=== PATIENT | female | born 1940 | race Caucasian/White ===

== ENCOUNTER 2022-04-18 17:58 | Observation (INO) | payer MEDICARE, OTHER ==
[2022-04-18] MEDS ORDERED: ONDANSETRON 4 MG/2 ML VIAL IVP STA (18:29)
[2022-04-18] MEDS ORDERED: SODIUM CHLORIDE 0.9% 1,000 ML IV STA (18:29)
--- NOTE | 2022-04-18 18:33 | ED ---
General Adult HPI - General Chief complaint: Abdominal Pain Stated complaint: altered Time Seen by Provider: 04/18/22 18:00 Source: patient, EMS Mode of arrival: EMS Limitations: altered mental status - History of Present Illness Initial comments: Dictation was produced using [employer] dictation software. please excuse any grammatical, word or spelling errors. Chief Complaint: 82-year-old female brought in by EMS for abdominal pain and episode of unresponsiveness. History of Present Illness: 82-year-old female brought in from home by EMS. Patient is 82-year-old female that lives with an 85-year-old female. Patient states she's been nauseated having some abdominal cramping. Patient denies any abdominal pain now. She has had some nausea but no vomiting. She feels like her symptoms be better if she did vomit. Denies any fever or constitutional symptoms. No sore throat or runny nose. This morning she appeared to be fine. Son at the bedside reports that patient sounded well on the phone. According to EMS patient took some of her roommates medications. There was no witnessed tonic-clonic activity. The patient had some sort of postictal state. The ROS documented in this emergency department record has been reviewed and confirmed by me. Those systems with pertinent positive or negative responses have been documented in the HPI. All other systems are other negative and/or noncontributory. PHYSICAL EXAM: General Impression: Alert and oriented x3, not in acute distress HEENT: Normocephalic atraumatic, extra-ocular movements intact, pupils equal and reactive to light bilaterally, mucous membranes moist. Cardiovascular: Heart regular rate and rhythm Chest: Able to complete full sentences, no retractions, no tachypnea Abdomen: abdomen soft, non-tender, non-distended, no organomegaly Musculoskeletal: Pulses present and equal in all extremities, no peripheral edema Motor: no focal deficits noted Neurological: CN II-XII grossly intact, no focal motor or sensory deficits noted Skin: Intact with no visualized rashes Psych: Normal affect and mood ED course: 82 y Old female presents emergency department for nausea, episode of unresponsiveness. Signs upon arrival are within acceptable limits. EKG shows a regular rhythm is regular visit. The eyes concerning for ectopic atrial bradycardia. Labs were evaluation obtained. CBC and coag panel unremarkable. Metabolic panel shows mild acidosis. His labs within acceptable limits. 4 panel viral PCR is negative. Pending urine study. Computed tomography scan of the brain shows no acute processes. Patient monitored in the emergency department for approximately 2 hours and 40 minutes. Reevaluated patient at 8:40 PM found to be in stable medical condition. Given patient's age and history of present illness concerned that patient syncopized or have an episode of seizure. She has not had any complications on emergency room. I do believe patient would benefit from observation admission for cardiac monitoring. Patient be admitted to [facility]. EKG interpretation: Ventricular rate 53, NC interval 169, cruciate 9, QTc 435. No NC prolongation, no QTC prolongation, no ST or T-wave changes noted. \ Overall, this EKG is unremarkable - Related Data Home Medications Medication Instructions Recorded Confirmed No Known Home Medications 04/18/22 04/18/22 Allergies Allergy/AdvReac Type Severity Reaction Status Date / Time No Known Allergies Allergy Verified 04/18/22 19:52 Review of Systems ROS Statement: Those systems with pertinent positive or pertinent negative responses have been documented in the HPI. ROS Other: All systems not noted in ROS Statement are negative. Past Medical History Additional Past Medical History / Comment(s): Arthritis Past Surgical History: Breast Surgery Additional Past Surgical History / Comment(s): Mastectomy with node removal. Smoking Status: Current every day smoker Past Alcohol Use History: None Reported Past Drug Use History: None Reported General Exam Limitations: altered mental status Course Vital Signs 04/18/22 04/18/22 18:02 18:42 Temperature 98.0 F Pulse Rate 56 L 56 L Respiratory 20 20 Rate Blood Pressure 128/74 128/74 O2 Sat by Pulse 95 100 Oximetry Medical Decision Making - Lab Data Result diagrams: 04/18/22 18:39 04/18/22 18:39 Lab Results 04/18/22 04/18/22 04/18/22 Range/Units 18:39 18:39 18:39 WBC 8.7 (3.8-10.6) k/uL RBC 3.41 L (3.80-5.40) m/uL Hgb 10.2 L (11.4-16.0) gm/dL Hct 32.3 L (34.0-46.0) % MCV 94.7 (80.0-100.0) fL MCH 30.1 (25.0-35.0) pg MCHC 31.8 (31.0-37.0) g/dL RDW 14.7 (11.5-15.5) % Plt Count 316 (150-450) k/uL MPV 7.5 Neutrophils % 79 % Lymphocytes % 15 % Monocytes % 4 % Eosinophils % 1 % Basophils % 0 % Neutrophils # 6.9 (1.3-7.7) k/uL Lymphocytes # 1.3 (1.0-4.8) k/uL Monocytes # 0.3 (0-1.0) k/uL Eosinophils # 0.1 (0-0.7) k/uL Basophils # 0.0 (0-0.2) k/uL Hypochromasia Slight PT 10.6 (9.0-12.0) sec INR 1.0 (<1.2) APTT 20.1 L (22.0-30.0) sec Sodium 133 L (137-145) mmol/L Potassium 3.9 (3.5-5.1) mmol/L Chloride 102 (98-107) mmol/L Carbon Dioxide 18 L (22-30) mmol/L Anion Gap 13 mmol/L BUN 15 (7-17) mg/dL Creatinine 0.71 (0.52-1.04) mg/dL Est GFR (CKD-EPI)AfAm >90 (>60 ml/min/1.73 sqM) Est GFR (CKD-EPI)NonAf 81 (>60 ml/min/1.73 sqM) Glucose 132 H (74-99) mg/dL Plasma Lactic Acid Jeffy (0.7-2.0) mmol/L Calcium 9.1 (8.4-10.2) mg/dL Magnesium 1.8 (1.6-2.3) mg/dL Total Bilirubin 0.4 (0.2-1.3) mg/dL AST 24 (14-36) U/L ALT 11 (4-34) U/L Alkaline Phosphatase 85 (38-126) U/L Total Protein 6.7 (6.3-8.2) g/dL Albumin 4.2 (3.5-5.0) g/dL Lipase 30 (23-300) U/L Influenza Type A (PCR) (Not Detectd) Influenza Type B (PCR) (Not Detectd) RSV (PCR) (Not Detectd) SARS-CoV-2 (PCR) (Not Detectd) 04/18/22 04/18/22 Range/Units 18:39 18:48 WBC (3.8-10.6) k/uL RBC (3.80-5.40) m/uL Hgb (11.4-16.0) gm/dL Hct (34.0-46.0) % MCV (80.0-100.0) fL MCH (25.0-35.0) pg MCHC (31.0-37.0) g/dL RDW (11.5-15.5) % Plt Count (150-450) k/uL MPV Neutrophils % % Lymphocytes % % Monocytes % % Eosinophils % % Basophils % % Neutrophils # (1.3-7.7) k/uL Lymphocytes # (1.0-4.8) k/uL Monocytes # (0-1.0) k/uL Eosinophils # (0-0.7) k/uL Basophils # (0-0.2) k/uL Hypochromasia PT (9.0-12.0) sec INR (<1.2) APTT (22.0-30.0) sec Sodium (137-145) mmol/L Potassium (3.5-5.1) mmol/L Chloride (98-107) mmol/L Carbon Dioxide (22-30) mmol/L Anion Gap mmol/L BUN (7-17) mg/dL Creatinine (0.52-1.04) mg/dL Est GFR (CKD-EPI)AfAm (>60 ml/min/1.73 sqM) Est GFR (CKD-EPI)NonAf (>60 ml/min/1.73 sqM) Glucose (74-99) mg/dL Plasma Lactic Acid Jeffy 1.4 (0.7-2.0) mmol/L Calcium (8.4-10.2) mg/dL Magnesium (1.6-2.3) mg/dL Total Bilirubin (0.2-1.3) mg/dL AST (14-36) U/L ALT (4-34) U/L Alkaline Phosphatase (38-126) U/L Total Protein (6.3-8.2) g/dL Albumin (3.5-5.0) g/dL Lipase (23-300) U/L Influenza Type A (PCR) Not Detected (Not Detectd) Influenza Type B (PCR) Not Detected (Not Detectd) RSV (PCR) Not Detected (Not Detectd) SARS-CoV-2 (PCR) Not Detected (Not Detectd) Disposition Clinical Impression: Syncope Disposition: ADMITTED IP TO THIS HOSP Condition: Fair Referrals: None,Stated [Primary Care Provider] - 1-2 days Decision Time: 20:39
[2022-04-18 18:57] LABS: Basophils % (A) 0 %; Eosinophils # (A) 0.1 k/uL (0-0.7); Eosinophils % (A) 1 %; HCT 32.3 % (34.0-46.0); HGB 10.2 gm/dL (11.4-16.0); Hypochromasia Slight; Lymphocytes # (A) 1.3 k/uL (1.0-4.8); Lymphocytes % (A) 15 %; MCH 30.1 pg (25.0-35.0); MCHC 31.8 g/dL (31.0-37.0); MCV 94.7 fL (80.0-100.0); Mean Platelet Volume 7.5; Monocytes # (A) 0.3 k/uL (0-1.0); Monocytes % (A) 4 %; Neutrophils # (A) 6.9 k/uL (1.3-7.7); Neutrophils % (A) 79 %; Platelet Count 316 k/uL (150-450); RBC 3.41 m/uL (3.80-5.40); RDW 14.7 % (11.5-15.5); WBC 8.7 k/uL (3.8-10.6)
[2022-04-18 18:59] LABS: ALT 11 U/L (4-34); AST 24 U/L (14-36); African American GFR (CKD) >90 (>60 ml/min/1.73 sqM); Albumin 4.2 g/dL (3.5-5.0); Alkaline Phosphatase 85 U/L (38-126); Anion Gap 13 mmol/L; Blood Urea Nitrogen 15 mg/dL (7-17); Calcium 9.1 mg/dL (8.4-10.2); Carbon Dioxide 18 mmol/L (22-30); Chloride 102 mmol/L (98-107); Glucose 132 mg/dL (74-99); Lipase 30 U/L (23-300); Magnesium 1.8 mg/dL (1.6-2.3); Non-African American GFR(CKD) 81 (>60 ml/min/1.73 sqM); Potassium 3.9 mmol/L (3.5-5.1); Sodium 133 mmol/L (137-145); Total Bilirubin 0.4 mg/dL (0.2-1.3); Total Protein 6.7 g/dL (6.3-8.2)
[2022-04-18 19:14] LABS: Prothrombin Time 10.6 sec (9.0-12.0)
[2022-04-18 19:17] LABS: Partial Thromboplastin Time 20.1 sec (22.0-30.0)
--- NOTE | 2022-04-18 19:38 | CT ---
EXAMINATION TYPE: CT brain wo con CT DLP: 1086.4 mGycm, Automated exposure control for dose reduction was used. DATE OF EXAM: 04/18/2022 7:17 PM COMPARISON: None. CLINICAL INDICATION:Female, 82 years old with history of episode of unresponsiveness, ams TECHNIQUE: Brain: Axial CT images of the brain were obtained with coronal and sagittal reformats created and rev iewed. Contrast used: None. Oral contrast used: None. FINDINGS: Brain: Extra-axial spaces: No abnormal extra-axial fluid collections. Ventricular system: Within normal limits Cerebral parenchyma: Hypodense remote lacunar injury in left basal ganglia. No acute intraparenchymal hemorrhage or mass effect. The leo-white junction is well differentiated. Scattered hypoattenuatin g areas are seen within the white matter. Cerebellum: Unremarkable. Mass effect: No evidence of midline shift. Intracranial vasculature: Atherosclerotic calcifications of the intracranial vessels. Soft tissues: Normal. Calvarium/osseous structures: No depressed skull fracture. Paranasal sinuses and mastoid air cells: Mild scattered paranasal sinus disease. Visualized orbits: Bilateral aphakia IMPRESSION: 1. no acute intracranial process. 2. 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
[2022-04-18] MEDS ORDERED: NALOXONE 0.4 MG/ML 1 ML VIAL IV PRN (20:37)
[2022-04-18] MEDS: SODIUM CHLORIDE 0.9% 1,000 ML IV SCH (21:02)
[2022-04-18 21:21] LABS: Appearance,Urine Cloudy (Clear); Bacteria,Urine Moderate /hpf; Bilirubin,Urine Negative (Negative); Blood,Urine Small (Negative); Color,Urine Yellow; Glucose,Urine (UA) Negative (Negative); Hyaline Casts,Urine 7 /lpf (0-2); Ketones,Urine Negative (Negative); Leukocyte Esterase,Urine Large (Negative); Mucus,Urine Occasional /hpf; Nitrite,Urine Positive (Negative); PH, Urine 5.5 (5.0-8.0); Protein,Urine 1+ (Negative); RBC,Urine 5 /hpf (0-5); Specific Gravity,Urine 1.016 (1.001-1.035); Urobilinogen,Urine <2.0 mg/dL (<2.0); WBC,Urine 83 /hpf (0-5)
[2022-04-19] MEDS ORDERED: ACETAMINOPHEN TAB 500 MG TAB PO PRN (02:19)
[2022-04-19] MEDS ORDERED: ONDANSETRON 4 MG/2 ML VIAL IVP PRN (02:24)
--- NOTE | 2022-04-19 02:24 | P.HPIM ---
History of Present Illness H&P Date: 04/18/22 Chief Complaint: AMS 82 year old female with no significant past medical history patient reports history of arthritis and takes tylenol for that. she lives with an 85 year old roommate. today EMS was notified as the patient was found noding off in a recliner and difficult to arouse, there was a suspicion that she might have taken accidentally some of her roommates Gabapentine. during my interview I did find one crushed capsule under the patient in her hospital bed, which turned out to be Gabapentine . no reports of falls or any seizure like activity . patient does not recall any symptoms prior or after the arrival of EMS. no report of chest pain or trouble breathing, or vomiting. patient admits to decrease PO intake and feeling nauseous , she deneis any urinary or bowel habit changes. denies any fever or chills. she does report suprapubic abd pain , denies any GI bleeding workup in the ED , showed acute anemia 10.2 down from her baseline of `[address] brain no acute pathology Review of Systems Pertinent positives as noted in HPI. All other systems were reviewed and are negative Past Medical History Additional Past Medical History / Comment(s): Arthritis Past Surgical History: Breast Surgery Additional Past Surgical History / Comment(s): Mastectomy with node removal. Smoking Status: Current every day smoker Past Alcohol Use History: None Reported Past Drug Use History: None Reported - Past Family History family Additional Family Medical History / Comment(s): no CAD or cancer Medications and Allergies Home Medications Medication Instructions Recorded Confirmed Type No Known Home Medications 04/18/22 04/18/22 History Allergies Allergy/AdvReac Type Severity Reaction Status Date / Time No Known Allergies Allergy Verified 04/18/22 19:52 Physical Exam Vitals: Vital Signs Temp Pulse Resp BP Pulse Ox 04/18/22 18:42 56 L 20 128/74 100 04/18/22 18:02 98.0 F 56 L 20 128/74 95 Intake and Output 04/18/22 04/18/22 04/18/22 06:59 14:59 22:59 Other: Weight 65.771 kg Constitutional: No acute distress, conversant, pleasant Eyes: Anicteric sclerae, moist conjunctiva, Pupils equal round reactive to light ENMT: NC/AT Oropharynx clear, no erythema, or exudates Neck: Supple, no masses, or JVD No carotid bruits No thyromegaly Lungs: Clear to auscultation Clear to percussion Normal respiratory effort, no accessory muscle use Cardiovascular: Heart regular in rate and rhythm, No murmurs, gallops, or rubs No peripheral edema Abdominal: Soft some discomfort to deep palpation of the suprapubic region , no guarding, rebound or rigidity Abdomen moving with respiration Normoactive bowel sounds No hepatomegaly, No splenomegaly No palpable mass No abdominal wall hernia noted Skin: Normal temperature, tone, texture, turgor No induration No subcutaneous nodules No rash, lesions No ulcers Extremities: No digital cyanosis No clubbing Pedal pulses intact and symmetrical Radial pulses intact and symmetrical No calf tenderness Psychiatric: Alert and oriented to person, place and time Appropriate affect fair judgement Neuro Muscles Strength 4/5 in all 4 extremities Sensation to light touch grossly present throughout Cranial nerves II-XII grossly intact No focal sensory deficits Lymphatics: no palpable cervical or supraclavicular , or inguinal lymph nodes Results CBC & Chem 7: 04/18/22 18:39 04/18/22 18:39 Labs: Abnormal Lab Results - Last 24 Hours (Table) 04/18/22 04/18/22 04/18/22 Range/Units 18:39 18:39 18:39 RBC 3.41 L (3.80-5.40) m/uL Hgb 10.2 L (11.4-16.0) gm/dL Hct 32.3 L (34.0-46.0) % APTT 20.1 L (22.0-30.0) sec Sodium 133 L (137-145) mmol/L Carbon Dioxide 18 L (22-30) mmol/L Glucose 132 H (74-99) mg/dL Assessment and Plan Assessment: acute metabolic encephalopathy , resolved UTI acute anemia , no reported GI bleeding plan follow up cultures rocephine 1 gm daily IVF hydration with normal saline Tylenol for pain or fever zofran for nausea vomiting security monitor monitor vital signs CT brain no acute pathology check occult blood test in stool PPI DVT PPX heparin sc tid full code
[2022-04-19] MEDS: PANTOPRAZOLE 40 MG TABLET PO SCH (10:23)
[2022-04-19] MEDS: HEPARIN SODIUM,PORCINE/PF 5,000 UNIT/0.5 ML SYRINGE SQ SCH ×2 (10:23→18:24)
--- NOTE | 2022-04-19 10:59 | P.CRDCN ---
History of Present Illness History of present illness: HISTORY OF PRESENTING ILLNESS This is a pleasant 82-year-old female past medical history significant for GERD, osteoarthritis, lower GI bleed, chronic tobacco use currently smokes less 1PPD. She does not follow with a restoration ecologist. We have been asked to see in consultation for syncope. Patient presents emergency department after a syncopal episode. She states that yesterday she was mowing the lawn, had symptoms of dizziness and lightheadedness. She states that she sat on her porch steps and states that she does not remember what happened. She does recall her roommate h elping her walk into the house, she states she does not remember what happened after this either. This episode was unwitnessed. She denies any chest pain or shortness of breath. Does endorse palpitations. She denies any abdominal pain, nausea, vomiting, diaphoresis. She denies taking any medication prior to this. She states she takes PRN Trion at home but did not take it that morning. She denies any history of CAD, NH, Stroke, Diabetes, hypertension, high cholesterol. She states she has been told about Atrial fibrillation before 5 years ago at [facility], however, no records of patient being here. In there ER there was concern for patient taking her roommates medications, possibly gabapentin however patient denies. She states she smokes <1PPD. Denies alcohol or illicit drug use. DIAGNOSTICS * EKG reveals sinus bradycardia, heart rate 53 * Telemetry tracings indicate sinus mechanism with heart rates in the 5570s * Brain CT reported no acute intracranial process, hypodense from the lacunar injury in the left basal ganglia. No hemorrhage or mass effect. Nonspecific white matter changes likely secondary to chronic microangiopathy * Laboratory reviewed, hemoglobin 10.2, sodium 133, potassium 3.9, BUN 15, serum creatinine 0.7, magnesium 1.8, liver enzymes within normal limits, UA positive for UTI, influenza negative, RSV negative, COVID-19 19 negative * Current home medications: Patient states she takes Trion PRN for pain REVIEW OF SYSTEMS At the time of my exam: CONSTITUTIONAL: Denies fever or chills. +possible syncope CARDIOVASCULAR: Denies chest pain, shortness of breath, orthopnea, PND or palpitations. RESPIRATORY: Denies cough. GASTROINTESTINAL: Denies abdominal pain, diarrhea, constipation, nausea or vomiting. MUSCULOSKELETAL: Denies myalgias. NEUROLOGIC: Denies numbness, tingling, headacbe or weakness. ENDOCRINE: Denies fatigue, weight change, polydipsia or polyurina. GENITOURINARY: Denies burning, hematuria or urgency with micturation. HEMATOLOGIC: Denies history of anemia or bleeding. PHYSICAL EXAMINATION Blood pressure 104/65, heart 68, afebrile, saturation 92% on room air CONSTITUTIONAL: No apparent distress. HEENT: Head is normocephalic. Pupils are equal, round. Sclerae anicteric. Mucous membranes of the mouth are moist. No JVD. No carotid bruit. CHEST EXAMINATION: Lungs are clear to auscultation. No chest wall tenderness is noted on palpation or with deep breathing. HEART EXAMINATION: Regular rate and rhythm. S1, S2 heard. No murmurs, gallops or rub. ABDOMEN: Soft, nontender. Positive bowel sounds. EXTREMITIES: 2+ peripheral pulses, no lower extremity edema and no calf tenderness. NEUROLOGIC EXAMINATION: Patient is awake, alert and oriented x3. ASSESSMENT Possible syncopal episode, unwitnessed rule out cardiac cause Sinus bradycardia Question of patient taking roommates gabapentin, patient denies Remote lacunar injury within the left basal ganglia reported on CT brain Chronic nicotine dependence History of osteoarthritis History of lower GI bleed GERD PLAN Obtain 2D echocardiogram and doppler study to assess cardiac structure and function Monitor on Telemetry Check TSH Further recommendation based on clinical course Nurse practitioner note has been reviewed by physician. Signing provider agrees with the documented findings, assessment, and plan of care. Past Medical History Additional Past Medical History / Comment(s): Arthritis Past Surgical History: Breast Surgery Additional Past Surgical History / Comment(s): Mastectomy with node removal. Smoking Status: Current every day smoker Past Alcohol Use History: None Reported Past Drug Use History: None Reported - Past Family History family Additional Family Medical History / Comment(s): no CAD or cancer Mother Family Medical History: Osteoarthritis (OA) Additional Family Medical History / Comment(s): Rheumatic fever Father Family Medical History: No Reported History Medications and Allergies Home Medications Medication Instructions Recorded Confirmed Type No Known Home Medications 04/18/22 04/18/22 History Allergies Allergy/AdvReac Type Severity Reaction Status Date / Time No Known Allergies Allergy Verified 04/18/22 19:52 Physical Exam Vitals: Vital Signs Temp Pulse Resp BP Pulse Ox 04/19/22 06:55 64 14 101/55 94 L 04/19/22 05:15 68 14 97 04/19/22 01:04 62 12 119/96 95 04/18/22 23:04 61 14 119/96 98 04/18/22 22:00 72 16 134/68 98 04/18/22 21:00 98 F 86 16 134/68 98 04/18/22 20:48 64 20 138/74 99 04/18/22 18:42 56 L 20 128/74 100 04/18/22 18:02 98.0 F 56 L 20 128/74 95 Intake and Output 04/18/22 04/19/22 04/19/22 22:59 06:59 14:59 Other: Weight 65.771 kg Results 04/18/22 18:39 04/18/22 18:39 Cardiac Enzymes 04/18/22 Range/Units 18:39 AST 24 (14-36) U/L Coagulation 04/18/22 Range/Units 18:39 PT 10.6 (9.0-12.0) sec APTT 20.1 L (22.0-30.0) sec CBC 04/18/22 Range/Units 18:39 WBC 8.7 (3.8-10.6) k/uL RBC 3.41 L (3.80-5.40) m/uL Hgb 10.2 L (11.4-16.0) gm/dL Hct 32.3 L (34.0-46.0) % Plt Count 316 (150-450) k/uL Comprehensive Metabolic Panel 04/18/22 Range/Units 18:39 Sodium 133 L (137-145) mmol/L Potassium 3.9 (3.5-5.1) mmol/L Chloride 102 (98-107) mmol/L Carbon Dioxide 18 L (22-30) mmol/L BUN 15 (7-17) mg/dL Creatinine 0.71 (0.52-1.04) mg/dL Glucose 132 H (74-99) mg/dL Calcium 9.1 (8.4-10.2) mg/dL AST 24 (14-36) U/L ALT 11 (4-34) U/L Alkaline Phosphatase 85 (38-126) U/L Total Protein 6.7 (6.3-8.2) g/dL Albumin 4.2 (3.5-5.0) g/dL Current Medications Generic Name Dose Route Start Last Admin Trade Name Jose PRN Reason Stop Dose Admin Acetaminophen 1,000 mg 04/19/22 02:19 Acetaminophen Tab 500 Mg Tab PO Q6HR PRN Fever and/ or Pain Heparin Sodium (Porcine) 5,000 unit 04/19/22 08:00 Heparin Sodium,Porcine/Pf 5,000 Unit/0.5 Ml Syringe SQ Q8HR BRIA Sodium Chloride 1,000 mls @ 75 mls/hr 04/18/22 20:45 04/18/22 21:02 Saline 0.9% IV 20 mls/hr .[id number] BRIA Administration Ceftriaxone Sodium 1 gm/ 50 mls @ 100 mls/hr 04/19/22 02:12 04/19/22 05:12 Sodium Chloride IVPB 100 mls/hr Q24H BRIA Administration Protocol Naloxone HCl 0.2 mg 04/18/22 20:37 Naloxone 0.4 Mg/Ml 1 Ml Vial IV Q2M PRN Opioid Reversal Ondansetron HCl 4 mg 04/19/22 02:24 Ondansetron 4 Mg/2 Ml Vial IVP Q6HR PRN Nausea And Vomiting Pantoprazole Sodium 40 mg 04/19/22 07:30 Pantoprazole 40 Mg Tablet PO [id number] BRIA Intake and Output 04/18/22 04/19/22 04/19/22 22:59 06:59 14:59 Other: Weight 65.771 kg 04/18/22 18:39 04/18/22 18:39
--- NOTE | 2022-04-19 11:14 | CA ---
Transthoracic Echo Report Name: Minda Caraballo Age: 82 Gender: F : 1940 Exam Date: 04/19/2022 09:41 Exam Location: [place] [facility] Ht (in): 66 Wt (lb): 145 Ordering Physician: Rhonda Fofana Attending/Referring Phys: Hospital Receptionist Jazmin Ball RDCS Procedure CPT: Indications: rule out cardiac cause of syncope Cardiac Hx: Technical Quality: Fair Contrast 1: Total Dose (mL): Contrast 2: Total Dose (mL): MEASUREMENTS (Male / Female) Normal Values 2D ECHO LV Diastolic Diameter PLAX 3.8 cm 4.2 - 5.9 / 3.9 - 5.3 cm LV Systolic Diameter PLAX 2.9 cm IVS Diastolic Thickness 1.0 cm 0.6 - 1.0 / 0.6 - 0.9 cm LVPW Diastolic Thickness 1.0 cm 0.6 - 1.0 / 0.6 - 0.9 cm LV Relative Wall Thickness 0.5 RV Internal Dim ED PLAX 3.6 cm LA Systolic Diameter LX 3.1 cm 3.0 - 4.0 / 2.7 - 3.8 cm M-MODE Aortic Root Diameter MM 2.9 cm MV E Point Septal Separation 0.3 cm AV Cusp Separation MM 2.0 cm DOPPLER AV Peak Velocity 112.2 cm/s AV Peak Gradient 5.0 mmHg AI Peak Velocity 217.8 cm/s AI Peak Gradient 19.0 mmHg AI Pressure Half Time 542.0 ms MV Area PHT 3.5 cm??? Mitral E Point Velocity 78.8 cm/s Mitral A Point Velocity 97.1 cm/s Mitral E to A Ratio 0.8 MV Deceleration Time 214.2 ms MV E' Velocity 6.2 cm/s Mitral E to MV E' Ratio 12.8 TR Peak Velocity 269.9 cm/s TR Peak Gradient 29.1 mmHg Right Ventricular Systolic Press 32.5 mmHg FINDINGS Left Ventricle Left ventricular ejection fraction is estimated at 60-65 %. Left ventricular cavity size normal. Left ventricular wall thickness normal. Right Ventricle Mild right ventricular dilatation. Mild pulmonary hypertension. Right Atrium Normal right atrial size. Left Atrium Normal left atrial size. No evidence for an atrial septal defect. Mitral Valve Structurally normal mitral valve. No mitral stenosis, regurgitation or prolapse. Aortic Valve Trileaflet aortic valve. Focal thickening of the aortic valve cusps. Mild aortic regurgitation. Tricuspid Valve Mild tricuspid regurgitation. Pulmonic Valve Trace pulmonic regurgitation. Pericardium Normal pericardium. Aorta Normal size aortic root and proximal ascending aorta. CONCLUSIONS Normal LV systolic function Mild aortic regurgitation Previewed by: Dr. Rashaad Hernandez MD (Electronically Signed) Final Date: 19 April 2022 11:13
[2022-04-19] MEDS ORDERED: MORPHINE SULFATE 2 MG/ML SYRINGE IVP PRN (13:15)
[2022-04-19] MEDS: traMADol 50 MG TAB PO PRN (15:51)
[2022-04-19] MEDS ORDERED: RX INFO: IV CONTRAST WAS GIVEN 1 EACH MISC MISCELLANE PRN (16:10)
--- NOTE | 2022-04-19 16:51 | P.PN ---
Subjective Patient seen and examined at bedside. Patient was concerned about some chest pain that radiated to the back today. Troponin ordered cardiology following d- dimer ordered and was positive CT chest and ultrasound of lower extremities will be ordered Objective - Vital Signs Vital signs: Vital Signs Temp 98.1 F 04/19/22 14:42 Pulse 57 L 04/19/22 14:42 Resp 18 04/19/22 14:42 BP 103/61 04/19/22 14:42 Pulse Ox 99 04/19/22 14:42 FiO2 Intake & Output 04/18/22 04/19/22 04/19/22 18:59 06:59 18:59 Intake Total 100 Balance 100 Weight 65.771 kg 65.771 kg Intake: Oral 100 Other: Voiding Method Toilet # Voids 1 - Exam General: [non toxic], [no distress], [appears at stated age] Derm: [warm], [dry] Head: [atraumatic], [normocephalic], [symmetric] Eyes: [EOMI], [no lid lag], [anicteric sclera] Mouth: [no lip lesion], [mucus membranes moist] Cardiovascular: [S1S2 reg], [no murmur], [positive posterior tibial pulse bilateral], Lungs: [CTA bilateral], [no rhonchi, no rales] , [no accessory muscle use] Abdominal: [soft], [ nontender to palpation], [no guarding], [no appreciable organomegaly] Ext: [no gross muscle atrophy], [no edema], [no contractures] Neuro: [ CN II-XI grossly intact], [no focal neuro deficits] Psych: [Alert], [oriented], [appropriate affect] - Labs CBC & Chem 7: 04/18/22 18:39 04/18/22 18:39 Labs: Abnormal Lab Results - Last 24 Hours (Table) 04/18/22 04/18/22 04/18/22 Range/Units 18:39 18:39 18:39 RBC 3.41 L (3.80-5.40) m/uL Hgb 10.2 L (11.4-16.0) gm/dL Hct 32.3 L (34.0-46.0) % APTT 20.1 L (22.0-30.0) sec D-Dimer (<0.60) mg/L FEU Sodium 133 L (137-145) mmol/L Carbon Dioxide 18 L (22-30) mmol/L Glucose 132 H (74-99) mg/dL Urine Appearance (Clear) Urine Protein (Negative) Urine Blood (Negative) Urine Nitrite (Negative) Ur Leukocyte Esterase (Negative) Urine WBC (0-5) /hpf Urine WBC Clumps (None) /hpf Urine Bacteria (None) /hpf Hyaline Casts (0-2) /lpf Urine Mucus (None) /hpf 04/18/22 04/19/22 Range/Units 20:48 14:59 RBC (3.80-5.40) m/uL Hgb (11.4-16.0) gm/dL Hct (34.0-46.0) % APTT (22.0-30.0) sec D-Dimer 3.55 H (<0.60) mg/L FEU Sodium (137-145) mmol/L Carbon Dioxide (22-30) mmol/L Glucose (74-99) mg/dL Urine Appearance Cloudy H (Clear) Urine Protein 1+ H (Negative) Urine Blood Small H (Negative) Urine Nitrite Positive H (Negative) Ur Leukocyte Esterase Large H (Negative) Urine WBC 83 H (0-5) /hpf Urine WBC Clumps Few H (None) /hpf Urine Bacteria Moderate H (None) /hpf Hyaline Casts 7 H (0-2) /lpf Urine Mucus Occasional H (None) /hpf Microbiology - Last 24 Hours (Table) 04/18/22 20:48 Urine Culture - Preliminary Urine,Catheterized Assessment and Plan Plan: Chest pain with positive d-dimer Stat CT of the chest and lower extremity Dopplers ordered Morphine when necessary pain Oxygen as required ASA and statin initiated check echo check lipid acute metabolic encephalopathy , resolved likely due to UTI Continue IV antibiotics await urine culture acute anemia , no reported GI bleeding Trend CBC check iron studies DVT PPX heparin sc tid full code Disposition home with home care Dissipated discharge within 1-2 days
[2022-04-19] MEDS: ASPIRIN 81 MG PO SCH (18:23)
[2022-04-19] MEDS: ATORVASTATIN 40 MG TAB PO SCH (18:23)
[2022-04-19] MEDS: SODIUM CHLORIDE 0.9% 1,000 ML IV SCH (18:24)
--- NOTE | 2022-04-19 18:32 | CT ---
EXAMINATION TYPE: CT angio chest CT DLP: 229.5 mGycm, Automated exposure control for dose reduction was used. DATE OF EXAM: 04/19/2022 5:48 PM COMPARISON: None CLINICAL INDICATION:Female, 82 years old with history of elevated D-dimer TECHNIQUE/CONTRAST: CTA scan of the thorax is performed with IV Contrast, patient injected with 100cc mL of Isovue 370, p ulmonary embolism protocol. MIP images are created and reviewed. FINDINGS: Pulmonary Artery: There is no evidence for a filling defect within the pulmonary vasculature to sugge st acute pulmonary embolism. The pulmonary artery is of normal size. No reflux of contrast into the IVC. Lungs/Pleura: No evidence of focal consolidation, pleural effusion or pneumothorax. No concerning pul monary nodule. Moderate centrilobular emphysematous changes. Bibasilar subsegmental atelectasis. Righ t lower lobe and lateral left upper lobe honeycombing. Multifocal subpleural reticular opacities. Airway: Large airways are patent. Bibasilar bronchiectasis. Heart: Mildly prominent size. Trace pericardial fluid. Coronary arterial calcifications. Vasculature: No evidence of aortic aneurysm. Mediastinum: No gross evidence of adenopathy. Musculoskeletal: No acute osseous abnormalities. Moderate degenerative disc disease. Soft Tissues: No axillary adenopathy. Bilateral breast prosthesis. Lower neck: No significant findings. Upper Abdomen: Likely 5.5 cm left renal cyst. Metallic clip at the GE junction. Postcholecystectomy c hanges. IMPRESSION: 1. No evidence of pulmonary embolism. 2. Moderate centrilobular emphysematous changes with regions of honeycombing as described above consi stent with interstitial lung disease.
--- NOTE | 2022-04-19 18:33 | US ---
EXAMINATION TYPE: US venous doppler duplex LE DATE OF EXAM: 04/19/2022 4:15 PM COMPARISON: NONE CLINICAL HISTORY: elevated D-dimer. Elevated d-dimer. Not hx of DVT, not on blood thinners SIDE PERFORMED: Bilateral TECHNIQUE: The lower extremity deep venous system is examined utilizing real time linear array sonog dina with graded compression, doppler sonography and color-flow sonography. VESSELS IMAGED: Common Femoral Vein Deep Femoral Vein Greater Saphenous Vein * Femoral Vein Popliteal Vein Small Saphenous Vein * Proximal Calf Veins (* superficial vessels) Grayscale, color doppler, spectral doppler imaging performed of the deep veins of the lower extremiti es. There is normal flow, compressibility, vascular waveforms. Right Leg: Negative for DVT Left Leg: Negative for DVT IMPRESSION: No evidence for deep venous thrombosis of the bilateral lower extremities.
[2022-04-20] MEDS: traMADol 50 MG TAB PO PRN (00:12)
[2022-04-20] MEDS: HEPARIN SODIUM,PORCINE/PF 5,000 UNIT/0.5 ML SYRINGE SQ SCH ×2 (00:12→09:15)
[2022-04-20 01:43] LABS: % Iron Saturation 11.56 (12.00-45.00); Chol/HDL Ratio 3.14 Ratio; Iron 34 ug/dL (50-170); LDL Cholesterol,Calculated 86.1 mg/dL (0.0-131.0); Total Iron Binding Capacity 294 ug/dL (228-460); VLDL Calculation 18.06 mg/dL (5.00-40.00)
[2022-04-20] MEDS: SODIUM CHLORIDE 0.9% 1,000 ML IV SCH (02:48)
[2022-04-20] MEDS ORDERED: FERROUS SULFATE 325 MG TAB PO SCH (09:15)
[2022-04-20] MEDS: ASPIRIN 81 MG PO SCH (09:15)
[2022-04-20] MEDS ORDERED: CHOLECALCIFEROL 25 MCG (1000 IU) TABLET PO SCH (09:15)
[2022-04-20] MEDS: PANTOPRAZOLE 40 MG TABLET PO SCH (09:15)
[2022-04-20] MEDS: ATORVASTATIN 40 MG TAB PO SCH (09:15)
[2022-04-20 09:20] VITALS: BP 92/51; PULSE 57; RESP 16; TEMP 98.2
--- NOTE | 2022-04-20 09:42 | P.PN ---
Subjective This is a pleasant 82-year-old female past medical history significant for GERD, osteoarthritis, lower GI bleed, chronic tobacco use currently smokes less 1PPD. She does not follow with a litigation attorney. We have been asked to see in consultation for syncope. Patient presents emergency department after a syncopal episode. She states that yesterday she was mowing the lawn, had symptoms of dizziness and lightheadedness. She states that she sat on her porch steps and states that she does not remember what happened. She does recall her roommate h elping her walk into the house, she states she does not remember what happened after this either. This episode was unwitnessed. She denies any chest pain or shortness of breath. Does endorse palpitations. She denies any abdominal pain, nausea, vomiting, diaphoresis. She denies taking any medication prior to this. She states she takes PRN [place] at home but did not take it that morning. She denies any history of CAD, PR, Stroke, Diabetes, hypertension, high cholesterol. She states she has been told about Atrial fibrillation before 5 years ago at [facility], however, no records of patient being here. In there ER there was concern for patient taking her roommates medications, possibly gabapentin however patient denies.She states she smokes <1PPD. Denies alcohol or illicit drug use. DIAGNOSTICS * EKG reveals sinus bradycardia, heart rate 53 * Brain CT reported no acute intracranial process, hypodense from the lacunar injury in the left basal ganglia. No hemorrhage or mass effect. Nonspecific white matter changes likely secondary to chronic microangiopathy 04/20 Patient seen and examined at bedside, distress. She denies any chest pain, shortness of breath, lightheadedness, dizziness. Telemetry reviewed. Patient maintained sinus mechanism with heart rates 5560s. D-dimer was elevated yesterday patient underwent CTA which revealed no evidence of pulmonary embolism, interstitial lung disease reported. Venous Dopplers were negative for DVT bilaterally. Echocardiogram revealed EF of 6065 percent, no significant wall abnormalities, mild aortic regurgitation. TSH was within normal limits PHYSICAL EXAMINATION Blood pressure 92/51, heart rate 57, afebrile, saturations 96% on room air CONSTITUTIONAL: No apparent distress. HEENT: Neck supple No JVD. CHEST EXAMINATION: Lungs are clear to auscultation. No chest wall tenderness is noted on palpation or with deep breathing. HEART EXAMINATION: Regular rate and rhythm. S1, S2 heard. No murmurs, gallops or rub. ABDOMEN: Soft, nontender. Positive bowel sounds. EXTREMITIES: 2+ peripheral pulses, no lower extremity edema and no calf tenderness. NEUROLOGIC EXAMINATION: Patient is awake, alert and oriented x3. 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 Recommend follow up with Dr. Hernandez outpatient and outpatient stress test will be considered. Nurse practitioner note has been reviewed by physician. Signing provider agrees with the documented findings, assessment, and plan of care. Objective - Vital Signs Vital signs: Vital Signs Temp 98.2 F 04/20/22 07:00 Pulse 57 L 04/20/22 07:00 Resp 16 04/20/22 07:00 BP 92/51 04/20/22 07:00 Pulse Ox 96 04/20/22 07:00 FiO2 Intake & Output 04/19/22 04/20/22 04/20/22 18:59 06:59 18:59 Intake Total 100 Balance 100 Weight 65.771 kg Intake: Oral 100 Other: Voiding Method Toilet Toilet # Voids 1 1 # Bowel Movements 0 - Labs CBC & Chem 7: 04/18/22 18:39 04/18/22 18:39 Labs: Abnormal Lab Results - Last 24 Hours (Table) 04/19/22 04/19/22 Range/Units 14:59 17:15 D-Dimer 3.55 H (<0.60) mg/L FEU Iron 34 L (50-170) ug/dL % Saturation 11.56 L (12.00-45.00) Vitamin D 25-Hydroxy 20.3 L (30.0-100.0) ng/mL
--- NOTE | 2022-04-20 09:43 | P.DS ---
Providers Date of admission: 04/18/22 20:37 Attending physician: Sully Guajardo MD Consults: 04/18/22 20:37 Consult Physician Routine Consulting Provider: Robel Crooks Consult Reason/Comments: syncope Do you want consulting provider notified?: Yes Primary care physician: Stated None Assessment: Admission diagnosis: 1. Syncope 2. delirium Discharge diagnoses: 1. Delirium resolved 2. Acute UTI improved 3. Iron deficiency anemia treated 4. Vitamin D deficiency treated 5. GERD 6. Syncope resolved Hospital course: 82 year old female with no significant past medical history patient reports history of arthritis and takes tylenol for that. she lives with an 85 year old roommate. today EMS was notified as the patient was found nodding off in a recliner and difficult to arouse, there was a suspicion that she might have taken accidentally some of her roommates Gabapentin. During initial interview one crushed capsule under the patient in her hospital bed, which turned out to be Gabapentin No reports of falls or any seizure like activity . patient does not recall any symptoms prior or after the arrival of EMS. No report of chest pain or trouble breathing, or vomiting. Patiented admits to decrease PO intake and feeling nauseous, she denied any urinary or bowel habit changes. Denied any fever or chills. She did report suprapubic abd pain , denies any GI bleeding workup in the ED , showed acute anemia 10.2 down from her baseline of `[address] brain revealed a remote lacunar injury within the left basal ganglia which was old. Patient was initiated on aspirin and statin. Patient did not have any focal neurological deficits. Clinical course: Syncope likely related to patient taking gabapentin from her roommate Chest pain with positive d-dimer CTA of the chest was negative for PE and bilateral lower extremity ultrasounds were negative for DVT ASA and statin initiated Echocardiogram revealed an ejection fraction of 60-65% Cardiology did follow the patient during hospital stay and will follow-up with her in 2 weeks as an outpatient acute metabolic encephalopathy , resolved likely due to UTI IV changed to oral cipro x 7 days Iron deficiency anemia, no reported GI bleeding Oral iron therapy prescribed Vitamin D deficiency Vitamin D replacement prescribed GERD Continue PPI Disposition: Home with home care Acitivity: as tolerated Diet: Cardiac Condtion Fair Patient Condition at Discharge: Fair Plan - Discharge Summary Discharge Rx Participant: Yes New Discharge Prescriptions: New Aspirin 81 mg PO DAILY #30 tab Atorvastatin [Lipitor] 40 mg PO DAILY #30 tab Ciprofloxacin HCl [Cipro] 500 mg PO BID #14 tab Ferrous Sulfate [Iron (65 MG Elemental)] 325 mg PO BID-W/MEALS #60 tab Cholecalciferol [Vitamin D3 (25 Mcg = 1000 Iu)] 50 mcg PO DAILY #30 tab Pantoprazole [Protonix] 40 mg PO AC-BRKFST #30 tab Discharge Medication List Aspirin 81 mg PO DAILY #30 tab 04/20/22 [Rx] Atorvastatin [Lipitor] 40 mg PO DAILY #30 tab 04/20/22 [Rx] Cholecalciferol [Vitamin D3 (25 Mcg = 1000 Iu)] 50 mcg PO DAILY #30 tab 04/20/22 [Rx] Ciprofloxacin HCl [Cipro] 500 mg PO BID #14 tab 04/20/22 [Rx] Ferrous Sulfate [Iron (65 MG Elemental)] 325 mg PO BID-W/MEALS #60 tab 04/20/22 [Rx] Pantoprazole [Protonix] 40 mg PO AC-BRKFST #30 tab 04/20/22 [Rx] Follow up Appointment(s)/Referral(s): None,Stated [Primary Care Provider] - 1-2 days Rashaad Hernandez MD [STAFF PHYSICIAN] - 2 Weeks Patient Instructions/Handouts: Urinary Tract Infection in Women (DC), Iron Deficiency Anemia (GEN), GERD (Gastroesophageal Reflux Disease) (GEN), Acute Delirium (GEN), Vitamin D Deficiency (GEN) Activity/Diet/Wound Care/Special Instructions: Please follow up with cardiology in the office in 2 weeks. Discharge Disposition: HOME WITH HOME HEALTH SERVICES
[2022-04-20 10:54] LABS: Basophils # (A) 0.04 X 10*3/uL (0.00-0.10); Basophils % (A) 0.6 %; Eosinophils # (A) 0.23 X 10*3/uL (0.04-0.35); Eosinophils % (A) 3.5 %; HGB 8.2 g/dL (12.0-15.0); Immature Grans, Automated 0.3 %; Lymphocytes % (A) 31.8 %; MCH 29.7 pg (27.0-32.0); MCHC 31.5 g/dL (32.0-37.0); MCV 94.2 fL (80.0-97.0); Mean Platelet Volume 9.9 fL (9.5-12.2); Monocytes # (A) 0.46 X 10*3/uL (0.20-1.00); NRBC Per 100 WBC 0 /100 WBCS (0.0-0.0); Neutrophils # (A) 3.75 X 10*3/uL (1.80-7.70); Neutrophils % (A) 56.8 %; Platelet Count 271 X 10*3/uL (140-440); RBC 2.76 X 10*6/uL (4.10-5.20); RDW 14.8 % (11.5-14.5)
[2022-04-20 11:12] LABS: ALT 9 U/L (8-44); AST 12 U/L (13-35); African American GFR (CKD) 80.1 (60.0-200.0); Albumin 3.3 g/dL (3.8-4.9); Albumin/Globulin Ratio 1.65 (1.60-3.17); Alkaline Phosphatase 67 U/L (41-126); Blood Urea Nitrogen 16.4 mg/dL (9.0-27.0); Calcium 8.5 mg/dL (8.7-10.3); Carbon Dioxide 22.9 mmol/L (20.0-27.5); Chloride 107 mmol/L (96-109); Glucose 99 mg/dL (70-110); Magnesium 1.9 mg/dL (1.5-2.4); Non-African American GFR(CKD) 69.1 (60.0-200.0); Potassium 4.3 mmol/L (3.5-5.5); Sodium 138 mmol/L (135-145); Total Bilirubin <0.15 mg/dL (0.30-1.20); Total Protein 5.3 g/dL (6.2-8.2)
[2022-04-21] MEDS ORDERED: CIPROFLOXACIN HCL 500 MG TAB PO SCH (09:00)
== END 2022-04-20 12:07 | disposition home health service (06) ==
LOC: EC 17:58 → 6NMEDSUR 20:37
PROVIDERS: ADMIT Internal Medicine; ATTEND Internal Medicine
DX: R55 Syncope and collapse (principal); N39.0 Urinary tract infection, site not specified; G93.41 Metabolic encephalopathy; E87.2 Acidosis; D50.9 Iron deficiency anemia, unspecified; E55.9 Vitamin D deficiency, unspecified; I67.2 Cerebral atherosclerosis; I27.20 Pulmonary hypertension, unspecified; R07.9 Chest pain, unspecified; R00.1 Bradycardia, unspecified; I08.2 Rheumatic disorders of both aortic and tricuspid valves; F17.200 Nicotine dependence, unspecified, uncomplicated; K21.9 Gastro-esophageal reflux disease without esophagitis; J84.9 Interstitial pulmonary disease, unspecified; H27.03 Aphakia, bilateral; J98.11 Atelectasis; J47.9 Bronchiectasis, uncomplicated; I25.10 Atherosclerotic heart disease of native coronary artery without angina pectoris; Z90.10 Acquired absence of unspecified breast and nipple; Z20.822 Contact with and (suspected) exposure to COVID-19
CPT/HCPCS: 96366; 96372 ×2; 96375 ×2; 96361; 96365; 99285; 36415; 93005; 93306; 85379; 80061; 80053 ×2; 84443; 82607; 82746; 83540; 83550; 83605; 83690; 83735 ×2; 84484; 85025 ×2; 85610; 85730; 81001; 82306; 87086; 87077; 87186; 87636; 93970; 70450; 71275; G0378 ×3; J2405; J0696 ×2; J2270; Q9967; J1644 ×2

== ENCOUNTER 2022-06-17 18:01 | Emergency (ER) | payer MEDICARE ==
[2022-06-17 18:08] VITALS: BP 169/81; PULSE 85; RESP 16; TEMP 98.2
[2022-06-17] MEDS ORDERED: ACETAMINOPHEN TAB 500 MG TAB PO STA (18:35)
[2022-06-17] MEDS ORDERED: LIDOCAINE 1% INJ 10MG/ML (30 ML VIAL-PF) SQ ONE (18:35)
--- NOTE | 2022-06-17 18:45 | ED ---
Fall HPI - General Chief Complaint: Fall Stated Complaint: fall Time Seen by Provider: 06/17/22 18:21 Source: EMS Mode of arrival: EMS - History of Present Illness Initial Comments: This is a pleasant 82-year-old female presents to emergency after sustaining a mechanical fall at home. Patient states she slipped on some ice and fell, struck her nasal area, right facial area, and right knee. Patient also abraded the dorsum of right hand and right elbow. Patient complaining of pain to the lower lip area and right knee area. Patient denying any headache or neck pain. Patient did not lose consciousness. Patient not on blood thinners. Up-to-date on tetanus. Patient did sustain a laceration to her upper lip. Denies any dental injury. No numbness or tingling. No preceding symptomology. No gait disturbance. Patient has been up and walking since this injury however gait is antalgic due to the right knee pain. Denies any paresthesias. No vision or hearing disturbance. No slurred speech. No headache, no fever or chills, no changes in vision or hearing, no sore throat or difficulty with speech, no neck pain, no chest pain or shortness of breath, no abdominal pain, no nausea or vomiting, no changes in urination or bowel movements, no numbness or tingling,, no skin rashes or lesions. Past medical, surgical, social, and family history reviewed. Complaint: fall - Related Data Previous Rx's Medication Instructions Recorded Aspirin 81 mg PO DAILY #30 tab 04/20/22 Atorvastatin [Lipitor] 40 mg PO DAILY #30 tab 04/20/22 Cholecalciferol [Vitamin D3 (25 50 mcg PO DAILY #30 tab 04/20/22 Mcg = 1000 Iu)] Ciprofloxacin HCl [Cipro] 500 mg PO BID #14 tab 04/20/22 Ferrous Sulfate [Iron (65 MG 325 mg PO BID-W/MEALS #60 tab 04/20/22 Elemental)] Pantoprazole [Protonix] 40 mg PO AC-BRKFST #30 tab 04/20/22 Allergies Allergy/AdvReac Type Severity Reaction Status Date / Time No Known Allergies Allergy Verified 04/18/22 19:52 Review of Systems ROS Statement: Those systems with pertinent positive or pertinent negative responses have been documented in the HPI. ROS Other: All systems not noted in ROS Statement are negative. Past Medical History Past Medical History: Dementia Additional Past Medical History / Comment(s): Arthritis, early onset dementia History of Any Multi-Drug Resistant Organisms: None Reported Past Surgical History: Breast Surgery Additional Past Surgical History / Comment(s): Mastectomy with node removal. Past Anesthesia/Blood Transfusion Reactions: No Reported Reaction Past Psychological History: No Psychological Hx Reported Smoking Status: Current every day smoker Past Alcohol Use History: None Reported Past Drug Use History: None Reported - Past Family History Mother Family Medical History: Osteoarthritis (OA) Additional Family Medical History / Comment(s): Rheumatic fever Father Family Medical History: No Reported History family Additional Family Medical History / Comment(s): no CAD or cancer General Exam - General Exam Comments Initial Comments: This is a thin but relatively healthy-appearing 82-year-old female in no acute distress. Cranial nerves II through XII are intact. Limitations: no limitations General appearance: alert, in no apparent distress Head exam: Present: other (Patient has mild erythema consistent with a superficial contusion to the right frontal area. Superficial abrasion to the nasal bridge area and right infraorbital area. No significant tenderness. Patient has a lower lip laceration which does not cross the vermilion border. No dental injury. ). Absent: atraumatic (NCAT otherwise) Eye exam: Present: normal appearance, PERRL, EOMI. Absent: scleral icterus, conjunctival injection, periorbital swelling ENT exam: Present: normal exam, mucous membranes moist, TM's normal bilaterally, normal external ear exam. Absent: mucous membranes dry Expanded Ear exam: Present: normal external inspection. Absent: auricular trauma Mouth exam: Present: tongue normal, laceration (Lower lip laceration). Absent: drooling, trismus, muffled voice, tongue elevation Teeth exam: Present: normal inspection Throat exam: normal inspection. negative: tonsillar erythema, tonsillomegaly, tonsillar exudate, R peritonsillar mass, L peritonsillar mass Neck exam: Present: normal inspection, full ROM. Absent: tenderness, meningismus, lymphadenopathy Respiratory exam: Present: normal lung sounds bilaterally. Absent: respiratory distress, wheezes, rales, rhonchi, stridor, chest wall tenderness, accessory muscle use, decreased breath sounds, prolonged expiratory Cardiovascular Exam: Present: regular rate, normal rhythm, normal heart sounds. Absent: systolic murmur, diastolic murmur, rubs, gallop, clicks GI/Abdominal exam: Present: soft, normal bowel sounds. Absent: distended, tenderness, guarding, rebound, rigid Extremities exam: Present: full ROM, tenderness (Tenderness to the anterior aspect of the right knee overlying superficial abrasion), normal capillary r efill, other (Family range of motion all major joints. Full muscle strength on major muscle groups. No significant tenderness elsewhere.). Absent: pedal edema, joint swelling, calf tenderness Back exam: Present: normal inspection Neurological exam: Present: alert, oriented X3, CN II-XII intact Psychiatric exam: Present: normal affect, normal mood Skin exam: Present: warm, dry, normal color. Absent: intact (Patient has a lower lip laceration, superficial abrasions to the dorsum of the right hand, right elbow, and right knee. Patient does have devitalized skin tear to the right elbow with no surrounding tenderness. No tenderness to the hand.), rash Course Vital Signs 06/17/22 18:04 Temperature 98.2 F Pulse Rate 85 Respiratory 16 Rate Blood Pressure 169/81 O2 Sat by Pulse 98 Oximetry - Reevaluation(s) Reevaluation #1: 06/17/22 20:41 Medical record is reviewed Symptoms are improved here in the emergency department Patient is informed of results and questions answered Patient in no distress Procedures - Procedures Initial comment: Devitalized skin was debrided from the right elbow using sterile forceps and sterile scissors from a suture pac - Laceration Laceration #1 Consent Obtained: verbal consent Indication: laceration Site: lip Size (cm): 2 Description: irregular Depth: simple, single layer Pre-repair: wound explored, irrigated extensively, deep structures intact Type of Sutures: vicryl Size of Sutures: 5-0 Number of Sutures: 3 Technique: simple, interrupted Complications: pain Patient Tolerated Procedure: well, no complications Additional Comments: Does not involve the vermilion border Medical Decision Making - Medical Decision Making CT brain and cervical spine indicated due to the patient's age. We'll add on facial bones as the patient does have some facial injuries. Right knee x-ray. This was a mechanical fall. Patient looks well otherwise. Neurologically intact. Alert and oriented 4. Patient presented after mechanical fall. Patient had several abrasions as noted. Patient had a lip laceration which required closure. Do not believe the patient has a significant head injury. She was not any blood thinners. There was no neurological impairment or loss of consciousness. Head injury instructions provided. General wound care provided. Vicryl sutures were used. Patient was told to return to the ER for any signs or symptoms worsen. Told to return immediately if any other problems arise. All questions answered. Treatment plan discussed. Patient in agreement Every effort has been made to ensure accuracy of this dictation. However, due to the limitations of electronic medical records and dictation devices, errors in charting still occur. Patient released in stable condition with family. [employer] Dr. Langley - Radiology Data Radiology results: report reviewed, image reviewed I did review the CT scans of the facial bones, brain, neck. No evidence of acute pathology as interpreted by me. Agree with radiology interpretation. I did interpret the right knee x-ray. There is soft tissue edema. No fracture. Arthritic change noted. No foreign body or dislocation. Disposition Clinical Impression: Lip laceration, Fall, Facial abrasion, Abrasion of right elbow, initial encounter, Contusion of right knee, Closed head injury Disposition: HOME SELF-CARE Condition: Good Instructions (If sedation given, give patient instructions): Laceration (ED), Fall Prevention for Older Adults (ED), Contusion in Adults (ED), Abrasion (ED), Skin Tear (ED) Additional Instructions: Your sutures are absorbable. Wash the abrasions daily with warm soap and water. Apply thin layer of antibiotic ointment such as Neosporin or triple antibiotic ointment. Apply ice to the right knee for 10-15 minutes at a time 3-4 times per day. You can take extra strength Tylenol every 6 hours as needed for pain control. Follow-up with her regular doctor for recheck. Review the head injury instructions and return to the ER if any problems arise. Make sure he stay with family members for the next 24 hours. Follow-up with your regular physician as directed. Return to the ER immediately if any symptoms worsen, new symptoms arise, or any other problems develop. Is patient prescribed a controlled substance at d/c from ED?: No Referrals: None,Stated [Primary Care Provider] - 1-2 days Time of Disposition: 20:36
--- NOTE | 2022-06-17 19:04 | CT ---
EXAMINATION TYPE: CT brain cspine wo con DATE OF EXAM: 06/17/2022 COMPARISON: CT brain 04/18/2022 HISTORY: fall CT DLP: combined DLP 1013.4 mGycm Automated exposure control for dose reduction was used. There is cerebral cortical atrophy. There is no mass effect or midline shift. No sign of intracranial hemorrhage. There is hypodensity in the periventricular white matter. Calvarium is intact. The cervical vertebra show fairly normal alignment. There is degenerative disc space narrowing from C 3 to T1 with spurring of the endplates. Facet joints are intact. There is mild hypertrophic facet art hropathy. IMPRESSION: Cerebral atrophy and chronic small vessel ischemia. No acute intracranial abnormality. No change comp ared to old exam. Multilevel cervical spondylotic changes. No fracture.
--- NOTE | 2022-06-17 19:10 | CT ---
EXAMINATION TYPE: CT facial bones wo con DATE OF EXAM: 06/17/2022 COMPARISON: None HISTORY: fall CT DLP: combined DLP 1013.4 mGycm Automated exposure control for dose reduction was used. Images obtained from the bottom of the mandible to the top of the frontal sinuses without contrast. The mandibular ring is intact. The zygomatic arches are intact. Maxilla is intact. Nasal bone is inta ct maxillary spine is intact. Sella turcica is normal. No evidence of orbital blowout fracture. No retro-orbital mass. There is normal aeration of the masto id sinuses. There is some deformity at the temporomandibular joints and osteoarthritic changes. IMPRESSION: No evidence of traumatic injury of the facial bones.
--- NOTE | 2022-06-17 19:13 | XR ---
EXAMINATION TYPE: XR knee complete RT DATE OF EXAM: 06/17/2022 COMPARISON: NONE HISTORY: Knee pain TECHNIQUE: 3 view FINDINGS: There is some mild spurring of the lateral tibial condyle. This calcification in the latera l meniscus. I see no fracture nor dislocation. No significant joint space narrowing. There is mild so ft tissue swelling anterior to the patella. IMPRESSION: Mild spurring and chondrocalcinosis. No fracture seen. Mild anterior soft tissue swelling.
[2022-06-17] MEDS ORDERED: BACITRACIN OINT 1 EACH PACKET TOPICAL ONE (20:38)
== END 2022-06-17 21:47 | disposition home or self-care (01) ==
LOC: EC 18:01
DX: S80.01XA Contusion of right knee, initial encounter (principal); S01.511A Laceration without foreign body of lip, initial encounter; S50.311A Abrasion of right elbow, initial encounter; S09.90XA Unspecified injury of head, initial encounter; F17.200 Nicotine dependence, unspecified, uncomplicated; W00.0XXA Fall on same level due to ice and snow, initial encounter
CPT/HCPCS: 73562; 72125; 70486; 70450; 99284; 12011; J2001

== ENCOUNTER 2023-01-07 15:23 | Inpatient (IN) | payer MEDICARE ==
[2023-01-07] MEDS ORDERED: MORPHINE SULFATE 4 MG/ML SYRINGE IV STA (16:07)
--- NOTE | 2023-01-07 16:25 | ED ---
General Adult HPI - General Chief complaint: Extremity Injury, Lower Stated complaint: rt hip pain Time Seen by Provider: 01/07/23 15:59 Source: patient, EMS, RN notes reviewed, old records reviewed Mode of arrival: EMS Limitations: altered mental status - History of Present Illness Initial comments: 82-year-old female presenting status post fall which occurred around 3 AM. Patient believes that she rolled out of bed falling onto her right hip. She's had pain with ambulation since the fall. She did not know significant head trauma but has complaint of midline neck pain. This occurred greater than 12 hours prior to arrival. No anticoagulation. November complaint is right hip pain. - Related Data Home Medications Medication Instructions Recorded Confirmed No Known Home Medications 01/07/23 01/07/23 Allergies Allergy/AdvReac Type Severity Reaction Status Date / Time No Known Allergies Allergy Verified 01/07/23 16:07 Review of Systems ROS Statement: Those systems with pertinent positive or pertinent negative responses have been documented in the HPI. ROS Other: All systems not noted in ROS Statement are negative. Past Medical History Past Medical History: Dementia Additional Past Medical History / Comment(s): Arthritis, early onset dementia History of Any Multi-Drug Resistant Organisms: None Reported Past Surgical History: Breast Surgery Additional Past Surgical History / Comment(s): Mastectomy with node removal. Past Anesthesia/Blood Transfusion Reactions: No Reported Reaction Past Psychological History: No Psychological Hx Reported Smoking Status: Current every day smoker Past Alcohol Use History: None Reported Past Drug Use History: None Reported - Past Family History Mother Family Medical History: Osteoarthritis (OA) Additional Family Medical History / Comment(s): Rheumatic fever Father Family Medical History: No Reported History family Additional Family Medical History / Comment(s): no CAD or cancer General Exam Limitations: altered mental status General appearance: alert, in no apparent distress Head exam: Present: atraumatic, normocephalic Eye exam: Present: normal appearance, PERRL ENT exam: Present: normal exam Neck exam: Present: normal inspection, tenderness (Midline cervical tenderness). Absent: meningismus Cardiovascular Exam: Present: regular rate, normal rhythm GI/Abdominal exam: Present: soft. Absent: distended, tenderness, guarding Extremities exam: Present: normal inspection, normal capillary refill Neurological exam: Present: alert, oriented X3, CN II-XII intact. Absent: motor sensory deficit Psychiatric exam: Present: normal affect, normal mood Skin exam: Present: warm, dry, intact. Absent: cyanosis, diaphoretic Course Vital Signs 01/07/23 01/07/23 01/07/23 15:45 16:00 17:00 Temperature 98 F Pulse Rate 80 76 90 Respiratory 18 18 18 Rate Blood Pressure 116/76 105/73 121/74 O2 Sat by Pulse 96 97 95 Oximetry 01/07/23 01/07/23 18:00 19:11 Temperature Pulse Rate 64 80 Respiratory 18 18 Rate Blood Pressure 120/66 122/75 O2 Sat by Pulse 95 94 L Oximetry Medical Decision Making - Medical Decision Making Was pt. sent in by a medical professional or institution (, PA, TANK FILLER, urgent care, hospital, or skilled nursing...) When possible be specific @ -No Did you speak to anyone other than the patient for history (EMS, parent, family, police, friend...)? What history was obtained from this source @ -[patient's son review nursing and triage notes (agree or disagree)? Why? @ -I reviewed and agree with nursing and triage notes Were old charts reviewed (outside hosp., previous admission, EMS record, old EKG, old radiological studies, urgent care reports/EKG's, skilled nursing records)? Report findings @ -No old charts were reviewed Differential Diagnosis (chest pain, altered mental status, abdominal pain women, abdominal pain men, vaginal bleeding, weakness, fever, dyspnea, syncope, headache, dizziness, GI bleed, back pain, seizure, CVA, palpatations, mental health, musculoskeletal)? @Right hip fracture, pelvic fracture, head injury with intracranial hemorrhage, cervical spine fracture subluxation. EKG interpreted by me (3pts min.). @ -As above X-rays interpreted by me (1pt min.). @Chest x-ray and right hip x-ray, showing trochanteric fracture of the right hip CT interpreted by me (1pt min.). @ -CT brain negative for intracranial hemorrhage or mass effect, CT cervical spine negative for fracture subluxation, CT of the right hip shows a right trochanteric fracture without intertrochanteric extension U/S interpreted by me (1pt. min.). @ -None done What testing was considered but not performed or refused? (CT, X-rays, U/S, labs)? Why? @ -None What meds were considered but not given or refused? Why? @ -None Did you discuss the management of the patient with other professionals (professionals i.e. , PA, TANK FILLER, lab, RT, psych nurse, social welfare administrator, business technology architect, teacher, compliance officer, keycase assembler)? Give summary @ -[Dr. Huerta Was smoking cessation discussed for >3mins.? @ -No Was critical care preformed (if so, how long)? @ -No Were there social determinants of health that impacted care today? How? (Ho melessness, low income, unemployed, alcoholism, drug addiction, transportation, low edu. Level, literacy, decrease access to med. care, [facility], rehab)? @ -No Was there de-escalation of care discussed even if they declined (Discuss DNR or withdrawal of care, Hospice)? DNR status @ -No What co-morbidities impacted this encounter? (DM, HTN, Smoking, COPD, CAD, Cancer, CVA, ARF, Chemo, Hep., AIDS, mental health diagnosis, sleep apnea, morbid obesity)? @ -None Was patient admitted / discharged? Hospital course, mention meds given and route, prescriptions, significant lab abnormalities, going to OR and other pertinent info. @ -[82-year-old female with fall, right hip trochanteric fracture. Patient will be admitted to orthopedics for management, likely placement, medicine placed on consult. Undiagnosed new problem with uncertain prognosis? @ -No Drug Therapy requiring intensive monitoring for toxicity (Heparin, Nitro, Insulin, Cardizem)? @ -No Were any procedures done? @ -No Diagnosis/symptom? @ -[Right hip fracture Acute, or Chronic, or Acute on Chronic? @ -Acute Uncomplicated (without systemic symptoms) or Complicated (systemic symptoms)? @ -[Complicated Side effects of treatment? @ -No Exacerbation, Progression, or Severe Exacerbation? @ -No Poses a threat to life or bodily function? How? (Chest pain, [place], GA, pneumonia, PE, COPD, DKA, ARF, appy, cholecystitis, CVA, Diverticulitis, Homicidal, Suicidal, threat to staff... and all critical care pts) @ -[Yes, immobility, pneumonia - Lab Data Result diagrams: 01/07/23 16:36 01/07/23 16:36 Lab Results 01/07/23 01/07/23 01/07/23 Range/Units 16:36 16:36 16:36 WBC 9.2 (3.8-10.6) k/uL RBC 3.57 L (3.80-5.40) m/uL Hgb 10.2 L (11.4-16.0) gm/dL Hct 31.0 L (34.0-46.0) % MCV 86.9 (80.0-100.0) fL MCH 28.6 (25.0-35.0) pg MCHC 32.9 (31.0-37.0) g/dL RDW 15.2 (11.5-15.5) % Plt Count 267 (150-450) k/uL MPV 7.4 Neutrophils % 79 % Lymphocytes % 15 % Monocytes % 4 % Eosinophils % 1 % Basophils % 0 % Neutrophils # 7.3 (1.3-7.7) k/uL Lymphocytes # 1.4 (1.0-4.8) k/uL Monocytes # 0.3 (0-1.0) k/uL Eosinophils # 0.1 (0-0.7) k/uL Basophils # 0.0 (0-0.2) k/uL PT 10.1 (9.0-12.0) sec INR 0.9 (<1.2) APTT 23.7 (22.0-30.0) sec Sodium 133 L (137-145) mmol/L Potassium 4.3 (3.5-5.1) mmol/L Chloride 106 (98-107) mmol/L Carbon Dioxide 20 L (22-30) mmol/L Anion Gap 7 mmol/L BUN 24 H (7-17) mg/dL Creatinine 0.72 (0.52-1.04) mg/dL Est GFR (CKD-EPI)AfAm >90 (>60 ml/min/1.73 sqM) Est GFR (CKD-EPI)NonAf 80 (>60 ml/min/1.73 sqM) Glucose 106 H (74-99) mg/dL Calcium 9.4 (8.4-10.2) mg/dL Total Bilirubin 0.4 (0.2-1.3) mg/dL AST 20 (14-36) U/L ALT 14 (4-34) U/L Alkaline Phosphatase 72 (38-126) U/L Total Protein 6.7 (6.3-8.2) g/dL Albumin 3.8 (3.5-5.0) g/dL Disposition Clinical Impression: Fracture of hip Disposition: ADMITTED IP TO THIS HOSP Condition: Stable Is patient prescribed a controlled substance at d/c from ED?: No Referrals: None,Stated [REFERRING] - 1-2 days Time of Disposition: 19:21
[2023-01-07] MEDS ORDERED: ONDANSETRON 4 MG/2 ML VIAL IVP STA (16:50)
[2023-01-07 16:56] LABS: Basophils % (A) 0 %; Eosinophils # (A) 0.1 k/uL (0-0.7); Eosinophils % (A) 1 %; HGB 10.2 gm/dL (11.4-16.0); Lymphocytes # (A) 1.4 k/uL (1.0-4.8); Lymphocytes % (A) 15 %; MCH 28.6 pg (25.0-35.0); MCHC 32.9 g/dL (31.0-37.0); MCV 86.9 fL (80.0-100.0); Mean Platelet Volume 7.4; Monocytes # (A) 0.3 k/uL (0-1.0); Monocytes % (A) 4 %; Neutrophils # (A) 7.3 k/uL (1.3-7.7); Neutrophils % (A) 79 %; Platelet Count 267 k/uL (150-450); RBC 3.57 m/uL (3.80-5.40); RDW 15.2 % (11.5-15.5); WBC 9.2 k/uL (3.8-10.6)
[2023-01-07 17:07] LABS: INR 0.9 (<1.2); Partial Thromboplastin Time 23.7 sec (22.0-30.0); Prothrombin Time 10.1 sec (9.0-12.0)
[2023-01-07 17:16] LABS: ALT 14 U/L (4-34); AST 20 U/L (14-36); African American GFR (CKD) >90 (>60 ml/min/1.73 sqM); Albumin 3.8 g/dL (3.5-5.0); Alkaline Phosphatase 72 U/L (38-126); Anion Gap 7 mmol/L; Blood Urea Nitrogen 24 mg/dL (7-17); Calcium 9.4 mg/dL (8.4-10.2); Carbon Dioxide 20 mmol/L (22-30); Chloride 106 mmol/L (98-107); Glucose 106 mg/dL (74-99); Non-African American GFR(CKD) 80 (>60 ml/min/1.73 sqM); Potassium 4.3 mmol/L (3.5-5.1); Sodium 133 mmol/L (137-145); Total Bilirubin 0.4 mg/dL (0.2-1.3); Total Protein 6.7 g/dL (6.3-8.2)
--- NOTE | 2023-01-07 17:32 | XR ---
EXAMINATION TYPE: XR Hip Complete RT DATE OF EXAM: 01/07/2023 5:15 PM INDICATION: Patient age:Female; 82 years old; Reason for study: fall; PHH. COMPARISON: None TECHNIQUE: The right hip was examined in the frontal and lateral projections FINDINGS: There is a lucency through the greater trochanter suspicious for fracture. No additional fr actures definitively visualized. No abnormal soft tissue finding. IMPRESSION: Greater trochanter fracture line suggested. Consider confirmation with CT.
--- NOTE | 2023-01-07 17:33 | XR ---
EXAMINATION TYPE: XR chest 1V portable DATE OF EXAM: 01/07/2023 5:17 PM COMPARISON: None TECHNIQUE: XR chest 1V portable Frontal view of the chest. CLINICAL INDICATION:Female, 82 years old with history of fall; FINDINGS: Lungs/Pleura: There is no evidence of pleural effusion, focal consolidation, or pneumothorax. Pulmonary vascularity: Unremarkable. Heart/mediastinum: Cardiomediastinal silhouette is unremarkable. Musculoskeletal: Degenerative changes of the shoulder joints. IMPRESSION: No acute cardiopulmonary disease/process. Severe degeneration changes of the shoulders. No displaced fracture visualized.
--- NOTE | 2023-01-07 18:35 | CT ---
EXAMINATION TYPE: CT brain cspine wo con CT DLP: 1322.3 mGycm, Automated exposure control for dose reduction was used. DATE OF EXAM: 01/07/2023 6:09 PM COMPARISON: 06/17/2022 CLINICAL INDICATION:Female, 82 years old with history of fall; Fall TECHNIQUE: Brain: Multiple axial CT images of the brain were obtained without IV contrast. Cspine: Axial CT images from the skull base to the inferior aspect of T2 we obtained without intraven ous contrast. Coronal and sagittal reformatted images were also reviewed. FINDINGS: Brain: Extra-axial spaces: No abnormal extra-axial fluid collections. Ventricular system: Dilatation in proportion to cerebral atrophy. Cerebral parenchyma: Cerebral atrophy. No acute intraparenchymal hemorrhage or mass effect. The leo -white junction is well differentiated. Scattered hypoattenuating areas are seen within the white mat ter. Cerebellum: Unremarkable. Mass effect: No evidence of midline shift. Intracranial vasculature: Atherosclerotic calcifications of the intracranial vessels. Soft tissues: Normal. Calvarium/osseous structures: No depressed skull fracture. Paranasal sinuses and mastoid air cells: Scattered mucosal thickening. Visualized orbits: Bilateral aphakia Cervical spine: Fracture: None. Osseous structures: Multilevel degenerative disc disease changes with endplate spurring and disc oste ophyte complex's. Vertebral alignment: Within normal limits. Spinal canal/Neural Foramina: No evidence of significant spinal canal narrowing. No evidence for sign ificant neural foraminal stenosis. Neck soft tissues: Prevertebral soft tissues are within normal limits. Other: The airway is patent. Centrilobular emphysema changes posterior parenchymal scarring along the periphery. IMPRESSION: 1. No acute intracranial process. 2. No evidence of cervical spine fracture. 3. Moderate to severe multilevel degenerative disc disease. 4. Severe centrilobular emphysema. 5. Nonspecific white matter changes throughout the brain.
--- NOTE | 2023-01-07 18:38 | CT ---
EXAMINATION TYPE: CT hip RT wo con CT DLP: 426 mGycm, Automated exposure control for dose reduction was used. DATE OF EXAM: 01/07/2023 6:16 PM COMPARISON: Extremity radiograph same day. CLINICAL INDICATION:Female, 82 years old with history of fall; pain, Fall TECHNIQUE: Axial images were obtained of the right hip . Additional coronal and sagittal reformatted images and soft tissue and bone window were obtained for review. 3-D reconstruction was created on a separate workstation. Contrast used: None Oral contrast used: None FINDINGS: Acute displaced fracture of the right greater trochanter displaced up to 8 mm. Remainder of the visualized femur appears intact. The bony pelvis appears intact. Suspected small hematoma measur ing 3.4 x 4.0 x 2.1 cm is felt to be present. No abnormality in the abdomen or pelvis visualized. The re is severe sclerosis of the arterial vasculature. IMPRESSION: Acute right greater trochanter fracture with mild displacement. Surrounding probable rula mena also present. No additional fractures.
[2023-01-07] MEDS ORDERED: NALOXONE 0.4 MG/ML 1 ML VIAL IV PRN (19:18)
[2023-01-07] MEDS ORDERED: ACETAMINOPHEN TAB 325 MG TAB PO PRN (19:18)
[2023-01-07] MEDS: HYDROmorphone 0.5 MG/0.5 ML SYRINGE IVP PRN (20:04)
[2023-01-07] MEDS ORDERED: HYDROmorphone 1 MG/ML 1 ML SYRINGE IVP STA (20:50)
[2023-01-07] MEDS: NICOTINE 21MG/24HR PATCH TRANSDERM SCH (21:46)
[2023-01-07] MEDS: ONDANSETRON 4 MG/2 ML VIAL IVP PRN (22:36)
[2023-01-08] MEDS: HYDROmorphone 0.5 MG/0.5 ML SYRINGE IVP PRN ×5 (05:27→20:18)
[2023-01-08] MEDS ORDERED: PANTOPRAZOLE 40 MG/10 ML VIAL IVP STA (09:32)
[2023-01-08] MEDS: NICOTINE 21MG/24HR PATCH TRANSDERM SCH (09:36)
[2023-01-08] MEDS: ONDANSETRON 4 MG/2 ML VIAL IVP PRN (09:56)
[2023-01-08] MEDS ORDERED: IPRATROPIUM-ALBUTEROL 3 ML NEB INHALATION PRN (10:11)
--- NOTE | 2023-01-08 10:18 | P.CONS ---
History of Present Illness - Reason for Consult Preoperative clearance - History of Present Illness Pleasant 82-year-old female with a history of extensive smoking and some COPD changes on x-ray doesn't use any oxygen is admitted after a mechanical fall and found to have intertrochanteric fracture. Patient denied any history of coronary artery disease congestive heart failure. Patient doesn't take any medications at home is bit hyponatremic at this time. REVIEW OF SYSTEMS: CONSTITUTIONAL: No fever, no malaise, no fatigue. HEENT: No recent visual problems or hearing problems. Denied any sore throat. CARDIOVASCULAR: No chest pain, orthopnea, PND, no palpitations, no syncope. PULMONARY: No shortness of breath, no cough, no hemoptysis. GASTROINTESTINAL: No diarrhea, complaining of nausea and abdominal discomfort NEUROLOGICAL: No headaches, no weakness, no numbness. HEMATOLOGICAL: Denies any bleeding or petechiae. GENITOURINARY: Denies any burning micturition, frequency, or urgency. MUSCULOSKELETAL/RHEUMATOLOGICAL: Pain in the right leg which is pretty much well controlled with pain medications ENDOCRINE: Denies any polyuria or polydipsia. The rest of the 14-point review of systems is negative. PHYSICAL EXAMINATION: GENERAL: The patient is alert and oriented x3, not in any acute distress. Well developed, well nourished. HEENT: Pupils are round and equally reacting to light. EOMI. No scleral icterus. No conjunctival pallor. Normocephalic, atraumatic. No pharyngeal erythema. No thyromegaly. CARDIOVASCULAR: S1 and S2 present. No murmurs, rubs, or gallops. PULMONARY: Chest is clear to auscultation, no wheezing or crackles. ABDOMEN: Soft, nontender, nondistended, normoactive bowel sounds. No palpable organomegaly. MUSCULOSKELETAL: Deferred to orthopedic surgery EXTREMITIES: No cyanosis, clubbing, or pedal edema. NEUROLOGICAL: Gross neurological examination did not reveal any focal deficits. SKIN: No rashes. Assessment and plan -Preoperative clearance for orthopedic surgery: Patient is low to intermediate operative risk because of her smoking history and age same thing was explained to the patient. Since this surgery if needed improves her functional status patient should go for the surgery and same thing was discussed with the patient and patient and her son are agreeable at this time. Hyaline hypervolemic hyponatremia patient was started on IV fluids -COPD without any acute exacerbation patient continues to smoke and ordered a nicotine patch presently will not require any systemic or inhaled steroids patient will be started on as needed inhalational treatments with albuterol and ipratropium DVT prophylaxis: As per primary service. Past Medical History Past Medical History: Dementia Additional Past Medical History / Comment(s): Arthritis, early onset dementia History of Any Multi-Drug Resistant Organisms: None Reported Past Surgical History: Breast Surgery Additional Past Surgical History / Comment(s): Mastectomy with node removal. Past Anesthesia/Blood Transfusion Reactions: No Reported Reaction Past Psychological History: No Psychological Hx Reported Smoking Status: Current every day smoker Past Alcohol Use History: None Reported Past Drug Use History: None Reported - Past Family History Mother Family Medical History: Osteoarthritis (OA) Additional Family Medical History / Comment(s): Rheumatic fever Father Family Medical History: No Reported History family Additional Family Medical History / Comment(s): no CAD or cancer Medications and Allergies Home Medications Medication Instructions Recorded Confirmed Type No Known Home Medications 01/07/23 01/07/23 History Allergies Allergy/AdvReac Type Severity Reaction Status Date / Time No Known Allergies Allergy Verified 01/07/23 16:07 Physical Exam Vitals: Vital Signs Temp Pulse Resp BP Pulse Ox 01/08/23 09:29 71 16 110/68 95 01/08/23 07:31 85 16 103/61 98 01/08/23 06:00 66 108/64 01/08/23 05:00 81 114/69 01/08/23 04:00 93 15 107/69 01/08/23 03:00 92 114/71 01/08/23 02:00 90 117/71 01/08/23 01:30 81 117/71 01/08/23 01:00 89 128/73 01/08/23 00:00 64 121/74 01/07/23 23:14 14 129/74 93 L 01/07/23 23:00 70 13 125/69 94 L 01/07/23 22:00 69 109/73 01/07/23 21:53 87 18 109/73 95 01/07/23 21:20 75 123/72 01/07/23 21:10 72 114/70 01/07/23 21:00 87 01/07/23 20:56 91 118/70 01/07/23 19:11 80 18 122/75 94 L 01/07/23 18:00 64 18 120/66 95 01/07/23 17:00 90 18 121/74 95 01/07/23 16:00 76 18 105/73 97 01/07/23 15:45 98 F 80 18 116/76 96 Intake and Output 01/07/23 01/08/23 01/08/23 22:59 06:59 14:59 Other: Weight 45.359 kg Results CBC & Chem 7: 01/07/23 16:36 01/07/23 16:36 Labs: Abnormal Lab Results - Last 24 Hours (Table) 01/07/23 01/07/23 Range/Units 16:36 16:36 RBC 3.57 L (3.80-5.40) m/uL Hgb 10.2 L (11.4-16.0) gm/dL Hct 31.0 L (34.0-46.0) % Sodium 133 L (137-145) mmol/L Carbon Dioxide 20 L (22-30) mmol/L BUN 24 H (7-17) mg/dL Glucose 106 H (74-99) mg/dL
[2023-01-08] MEDS: SODIUM CHLORIDE 0.9% 1,000 ML IV SCH (11:00)
[2023-01-08] MEDS ORDERED: traMADol 50 MG TAB PO PRN (11:28)
--- NOTE | 2023-01-08 11:28 | P.HPOR ---
History of Present Illness H&P Date: 01/08/23 Chief Complaint: Right hip pain The patient is an 82-year-old female with history of dementia and arthritis who presented to the emergency department after sustaining a fall out of bed around 3 AM yesterday morning. She was unable to get up on her own and the family states that her roommate helped her up. X-rays were taken in the emergency department and x-rays revealed a right greater trochanter fracture. The patient was also complaining of neck pain with possible head injury. CT of the head and neck were negative for intracranial bleeding and cervical fracture. The patient is admitted to the orthopedic service for further evaluation and care. The patient will most likely need rehabilitation placement upon discharge. Review of Systems Constitutional: Denies chills, Denies fatigue, Denies fever Cardiovascular: Denies chest pain, Denies shortness of breath Respiratory: Denies cough Gastrointestinal: Denies diarrhea, Denies nausea, Denies vomiting Musculoskeletal: right: hip pain, hip stiffness, hip swelling Past Medical History Past Medical History: Dementia Additional Past Medical History / Comment(s): Arthritis, early onset dementia History of Any Multi-Drug Resistant Organisms: None Reported Past Surgical History: Breast Surgery Additional Past Surgical History / Comment(s): Mastectomy with node removal. Past Anesthesia/Blood Transfusion Reactions: No Reported Reaction Past Psychological History: No Psychological Hx Reported Smoking Status: Current every day smoker Past Alcohol Use History: None Reported Past Drug Use History: None Reported - Past Family History Mother Family Medical History: Osteoarthritis (OA) Additional Family Medical History / Comment(s): Rheumatic fever Father Family Medical History: No Reported History family Additional Family Medical History / Comment(s): no CAD or cancer Medications and Allergies Home Medications Medication Instructions Recorded Confirmed Type No Known Home Medications 01/07/23 01/07/23 History Allergies Allergy/AdvReac Type Severity Reaction Status Date / Time No Known Allergies Allergy Verified 01/07/23 16:07 Physical Examination The patient is an 82 year-old female in no acute distress. She is alert and oriented 3. The patient's head is normocephalic, atraumatic. Mild pain upon palpation to the cervical spine, no step-offs noted. Exam of the bilateral upper extremities reveal no obvious deformities or wounds. Exam of the left lower extremity reveals no deformity or wounds. No pain upon range of motion of the left leg. Exam of the right lower extremity reveals guarding to the right hip. There is pain to palpation to the lateral hip. There no is pain to external and internal rotation of the right hip. Calf is soft and nontender. She is able to wiggle her toes. Circulatory status is intact. Results CT of the right hip reveals a displaced greater trochanter fracture. The fracture does not extend into the intertrochanteric area. - Labs Labs: Abnormal Lab Results - Last 24 Hours (Table) 01/07/23 01/07/23 Range/Units 16:36 16:36 RBC 3.57 L (3.80-5.40) m/uL Hgb 10.2 L (11.4-16.0) gm/dL Hct 31.0 L (34.0-46.0) % Sodium 133 L (137-145) mmol/L Carbon Dioxide 20 L (22-30) mmol/L BUN 24 H (7-17) mg/dL Glucose 106 H (74-99) mg/dL H & H 01/07/23 Range/Units 16:36 Hgb 10.2 L (11.4-16.0) gm/dL Hct 31.0 L (34.0-46.0) % Coagulation 01/07/23 Range/Units 16:36 INR 0.9 (<1.2) Result Diagrams: 01/07/23 16:36 01/07/23 16:36 Assessment and Plan (1) Fracture of greater trochanter of right femur Current Visit: Yes Status: Acute Code(s): S72.111A - DISP FX OF GREATER TROCHANTER OF RIGHT FEMUR, INIT SNOMED Code(s): 481037208 Plan: The clinical and x-ray findings were discussed with the patient and her family at the bedside in the ER. No surgical intervention is planned at this time. She may weightbear as tolerated on the right leg with a walker. Pain management with Ultram or [place] with Dilaudid for breakthrough pain. PT and OT have been ordered for evaluation. She will likely need skilled rehab placement upon discharge from the hospital. Case management and social work have been consulted. Internal medicine is also on the case. We will continue to follow the patient closely.
[2023-01-08] MEDS: KETOROLAC 15 MG/ML 1 ML VIAL IVP PRN (13:55)
[2023-01-08] MEDS: HYDROcodone/APAP 5-325MG 1 EACH TAB PO PRN (22:35)
[2023-01-09 07:12] LABS: African American GFR (CKD) 78 (>60 ml/min/1.73 sqM); Anion Gap 4 mmol/L; Blood Urea Nitrogen 30 mg/dL (7-17); Calcium 8.6 mg/dL (8.4-10.2); Carbon Dioxide 24 mmol/L (22-30); Chloride 105 mmol/L (98-107); Glucose 95 mg/dL (74-99); Non-African American GFR(CKD) 67 (>60 ml/min/1.73 sqM); Potassium 4.3 mmol/L (3.5-5.1); Sodium 133 mmol/L (137-145)
[2023-01-09 07:20] LABS: HCT 27.3 % (34.0-46.0); HGB 8.8 gm/dL (11.4-16.0); MCH 29.3 pg (25.0-35.0); MCHC 32.3 g/dL (31.0-37.0); MCV 90.8 fL (80.0-100.0); Mean Platelet Volume 7.5; Platelet Count 233 k/uL (150-450); RBC 3.01 m/uL (3.80-5.40); WBC 6.7 k/uL (3.8-10.6)
[2023-01-09] MEDS: ONDANSETRON 4 MG/2 ML VIAL IVP PRN (07:45)
[2023-01-09] MEDS: SODIUM CHLORIDE 0.9% 1,000 ML IV SCH ×2 (07:45→15:26)
--- NOTE | 2023-01-09 09:19 | P.PN ---
Subjective Progress Note Date: 01/09/23 Principal diagnosis: Right greater trochanter fracture The patient is an 82-year-old female with history of dementia and arthritis who presented to the emergency department after sustaining a fall out of bed around 3 AM yesterday morning. She was unable to get up on her own and the family states that her roommate helped her up. X-rays were taken in the emergency department and x-rays revealed a right greater trochanter fracture. The patient was also complaining of neck pain with possible head injury. CT of the head and neck were negative for intracranial bleeding and cervical fracture. The patient is admitted to the orthopedic service for further evaluation and care. The patient will most likely need rehabilitation placement upon discharge. 01/09/2023: The patient states her pain is controlled this morning. She has not worked with PT yet. No new complaints today. Objective - Vital Signs Vital signs: Vital Signs Temp 98.1 F 01/09/23 08:27 Pulse 70 01/09/23 08:27 Resp 17 01/09/23 08:27 BP 144/85 01/09/23 08:27 Pulse Ox 97 01/09/23 08:27 FiO2 Intake & Output 01/08/23 01/09/23 01/09/23 18:59 06:59 18:59 Intake Total 120 780 Output Total 500 300 Balance -380 -300 780 Weight 45.359 kg Intake: Oral 120 780 Output: Urine 500 300 Uretheral ([place]) 500 Other: Voiding Method Indwelling Catheter Indwelling Catheter Indwelling Catheter - Exam The patient is an 82 year-old female in no acute distress. She is alert and oriented 3. The patient's head is normocephalic, atraumatic. Mild pain upon palpation to the cervical spine, no step-offs noted. Exam of the bilateral upper extremities reveal no obvious deformities or wounds. Exam of the left lower extremity reveals no deformity or wounds. No pain upon range of motion of the left leg. Exam of the right lower extremity reveals guarding to the right hip. There is pain to palpation to the lateral hip. There no is pain to external and internal rotation of the right hip. Calf is soft and nontender. She is able to wiggle her toes. Circulatory status is intact. - Labs CBC & Chem 7: 01/09/23 06:43 01/09/23 06:43 Labs: Abnormal Lab Results - Last 24 Hours (Table) 01/09/23 01/09/23 Range/Units 06:43 06:43 RBC 3.01 L (3.80-5.40) m/uL Hgb 8.8 L (11.4-16.0) gm/dL Hct 27.3 L (34.0-46.0) % Sodium 133 L (137-145) mmol/L BUN 30 H (7-17) mg/dL Assessment and Plan (1) Fracture of greater trochanter of right femur Current Visit: Yes Status: Acute Code(s): S72.111A - DISP FX OF GREATER TROCHANTER OF RIGHT FEMUR, INIT SNOMED Code(s): 985968725 Plan: The clinical and x-ray findings were discussed with the patient. No surgical intervention is planned at this time. She may weightbear as tolerated on the right leg with a walker. Pain management with Ultram or [place] with Dilaudid for breakthrough pain. PT and OT have been ordered for evaluation. She will likely need skilled rehab placement upon discharge from the hospital. Case management and social work have been consulted. Internal medicine is also on the case. We will continue to follow the patient closely.
[2023-01-09] MEDS: NICOTINE 21MG/24HR PATCH TRANSDERM SCH (10:07)
[2023-01-09] MEDS: ENOXAPARIN 40 MG/0.4 ML SYRINGE SQ SCH (10:08)
[2023-01-09] MEDS: PANTOPRAZOLE 40 MG/10 ML VIAL IVP SCH (10:08)
--- NOTE | 2023-01-09 14:45 | P.PN ---
Subjective Progress Note Date: 01/09/23 Pleasant 82-year-old female with a history of extensive smoking and some COPD changes on x-ray doesn't use any oxygen is admitted after a mechanical fall and found to have intertrochanteric fracture. Patient denied any history of coronary artery disease congestive heart failure. Patient doesn't take any medications at home is bit hyponatremic at this time. 01/09/2023 Patient is evaluated on the observation unit. Reports controlled pain at this time while on bedrest. PT/OT has evaluated the patient and recommending subacute rehab. Orthopedics evaluation completed and patient not a surgical candidate location of the fracture felt this will heal by itself and patient is cleared for weightbearing on the right leg with walker use. Patient has IDC in place and this can be removed for voiding trial patient encouraged to increase acitivty level. Family at bedside and all questions answered. Sodium today 133, hemoglobin 8.8 and will recommend f/u labs on discharge. No signs of active bleeding. Review of Systems Constitutional: Denied any fatigue denied any fever. Cardio vascular: denied any chest pain, palpitations Gastrointestinal: denied any nausea, vomiting, diarrhea Pulmonary: Denied any shortness of breath cough Neurologic denied any new focal deficits All inpatient medications were reviewed and appropriate changes in these medications as dictated in the interval history and assessment and plan. PHYSICAL EXAMINATION: GENERAL: The patient is alert and oriented x3, not in any acute distress. Well developed, well nourished. HEENT: Pupils are round and equally reacting to light. EOMI. No scleral icterus. No conjunctival pallor. Normocephalic, atraumatic. No pharyngeal erythema. No thyromegaly. CARDIOVASCULAR: S1 and S2 present. No murmurs, rubs, or gallops. PULMONARY: Chest is clear to auscultation, no wheezing or crackles. ABDOMEN: Soft, nontender, nondistended, normoactive bowel sounds. No palpable organomegaly. MUSCULOSKELETAL: Deferred to orthopedic surgery EXTREMITIES: No cyanosis, clubbing, or pedal edema. NEUROLOGICAL: Gross neurological examination did not reveal any focal deficits. Positive pedal and dorsalis pedis pulse. SKIN: No rashes. Assessment and plan -Right tronchanteric hip fracture orthopedics recommending no surgical intervention okay for weight bearing with walker on the right leg -Hypovolemic hyponatremia patient was started on IV fluids -COPD without any acute exacerbation -Chronic and ongoing nicotine use on nicotine patch -Dementia GI prophylaxis: Protonix DVT prophylaxis: Lovenox as per primary Full Code Plan Patient is cleared medically for discharge to subacute rehab. Recommend to continue on inhalation treatments and continue nicotine patch. Patient is offered ensure protein supplement to continue TID with meals. Recommend to follow up labs CBC and BMP. Continue with pain management and bowel regimen. Patient as above is cleared for right leg weight bearing with walker per orthopedic services. Follow up with PCP Dr. Sarthak Watkins on discharge. The impression and plan of care has been dictated by Cassia March Nurse Practitioner as directed. Dr. Jey MD I have performed a history and physical examination and medical decision making of this patient, discussed the same with the dictator, and agree with the dictators assessment and plan as written, documented as a scribe. Based on total visit time, I have performed more than 50% of this visit. Objective - Vital Signs Vital signs: Vital Signs Temp 98.1 F 01/09/23 08:27 Pulse 70 01/09/23 08:27 Resp 17 01/09/23 08:27 BP 144/85 01/09/23 08:27 Pulse Ox 97 01/09/23 08:27 FiO2 Intake & Output 01/08/23 01/09/23 01/09/23 18:59 06:59 18:59 Intake Total 120 780 Output Total 500 300 Balance -380 -300 780 Weight 45.359 kg Intake: Oral 120 780 Output: Urine 500 300 Uretheral ([place]) 500 Other: Voiding Method Indwelling Catheter Indwelling Catheter Indwelling Catheter - Labs CBC & Chem 7: 01/09/23 06:43 01/09/23 06:43 Labs: Abnormal Lab Results - Last 24 Hours (Table) 01/09/23 01/09/23 Range/Units 06:43 06:43 RBC 3.01 L (3.80-5.40) m/uL Hgb 8.8 L (11.4-16.0) gm/dL Hct 27.3 L (34.0-46.0) % Sodium 133 L (137-145) mmol/L BUN 30 H (7-17) mg/dL Assessment and Plan Time with Patient: Less than 30
[2023-01-09] MEDS: HYDROcodone/APAP 5-325MG 1 EACH TAB PO PRN (19:03)
[2023-01-09] MEDS: HYDROmorphone 0.5 MG/0.5 ML SYRINGE IVP PRN (22:29)
[2023-01-10] MEDS: HYDROcodone/APAP 5-325MG 1 EACH TAB PO PRN ×3 (01:26→22:23)
[2023-01-10] MEDS: KETOROLAC 15 MG/ML 1 ML VIAL IVP PRN ×3 (03:28→20:14)
[2023-01-10] MEDS: SODIUM CHLORIDE 0.9% 1,000 ML IV SCH ×2 (03:30→17:53)
[2023-01-10] MEDS: PANTOPRAZOLE 40 MG/10 ML VIAL IVP SCH (08:33)
[2023-01-10] MEDS: ENOXAPARIN 40 MG/0.4 ML SYRINGE SQ SCH (08:33)
[2023-01-10] MEDS: HYDROmorphone 0.5 MG/0.5 ML SYRINGE IVP PRN (08:33)
[2023-01-10] MEDS: NICOTINE 21MG/24HR PATCH TRANSDERM SCH (08:34)
--- NOTE | 2023-01-10 11:55 | P.PN ---
Subjective Progress Note Date: 01/10/23 Pleasant 82-year-old female with a history of extensive smoking and some COPD changes on x-ray doesn't use any oxygen is admitted after a mechanical fall and found to have intertrochanteric fracture. Patient denied any history of coronary artery disease congestive heart failure. Patient doesn't take any medications at home is bit hyponatremic at this time. 01/09/2023 Patient is evaluated on the observation unit. Reports controlled pain at this time while on bedrest. PT/OT has evaluated the patient and recommending subacute rehab. Orthopedics evaluation completed and patient not a surgical candidate location of the fracture felt this will heal by itself and patient is cleared for weightbearing on the right leg with walker use. Patient has IDC in place and this can be removed for voiding trial patient encouraged to increase acitivty level. Family at bedside and all questions answered. Sodium today 133, hemoglobin 8.8 and will recommend f/u labs on discharge. No signs of active bleeding. 01/10/2023 Patient is evaluated today sitting up in the chair. Reports improved pain. Patient had jacobs removed and is up urinating in the BSC. No other acute complaints. Pending insurance authorization for subacute rehab. Pending clearance and further recommendations from orthopedics. Review of Systems Constitutional: Denied any fatigue denied any fever. Cardio vascular: denied any chest pain, palpitations Gastrointestinal: denied any nausea, vomiting, diarrhea Pulmonary: Denied any shortness of breath cough Neurologic denied any new focal deficits All inpatient medications were reviewed and appropriate changes in these medications as dictated in the interval history and assessment and plan. PHYSICAL EXAMINATION: GENERAL: The patient is alert and oriented x3, not in any acute distress. Well developed, well nourished. HEENT: Pupils are round and equally reacting to light. EOMI. No scleral icterus. No conjunctival pallor. Normocephalic, atraumatic. No pharyngeal erythema. No thyromegaly. CARDIOVASCULAR: S1 and S2 present. No murmurs, rubs, or gallops. PULMONARY: Chest is clear to auscultation, no wheezing or crackles. ABDOMEN: Soft, nontender, nondistended, normoactive bowel sounds. No palpable organomegaly. MUSCULOSKELETAL: Deferred to orthopedic surgery EXTREMITIES: No cyanosis, clubbing, or pedal edema. NEUROLOGICAL: Gross neurological examination did not reveal any focal deficits. Positive pedal and dorsalis pedis pulse. SKIN: No rashes. Assessment and plan -Right tronchanteric hip fracture orthopedics recommending no surgical intervention okay for weight bearing with walker on the right leg -Hypovolemic hyponatremia patient was started on IV fluids -COPD without any acute exacerbation -Chronic and ongoing nicotine use on nicotine patch -Dementia GI prophylaxis: Protonix DVT prophylaxis: Lovenox as per primary Full Code Plan Patient is cleared medically for discharge to subacute rehab. Recommend to continue on inhalation treatments and continue nicotine patch. Patient is offered ensure protein supplement to continue TID with meals. Recommend to follow up labs CBC and BMP. Continue with pain management and bowel regimen. Patient as above is cleared for right leg weight bearing with walker per orthopedic services. Follow up with PCP Dr. Sarthak Watkins on discharge. Pending insurance authorization for D/C to subacute rehab and clearance by primary services. The impression and plan of care has been dictated by Cassia March, Nurse Practitioner as directed. Dr. Jey MD I have performed a history and physical examination and medical decision making of this patient, discussed the same with the dictator, and agree with the dictators assessment and plan as written, documented as a scribe. Based on total visit time, I have performed more than 50% of this visit. Objective - Vital Signs Vital signs: Vital Signs Temp 98.2 F 01/10/23 07:08 Pulse 66 01/10/23 07:08 Resp 15 01/10/23 07:08 BP 123/77 01/10/23 07:08 Pulse Ox 96 01/10/23 07:08 FiO2 Intake & Output 01/09/23 01/10/23 01/10/23 18:59 06:59 18:59 Intake Total 930 250 Balance 930 250 Intake: Intake, IV Titration 150 Amount Sodium Chloride 0.9% 1, 150 000 ml @ 75 mls/hr IV . [id number] [facility] Rx#:[id number] Oral 780 250 Other: Voiding Method Indwelling Catheter Indwelling Catheter Bedside Commode # Voids 2 - Labs CBC & Chem 7: 01/09/23 06:43 01/09/23 06:43 Assessment and Plan Time with Patient: Less than 30
--- NOTE | 2023-01-10 11:57 | P.PN ---
Subjective Progress Note Date: 01/10/23 Principal diagnosis: Right greater trochanter fracture The patient is an 82-year-old female with history of dementia and arthritis who presented to the emergency department after sustaining a fall out of bed around 3 AM yesterday morning. She was unable to get up on her own and the family states that her roommate helped her up. X-rays were taken in the emergency department and x-rays revealed a right greater trochanter fracture. The patient was also complaining of neck pain with possible head injury. CT of the head and neck were negative for intracranial bleeding and cervical fracture. The patient is admitted to the orthopedic service for further evaluation and care. The patient will most likely need rehabilitation placement upon discharge. 01/09/2023: The patient states her pain is controlled this morning. She has not worked with PT yet. No new complaints today. 01/10/2023: The patient states her pain is controlled this morning. She was evaluated in the recliner chair with family present. No new complaints today. Does not remember when she took her pain medication last. Family states she does take too much Tylenol at home because she does not remember when she took them last. The patient was previously on [place] and took too many according to the patient's son. Objective - Vital Signs Vital signs: Vital Signs Temp 98.2 F 01/10/23 07:08 Pulse 66 01/10/23 07:08 Resp 15 01/10/23 07:08 BP 123/77 01/10/23 07:08 Pulse Ox 96 01/10/23 07:08 FiO2 Intake & Output 01/09/23 01/10/23 01/10/23 18:59 06:59 18:59 Intake Total 930 250 Balance 930 250 Intake: Intake, IV Titration 150 Amount Sodium Chloride 0.9% 1, 150 000 ml @ 75 mls/hr IV . [id number] [facility] Rx#:[id number] Oral 780 250 Other: Voiding Method Indwelling Catheter Indwelling Catheter Bedside Commode # Voids 2 - Exam The patient is an 82 year-old female in no acute distress. She is alert and oriented 3. The patient's head is normocephalic, atraumatic. Mild pain upon palpation to the cervical spine, no step-offs noted. Exam of the bilateral upper extremities reveal no obvious deformities or wounds. Exam of the left lower extremity reveals no deformity or wounds. No pain upon range of motion of the left leg. Exam of the right lower extremity reveals guarding to the right hip. There is pain to palpation to the lateral hip. There no is pain to external and internal rotation of the right hip. Calf is soft and nontender. She is able to wiggle her toes. Circulatory status is intact. - Labs CBC & Chem 7: 01/09/23 06:43 01/09/23 06:43 Assessment and Plan (1) Fracture of greater trochanter of right femur Current Visit: Yes Status: Acute Code(s): S72.111A - DISP FX OF GREATER TROCHANTER OF RIGHT FEMUR, INIT SNOMED Code(s): 280779477 Plan: The clinical and x-ray findings were discussed with the patient. No surgical intervention is planned at this time. She may weightbear as tolerated on the right leg with a walker. Pain management with Ultram or [place] with Dilaudid for breakthrough pain. PT and OT have been ordered for evaluation. We are awaiting approval for skilled rehab placement. She is orthopedically stable for discharge when auth is obtained. Internal medicine is also on the case. We will continue to follow the patient closely.
[2023-01-11] MEDS: HYDROmorphone 0.5 MG/0.5 ML SYRINGE IVP PRN (01:56)
[2023-01-11] MEDS: HYDROcodone/APAP 5-325MG 1 EACH TAB PO PRN ×2 (03:33→09:42)
[2023-01-11] MEDS: SODIUM CHLORIDE 0.9% 1,000 ML IV SCH (05:55)
[2023-01-11 06:29] LABS: Basophils % (A) 0 %; Eosinophils # (A) 0.3 k/uL (0-0.7); Eosinophils % (A) 3 %; HCT 28.9 % (34.0-46.0); HGB 9.3 gm/dL (11.4-16.0); Lymphocytes # (A) 1.3 k/uL (1.0-4.8); Lymphocytes % (A) 17 %; MCHC 32.3 g/dL (31.0-37.0); MCV 89.9 fL (80.0-100.0); Mean Platelet Volume 7.3; Monocytes # (A) 0.3 k/uL (0-1.0); Monocytes % (A) 4 %; Neutrophils # (A) 5.5 k/uL (1.3-7.7); Neutrophils % (A) 74 %; Platelet Count 278 k/uL (150-450); RBC 3.21 m/uL (3.80-5.40); RDW 15.3 % (11.5-15.5); WBC 7.4 k/uL (3.8-10.6)
[2023-01-11 06:44] LABS: African American GFR (CKD) >90 (>60 ml/min/1.73 sqM); Anion Gap 8 mmol/L; Blood Urea Nitrogen 13 mg/dL (7-17); Calcium 8.9 mg/dL (8.4-10.2); Carbon Dioxide 25 mmol/L (22-30); Chloride 104 mmol/L (98-107); Glucose 98 mg/dL (74-99); Non-African American GFR(CKD) 86 (>60 ml/min/1.73 sqM); Potassium 3.9 mmol/L (3.5-5.1); Sodium 137 mmol/L (137-145)
[2023-01-11 07:47] VITALS: BP 151/74; PULSE 84; RESP 16; TEMP 97.5
[2023-01-11] MEDS: NICOTINE 21MG/24HR PATCH TRANSDERM SCH (09:43)
[2023-01-11] MEDS: ENOXAPARIN 40 MG/0.4 ML SYRINGE SQ SCH (09:43)
[2023-01-11] MEDS: PANTOPRAZOLE 40 MG/10 ML VIAL IVP SCH (09:46)
--- NOTE | 2023-01-11 10:04 | P.DS ---
Providers Date of admission: 01/07/23 19:18 Expected date of discharge: 01/11/23 Attending physician: Kimberli Huerta DO Consults: 01/07/23 19:18 Consult Physician Routine Consulting Provider: Cadence Carrion Consult Reason/Comments: Medical management Do you want consulting provider notified?: Yes Primary care physician: Sarthak Watkins - Discharge Diagnosis(es) (1) Fracture of greater trochanter of right femur Current Visit: Yes Status: Acute Hospital Course: The patient is an 82-year-old female with history of dementia and arthritis who presented to the emergency department after sustaining a fall out of bed around 3 AM on 01/07/2023. She was unable to get up on her own and the family states that her roommate helped her up. X-rays were taken in the emergency department and x-rays revealed a right greater trochanter fracture. The patient was also complaining of neck pain with possible head injury. CT of the head and neck were negative for intracranial bleeding and cervical fracture. She was admitted for placement to skilled rehab upon discharge. On the day of discharge, she is alert and oriented 3. The patient's head is normocephalic, atraumatic. Mild pain upon palpation to the cervical spine, no step-offs noted. Exam of the bilateral upper extremities reveal no obvious deformities or wounds. Exam of the left lower extremity reveals no deformity or wounds. No pain upon range of motion of the left leg. Exam of the right lower extremity reveals guarding to the right hip. There is pain to palpation to the lateral hip. There no is pain to external and internal rotation of the right hip. Calf is soft and nontender. She is able to wiggle her toes. Circulatory status is intact. She is orthopedically stable for discharge to skilled rehab today. Pertinent Studies: Laboratory Tests 01/11/23 01/11/23 05:45 05:45 WBC 7.4 RBC 3.21 L Hgb 9.3 L Hct 28.9 L Sodium 137 Potassium 3.9 Chloride 104 Carbon Dioxide 25 Patient Condition at Discharge: Stable Plan - Discharge Summary New Discharge Prescriptions: New Acetaminophen Tab [Tylenol] 650 mg PO Q6HR PRN tab PRN Reason: Mild Pain Or Fever > 100.5 Albuterol Inhaler [Ventolin Hfa Inhaler] 1 puff INHALATION QID PRN #8 gm PRN Reason: Shortness Of Breath Or Wheezing Nicotine 21Mg/24Hr Patch [Habitrol] 1 patch TRANSDERM DAILY patch Famotidine [Pepcid] 20 mg PO DAILY #30 tablet HYDROcodone/APAP 5-325MG [[place] 5] 1 each PO Q4-6H PRN #30 tab PRN Reason: Pain Discharge Medication List Acetaminophen Tab [Tylenol] 650 mg PO Q6HR PRN tab 01/09/23 [Rx] Albuterol Inhaler [Ventolin Hfa Inhaler] 1 puff INHALATION QID PRN #8 gm 01/09/23 [Rx] Famotidine [Pepcid] 20 mg PO DAILY #30 tablet 01/09/23 [Rx] Nicotine 21Mg/24Hr Patch [Habitrol] 1 patch TRANSDERM DAILY patch 01/09/23 [Rx] HYDROcodone/APAP 5-325MG [[place] 5] 1 each PO Q4-6H PRN #30 tab 01/10/23 [Rx] Follow up Appointment(s)/Referral(s): Kimberli Huerta DO [Doctor of Osteopathic Medicine] - 3 Weeks Sarthak Watkins MD [Primary Care Provider] - 1-2 Days Ambulatory/Diagnostic Orders: Complete Blood Count w/diff [LAB.AMB] Time Frame: 3 Days, Location: None Selected Activity/Diet/Wound Care/Special Instructions: Patient cleared medically for DC to subacute rehab when cleared by orthopedics Weightbearing as tolerated with a walker. Recommend repeat CBC in 2 to 3 days on discharge Continue nicotine patch at 21 mg for 5 more days than can begin taper and decrease to 14 mg for 7 days. Continue bowel regimen if using narcotics for pain management Indwelling catheter to be discontinued patient encouraged to ambulate and i ncrease activity level Continue incentive spirometer 10 x an hour while awake Discharge Disposition: TRANSFER TO SNF/ECF
[2023-01-11] MEDS ORDERED: PANTOPRAZOLE 40 MG TABLET PO SCH (11:30)
--- NOTE | 2023-01-11 12:56 | P.PN ---
Subjective Progress Note Date: 01/11/23 Pleasant 82-year-old female with a history of extensive smoking and some COPD changes on x-ray doesn't use any oxygen is admitted after a mechanical fall and found to have intertrochanteric fracture. Patient denied any history of coronary artery disease congestive heart failure. Patient doesn't take any medications at home is bit hyponatremic at this time. 01/09/2023 Patient is evaluated on the observation unit. Reports controlled pain at this time while on bedrest. PT/OT has evaluated the patient and recommending subacute rehab. Orthopedics evaluation completed and patient not a surgical candidate location of the fracture felt this will heal by itself and patient is cleared for weightbearing on the right leg with walker use. Patient has IDC in place and this can be removed for voiding trial patient encouraged to increase acitivty level. Family at bedside and all questions answered. Sodium today 133, hemoglobin 8.8 and will recommend f/u labs on discharge. No signs of active bleeding. 01/10/2023 Patient is evaluated today sitting up in the chair. Reports improved pain. Patient had jacobs removed and is up urinating in the BSC. No other acute complaints. Pending insurance authorization for subacute rehab. Pending clearance and further recommendations from orthopedics. 01/11/2023 Patient is evaluated today sitting up in the chair. Has pain to the right leg receiving oral medications for this and patient is currently denying any other complaints. No shortness of breath, no chest pain. Tolerating diet and has had bowel movement. Patient has stable hemoglobin at 9.3 today. Sodium has normalized to 137 today, kidney function normal with BUN 13 creatinine 0.60. Review of Systems Constitutional: Denied any fatigue denied any fever. Cardio vascular: denied any chest pain, palpitations Gastrointestinal: denied any nausea, vomiting, diarrhea Pulmonary: Denied any shortness of breath cough Neurologic denied any new focal deficits All inpatient medications were reviewed and appropriate changes in these medications as dictated in the interval history and assessment and plan. PHYSICAL EXAMINATION: GENERAL: The patient is alert and oriented x3, not in any acute distress. Well developed, well nourished. HEENT: Pupils are round and equally reacting to light. EOMI. No scleral icterus. No conjunctival pallor. Normocephalic, atraumatic. No pharyngeal erythema. No thyromegaly. CARDIOVASCULAR: S1 and S2 present. No murmurs, rubs, or gallops. PULMONARY: Chest is clear to auscultation, no wheezing or crackles. ABDOMEN: Soft, nontender, nondistended, normoactive bowel sounds. No palpable organomegaly. MUSCULOSKELETAL: Deferred to orthopedic surgery EXTREMITIES: No cyanosis, clubbing, or pedal edema. NEUROLOGICAL: Gross neurological examination did not reveal any focal deficits. Positive pedal and dorsalis pedis pulse. SKIN: No rashes. Assessment and plan -Right tronchanteric hip fracture orthopedics recommending no surgical intervention okay for weight bearing with walker on the right leg -Hypovolemic hyponatremia resolved with IV fluids sodium is now 137 -COPD without any acute exacerbation -Chronic and ongoing nicotine use on nicotine patch -Dementia GI prophylaxis: Protonix DVT prophylaxis: Lovenox as per primary Full Code Plan Patient is cleared medically for discharge to subacute rehab. Recommend to continue on inhalation treatments and continue nicotine patch. Patient is offered ensure protein supplement to continue TID with meals. Recommend to follow up labs CBC and BMP. Continue with pain management and bowel regimen. Patient as above is cleared for right leg weight bearing with walker per orthopedic services. Follow up with PCP Dr. Sarthak Watkins on discharge. The impression and plan of care has been dictated by Cassia March, Nurse Practitioner as directed. Dr. Jey MD I have performed a history and physical examination and medical decision making of this patient, discussed the same with the dictator, and agree with the dictators assessment and plan as written, documented as a scribe. Based on total visit time, I have performed more than 50% of this visit. Objective - Vital Signs Vital signs: Vital Signs Temp 97.5 F L 01/11/23 07:08 Pulse 84 01/11/23 07:08 Resp 16 01/11/23 07:08 BP 151/74 01/11/23 07:08 Pulse Ox 93 L 01/11/23 07:08 FiO2 Intake & Output 01/10/23 01/11/23 01/11/23 18:59 06:59 18:59 Output Total 300 Balance -300 Output: Urine 300 Other: Voiding Method Bedside Commode Bedside Commode Bedside Commode # Voids 1 15 1 - Labs CBC & Chem 7: 01/11/23 05:45 01/11/23 05:45 Labs: Abnormal Lab Results - Last 24 Hours (Table) 01/11/23 Range/Units 05:45 RBC 3.21 L (3.80-5.40) m/uL Hgb 9.3 L (11.4-16.0) gm/dL Hct 28.9 L (34.0-46.0) % Assessment and Plan Time with Patient: Less than 30
== END 2023-01-11 15:51 | DRG 536 ==
LOC: EC 15:23 → 4SSUR 19:18 → 1SOBS 01-08 12:51 → 5NMEDONC 01-09 15:48
PROVIDERS: ADMIT Orthopaedic Surgery Hand Surgery; ATTEND Orthopaedic Surgery Hand Surgery
DX: S72.111A Displaced fracture of greater trochanter of right femur, initial encounter for closed fracture (principal); E87.1 Hypo-osmolality and hyponatremia; W06.XXXA Fall from bed, initial encounter; F17.200 Nicotine dependence, unspecified, uncomplicated; F03.90 Unspecified dementia, unspecified severity, without behavioral disturbance, psychotic disturbance, mood disturbance, and anxiety; J44.9 Chronic obstructive pulmonary disease, unspecified; Y92.003 Bedroom of unspecified non-institutional (private) residence as the place of occurrence of the external cause
CPT/HCPCS: 36415; 51798; 70450; 71045; 72125; 73502; 80048; 80053; 85025; 85027; 85610; 85730; 94640; 96374; 96375; 96376; 99285

== ENCOUNTER → 2024-06-03 | Outpatient (CLI) | payer MEDICARE ==
--- NOTE | 2024-06-03 15:34 | CT ---
EXAMINATION TYPE: CT chest w con DATE OF EXAM: 06/03/2024 3:23 PM COMPARISON: Chest 01/07/2023, CT 04/19/2022 CLINICAL INDICATION: Female, 84 years old with history of R91.8 ABN FINDINGS OF LUNG FIELD F17.200; P HH, lung mass TECHNIQUE: Multiple axial images were obtained through the chest. Sagittal and coronal reformats were created for review. MIP was performed on a separate workstation. Contrast used:80 mL of Isovue 370 with IV Contrast (None if empty) Oral contrast used: (None if empty) CT DLP: 143 mGycm, Automated exposure control for dose reduction was used. FINDINGS: LUNGS/ PLEURA: Moderate to severe interstitial lung changes with centrilobular emphysema. Stable morp hology of the lungs no new or enlarging pulmonary nodules or masses identified. AIRWAY: Opacified large airways in the lower lung. HEART: Size within normal limits. MEDIASTINUM: No gross evidence of adenopathy. VASCULATURE: No aortic aneurysm. MUSCULOSKELETAL: Moderate disc degeneration changes are present throughout the thoracolumbar spine. SOFT TISSUES/LYMPH NODES: Bilateral breast implants LOWER NECK: No significant findings. UPPER ABDOMEN: Left renal cyst simple appearing cyst. The gallbladder surgically absent. Surgical devora nges around the gastroesophageal junction. IMPRESSION: 1. Stable morphology of the lungs with no new or enlarging pulmonary nodules or lymphadenopathy iden tified. 2. Airway opacification in the right lower lung large airways correlate for aspiration versus retain ed secretions. 3. Severe emphysema. 4. Bilateral breast implant appears intact. [facility], , 06/03/2024 3:32 PM
== END | disposition home or self-care (01) ==
LOC: RADCTMAIN 14:37
PROVIDERS: ATTEND Family Medicine
DX: R91.8 Other nonspecific abnormal finding of lung field (principal); F17.200 Nicotine dependence, unspecified, uncomplicated; Z98.82 Breast implant status
CPT/HCPCS: 71260; Q9967

== ENCOUNTER 2024-06-15 16:14 | Inpatient (IN) | payer MEDICARE ==
[2024-06-15] MEDS: MORPHINE SULFATE 4 MG/ML SYRINGE IVP STA ×2 (17:19→19:50)
--- NOTE | 2024-06-15 17:49 | CT ---
EXAMINATION TYPE: CT brain cspine wo con DATE OF EXAM: 06/15/2024 COMPARISON: 01/07/2023 CLINICAL INDICATION: Female, 84 years old with history of fall, head injury, neck pain; PHH, fall tod ay TECHNIQUE: CT scan of the head and cervical spine are performed without contrast. CT DLP: 1188.7 mGycm Automated exposure control for dose reduction was used. FINDINGS: There is no acute intracranial hemorrhage, mass effect, or midline shift identified. The ventricles and sulci are within normal limits in size. The globes are intact and the visualized sinuses are chioma ar. Cervical spine is visualized in its entirety from C1 through upper thoracic levels and demonstrates s atisfactory alignment without evidence of acute fracture or dislocation. Prevertebral soft tissue ap pears within normal limits. The C1-C2 articulation is unremarkable. Severe multilevel degenerative d isc space narrowing. IMPRESSION: There is no acute fracture or dislocation evident in the cervical spine. 2. No acute intracranial hemorrhage, mass effect, or midline shift is seen. [facility], , 06/15/2024 5:47 PM
--- NOTE | 2024-06-15 18:37 | XR ---
EXAMINATION TYPE: XR Hip LT and AP Pelvis DATE OF EXAM: 06/15/2024 6:26 PM COMPARISON: Previous CT study dated 01/07/2023. CLINICAL INDICATION: Female, 84 years old with history of fall, deformity; PHH TECHNIQUE: XR Hip LT and AP Pelvis; hip was examined in the frontal and lateral projections and a AP pelvis. FINDINGS: Acute displaced fracture of the left femoral neck with approximately 3 cm of lateral translocation of the distal fracture component relative to the femoral head. Left femoral head calculates with the ac etabulum. Partially visualized previous avulsion fracture of the right hip/greater trochanter. No unexpected foreign body. IMPRESSION: Comminuted acute displaced left femoral neck fracture as above. [facility], , 06/15/2024 6:35 PM
--- NOTE | 2024-06-15 19:18 | P.PN ---
Progress Note - Text Progress Note Date: 06/15/24 SPOKE TO ED. LEFT FEMORAL NECK FRACTURE. DISPLACED, COMPLETE. WILL PLAN FOR OR TOMORROW FOR HEMIARTHROPLASTY.
[2024-06-15] MEDS ORDERED: NALOXONE 0.4 MG/ML 1 ML VIAL IV PRN (19:36)
--- NOTE | 2024-06-15 19:36 | ED ---
Fall HPI - General Chief Complaint: Fall Stated Complaint: Fall-L hip injury Time Seen by Provider: 06/15/24 16:20 Source: EMS Mode of arrival: EMS - History of Present Illness Initial Comments: 84-year-old female with past medical history of COPD who presents to the emergency department after a fall. Son is at bedside and helps read the history. Patient lives with a hazardous material technician. She ambulates unassisted. She had a fall last night. A neighbor came over to the house and put her in bed. The patient's son came over to the house today. The hazardous material technician states that she fell again just as he had arrived. It did not appear that the patient had gotten out of bed since last night. It appears that she hit her head as she has an abrasion to the left side of her face. She is not on any blood thinners. Patient is complaining of left hip pain. Leg is obviously shortened and r otated. Previously broke the right hip however it was nonsurgical last year. There is no reported confusion. No headache. Denies any chest pain or difficulty breathing. No numbness, tingling or weakness in her extremity. No other alleviating, precipitating or modifying factors - Related Data Home Medications Medication Instructions Recorded Confirmed Acetaminophen [Tylenol Arthritis] 1,300 mg PO Q8H 06/15/24 06/15/24 Allergies Allergy/AdvReac Type Severity Reaction Status Date / Time No Known Allergies Allergy Verified 06/15/24 20:47 Review of Systems ROS Statement: Those systems with pertinent positive or pertinent negative responses have been documented in the HPI. ROS Other: All systems not noted in ROS Statement are negative. Past Medical History Past Medical History: Dementia Additional Past Medical History / Comment(s): Arthritis, early onset dementia History of Any Multi-Drug Resistant Organisms: None Reported Past Surgical History: Breast Surgery Additional Past Surgical History / Comment(s): Mastectomy with node removal. Past Anesthesia/Blood Transfusion Reactions: No Reported Reaction Past Psychological History: No Psychological Hx Reported Smoking Status: Current every day smoker Past Alcohol Use History: None Reported Past Drug Use History: None Reported - Past Family History Mother Family Medical History: Osteoarthritis (OA) Additional Family Medical History / Comment(s): Rheumatic fever Father Family Medical History: No Reported History family Additional Family Medical History / Comment(s): no CAD or cancer General Exam Limitations: physical limitation (Hard of hearing) General appearance: alert, in no apparent distress Head exam: Present: atraumatic, normocephalic, normal inspection Eye exam: Present: normal appearance, PERRL, EOMI. Absent: scleral icterus, conjunctival injection, periorbital swelling ENT exam: Present: normal exam, mucous membranes moist Neck exam: Present: normal inspection. Absent: tenderness, meningismus, l ymphadenopathy Respiratory exam: Absent: respiratory distress, wheezes, rales, rhonchi, stridor Cardiovascular Exam: Present: regular rate, normal rhythm, normal heart sounds. Absent: systolic murmur, diastolic murmur, rubs, gallop, clicks GI/Abdominal exam: Present: soft, normal bowel sounds. Absent: distended, tenderness, guarding, rebound, rigid Extremities exam: Present: full ROM, tenderness (The left inguinal region. Left leg is shortened and rotated), normal capillary refill, other (2+ DP and PT pulses). Absent: pedal edema, joint swelling, calf tenderness Back exam: Present: normal inspection Neurological exam: Present: alert, oriented X3, CN II-XII intact Psychiatric exam: Present: normal affect, normal mood Skin exam: Present: warm, dry, intact, normal color. Absent: rash Course Vital Signs 06/15/24 06/15/24 06/15/24 16:18 18:37 18:47 Temperature 97.5 F L 98.1 F Pulse Rate 82 80 80 Respiratory 20 18 18 Rate Blood Pressure 135/77 126/70 131/85 O2 Sat by Pulse 97 97 94 L Oximetry 06/15/24 21:17 Temperature 99.5 F Pulse Rate 87 Respiratory 16 Rate Blood Pressure 135/78 O2 Sat by Pulse 97 Oximetry Medical Decision Making - Medical Decision Making Was pt. sent in by a medical professional or institution (, PA, FUNERAL ASSISTANT, urgent care, hospital, or [facility]...) When possible be specific @ -No Did you speak to anyone other than the patient for history (EMS, parent, family, police, friend...)? What history was obtained from this source @ -Spoke with son for history Did you review nursing and triage notes (agree or disagree)? Why? @ -I reviewed and agree with nursing and triage notes Were old charts reviewed (outside hosp., previous admission, EMS record, old EKG, old radiological studies, urgent care reports/EKG's, [facility] records)? Report findings @ -No old charts were reviewed Differential Diagnosis (chest pain, altered mental status, abdominal pain women, abdominal pain men, vaginal bleeding, weakness, fever, dyspnea, syncope, headache, dizziness, GI bleed, back pain, seizure, CVA, palpatations, mental health, musculoskeletal)? @ -Differential Musculoskeletal Muscular strain, contusion, ligament sprain, fracture, arthritis, septic arthritis, bursitis, cellulitis, muscle spasm, nerve compression, DVT, arterial occlusion, herpes zoster, electrolyte abnormality, tumor.... This is not meant t o be in all inclusive list EKG interpreted by me (3pts min.). @ -Yes and demonstrates sinus rhythm with a rate of 87. MA interval 150. QRS 81. QTc of 378. No acute ST segment elevations or depressions X-rays interpreted by me (1pt min.). @ -Yes and demonstrates left hip fracture CT interpreted by me (1pt min.). @ -None done U/S interpreted by me (1pt. min.). @ -None done What testing was considered but not performed or refused? (CT, X-rays, U/S, labs)? Why? @ -None What meds were considered but not given or refused? Why? @ -None Did you discuss the management of the patient with other professionals (professionals i.e. , PA, FUNERAL ASSISTANT, lab, RT, psych nurse, family welfare social work professor, electric container tester, teacher, evp and chief operating officer, keycase assembler)? Give summary @ -Spoke with Dr. Duarte who agreed to admit the patient Was smoking cessation discussed for >3mins.? @ -No Was critical care preformed (if so, how long)? @ -No Were there social determinants of health that impacted care today? How? (Homelessness, low income, unemployed, alcoholism, drug addiction, transportation, low edu. Level, literacy, decrease access to med. care, skilled nursing, rehab)? @ -No Was there de-escalation of care discussed even if they declined (Discuss DNR or withdrawal of care, Hospice)? DNR status @ -No What co-morbidities impacted this encounter? (DM, HTN, Smoking, COPD, CAD, Cancer, CVA, ARF, Chemo, Hep., AIDS, mental health diagnosis, sleep apnea, morbid obesity)? @ -COPD Was patient admitted / discharged? Hospital course, mention meds given and route, prescriptions, significant lab abnormalities, going to OR and other pertinent info. @ -Upon arrival patient seen and evaluated in room 29. Thorough history and physical exam was performed. IV access was established. Laboratory studies are conducted. Patient is given morphine for pain control. Left hip x-ray is performed which demonstrates hip fracture. Spoke with Dr. Duarte. He was agreeable to admitting the patient to his service. Patient needs surgical repair. I did request the patient's records from [facility] from 1 month ago. I spoke with Dr. West who does evaluate the patient for preop clearance. Patient admitted to the floor in stable condition Undiagnosed new problem with uncertain prognosis? @ -No Drug Therapy requiring intensive monitoring for toxicity (Heparin, Nitro, Insulin, Cardizem)? @ -No Were any procedures done? @ -No Diagnosis/symptom? @ -Acute fall, acute left hip fracture Acute, or Chronic, or Acute on Chronic? @ -Acute Uncomplicated (without systemic symptoms) or Complicated (systemic symptoms)? @ -Complicated Side effects of treatment? @ -No Exacerbation, Progression, or Severe Exacerbation? @ -No Poses a threat to life or bodily function? How? (Chest pain, USA, AL, pneumonia, PE, COPD, DKA, ARF, appy, cholecystitis, CVA, Diverticulitis, Homicidal, Suicidal, threat to staff... and all critical care pts) @ -No - Lab Data Result diagrams: 06/16/24 02:46 06/16/24 02:46 Disposition Clinical Impression: Fall, Hip fracture, left Disposition: ADMITTED IP TO THIS HOSP Condition: Stable Is patient prescribed a controlled substance at d/c from ED?: No Time of Disposition: 19:35 Decision to Admit Reason: Admit from EC Decision Date: 06/15/24 Decision Time: 19:35
[2024-06-15 19:56] LABS: Basophils % (A) 0 %; Eosinophils % (A) 0 %; HCT 33.4 % (34.0-46.0); HGB 10.9 gm/dL (11.4-16.0); Lymphocytes # (A) 1.1 k/uL (1.0-4.8); Lymphocytes % (A) 9 %; MCH 29.3 pg (25.0-35.0); MCHC 32.8 g/dL (31.0-37.0); MCV 89.3 fL (80.0-100.0); Mean Platelet Volume 6.9; Monocytes # (A) 0.4 k/uL (0-1.0); Monocytes % (A) 3 %; Neutrophils # (A) 10.9 k/uL (1.3-7.7); Neutrophils % (A) 87 %; Platelet Count 264 k/uL (150-450); RBC 3.74 m/uL (3.80-5.40); RDW 14.2 % (11.5-15.5); WBC 12.5 k/uL (3.8-10.6)
[2024-06-15 20:07] LABS: ALT 22 U/L (4-34); AST 45 U/L (14-36); African American GFR (CKD) >90 (>60 ml/min/1.73 sqM); Albumin 4.1 g/dL (3.5-5.0); Alkaline Phosphatase 81 U/L (38-126); Anion Gap 7 mmol/L; Blood Urea Nitrogen 27 mg/dL (7-17); Calcium 9.5 mg/dL (8.4-10.2); Carbon Dioxide 23 mmol/L (22-30); Chloride 103 mmol/L (98-107); Glucose 107 mg/dL (74-99); Non-African American GFR(CKD) 83 (>60 ml/min/1.73 sqM); Potassium 3.7 mmol/L (3.5-5.1); Sodium 133 mmol/L (137-145); Total Bilirubin 0.9 mg/dL (0.2-1.3); Total Protein 6.9 g/dL (6.3-8.2)
--- NOTE | 2024-06-15 20:16 | XR ---
EXAMINATION TYPE: XR chest 1V DATE OF EXAM: 06/15/2024 8:01 PM COMPARISON: CT chest study dated 06/03/2024. CLINICAL INDICATION: Female, 84 years old with history of hip fracture; [facility] TECHNIQUE: XR chest 1V Frontal view of the chest. FINDINGS: Heart size within normal limits. Tortuosity of the thoracic aorta. Bilateral breast implants significantly limits evaluation of the pulmonary parenchyma. Apparent patch y opacities bilaterally most likely reflect artifact. No appreciable pneumothorax. Hyperinflated lungs bilaterally with coarsening of the interstitial jose ings. Severe degenerative changes of the shoulders. IMPRESSION: 1. No convincing radiographic evidence of an acute abnormality in the chest. 2. Findings suggesting COPD. [facility], , 06/15/2024 8:14 PM
[2024-06-16] MEDS: MORPHINE SULFATE 4 MG/ML SYRINGE IV PRN ×2 (00:08→23:24)
[2024-06-16] MEDS: NICOTINE 21MG/24HR PATCH TRANSDERM SCH (00:08)
--- NOTE | 2024-06-16 00:13 | P.CONS ---
History of Present Illness - Reason for Consult Consult date: 06/15/24 Medical Management - History of Present Illness History of present illness; 84-year-old female with PMH of COPD presented to the emergency department following a fall. Normally at home she ambulates unassisted, however had a fall last night. Patient is not currently on any blood thinners at home. Patient was complaining of left hip pain, leg is obviously shortened and rotated. She had previously broken her right hip which was treated nonsurgically last year. She denies any chest pain or difficulty breathing. Denies numbness, tingling or weakness in her extremities. Per orthopedic surgery the plan is for left hemiarthroplasty to be completed tomorrow. Initial lab workup revealed: WBCs 12.5, Hgb 10.9, hct 33.4, PLT 264; sodium 133, potassium 3.7, BUN 27, creatinine 0.64, AST 45, ALT 22, alkaline phosphatase 81 Chest x-ray done independently interpreted in the ER showed no convincing radiographic evidence of acute abnormality in the chest, findings suggesting COPD CT head/cervical spine showed no acute fracture or dislocation evident in the cervical spine, no acute intracranial hemorrhage, mass effect, or midline shift X-ray of the hip/pelvis showed comminuted acute displaced left femoral neck fracture REVIEW OF SYSTEMS: All systems reviewed, pertinent positives and negatives noted in HPI. All other symptoms are negative. PHYSICAL EXAMINATION: Vitals reviewed GENERAL: No acute distress. Well developed, well nourished. HEENT: Pupils are round and equally reacting to light. EOMI. No scleral icterus. Normocephalic, atraumatic. No pharyngeal erythema. No thyromegaly. CARDIOVASCULAR: S1 and S2 present. No murmurs, rubs, or gallops. PULMONARY: Chest is clear to auscultation, no wheezing, rhonchi, or crackles. ABDOMEN: Soft, nontender, nondistended, normoactive bowel sounds. No palpable organomegaly. MUSCULOSKELETAL: No apparent joint swelling and deformities. EXTREMITIES: No apparent cyanosis, clubbing, or pedal edema. Left leg shortened and externally rotated without overlying skin abnormalities NEUROLOGICAL: The patient is alert and oriented x 2, Gross neurological examination did not reveal any focal deficits. 5/5 strength bilateral UE and LE except proximal LLE due to pain SKIN: No apparent rashes Assessment and plan 84-year-old female with PMH of COPD presented to the emergency department following a fall. Normally at home she ambulates unassisted, however had a fall last night. Patient is not currently on any blood thinners at home. Patient was complaining of left hip pain, leg is obviously shortened and rotated. She had previously broken her right hip which was treated nonsurgically last year. She denies any chest pain or difficulty breathing. Denies numbness, tingling or weakness in her extremities. She has been admitted to the internal medicine service for medical management. #Hyponatremia, mild -C/w gentle IV hydration Preoperative evaluation The patient with a PMH of COPD who lives at home and is independent in most of her ADLs presents for a traumatic hip fracture. She was previously ambulating without assistance. She denies experiencing exertional chest discomfort or dys pnea. Also reports previously being able to climb stairs without much difficulty. METS > 4. RCRI Score: 0 points, 3.9% 30-day risk of , PR, or cardiac arrest The patient is moderate risk of perioperative complications in light of her advanced age and chronic COPD but is otherwise currently optimized for surgical repair of the left hip with no obvious modifiable risk factors noted. Chronic Medical Conditions #COPD not on home oxygen -Not taking any medications at home, SpO2 93% on room air #Tobacco addiction -Currently smokes 2 packs daily -Counseled patient on smoking cessation -Continue with nicotine 21 mg/24-hour patch daily #Displaced left hip fracture -Per orthopedic surgery team, surgery scheduled for tomorrow left hemiarthrop lasty -Pain management and DVT prophylaxis per primary surgical team F: None currently E: Replete as needed N: N.p.o. after midnight DVT ppx: per primary surgical team Code status: Full code Patient is stable from medical stand point Follow up CBC and CMP in AM Dictation was produced using [employer] dictation software. Please excuse any grammatical, word or spelling errors. Past Medical History Past Medical History: COPD, Dementia Additional Past Medical History / Comment(s): Arthritis, early onset dementia History of Any Multi-Drug Resistant Organisms: None Reported Past Surgical History: Breast Surgery, Hysterectomy Additional Past Surgical History / Comment(s): double Mastectomy with node removal, prolapsed bladder, ulcers Past Anesthesia/Blood Transfusion Reactions: No Reported Reaction Past Psychological History: No Psychological Hx Reported Additional Psychological History / Comment(s): Pt resides with a roomate. She is independent Smoking Status: Current every day smoker Past Alcohol Use History: None Reported Additional Past Alcohol Use History / Comment(s): Pt started smoking in 1958 and is a 2 ppd smoker. Past Drug Use History: None Reported - Past Family History Mother Family Medical History: Osteoarthritis (OA) Additional Family Medical History / Comment(s): Rheumatic fever Father Family Medical History: No Reported History family Additional Family Medical History / Comment(s): no CAD or cancer Medications and Allergies Home Medications Medication Instructions Recorded Confirmed Type Acetaminophen [Tylenol Arthritis] 1,300 mg PO Q8H 06/15/24 06/15/24 History Allergies Allergy/AdvReac Type Severity Reaction Status Date / Time No Known Allergies Allergy Verified 06/15/24 20:47 Physical Exam Vitals: Vital Signs Temp Pulse Pulse Resp BP BP Pulse Ox 06/15/24 21:44 99.5 F 89 17 137/78 93 L 06/15/24 21:17 99.5 F 87 16 135/78 97 06/15/24 18:47 80 18 131/85 94 L 06/15/24 18:37 98.1 F 80 18 126/70 97 06/15/24 16:18 97.5 F L 82 20 135/77 97 Intake and Output 06/15/24 06/15/24 06/16/24 14:59 22:59 06:59 Other: Weight 49.895 kg Results CBC & Chem 7: 06/15/24 19:46 06/15/24 19:46 Labs: Abnormal Lab Results - Last 24 Hours (Table) 06/15/24 06/15/24 Range/Units 19:46 19:46 WBC 12.5 H (3.8-10.6) k/uL RBC 3.74 L (3.80-5.40) m/uL Hgb 10.9 L (11.4-16.0) gm/dL Hct 33.4 L (34.0-46.0) % Neutrophils # 10.9 H (1.3-7.7) k/uL Sodium 133 L (137-145) mmol/L BUN 27 H (7-17) mg/dL Glucose 107 H (74-99) mg/dL AST 45 H (14-36) U/L
[2024-06-16] MEDS ORDERED: ACETAMINOPHEN TAB 325 MG TAB PO PRN (08:35)
[2024-06-16] MEDS ORDERED: HYDROmorphone 1 MG/ML 1 ML SYRINGE IVP PRN (08:40)
--- NOTE | 2024-06-16 08:40 | P.HPOR ---
History of Present Illness H&P Date: 06/16/24 Chief Complaint: fall, left hip fracture History of Presenting Illness Patient is a pleasant 84-year-old female presented to the ER after a fall. It is documented that patient had a fall the night of 06/14/24 and possibly again the morning of 06/15/24. Patient is somewhat confused on events, unable to describe any details of her falls. Patient lives with a clinical staff rn and normally does not use any assisting devices. Patient does have abrasions to the left temporal area, left elbow and bruising over the left hip. It is documented she was unable to get herself up after the fall, a neighbor assisted her back to bed. Patient does have a past medical history of COPD and dementia and an orthopedic history of a right hip fracture that was nonsurgical. Patient seen and examined this morning. Patient is resting comfortably in bed. External jacobs catheter is present. Patient is complaining of left hip pain. Left lower extremity is shortened and externally rotated. Denies any chest pain or difficulty breathing. No numbness, tingling or weakness in her extremity. No other alleviating, precipitating or modifying factors. Review of Systems Pertinent positives and negatives as discussed in HPI, a complete review of systems was performed and all other systems are negative. Physical Examination Inspection: Negative for any open fractures, ecchymosis, significant erythema/ulcers. Abrasions present to the left temporal area, left elbow and bruising over the left hip Sensation: Sensation is equal, symmetric, bilaterally intact throughout the upper and lower extremities Palpation: Tender to palpation over the left hip. Range of motion: Patient does have full range of motion bilateral upper and right lower extremities on exam. Limited ROM of the left hip due to fracture and pain. Special tests: Pain is reproduced with logroll of the left lower extremity. Neurovascular: Radial pulse intact, 2+ bilaterally. Cap refill under 3 seconds in digits upper extremities. Assessment and Plan Pelvis taken on 06/15/2024 demonstrates a comminuted acute displaced left femoral neck fracture. Fall from standing Left femoral neck fracture Left hip pain Multiple comorbidities At this time we recommend surgical intervention of a left hip hemiarthroplasty that is scheduled for tomorrow evening 06/17/2024. Patient will be nothing by mouth at midnight. 2. Appreciate medical management 3. Pain management - Dilaudid, Utilize ice therapy 20min every hour as needed. 4. GI prophylaxis - senna 5. DVT prophylaxis - TEDS, SCDs on RLE 6. Appreciate consult. I reviewed and discussed this case with my attending Dr. Duarte, whom has reviewed this chart and films and is in agreement with assessment and plan of care as outlined above. I have personally seen and examined the patient, performed the documentation and the assessment and plan as written. Number of minutes spent on the visit: 20m. Past Medical History Past Medical History: COPD, Dementia Additional Past Medical History / Comment(s): Arthritis, early onset dementia History of Any Multi-Drug Resistant Organisms: None Reported Past Surgical History: Breast Surgery, Hysterectomy Additional Past Surgical History / Comment(s): double Mastectomy with node removal, prolapsed bladder, ulcers Past Anesthesia/Blood Transfusion Reactions: No Reported Reaction Past Psychological History: No Psychological Hx Reported Additional Psychological History / Comment(s): Pt resides with a roomate. She is independent Smoking Status: Current every day smoker Past Alcohol Use History: None Reported Additional Past Alcohol Use History / Comment(s): Pt started smoking in 1957 and is a 2 ppd smoker. Past Drug Use History: None Reported - Past Family History Mother Family Medical History: Osteoarthritis (OA) Additional Family Medical History / Comment(s): Rheumatic fever Father Family Medical History: No Reported History family Additional Family Medical History / Comment(s): no CAD or cancer Medications and Allergies Home Medications Medication Instructions Recorded Confirmed Type Acetaminophen [Tylenol Arthritis] 1,300 mg PO Q8H 06/15/24 06/15/24 History Allergies Allergy/AdvReac Type Severity Reaction Status Date / Time No Known Allergies Allergy Verified 06/15/24 20:47 Results - Labs Labs: Abnormal Lab Results - Last 24 Hours (Table) 06/15/24 06/15/24 Range/Units 19:46 19:46 WBC 12.5 H (3.8-10.6) k/uL RBC 3.74 L (3.80-5.40) m/uL Hgb 10.9 L (11.4-16.0) gm/dL Hct 33.4 L (34.0-46.0) % Neutrophils # 10.9 H (1.3-7.7) k/uL Sodium 133 L (137-145) mmol/L BUN 27 H (7-17) mg/dL Glucose 107 H (74-99) mg/dL AST 45 H (14-36) U/L H & H 06/15/24 Range/Units 19:46 Hgb 10.9 L (11.4-16.0) gm/dL Hct 33.4 L (34.0-46.0) % Result Diagrams: 06/15/24 19:46 06/15/24 19:46
[2024-06-16 09:10] LABS: BUN/Creat Ratio 39.43 Ratio (12.00-20.00); Blood Urea Nitrogen 27.6 mg/dL (9.0-27.0); Calcium 9.4 mg/dL (8.7-10.3); Carbon Dioxide 20.3 mmol/L (21.6-31.8); Chloride 103 mmol/L (96-109); Glucose 96 mg/dL (70-110); Potassium 3.7 mmol/L (3.5-5.5); Sodium 136 mmol/L (135-145)
[2024-06-16] MEDS: HYDROmorphone 0.5 MG/0.5 ML SYRINGE IVP PRN (09:36)
[2024-06-16] MEDS: SODIUM CHLORIDE 0.9% 1,000 ML IV SCH (09:38)
[2024-06-16 10:12] LABS: Basophils # (A) 0.04 X 10*3/uL (0.00-0.10); Basophils % (A) 0.4 %; Eosinophils # (A) 0.07 X 10*3/uL (0.04-0.35); Eosinophils % (A) 0.6 %; HCT 34.4 % (37.2-46.3); HGB 10.9 g/dL (12.0-15.0); Lymphocytes # (A) 1.54 X 10*3/uL (0.90-5.00); Lymphocytes % (A) 13.8 %; MCH 28.8 pg (27.0-32.0); MCHC 31.7 g/dL (32.0-37.0); Mean Platelet Volume 10.6 FL (9.5-12.2); Monocytes % (A) 5.4 %; NRBC Per 100 WBC 0 X 10*3/uL (0.00-0.01); Neutrophils # (A) 8.91 X 10*3/uL (1.80-7.70); Neutrophils % (A) 79.4 %; Platelet Count 238 X 10*3/uL (140-440); RBC 3.78 X 10*6/uL (4.10-5.20); RDW 14.1 % (11.5-14.5)
[2024-06-16] MEDS: DEXAMETHASONE SOD PHOSPHATE 4 MG/ML 1 ML VIAL IV ONE (10:59)
[2024-06-16] MEDS: LACTATED RINGERS 1,000 ML IV SCH (10:59)
[2024-06-16] MEDS: ONDANSETRON 4 MG/2 ML VIAL IVP ONE (11:00)
[2024-06-16] MEDS: PANTOPRAZOLE 40 MG/10 ML VIAL IVP SCH (11:20)
[2024-06-16] MEDS: SENNOSIDES 8.6 MG TAB PO SCH ×2 (11:26→11:36)
[2024-06-16] MEDS ORDERED: DEXTROSE 50% SYRINGE 50 ML IVP PRN ×2 (12:59)
[2024-06-16] MEDS ORDERED: IPRATROPIUM-ALBUTEROL 3 ML NEB INHALATION PRN (13:02)
--- NOTE | 2024-06-16 13:10 | P.PN ---
Subjective Progress Note Date: 06/16/24 Hospital course: Patient is a very pleasant 84-year-old female with past medical history of COPD, chronic anemia, and mild dementia. She presented to the hospital on 06/15/2024 status post unwitnessed fall at home. Upon arrival to our facility, patient underwent evaluation in the emergency department. Vital signs upon arrival show blood pressure 135/77, heart rate 82, respiratory rate 20, temp 97.5 F, and SpO2 of 97% on room air. EKG was completed showing normal sinus rhythm at 87 bpm with nonspecific T wave abnormalities and no significant ST changes showing no signs of acute ischemia. Chest x-ray completed showing hyperinflated lungs with coarsening of interstitial markings consistent with COPD otherwise negative for acute process. CT head negative for acute intracranial process. CT cervical spine negative for acute fracture or dislocation of the cervical spine. X-ray left hip and pelvis showing a comminuted acute displaced left femoral n verito fracture. Labs were completed and reviewed. CBC showing mild leukocytosis with WBC count of 12.5 and stable normocytic anemia with hemoglobin of 10.9. BMP showing mild hyponatremia with sodium of 133 and prerenal azotemia with BUN of 27 otherwise normal findings. Blood glucose 107. Liver profile showing elevated AST of 45 otherwise normal findings. Patient was admitted under orthopedic surgery team and we were consulted for preoperative clearance and medical management throughout hospitalization. Physical exam: Patient seen and fully evaluated at bedside this morning, she reports mild to moderate pain in left hip and states unable to get comfortable. Orders placed for pain medication at this time. Patient denies any other complaints including headache, lightheadedness, dizziness, chest pain, palpitations, shortness of breath, or experiencing any numbness/tingling in her extremities. Instructed RN to place Callejas catheter at this time for immobilization. Vital signs reviewed and stable. General: Nontoxic, no distress and appears stated age. Derm: Skin warm and dry, normal coloration for ethnicity. Head: Atraumatic, normocephalic and symmetric. Eyes: EOM's intact, no lid lag, and anicteric sclera Mouth: no lip lesions, mucus membranes moist Cardiovascular: regular rate and rhythm with normal S1S2, mild systolic murmur, positive posterior tibial pulses bilaterally, and cap refill < 2 seconds. Lungs: Respirations even, regular, and unlabored on room air. Lungs CTA bilaterally, no rhonchi, no rales, no wheezing, and no accessory muscle usage. Abdominal: soft, nontender to palpation, no guarding, no appreciable org anomegaly Ext: No gross muscle atrophy, no edema. Movement and sensation intact. Left lower extremity with left lateral rotation and mild shortening. Neuro: Speech clear, face symmetrical and CN II-XII grossly intact with no noted focal neuro deficits Psych: Alert and oriented to person, place, time, and situation. Appropriate and pleasant affect. Assessment and Plan of Care: Left femoral neck fracture, displaced Pre-Surgical clearance -METS > 4 and Revised Cardiac Risk Index Score: 0 points showing a 3.9% 30-day risk of , [place], or cardiac arrest. -Patient is medically optimized to undergo planned surgical repair of left hip/femur fracture with no obvious modifiable risk factors noted. -Order placed for glycemic protocol with [id number] glucose checks every 6 hours while patient n.p.o. pending surgery. -Order placed for Tylenol 650 mg every 6 hours as needed for mild pain, [place] 5- 325 mg tablets every 4 hours as needed for moderate pain, and Dilaudid 1 mg every 4 hours as needed for severe pain. -Zofran 4 mg IVP every 8 hours as needed for nausea. -GI prophylaxis with Protonix 40 mg daily. -Order placed for insertion of Callejas catheter secondary to need for immobilization pending completion of surgical procedure. -DVT prophylaxis per primary admitting orthopedic surgery team. COPD with continued nicotine dependence -Not in acute exacerbation -Chest x-ray completed showing hyperinflated lungs with coarsening of interstitial markings consistent with COPD otherwise negative for acute process. -Recommend smoking cessation and continued nicotine patch 21 mg daily. -Encourage use of incentive spirometry 10-15 times hourly while awake to prevent atelectasis and development of pneumonia. Anemia of chronic disease -Hemoglobin stable at 10.9 baseline hemoglobin around 9. No need for transfusion or further intervention at this time. Will continue to monitor hemoglobin levels closely and transfuse if needed for hemoglobin less than 7. Data and imaging reviewed: -Preoperative EKG was completed showing normal sinus rhythm at 87 bpm with nonspecific T wave abnormalities and no significant ST changes showing no signs of acute ischemia upon personal review and interpretation. -Morning labs reviewed. CBC showing slight improvement of leukocytosis with WBC count decreasing from 12.5 down to 11.20 this morning and stable normocytic anemia with hemoglobin of 10.9. Blood glucose 86. -Vital signs reviewed. Blood pressure 152/88, heart rate 94, respiratory rate 20, temp 97.3 F, and SpO2 of 90% on 2 L. Thank you for allowing us to participate in the care of this pleasant patient. Do not hesitate to contact us with questions. Someone can be reached from the [facility] hospitalist group all hours of the day at [phone] or via perfect serve. Patient was seen independently by Nurse Pracitioner. This document was prepared using [employer] dictation software. Please allow for errors in econometrics professor, while rare they do occur. Reymundo Penny NP rendered care for this patient independently, reviewed the findings and plan as documented in the note above and agree with plan. I did not physically speak with or examine the patient on this date. Objective - Vital Signs Vital signs: Vital Signs Temp 97.3 F L 06/16/24 07:15 Pulse 94 06/16/24 07:15 Resp 20 06/16/24 07:15 BP 152/88 06/16/24 07:15 Pulse Ox 90 L 06/16/24 07:15 FiO2 Intake & Output 06/15/24 06/16/24 06/16/24 18:59 06:59 18:59 Output Total 75 325 Balance -75 -325 Weight 49.895 kg 49.895 kg Output: Urine 75 325 Uretheral (Callejas) 325 - Labs CBC & Chem 7: 06/16/24 02:46 06/16/24 02:46 Labs: Abnormal Lab Results - Last 24 Hours (Table) 06/15/24 06/15/24 Range/Units 19:46 19:46 WBC 12.5 H (3.8-10.6) k/uL RBC 3.74 L (3.80-5.40) m/uL Hgb 10.9 L (11.4-16.0) gm/dL Hct 33.4 L (34.0-46.0) % Neutrophils # 10.9 H (1.3-7.7) k/uL Sodium 133 L (137-145) mmol/L BUN 27 H (7-17) mg/dL Glucose 107 H (74-99) mg/dL AST 45 H (14-36) U/L
[2024-06-16 14:17] LABS: Glucose,Whole Blood 98 mg/dL (70-110)
[2024-06-16] MEDS: IPRATROPIUM-ALBUTEROL 3 ML NEB INHALATION SCH (15:58)
[2024-06-17] MEDS ORDERED: HYDROmorphone 0.5 MG/0.5 ML SYRINGE IVP PRN (07:00)
[2024-06-17 08:41] LABS: HCT 28.9 % (37.2-46.3); HGB 9.3 g/dL (12.0-15.0); MCH 29.1 pg (27.0-32.0); MCHC 32.2 g/dL (32.0-37.0); MCV 90.3 FL (80.0-97.0); Mean Platelet Volume 10.3 FL (9.5-12.2); NRBC Per 100 WBC 0 X 10*3/uL (0.00-0.01); Platelet Count 218 X 10*3/uL (140-440); RDW 14.1 % (11.5-14.5); WBC 9.36 X 10*3/uL (4.50-10.00)
[2024-06-17 08:57] LABS: Blood Urea Nitrogen 29.1 mg/dL (9.0-27.0); Calcium 8.7 mg/dL (8.7-10.3); Carbon Dioxide 20.3 mmol/L (21.6-31.8); Chloride 105 mmol/L (96-109); Glucose 102 mg/dL (70-110); Magnesium 1.9 mg/dL (1.5-2.4); Potassium 3.5 mmol/L (3.5-5.5); Sodium 137 mmol/L (135-145)
[2024-06-17] MEDS: ONDANSETRON 4 MG/2 ML VIAL IVP PRN (10:38)
[2024-06-17] MEDS: HYDROcodone/APAP 5-325MG 1 EACH TAB PO PRN (10:38)
[2024-06-17] MEDS: IV FLUID CONTINUATION 1,000 ML IV ONE (11:20)
[2024-06-17 12:27] LABS: INR 0.9 (<1.2); Partial Thromboplastin Time 22.3 sec (22.0-30.0); Prothrombin Time 10.2 sec (10.0-12.5)
[2024-06-17] MEDS ORDERED: KETAMINE HCL IN 0.9 % NACL 50 MG/5 ML SYRINGE ONE (12:45)
[2024-06-17] MEDS ORDERED: MIDAZOLAM 2 MG/2 ML VIAL ONE (12:45)
[2024-06-17] MEDS ORDERED: PHENYLEPHRINE 10 MG/ML VIAL ONE (12:45)
[2024-06-17] MEDS ORDERED: TRANEXAMIC 1,000 MG/100ML-NACL PREMIX BAG ONE (12:45)
[2024-06-17] MEDS ORDERED: LIDOCAINE 1% INJ 10MG/ML (20 ML MDV) ONE (12:45)
[2024-06-17] MEDS ORDERED: PROPOFOL 10 MG/ML 20 ML VIAL IV ONE (12:45)
[2024-06-17] MEDS: SODIUM CHLORIDE 0.9% 100 ML with ceFAZolin 1,000 MG IV ONE (12:48)
[2024-06-17] MEDS: ceFAZolin 1,000 MG in SODIUM CHLORIDE 0.9% 1,000 ML IRRIGATION ONE (13:19)
[2024-06-17] MEDS: ROPIVACAINE 5 MG/ML 30 ML VIAL MISCELLANE ONE ×2 (13:34)
[2024-06-17] MEDS ORDERED: NALOXONE 0.4 MG/ML 1 ML VIAL IV PRN (14:31)
[2024-06-17] MEDS ORDERED: hydrOXYzine pamoate 25 MG CAP PO PRN (14:31)
[2024-06-17] MEDS ORDERED: MORPHINE SULFATE 2 MG/ML SYRINGE IV PRN (14:31)
--- NOTE | 2024-06-17 15:01 | XR ---
EXAMINATION TYPE: XR Hip Limited LT DATE OF EXAM: 06/17/2024 2:57 PM COMPARISON: None. CLINICAL INDICATION: Female, 84 years old with history of Status post hip surgery, assess surgical al ignment, Postoperative evaluation TECHNIQUE: XR Hip Limited LT views were obtained FINDINGS: Noted are changes of total hip arthroplasty with femoral and acetabular components appearing [place]. Alignment is anatomic. Postsurgical soft tissue changes are evident. IMPRESSION: Satisfactory postoperative alignment [facility], , 06/17/2024 2:58 PM
[2024-06-17] MEDS ORDERED: PROCHLORPERAZINE INJ 10 MG/2 ML VIAL IVP PRN (16:06)
--- NOTE | 2024-06-17 16:23 | P.PN ---
Subjective Progress Note Date: 06/17/24 Hospital course: Patient is a very pleasant 84-year-old female with past medical history of COPD, chronic anemia, and mild dementia. She presented to the hospital on 06/15/2024 status post unwitnessed fall at home. Upon arrival to our facility, patient underwent evaluation in the emergency department. Vital signs upon arrival show blood pressure 135/77, heart rate 82, respiratory rate 20, temp 97.5 F, and SpO2 of 97% on room air. EKG was completed showing normal sinus rhythm at 87 bpm with nonspecific T wave abnormalities and no significant ST changes showing no signs of acute ischemia. Chest x-ray completed showing hyperinflated lungs with coarsening of interstitial markings consistent with COPD otherwise negative for acute process. CT head negative for acute intracranial process. CT cervical spine negative for acute fracture or dislocation of the cervical spine. X-ray left hip and pelvis showing a comminuted acute displaced left femoral n verito fracture. Labs were completed and reviewed. CBC showing mild leukocytosis with WBC count of 12.5 and stable normocytic anemia with hemoglobin of 10.9. BMP showing mild hyponatremia with sodium of 133 and prerenal azotemia with BUN of 27 otherwise normal findings. Blood glucose 107. Liver profile showing elevated AST of 45 otherwise normal findings. Patient was admitted under orthopedic surgery team and we were consulted for preoperative clearance and medical management throughout hospitalization. Physical exam: Patient seen and fully evaluated at bedside this morning. She appears to be doing well, reports mild to moderate pain left hip. Patient's son, [id number], and granddaughter visiting at bedside. Patient scheduled to undergo left hip hemiarthroplasty later today. She denies having any headache, lightheadedness, dizziness, chest pain, palpitations, shortness of breath, or experiencing any numbness/tingling in her extremities. Callejas catheter remains in place. Vital signs reviewed and stable. General: Nontoxic, no distress and appears stated age. Derm: Skin warm and dry, normal coloration for ethnicity. Head: Atraumatic, normocephalic and symmetric. Eyes: EOM's intact, no lid lag, and anicteric sclera Mouth: no lip lesions, mucus membranes moist Cardiovascular: regular rate and rhythm with normal S1S2, mild systolic murmur, positive posterior tibial pulses bilaterally, and cap refill < 2 seconds. Lungs: Respirations even, regular, and unlabored on room air. Lungs CTA bilaterally, no rhonchi, no rales, no wheezing, and no accessory muscle usage. Abdominal: soft, nontender to palpation, no guarding, no appreciable organomegaly Ext: No gross muscle atrophy, no edema. Movement and sensation intact. Left lower extremity with left lateral rotation and mild shortening. Neuro: Speech clear, face symmetrical and CN II-XII grossly intact with no noted focal neuro deficits Psych: Alert and oriented to person, place, time, and situation. Appropriate and pleasant affect. Assessment and Plan of Care: Left femoral neck fracture, displaced Pre-Surgical clearance -METS > 4 and Revised Cardiac Risk Index Score: 0 points showing a 3.9% 30-day risk of , [place], or cardiac arrest. -Patient is medically optimized to undergo planned surgical repair of left hip/femur fracture with no obvious modifiable risk factors noted. -Continue glycemic protocol with [id number] glucose checks every 6 hours while patient n.p.o. pending surgery. -Continue Tylenol 650 mg every 6 hours as needed for mild pain, [place] 5-325 mg tablets every 4 hours as needed for moderate pain, and Dilaudid 1 mg every 4 hours as needed for severe pain. -Zofran 4 mg IVP every 8 hours as needed for nausea. -GI prophylaxis with Protonix 40 mg daily. -Continue Callejas catheter secondary to need for immobilization pending completion of surgical procedure. -DVT prophylaxis per primary admitting orthopedic surgery team. COPD with continued nicotine dependence -Not in acute exacerbation -Chest x-ray completed showing hyperinflated lungs with coarsening of interstitial markings consistent with COPD otherwise negative for acute process. -Recommend smoking cessation and continued nicotine patch 21 mg daily. -Encourage use of incentive spirometry 10-15 times hourly while awake to prevent atelectasis and development of pneumonia. Acute blood loss anemia on anemia of chronic disease -Hemoglobin stable at 9.3. No need for transfusion or further intervention at this time. Will continue to monitor hemoglobin levels closely and transfuse if needed for hemoglobin less than 7. Data and imaging reviewed: -Preoperative EKG showing normal sinus rhythm at 87 bpm with nonspecific T wave abnormalities and no significant ST changes showing no signs of acute ischemia upon personal review and interpretation. -Morning labs reviewed. CBC showing no leukocytosis with WBC count of 9.36 and acute blood loss anemia with hemoglobin of 9.3. BMP unremarkable. Blood glucose 89. Magnesium 1.9. -Vital signs reviewed. Blood pressure 142/83, heart rate 91, respiratory rate 15, temp 98.6 F, and SpO2 of 97% on 2 L O2. Thank you for allowing us to participate in the care of this pleasant patient. Do not hesitate to contact us with questions. Someone can be reached from the [facility] hospitalist group all hours of the day at [phone] or via perfect serve. Patient was seen independently by Nurse Pracitioner. This document was prepared using [employer] dictation software. Please allow for errors in industrial safety and health manager, while rare they do occur. Reymundo Penny NP rendered care for this patient independently, reviewed the findings and plan as documented in the note above and agree with plan. I did not physically speak with or examine the patient on this date. Objective - Vital Signs Vital signs: Vital Signs Temp 98.6 F 06/17/24 07:34 Pulse 91 06/17/24 07:34 Resp 15 06/17/24 07:34 BP 142/83 06/17/24 07:34 Pulse Ox 97 06/17/24 07:34 FiO2 Intake & Output 06/16/24 06/17/24 06/17/24 18:59 06:59 18:59 Intake Total 1080 Output Total 725 700 Balance -725 380 Intake: Oral 1080 Output: Urine 725 700 Uretheral (Callejas) 325 Other: Voiding Method Indwelling Catheter Indwelling Catheter - Labs CBC & Chem 7: 06/17/24 05:32 06/17/24 05:32 Labs: Abnormal Lab Results - Last 24 Hours (Table) 06/16/24 06/16/24 Range/Units 02:46 02:46 WBC 11.20 H (4.50-10.00) X 10*3/uL RBC 3.78 L (4.10-5.20) X 10*6/uL Hgb 10.9 L (12.0-15.0) g/dL Hct 34.4 L (37.2-46.3) % MCHC 31.7 L (32.0-37.0) g/dL Neutrophils # 8.91 H (1.80-7.70) X 10*3/uL Carbon Dioxide 20.3 L (21.6-31.8) mmol/L Anion Gap 12.70 H (4.00-12.00) mmol/L BUN 27.6 H (9.0-27.0) mg/dL BUN/Creatinine Ratio 39.43 H (12.00-20.00) Ratio
[2024-06-17 16:36] LABS: Glucose,Whole Blood 109 mg/dL (70-110)
[2024-06-17] MEDS: ASPIRIN 325 MG TAB PO SCH (21:41)
[2024-06-17] MEDS: SENNOSIDES-DOCUSATE SODIUM 1 EACH TAB PO SCH (21:41)
[2024-06-18 00:05] LABS: Glucose,Whole Blood 119 mg/dL (70-110)
[2024-06-18 06:11] LABS: Glucose,Whole Blood 109 mg/dL (70-110)
--- NOTE | 2024-06-18 07:32 | P.OP ---
Date of Procedure: 06/17/24 Preoperative Diagnosis: 1. LEFT FEMORAL NECK FACTURE 2. S/P FFS 3. COMPLEX MEDICAL PATIENT Postoperative Diagnosis: 1. LEFT FEMORAL NECK FACTURE 2. S/P FFS 3. COMPLEX MEDICAL PATIENT Procedure(s) Performed: 1. LEFT HIP HEMIARTHROPLASTY Implants: [employer] F: 3 A: 43 28/0/STD CABLE X1 Anesthesia: GETA Surgeon: Gil Duarte Dope Maintenance Worker #1: Bushra Acevedo (WAS PRESENT AND ASSISTED WITH ALL ASPECTS OF THE CASE FROM POSITION TO DRESSING PLACEMENT) Estimated Blood Loss (ml): 100 IV fluids (ml): 1,200 Urine output (ml): 300 Pathology: none sent Condition: stable Disposition: PACU Indications for Procedure: Orthopedic Surgery Risk Review Minda Caraballo is a 84-year-old female presenting for evaluation of sudden onset left hip pain pain, inability to ambulate after fall at home from standing. It was my pleasure to have seen and examined Minda. In our visit today we have had a chance to go over subjective complaints, physical examination findings and treatments including the natural course history without intervention and various interventional options. Per imaging demonstrates left femoral neck fracture complete displaced. On physical exam, joint and demonstrates pain with motion of left lower extremity, which is NV intact at this time. I have explained to the patient that this fracture needs stabilization. Based on the patients imaging, physical exam, and the rapid progression and disabling nature of her symptoms, at this time I recommend surgery in the form or a: Left hip hemiarthroplasty I discussed the risk and benefits of this procedure at length with Minda and family at bedside her son. Questions were invited and answered, and the patient wishes to proceed as outlined below. Currently, I am recommendin. Left hip hemiarthroplasty 2. Review of surgical risks and benefits as well as an educational packet on the proposed surgical procedure. Risks: All surgical procedures come with inherent risks, including those related to positioning, anesthesia, intraoperative findings, and postoperative complications. It is important to understand that surgery does not come with any guarantee of a successful outcome as complications and adverse events are always possible. The patient was given a handout discussing the surgical procedure and risks associated with the intervention, both of which were discussed with the patient. These risks include but are not limited to the following: - Experiencing same, different or even worse symptoms compared to before surgery. - Requiring further surgery or other forms of treatment presently or at some time in the future . - On an extreme but fortunately relatively rare basis severe complication such as blindness, stroke, heart attack, temporary and/or permanent nerve injury, paralysis, coma, or may occur, sometimes without known explanation. - Surgical complications may include but are not limited to risk of infection, fluid accumulation in the surgical dissection site, including a seroma or hematoma, that requires additional surgery, wound drainage, bleeding, new numbness or weakness, vision changes/loss, spinal fluid leakage, non-healing and/or infected incision, headaches, difficulty or inability to swallow, hoarseness, hemopneumothorax, pneumothorax, injury to nerves, spinal cord, blood vessels, lymphatics or other vital organs (i.e., bowel injury, injury to the great vessels); heterotopic bone formation; complications related to the hardware such as screws, rods, including misplaced hardware, device failure, hardware fracture/breakage, or hardware loosening; retained surgical instrumentations or devices and the need for further surgery. - Medical risks of the planned surgery include but are not limited to generalized Infections to the whole body or local areas outside of the surgical site (sepsis), heart attack, bleeding, anaphylaxis, meningitis, seizure, epilepsy, hearing loss, burn alcantara, laceration of the head or other areas of the body, bruising, hypersensitivity of the skin, bladder over distension; allergic reaction; shoulder injury related to positioning; fat, blood and air clots to other areas of the body like heart, lungs, brain; failure of internal organs such as lungs, kidneys, liver and excessive bleeding. If blood transfusions are necessary, note that transfusions may cause intolerance reactions such as anaphylaxis or other complex reactions. Despite best efforts, the results of surgery might not heal in terms of bone, soft tissues such as skin, fascia, ligaments, and joints. [facility] has multiple operating rooms with single and overlapping rooms running daily. They currently function under the required guidelines as produced by the Senate Finance Committee with regards to the overlapping rooms and will continue to comply with changes to this policy as they occur. The requirements include and are complied with as follows: (1) the critical portions of the overlapping rooms will not occur at the same time, (2) the attending physician will be physically present during the critical portions of the procedure and immediately available during the entire case, and (3) a back-up attending is designated should the primary attending not be immediately available. The patient has had a chance to review all the listed information, has been given print outs detailing this information, and has had all his/her questions answered to their satisfaction. It was my pleasure to have seen and examined Sonja Caraballo. In our visit today we have had a chance to go over my understanding of our patient's current condition, the natural course history without intervention and various interventional options. Questions were invited and answered, and the patient wishes to proceed as outlined above. I have seen and examined the patient for 25 minutes and we have spent more than 50% of the time in repeat and detailed coun seling about the patient's condition, its natural course history with out and as much as can be predicted with surgery and re-review of various surgical treatment options. In conclusion, Sonja Caraballo and family requested we proceed with the above suggested surgery and are willing to accept risks and limitations of the suggested surgery as nature of the disease process and our best attempts at treatment for the condition. Thank you again for allowing us to be part of your patient's care. Please don't hesitate to contact me if you have any further questions. Signed and authenticated by: Gil Carter [facility] [address] [place] [id number] Description of Procedure: Left Hip Hemiarthroplasty 33651 The patient was seen and examined in the preoperative area. All preoperative protocols were followed. Informed consent was obtained, risks and benefits of the procedure were discussed at length. Risks including bleeding infection damage to the surrounding tissue and risk of reoperation were discussed with the patient. Risk of anesthesia up to and including was discussed with the patient. These are outlined in the risk reviewed. They were willing to accept these risks and all of the risks of surgery. The patient was given a weight- based dose of antibiotics in the form of 2 g Ancef. The patient was seen and evaluated by the anesthesia team who deemed them fit for surgery. The site was marked, the patient was willing to proceed with the procedure. The patient was transferred to the operative suite by the Department of anesthesia. They were then drifted off to sleep by the department of anesthesia and spinal anesthesia was used. Once adequate anesthesia had been obtained the patient was carefully transferred to the operative bed and placed in the lateral decubitus position secured with posts with an axillary role and appropriate padding. All bony prominences were padded accordingly. SCDs were placed on the nonoperative lower extremities. Arms were well padded. The Left leg was exposed and 1015 placed around the site. Preoperative briefing was done with the operative team and everyone was ready for the procedure to start. The patient's left leg was then prepped and draped in the normal sterile fashion. Timeout was then performed and all parties in agreement with the procedure to be performed. Standard incision was marked for posterior approach to the hip. Skin incision made and dissection taken down to the TFL which was identified and split with its fibers. Charnley retractor placed and bursa identified along with vastus insertion and gluteus medius. Medius was protected and posterior short external rotators along with capsule and piriformis which were tagged, identified and released. Capsulotomy in an L shape was performed along the superior neck which allowed for dislocation of the fractured stump. Shoulder was palpated along with a Lesser trochanter and clean up cut made 1 cm superior to the LT. Once this was done retractors placed and the head was removed with a corkscrew and T handle. Once removed it was sized and a trial head was placed and had good suction fit. Attention was then turned to femoral preparation. Box osteotome was used to enter followed by canal finder and lateralizer. Rat tail then used to widen this. Sequential broaching was then performed until the desired size and fit. Once this was achieved a head and neck combo was trialed. Once reduced the hit was taken through a range of motion and was stable in all positions, had good motion and leg lengths were equal. The hip was then atraumatically dislocated and the braoch checked, it was stable and so final sizes selected. The wound, acetabulum and femoral canal were then irrigated copiously with pulse lavage and NSS. Canal and acetabulum inspected and were appropriate. Final implants were then confirmed and the femoral stem impacted into position and was stable. On impaction it was noted there was a small crack in the calcar region that did not propogate past the lesser. We elected to place a cable. Cable passer was then placed and passed just distal to the lesser trachanter. Cable was passed and sinched. It was then final tightened and the set screw locked and final tightened. The implant was stable. Bipolar head combo was then assembled and placed and impacted into position and tested and was stable. The hip was then reduced and taken through a ROM again and was stable and had good length. The wound was again irrigated. Posterior capsule was then stitched with ethibond suture and passed through three drill holes made in the posterior GT. These were then tightened and tied. The capsule was then oversewn with an ethibond stitch for tight closure. ROM showed good tension and good closure. Charnley removed and TFL repaired with #1 vicryl in running locking fashion. Deep subq closed with 0 Vicryl, Superficial with 2-0 vicryl and skin with elias. Wound edges approximated well. The wound was then cleaned and dressed sterrilly with Optifoam dressing. The patient was then transferred back to their hospital bed. They were awakened by the department of anesthesia having tolerated the procedure very well with no complications. Hip abduction pillow placed. The patient was then transported to the postoperative care unit in stable condition. Post operative images confirmed good placement and no distal propagation of the fracture.
[2024-06-18 08:25] LABS: Basophils # (A) 0.03 X 10*3/uL (0.00-0.10); Basophils % (A) 0.3 %; Eosinophils # (A) 0.07 X 10*3/uL (0.04-0.35); Eosinophils % (A) 0.7 %; HCT 27.7 % (37.2-46.3); HGB 8.8 g/dL (12.0-15.0); Lymphocytes % (A) 11.8 %; MCH 28.6 pg (27.0-32.0); MCHC 31.8 g/dL (32.0-37.0); MCV 89.9 FL (80.0-97.0); Mean Platelet Volume 10.2 FL (9.5-12.2); Monocytes # (A) 0.63 X 10*3/uL (0.20-1.00); Monocytes % (A) 6.7 %; NRBC Per 100 WBC 0 X 10*3/uL (0.00-0.01); Neutrophils # (A) 7.48 X 10*3/uL (1.80-7.70); Platelet Count 193 X 10*3/uL (140-440); RBC 3.08 X 10*6/uL (4.10-5.20); RDW 13.8 % (11.5-14.5); WBC 9.36 X 10*3/uL (4.50-10.00)
[2024-06-18 08:42] LABS: ALT 20 U/L (8-44); AST 28 U/L (13-35); Albumin 3.3 g/dL (3.8-4.9); Albumin/Globulin Ratio 1.57 Ratio (1.60-3.17); Alkaline Phosphatase 92 U/L (41-126); BUN/Creat Ratio 31.33 Ratio (12.00-20.00); Blood Urea Nitrogen 18.8 mg/dL (9.0-27.0); Calcium 8.4 mg/dL (8.7-10.3); Carbon Dioxide 20.6 mmol/L (21.6-31.8); Chloride 105 mmol/L (96-109); Globulin 2.1 g/dL (1.6-3.3); Glucose 95 mg/dL (70-110); Magnesium 1.8 mg/dL (1.5-2.4); Potassium 3.3 mmol/L (3.5-5.5); Sodium 137 mmol/L (135-145); Total Bilirubin 0.4 mg/dL (0.3-1.2); Total Protein 5.4 g/dL (6.2-8.2)
[2024-06-18 11:01] LABS: INR 1.04 sec (0.93-1.11); Prothrombin Time 11.2 sec (9.9-11.9)
[2024-06-18 11:27] LABS: Glucose,Whole Blood 135 mg/dL (70-110)
--- NOTE | 2024-06-18 14:28 | P.PN ---
Subjective Progress Note Date: 06/18/24 Hospital course: Patient is a very pleasant 84-year-old female with past medical history of COPD, chronic anemia, and mild dementia. She presented to the hospital on 06/15/2024 status post unwitnessed fall at home. Upon arrival to our facility, patient underwent evaluation in the emergency department. Vital signs upon arrival show blood pressure 135/77, heart rate 82, respiratory rate 20, temp 97.5 F, and SpO2 of 97% on room air. EKG was completed showing normal sinus rhythm at 87 bpm with nonspecific T wave abnormalities and no significant ST changes showing no signs of acute ischemia. Chest x-ray completed showing hyperinflated lungs with coarsening of interstitial markings consistent with COPD otherwise negative for acute process. CT head negative for acute intracranial process. CT cervical spine negative for acute fracture or dislocation of the cervical spine. X-ray left hip and pelvis showing a comminuted acute displaced left femoral n verito fracture. Labs were completed and reviewed. CBC showing mild leukocytosis with WBC count of 12.5 and stable normocytic anemia with hemoglobin of 10.9. BMP showing mild hyponatremia with sodium of 133 and prerenal azotemia with BUN of 27 otherwise normal findings. Blood glucose 107. Liver profile showing elevated AST of 45 otherwise normal findings. Patient was admitted under orthopedic surgery team and we were consulted for preoperative clearance and medical management throughout hospitalization. Physical exam: Patient seen and fully evaluated at bedside this morning. She appears to be doing well, she was sitting up in chair this morning. Patient reports continued pain in the left hip and leg but states feeling a bit better and "I am getting stronger". Patient denies any other complaints at this time. Vital signs reviewed and stable. General: Nontoxic, no distress and appears stated age. Derm: Skin warm and dry, normal coloration for ethnicity. Head: Atraumatic, normocephalic and symmetric. Eyes: EOM's intact, no lid lag, and anicteric sclera Mouth: no lip lesions, mucus membranes moist Cardiovascular: regular rate and rhythm with normal S1S2, mild systolic murmur, positive posterior tibial pulses bilaterally, and cap refill < 2 seconds. Lungs: Respirations even, regular, and unlabored on room air. Lungs CTA bilat erally, no rhonchi, no rales, no wheezing, and no accessory muscle usage. Abdominal: soft, nontender to palpation, no guarding, no appreciable organomegaly Ext: No gross muscle atrophy, no edema. Movement and sensation intact. Left lower extremity with left lateral rotation and mild shortening. Neuro: Speech clear, face symmetrical and CN II-XII grossly intact with no noted focal neuro deficits Psych: Alert and oriented to person, place, time, and situation. Appropriate and pleasant affect. Assessment and Plan of Care: Status post left hemiarthroplasty Left femoral neck fracture, displaced -Management per primary admitting orthopedic surgery team including DVT prophylaxis, wound/dressing management, weightbearing, and PT/OT. -Continue Tylenol 650 mg every 6 hours as needed for mild pain, [place] 5-325 mg tablets every 4 hours as needed for moderate pain, and morphine 4 mg every 4 hours as needed for severe pain. -Zofran 4 mg IVP every 8 hours as needed for nausea. -GI prophylaxis with Protonix 40 mg daily. -Continue Callejas catheter for an additional 24 hours and discontinue tomorrow and perform voiding challenge. -DVT prophylaxis with aspirin 325 mg twice daily per recommendations of primary admitting orthopedic surgery team. COPD with continued nicotine dependence -Not in acute exacerbation -Chest x-ray completed showing hyperinflated lungs with coarsening of interstitial markings consistent with COPD otherwise negative for acute process. -Recommend smoking cessation and continue nicotine patch 21 mg daily. -Encourage use of incentive spirometry 10-15 times hourly while awake to prevent atelectasis and development of pneumonia. Acute blood loss anemia on anemia of chronic disease -Postoperative hemoglobin stable at 8.8. No need for transfusion or further intervention at this time. Will continue to monitor hemoglobin levels closely and transfuse if needed for hemoglobin less than 7. Data and imaging reviewed: -Morning labs reviewed. CBC showing acute blood loss anemia with hemoglobin stable at 8.8. BMP showing mild hypokalemia with potassium of 3.3. Blood glucose 95. Magnesium 1.8. -Vital signs reviewed. Blood pressure 135/77, heart rate 111, respiratory rate 13, temp 98.7 F, SpO2 of 90% on 2 L. Thank you for allowing us to participate in the care of this pleasant patient. Do not hesitate to contact us with questions. Someone can be reached from the [facility] hospitalist group all hours of the day at [phone] or via [employer]. Patient was seen independently by Nurse Pracitioner. This document was prepared using [employer] dictation software. Please allow for errors in nurses' association counselor, while rare they do occur. Reymundo Penny BLAST FURNACE BLOWER rendered care for this patient independently, reviewed the findings and plan as documented in the note above and agree with plan. I did not physically speak with or examine the patient on this date. Objective - Vital Signs Vital signs: Vital Signs Temp 98.7 F 06/18/24 07:53 Pulse 111 H 06/18/24 07:53 Resp 13 06/18/24 07:53 BP 135/77 06/18/24 07:53 Pulse Ox 90 L 06/18/24 07:53 FiO2 Intake & Output 06/17/24 06/18/24 06/18/24 18:59 06:59 18:59 Intake Total 951 Output Total 300 550 Balance 651 -550 Intake: IV 951 Output: Urine 250 550 Estimated Blood Loss 50 Other: Voiding Method Indwelling Catheter - Labs CBC & Chem 7: 06/18/24 05:32 06/18/24 05:32 Labs: Abnormal Lab Results - Last 24 Hours (Table) 06/17/24 06/17/24 06/18/24 Range/Units 05:32 05:32 00:04 RBC 3.20 L (4.10-5.20) X 10*6/uL Hgb 9.3 L (12.0-15.0) g/dL Hct 28.9 L (37.2-46.3) % Carbon Dioxide 20.3 L (21.6-31.8) mmol/L BUN 29.1 H (9.0-27.0) mg/dL BUN/Creatinine Ratio 48.50 H (12.00-20.00) Ratio POC Glucose (mg/dL) 119 H (70-110) mg/dL
--- NOTE | 2024-06-18 15:11 | P.PN ---
Subjective Progress Note Date: 06/18/24 Principal diagnosis: Fall with trauma Left hip fracture Patient seen and examined this morning. Patient is resting comfortably in bed. The A-frame pillow is intact between patient's bilateral lower extremities. Surgical dressing to the left hip is clean dry and intact, no shadowing noted. Patient is able to wiggle her toes. Patient has not been up since procedure. Informed patient that physical therapy will begin to work with her today. Continuing to encourage patient to increase her activity and to be up in chair for all meals. Encourage patient to utilize incentive spirometer 10 times per hour while awake. No acute concerns. Objective - Vital Signs Vital signs: Vital Signs Temp 98.6 F 06/18/24 01:03 Pulse 99 06/18/24 01:03 Resp 17 06/18/24 01:03 BP 144/90 06/18/24 01:03 Pulse Ox 94 L 06/18/24 01:03 FiO2 Intake & Output 06/17/24 06/18/24 06/18/24 18:59 06:59 18:59 Intake Total 951 Output Total 300 550 Balance 651 -550 Intake: IV 951 Output: Urine 250 550 Estimated Blood Loss 50 Other: Voiding Method Indwelling Catheter - Exam Inspection: Surgical incision to the left hip, dressing is clean dry and intact with no shadowing noted. Sensation: Sensation is equal, symmetric, bilaterally intact throughout the upper and lower extremities Palpation: There is tenderness to palpation over the left hip area around the surgical incision. Range of motion: Patient does have full range of motion bilateral upper and right lower extremities on exam and limited range of motion of the left lower extremity due to pain and stiffness from surgery. Motor: Right: shoulder abduction 5/5, elbow flexors 5/5, wrist dorsiflexors 5/5. finger abductor 5/5, plaster tender 5/5, hip flexor 5/5, knee flexor 5/5, ankle dorsiflexor 5/5, ankle plantarflexion 5/5 and extensor hallucis 5/5. Left: shoulder abduction 5/5, elbow flexors 5/5, wrist dorsiflexors 5/5. finger abductor 5/5, plaster tender 5/5, hip flexor 4/5, knee flexor 4/5, ankle dorsiflexor 4/5, ankle plantarflexion 4/5 and extensor hallucis 5/5. Special tests: Negative Homans bilaterally. Negative Lance bilaterally. Negative clonus bilaterally. Neurovascular: Radial pulse intact, 2+ bilaterally. Cap refill under 3 seconds in digits upper extremities. - Labs CBC & Chem 7: 06/18/24 05:32 06/18/24 05:32 Labs: Abnormal Lab Results - Last 24 Hours (Table) 06/17/24 06/17/24 06/18/24 Range/Units 05:32 05:32 00:04 RBC 3.20 L (4.10-5.20) X 10*6/uL Hgb 9.3 L (12.0-15.0) g/dL Hct 28.9 L (37.2-46.3) % Carbon Dioxide 20.3 L (21.6-31.8) mmol/L BUN 29.1 H (9.0-27.0) mg/dL BUN/Creatinine Ratio 48.50 H (12.00-20.00) Ratio POC Glucose (mg/dL) 119 H (70-110) mg/dL Assessment and Plan Assessment: Postop day 1: Left hip hemiarthroplasty Plan: -Appreciate incident response consultant and team management. -Activity: Ambulate QID, OOB all meals, up and about, limit lifting bending twisting to less than 5 lbs. Use walker or cane if needed for stability. -Daily PT/OT, increase ambulation strength and balance. -A-frame pillow to be placed well in bed or in chair. -Pain control: Adequate at this time -Meds: reviewed -GI ppx: senna, Miralax -DC jacobs when up and about, bedside commode if needed -DVT PPX: Aspirin -Hygiene: Maintain incision clean and dry. May change dressing as needed, please document in notes if performed. -Encourage IS 10x/hr -Dispo: Anticipate discharge to [facility] within the next 24-48hrs. *I reviewed and discussed this case with my attending Dr. Duarte, whom has reviewed this chart and films and is in agreement with assessment and plan of care as outlined above. I have personally seen and examined the patient, performed the documentation and the assessment and plan as written. Number of minutes spent on the visit: 20m.
[2024-06-18] MEDS: POTASSIUM CHLORIDE ER 20 MEQ TAB.ER PO STA (15:13)
[2024-06-18 16:16] LABS: Glucose,Whole Blood 143 mg/dL (70-110)
[2024-06-18 23:54] LABS: Glucose,Whole Blood 211 mg/dL (70-110)
[2024-06-19 05:54] LABS: Glucose,Whole Blood 110 mg/dL (70-110)
[2024-06-19 10:34] LABS: Basophils # (A) 0.03 X 10*3/uL (0.00-0.10); Basophils % (A) 0.4 %; Eosinophils # (A) 0.19 X 10*3/uL (0.04-0.35); Eosinophils % (A) 2.6 %; HCT 24.6 % (37.2-46.3); Lymphocytes % (A) 13.8 %; MCH 28.5 pg (27.0-32.0); MCHC 32.5 g/dL (32.0-37.0); MCV 87.5 FL (80.0-97.0); Monocytes # (A) 0.59 X 10*3/uL (0.20-1.00); Monocytes % (A) 8.2 %; NRBC Per 100 WBC 0 X 10*3/uL (0.00-0.01); Neutrophils # (A) 5.38 X 10*3/uL (1.80-7.70); Neutrophils % (A) 74.4 %; Platelet Count 187 X 10*3/uL (140-440); RBC 2.81 X 10*6/uL (4.10-5.20); RDW 13.9 % (11.5-14.5); WBC 7.23 X 10*3/uL (4.50-10.00)
--- NOTE | 2024-06-19 10:40 | P.PN ---
Subjective Progress Note Date: 06/19/24 Principal diagnosis: Fall with trauma Left hip fracture Patient seen and examined this morning. Patient is resting comfortably in bed. Surgical dressing to the left hip is clean dry and intact, no shadowing noted. Patient is able to wiggle her toes. Patient has worked with PT and is tolerating activity well. Continuing to encourage patient to increase her activity and to be up in chair for all meals. Patient's hgb did decrease from 8.8 yesterday, 06/18/24 to 8.0 today. Encourage patient to utilize incentive spirometer 10 times per hour while awake. No acute concerns. Objective - Vital Signs Vital signs: Vital Signs Temp 99.5 F 06/19/24 01:32 Pulse 115 H 06/19/24 01:32 Resp 19 06/19/24 01:32 BP 147/83 06/19/24 01:32 Pulse Ox 97 06/19/24 01:32 FiO2 Intake & Output 06/18/24 06/19/24 06/19/24 18:59 06:59 18:59 Output Total 550 375 Balance -550 -375 Output: Urine 550 375 Other: Voiding Method Indwelling Catheter - Exam Inspection: Surgical incision to the left hip, dressing is clean dry and intact with no shadowing noted. Sensation: Sensation is equal, symmetric, bilaterally intact throughout the upper and lower extremities Palpation: There is tenderness to palpation over the left hip area around the surgical incision. Range of motion: Patient does have full range of motion bilateral upper and right lower extremities on exam and limited range of motion of the left lower extremity due to pain and stiffness from surgery. Motor: Right: shoulder abduction 5/5, elbow flexors 5/5, wrist dorsiflexors 5/5. finger abductor 5/5, pellet mill operator 5/5, hip flexor 5/5, knee flexor 5/5, ankle dorsiflexor 5/5, ankle plantarflexion 5/5 and extensor hallucis 5/5. Left: shoulder abduction 5/5, elbow flexors 5/5, wrist dorsiflexors 5/5. finger abductor 5/5, pellet mill operator 5/5, hip flexor 4/5, knee flexor 4/5, ankle dorsiflexor 4/5, ankle plantarflexion 4/5 and extensor hallucis 5/5. Special tests: Negative Homans bilaterally. Negative Lance bilaterally. Negative clonus bilaterally. Neurovascular: Radial pulse intact, 2+ bilaterally. Cap refill under 3 seconds in digits upper extremities. - Labs CBC & Chem 7: 06/19/24 06:46 06/18/24 05:32 Labs: Abnormal Lab Results - Last 24 Hours (Table) 06/18/24 06/18/24 06/18/24 Range/Units 05:32 05:32 11:26 RBC 3.08 L (4.10-5.20) X 10*6/uL Hgb 8.8 L (12.0-15.0) g/dL Hct 27.7 L (37.2-46.3) % MCHC 31.8 L (32.0-37.0) g/dL Immature Gran # 0.05 H (0.00-0.04) X 10*3/uL Potassium 3.3 L (3.5-5.5) mmol/L Carbon Dioxide 20.6 L (21.6-31.8) mmol/L BUN/Creatinine Ratio 31.33 H (12.00-20.00) Ratio POC Glucose (mg/dL) 135 H (70-110) mg/dL Calcium 8.4 L (8.7-10.3) mg/dL Total Protein 5.4 L (6.2-8.2) g/dL Albumin 3.3 L (3.8-4.9) g/dL Albumin/Globulin Ratio 1.57 L (1.60-3.17) Ratio 06/18/24 06/18/24 Range/Units 16:14 23:53 RBC (4.10-5.20) X 10*6/uL Hgb (12.0-15.0) g/dL Hct (37.2-46.3) % MCHC (32.0-37.0) g/dL Immature Gran # (0.00-0.04) X 10*3/uL Potassium (3.5-5.5) mmol/L Carbon Dioxide (21.6-31.8) mmol/L BUN/Creatinine Ratio (12.00-20.00) Ratio POC Glucose (mg/dL) 143 H 211 H (70-110) mg/dL Calcium (8.7-10.3) mg/dL Total Protein (6.2-8.2) g/dL Albumin (3.8-4.9) g/dL Albumin/Globulin Ratio (1.60-3.17) Ratio Assessment and Plan Assessment: Postop day 2: Left hip hemiarthroplasty Plan: -Appreciate plan consultant and team management. -Activity: Ambulate QID, OOB all meals, up and about, limit lifting bending twisting to less than 5 lbs. Use walker or cane if needed for stability. -Daily PT/OT, increase ambulation strength and balance. -A-frame pillow to be placed well in bed or in chair. -Pain control: Adequate at this time -Meds: reviewed -GI ppx: senna, Miralax -DC jacobs when up and about, bedside commode if needed -DVT PPX: Aspirin -Hygiene: Maintain incision clean and dry. May change dressing as needed, please document in notes if performed. -Encourage IS 10x/hr -Dispo: Anticipate discharge to [facility] within the next 24hrs *I reviewed and discussed this case with my attending Dr. Duarte, whom has reviewed this chart and films and is in agreement with assessment and plan of care as outlined above. I have personally seen and examined the patient, performed the documentation and the assessment and plan as written. Number of minutes spent on the visit: 20m.
[2024-06-19 11:22] LABS: Glucose,Whole Blood 116 mg/dL (70-110)
[2024-06-19 12:10] LABS: INR 1.06 sec (0.93-1.11); Prothrombin Time 11.4 sec (9.9-11.9)
[2024-06-19 15:53] VITALS: RESP 17
[2024-06-19 17:45] LABS: Glucose,Whole Blood 135 mg/dL (70-110)
--- NOTE | 2024-06-19 18:04 | P.PN ---
Subjective Progress Note Date: 06/19/24 Hospital course: Patient is a very pleasant 84-year-old female with past medical history of COPD, chronic anemia, and mild dementia. She presented to the hospital on 06/15/2024 status post unwitnessed fall at home. Upon arrival to our facility, patient underwent evaluation in the emergency department. Vital signs upon arrival show blood pressure 135/77, heart rate 82, respiratory rate 20, temp 97.5 F, and SpO2 of 97% on room air. EKG was completed showing normal sinus rhythm at 87 bpm with nonspecific T wave abnormalities and no significant ST changes showing no signs of acute ischemia. Chest x-ray completed showing hyperinflated lungs with coarsening of interstitial markings consistent with COPD otherwise negative for acute process. CT head negative for acute intracranial process. CT cervical spine negative for acute fracture or dislocation of the cervical spine. X-ray left hip and pelvis showing a comminuted acute displaced left femoral n verito fracture. Labs were completed and reviewed. CBC showing mild leukocytosis with WBC count of 12.5 and stable normocytic anemia with hemoglobin of 10.9. BMP showing mild hyponatremia with sodium of 133 and prerenal azotemia with BUN of 27 otherwise normal findings. Blood glucose 107. Liver profile showing elevated AST of 45 otherwise normal findings. Patient was admitted under orthopedic surgery team and we were consulted for preoperative clearance and medical management throughout hospitalization. Physical exam: Patient seen and fully evaluated at bedside this morning. She currently reports pain to left hip 6 out of 10 at this time. She denies having any numbness/tingling/weakness. Movement and sensation remains intact. Callejas catheter to be removed later today and patient to undergo voiding challenge. Vital signs reviewed and stable. General: Nontoxic, no distress and appears stated age. Derm: Skin warm and dry, normal coloration for ethnicity. Head: Atraumatic, normocephalic and symmetric. Eyes: EOM's intact, no lid lag, and anicteric sclera Mouth: no lip lesions, mucus membranes moist Cardiovascular: regular rate and rhythm with normal S1S2, mild systolic murmur, positive posterior tibial pulses bilaterally, and cap refill < 2 seconds. Lungs: Respirations even, regular, and unlabored on room air. Lungs CTA bilat erally, no rhonchi, no rales, no wheezing, and no accessory muscle usage. Abdominal: soft, nontender to palpation, no guarding, no appreciable organomegaly Ext: No gross muscle atrophy, no edema. Movement and sensation intact. Left lower extremity with left lateral rotation and mild shortening. Neuro: Speech clear, face symmetrical and CN II-XII grossly intact with no noted focal neuro deficits Psych: Alert and oriented to person, place, time, and situation. Appropriate and pleasant affect. Assessment and Plan of Care: Status post left hemiarthroplasty Left femoral neck fracture, displaced -Management per primary admitting orthopedic surgery team including DVT prophylaxis, wound/dressing management, weightbearing, and PT/OT. -Continue Tylenol 650 mg every 6 hours as needed for mild pain, [place] 5-325 mg tablets every 4 hours as needed for moderate pain, and morphine 4 mg every 4 hours as needed for severe pain. -Zofran 4 mg IVP every 8 hours as needed for nausea. -GI prophylaxis with Protonix 40 mg daily. -Continue Callejas catheter for an additional 24 hours and discontinue tomorrow and perform voiding challenge. -DVT prophylaxis with aspirin 325 mg twice daily per recommendations of primary admitting orthopedic surgery team. COPD with continued nicotine dependence -Not in acute exacerbation -Chest x-ray completed showing hyperinflated lungs with coarsening of interstitial markings consistent with COPD otherwise negative for acute process. -Recommend smoking cessation and continue nicotine patch 21 mg daily. -Encourage use of incentive spirometry 10-15 times hourly while awake to prevent atelectasis and development of pneumonia. Acute blood loss anemia on anemia of chronic disease -Postoperative hemoglobin stable at 8.0. No need for transfusion or further intervention at this time. Will continue to monitor hemoglobin levels closely and transfuse if needed for hemoglobin less than 7. Data and imaging reviewed: -Morning labs reviewed. . CBC showing acute postoperative blood loss anemia stable at 8.0. PT 11.4. INR 1.06. Blood glucose 116. -Vital signs reviewed. Blood pressure 111/69, heart rate 90, respiratory rate 17, temp 98.0 F, and SpO2 of 97% on 2 L. Thank you for allowing us to participate in the care of this pleasant patient. Do not hesitate to contact us with questions. Someone can be reached from the [facility] hospitalist group all hours of the day at [phone] or via Press [employer] serve. Patient was seen independently by Nurse Pracitioner. This document was prepared using [employer] dictation software. Please allow for errors in hr business partner, while rare they do occur. Reymundo Penny NP rendered care for this patient independently, reviewed the findings and plan as documented in the note above and agree with plan. I did not physically speak with or examine the patient on this date. Objective - Vital Signs Vital signs: Vital Signs Temp 99.5 F 06/19/24 01:32 Pulse 115 H 06/19/24 01:32 Resp 19 06/19/24 01:32 BP 147/83 06/19/24 01:32 Pulse Ox 97 06/19/24 01:32 FiO2 Intake & Output 06/18/24 06/19/24 06/19/24 18:59 06:59 18:59 Output Total 550 375 Balance -550 -375 Output: Urine 550 375 Other: Voiding Method Indwelling Catheter - Labs CBC & Chem 7: 06/19/24 06:46 06/18/24 05:32 Labs: Abnormal Lab Results - Last 24 Hours (Table) 06/18/24 06/18/24 06/18/24 Range/Units 05:32 05:32 11:26 RBC 3.08 L (4.10-5.20) X 10*6/uL Hgb 8.8 L (12.0-15.0) g/dL Hct 27.7 L (37.2-46.3) % MCHC 31.8 L (32.0-37.0) g/dL Immature Gran # 0.05 H (0.00-0.04) X 10*3/uL Potassium 3.3 L (3.5-5.5) mmol/L Carbon Dioxide 20.6 L (21.6-31.8) mmol/L BUN/Creatinine Ratio 31.33 H (12.00-20.00) Ratio POC Glucose (mg/dL) 135 H (70-110) mg/dL Calcium 8.4 L (8.7-10.3) mg/dL Total Protein 5.4 L (6.2-8.2) g/dL Albumin 3.3 L (3.8-4.9) g/dL Albumin/Globulin Ratio 1.57 L (1.60-3.17) Ratio 06/18/24 06/18/24 Range/Units 16:14 23:53 RBC (4.10-5.20) X 10*6/uL Hgb (12.0-15.0) g/dL Hct (37.2-46.3) % MCHC (32.0-37.0) g/dL Immature Gran # (0.00-0.04) X 10*3/uL Potassium (3.5-5.5) mmol/L Carbon Dioxide (21.6-31.8) mmol/L BUN/Creatinine Ratio (12.00-20.00) Ratio POC Glucose (mg/dL) 143 H 211 H (70-110) mg/dL Calcium (8.7-10.3) mg/dL Total Protein (6.2-8.2) g/dL Albumin (3.8-4.9) g/dL Albumin/Globulin Ratio (1.60-3.17) Ratio
[2024-06-19 20:37] LABS: Glucose,Whole Blood 139 mg/dL (70-110)
[2024-06-20 06:26] LABS: Glucose,Whole Blood 112 mg/dL (70-110)
--- NOTE | 2024-06-20 07:10 | P.PN ---
Subjective Progress Note Date: 06/20/24 Principal diagnosis: Fall with trauma Left hip fracture Patient seen and examined this morning. Patient is resting comfortably in bed. Surgical dressing to the left hip is clean dry and intact, no shadowing noted. Patient has worked with PT and is tolerating activity well. Patient has had a continuing drop in her hemoglobin. It is stable at 8.0 as of yesterday 06/19/2024, awaiting labs for today. Patient is cleared from a orthopedic standpoint for discharge to subacute rehab today; Pending medical clearance. Continuing to encourage patient to increase her activity and to be up in chair for all meals. Encourage patient to utilize incentive spirometer 10 times per h our while awake. No acute concerns. Objective - Vital Signs Vital signs: Vital Signs Temp 98.6 F 06/20/24 03:38 Pulse 86 06/20/24 03:38 Resp 17 06/19/24 20:25 BP 133/82 06/20/24 03:38 Pulse Ox 98 06/20/24 03:38 FiO2 Intake & Output 06/19/24 06/19/24 06/20/24 06:59 18:59 06:59 Output Total 375 300 Balance -375 -300 Output: Urine 375 300 Other: Voiding Method Indwelling Catheter Indwelling Catheter Indwelling Catheter # Bowel Movements 1 - Exam Inspection: Surgical incision to the left hip, dressing is clean dry and intact with no shadowing noted. Sensation: Sensation is equal, symmetric, bilaterally intact throughout the upper and lower extremities Palpation: There is tenderness to palpation over the left hip area around the surgical incision. Range of motion: Patient does have full range of motion bilateral upper and right lower extremities on exam and limited range of motion of the left lower extremity due to pain and stiffness from surgery. Motor: Right: shoulder abduction 5/5, elbow flexors 5/5, wrist dorsiflexors 5/5. finger abductor 5/5, psychologist private practice 5/5, hip flexor 5/5, knee flexor 5/5, ankle dorsiflexor 5/5, ankle plantarflexion 5/5 and extensor hallucis 5/5. Left: shoulder abduction 5/5, elbow flexors 5/5, wrist dorsiflexors 5/5. finger abductor 5/5, psychologist private practice 5/5, hip flexor 4/5, knee flexor 4/5, ankle dorsiflexor 4/5, ankle plantarflexion 4/5 and extensor hallucis 5/5. Special tests: Negative Homans bilaterally. Negative Lance bilaterally. Negative clonus bilaterally. Neurovascular: Radial pulse intact, 2+ bilaterally. Cap refill under 3 seconds in digits upper extremities. - Labs CBC & Chem 7: 06/19/24 06:46 06/18/24 05:32 Labs: Abnormal Lab Results - Last 24 Hours (Table) 06/19/24 06/19/24 06/19/24 Range/Units 06:46 11:16 17:39 RBC 2.81 L (4.10-5.20) X 10*6/uL Hgb 8.0 L (12.0-15.0) g/dL Hct 24.6 L (37.2-46.3) % POC Glucose (mg/dL) 116 H 135 H (70-110) mg/dL 06/19/24 Range/Units 20:33 RBC (4.10-5.20) X 10*6/uL Hgb (12.0-15.0) g/dL Hct (37.2-46.3) % POC Glucose (mg/dL) 139 H (70-110) mg/dL Assessment and Plan Assessment: Postop day 3: Left hip hemiarthroplasty Plan: -Appreciate office 365 consultant and team management. -Activity: Ambulate QID, OOB all meals, up and about, limit lifting bending twisting to less than 5 lbs. Use walker or cane if needed for stability. -Daily PT/OT, increase ambulation strength and balance. -A-frame pillow to be placed well in bed or in chair. -Pain control: Adequate at this time -Meds: reviewed -GI ppx: senna, Miralax -DC jacobs when up and about, bedside commode if needed -DVT PPX: Aspirin -Hygiene: Maintain incision clean and dry. May change dressing as needed, please document in notes if performed. -Encourage IS 10x/hr -Dispo: Anticipate discharge to [facility] later today. *I reviewed and discussed this case with my attending Dr. Duarte, whom has reviewed this chart and films and is in agreement with assessment and plan of care as outlined above. I have personally seen and examined the patient, performed the documentation and the assessment and plan as written. Number of minutes spent on the visit: 20m.
--- NOTE | 2024-06-20 07:11 | P.DS ---
Providers Date of admission: 06/15/24 19:41 Expected date of discharge: 06/20/24 Attending physician: Gil Duarte DO Consults: 06/15/24 19:36 Consult Physician Urgent Consulting Provider: Manuel West Consult Reason/Comments: left hip fracture Do you want consulting provider notified?: Yes Primary care physician: Stated None Hospital Course: Hospital Course: The patient was evaluated preoperatively and found to have the diagnosis of left hip fracture. They underwent appropriate preoperative care and were willing to undergo the intended procedure. They underwent a successful left hip hemiarthroplasty, were recovered appropriately and sent to the floor. While on the floor they worked with physical therapy, occupational therapy and nursing to enhance their recovery experience. Their pain was well controlled through their stay and they were started on appropriate medications, DVT ppx modalities, activity and dietary needs. Daily labs were monitored closely, and transfusions were only used when necessary. Medicine as well as other consulting services have made their input and have helped with our team approach and multidisciplinary care. PT milestones have been met and passed and they have made the recommendation of subacute rehab for this patient and treating providers agree with this care path. The patient will be discharged home with appropriate medications, instructions and follow-up information and in stable condition. Patient Condition at Discharge: Stable Plan - Discharge Summary Discharge Rx Participant: No New Discharge Prescriptions: New Aspirin 325 mg PO BID #60 tab HYDROcodone/APAP 5-325MG [[place] 5-325] 1 tab PO Q6HR PRN #18 tab PRN Reason: Pain Sennosides/Docusate Sodium [Senna Plus 8.6-50 mg Tablet] 1 each PO DAILY PRN #20 tab PRN Reason: Constipation No Action Acetaminophen [Tylenol Arthritis] 1,300 mg PO Q8H Discharge Medication List Acetaminophen [Tylenol Arthritis] 1,300 mg PO Q8H 06/15/24 [History] Aspirin 325 mg PO BID #60 tab 06/19/24 [Rx] HYDROcodone/APAP 5-325MG [[place] 5-325] 1 tab PO Q6HR PRN #18 tab 06/19/24 [Rx] Sennosides/Docusate Sodium [Senna Plus 8.6-50 mg Tablet] 1 each PO DAILY PRN #20 tab 06/19/24 [Rx] Follow up Appointment(s)/Referral(s): None,Stated [Primary Care Provider] - 1-2 days [facility], [NON-STAFF] - As Needed Gil Duarte DO [Doctor of Osteopathic Medicine] - 2 Weeks Activity/Diet/Wound Care/Special Instructions: Orthopedic Discharge Instructions: * Wound care and infection precautions; Keep incision clean and dry, allow soapy water to run over incision, Do not scrub over incision. No lotions, creams, moisturizers. No soaking, pools, hot tubs. May remove dressing when there is no drainage. * Weight-bear as tolerated with walker until follow-up. * Ice when necessary. Do not exceed 20 minutes per hour with ice pack. No use of Heat Therapy near the surgical area. * Pain meds and anticoagulants per prescription. * Pain medication has potential to cause constipation. Increase oral fluid & fiber intake. Contact primary care provider if you have not had a bowel movement within 48 hours after d/c. * Follow up in office at [address] Duarte or Bushra Acevedo NP. * Follow up with your primary care doctor 7-10 days after discharge. * Contact [facility] with any questions, , option #3. Discharge Disposition: TRANSFER TO SNF/ECF
[2024-06-20 07:35] VITALS: BP 135/81; TEMP 98.1
[2024-06-20 10:40] LABS: ALT 20 U/L (8-44); AST 21 U/L (13-35); Albumin 3.1 g/dL (3.8-4.9); Albumin/Globulin Ratio 1.41 Ratio (1.60-3.17); Alkaline Phosphatase 137 U/L (41-126); Blood Urea Nitrogen 17.7 mg/dL (9.0-27.0); Calcium 8.6 mg/dL (8.7-10.3); Carbon Dioxide 23.2 mmol/L (21.6-31.8); Chloride 106 mmol/L (96-109); Globulin 2.2 g/dL (1.6-3.3); Glucose 109 mg/dL (70-110); Magnesium 1.8 mg/dL (1.5-2.4); Potassium 3.4 mmol/L (3.5-5.5); Sodium 139 mmol/L (135-145); Total Bilirubin 0.3 mg/dL (0.3-1.2); Total Protein 5.3 g/dL (6.2-8.2)
[2024-06-20 10:42] VITALS: PULSE 95
[2024-06-20 10:43] LABS: Basophils # (A) 0.02 X 10*3/uL (0.00-0.10); Basophils % (A) 0.3 %; Eosinophils # (A) 0.34 X 10*3/uL (0.04-0.35); Eosinophils % (A) 4.3 %; HCT 25.2 % (37.2-46.3); HGB 7.9 g/dL (12.0-15.0); Lymphocytes # (A) 1.04 X 10*3/uL (0.90-5.00); MCH 28.2 pg (27.0-32.0); MCHC 31.3 g/dL (32.0-37.0); Mean Platelet Volume 10.1 FL (9.5-12.2); Monocytes # (A) 0.49 X 10*3/uL (0.20-1.00); Monocytes % (A) 6.1 %; NRBC Per 100 WBC 0 X 10*3/uL (0.00-0.01); Neutrophils # (A) 6.06 X 10*3/uL (1.80-7.70); Neutrophils % (A) 75.9 %; Platelet Count 208 X 10*3/uL (140-440); RDW 14.1 % (11.5-14.5); WBC 7.98 X 10*3/uL (4.50-10.00)
--- NOTE | 2024-06-20 12:14 | P.PN ---
Subjective Progress Note Date: 06/20/24 Hospital course: Patient is a very pleasant 84-year-old female with past medical history of COPD, chronic anemia, and mild dementia. She presented to the hospital on 06/15/2024 status post unwitnessed fall at home. Upon arrival to our facility, patient underwent evaluation in the emergency department. Vital signs upon arrival show blood pressure 135/77, heart rate 82, respiratory rate 20, temp 97.5 F, and SpO2 of 97% on room air. EKG was completed showing normal sinus rhythm at 87 bpm with nonspecific T wave abnormalities and no significant ST changes showing no signs of acute ischemia. Chest x-ray completed showing hyperinflated lungs with coarsening of interstitial markings consistent with COPD otherwise negative for acute process. CT head negative for acute intracranial process. CT cervical spine negative for acute fracture or dislocation of the cervical spine. X-ray left hip and pelvis showing a comminuted acute displaced left femoral n verito fracture. Labs were completed and reviewed. CBC showing mild leukocytosis with WBC count of 12.5 and stable normocytic anemia with hemoglobin of 10.9. BMP showing mild hyponatremia with sodium of 133 and prerenal azotemia with BUN of 27 otherwise normal findings. Blood glucose 107. Liver profile showing elevated AST of 45 otherwise normal findings. Patient was admitted under orthopedic surgery team and we were consulted for preoperative clearance and medical management throughout hospitalization. Physical exam: Patient seen and fully evaluated at bedside this morning. She currently reports pain to left hip 2-3 out of 10 at this time. She denies having any numbness/tingling/weakness. Callejas catheter was not removed yesterday per order of orthopedic surgery, patient to be transferred to SNF today with catheter in place and voiding challenge to be completed at SNF. Vital signs reviewed and stable. General: Nontoxic, no distress and appears stated age. Derm: Skin warm and dry, normal coloration for ethnicity. Head: Atraumatic, normocephalic and symmetric. Eyes: EOM's intact, no lid lag, and anicteric sclera Mouth: no lip lesions, mucus membranes moist Cardiovascular: regular rate and rhythm with normal S1S2, mild systolic murmur, positive posterior tibial pulses bilaterally, and cap refill < 2 seconds. Lungs: Respirations even, regular, and unlabored on room air. Lungs CTA bilaterally, no rhonchi, no rales, no wheezing, and no accessory muscle usage. Abdominal: soft, nontender to palpation, no guarding, no appreciable organomegaly Ext: No gross muscle atrophy, no edema. Movement and sensation intact. Dressing in place left lateral hip, clean, dry, and in place. Neuro: Speech clear, face symmetrical and CN II-XII grossly intact with no noted focal neuro deficits Psych: Alert and oriented to person, place, time, and situation. Appropriate and pleasant affect. Assessment and Plan of Care: Status post left hemiarthroplasty Left femoral neck fracture, displaced -Management per primary admitting orthopedic surgery team including DVT prophylaxis, wound/dressing management, weightbearing, and PT/OT. -Continue Tylenol 650 mg every 6 hours as needed for mild pain, [place] 5-325 mg tablets every 4 hours as needed for moderate pain, and morphine 4 mg every 4 hours as needed for severe pain. -Zofran 4 mg IVP every 8 hours as needed for nausea. -GI prophylaxis with Protonix 40 mg daily. -Continue Callejas catheter for an additional 24 hours and discontinue tomorrow and perform voiding challenge. -DVT prophylaxis with aspirin 325 mg twice daily per recommendations of primary admitting orthopedic surgery team. COPD with continued nicotine dependence -Not in acute exacerbation -Chest x-ray completed showing hyperinflated lungs with coarsening of interstitial markings consistent with COPD otherwise negative for acute process. -Recommend smoking cessation and continue nicotine patch 21 mg daily. -Encourage use of incentive spirometry 10-15 times hourly while awake to prevent atelectasis and development of pneumonia. Acute blood loss anemia on anemia of chronic disease -Postoperative hemoglobin stable at 8.0. No need for transfusion or further intervention at this time. Will continue to monitor hemoglobin levels closely and transfuse if needed for hemoglobin less than 7. Data and imaging reviewed: -Morning labs reviewed. . CBC showing acute postoperative blood loss anemia stable at 7.9. PT 11.4. Blood glucose 112. -Vital signs reviewed. Blood pressure 135/81, heart rate 95, respiratory rate 17, temp 98.1 F, and SpO2 of 90% on room air and 93% on 2 L. Thank you for allowing us to participate in the care of this pleasant patient. Do not hesitate to contact us with questions. Someone can be reached from the [facility] hospitalist group all hours of the day at [phone] or via perfect serve. Patient was seen independently by Nurse Pracitioner. This document was prepared using [employer] dictation software. Please allow for errors in mexican food maker hand, while rare they do occur. Reymundo Penny NP rendered care for this patient independently, reviewed the findings and plan as documented in the note above and agree with plan. I did not physically speak with or examine the patient on this date. Objective - Vital Signs Vital signs: Vital Signs Temp 98.1 F 06/20/24 06:58 Pulse 95 06/20/24 06:58 Resp 17 06/20/24 06:58 BP 135/81 06/20/24 06:58 Pulse Ox 90 L 06/20/24 06:58 FiO2 Intake & Output 06/19/24 06/20/24 06/20/24 18:59 06:59 18:59 Output Total 300 Balance -300 Output: Urine 300 Other: Voiding Method Indwelling Catheter Indwelling Catheter # Bowel Movements 1 - Labs CBC & Chem 7: 06/20/24 03:04 06/20/24 03:04 Labs: Abnormal Lab Results - Last 24 Hours (Table) 06/19/24 06/19/24 06/19/24 Range/Units 06:46 11:16 17:39 RBC 2.81 L (4.10-5.20) X 10*6/uL Hgb 8.0 L (12.0-15.0) g/dL Hct 24.6 L (37.2-46.3) % POC Glucose (mg/dL) 116 H 135 H (70-110) mg/dL 06/19/24 06/20/24 Range/Units 20:33 06:25 RBC (4.10-5.20) X 10*6/uL Hgb (12.0-15.0) g/dL Hct (37.2-46.3) % POC Glucose (mg/dL) 139 H 112 H (70-110) mg/dL
[2024-06-20 17:30] LABS: INR 1.03 sec (0.93-1.11); Prothrombin Time 11.1 sec (9.9-11.9)
== END 2024-06-20 11:05 | DRG 522 ==
LOC: EC 16:14 → 4SSUR 19:40 → OBSVTOIN 19:41 → 4SSUR 20:49
PROVIDERS: ADMIT Orthopaedic Surgery; ATTEND Orthopaedic Surgery
PROC: 0SRS01A Replacement of Left Hip Joint, Femoral Surface with Metal Synthetic Substitute, Uncemented, Open Approach (ICD-10-PCS; principal; 2024-06-17 16:00)
DX: S72.002A Fracture of unspecified part of neck of left femur, initial encounter for closed fracture (principal); D62 Acute posthemorrhagic anemia; E87.1 Hypo-osmolality and hyponatremia; D63.8 Anemia in other chronic diseases classified elsewhere; F03.A0 Unspecified dementia, mild, without behavioral disturbance, psychotic disturbance, mood disturbance, and anxiety; F17.210 Nicotine dependence, cigarettes, uncomplicated; J44.9 Chronic obstructive pulmonary disease, unspecified; S00.81XA Abrasion of other part of head, initial encounter; S50.312A Abrasion of left elbow, initial encounter; R74.01 Elevation of levels of liver transaminase levels; W18.30XA Fall on same level, unspecified, initial encounter; Y92.009 Unspecified place in unspecified non-institutional (private) residence as the place of occurrence of the external cause; Y99.8 Other external cause status; Z79.82 Long term (current) use of aspirin; Z88.5 Allergy status to narcotic agent
CPT/HCPCS: 70450; 71045; 72125; 73501; 73502; 80048; 80053; 83735; 85025; 85027; 85610; 85730; 86850; 86900; 86901; 93005; 94640; 94760; 96374; 96376; 99285

== ENCOUNTER 2024-07-21 09:38 | Inpatient (IN) | payer MEDICARE ==
--- NOTE | 2024-07-21 10:00 | ED ---
General Adult HPI - General Chief complaint: Fall Stated complaint: hip pain Time Seen by Provider: 07/21/24 09:50 Source: patient, RN notes reviewed, old records reviewed Mode of arrival: EMS Limitations: no limitations - History of Present Illness Initial comments: This is an 84-year-old female who presents to the emergency department after she was found on the ground. No one witnessed the fall. Patient herself has dementia and is unable to give an accurate history. Patient has a little skin tear on her left elbow and a small abrasion to the temporal region of her scalp. Patient on the way and did complain of left hip pain. Patient arrived and stated she was very nauseous and had episode of dry heaves. Patient has no other complaints at this time. No one is with the patient to give any further history. - Related Data Home Medications Medication Instructions Recorded Confirmed Amino Acids/Protein Hydrolys 30 ml PO DAILY 07/21/24 07/21/24 [Pro-Stat Awc Liquid] Bethanechol Chloride 25 mg PO QID@,13,17,21 07/21/24 07/21/24 Ergocalciferol (Vitamin D2) 1,250 mcg PO FR 07/21/24 07/21/24 [Drisdol (50,000 Iu)] HYDROcodone/APAP 5-325MG [[place] 1 tab PO BID 07/21/24 07/21/24 5-325] Ipratropium/Albuter 20-100Mcg 1 puff INHALATION 07/21/24 07/21/24 [Combivent Respimat 20-100Mcg RT-QID@06,12,,21 Inhaler] Lactose-Reduced Food [Ensure Plus] 1 can PO BID@0900,1700 07/21/24 07/21/24 Nicotine 14Mg/24Hr Patch [Habitrol 1 patch TRANSDERM DAILY 07/21/24 07/21/24 14Mg/24Hr Patch] Ondansetron [Zofran] 4 mg PO Q6H PRN 07/21/24 07/21/24 Sennosides/Docusate Sodium [Senna 1 tab PO DAILY PRN 07/21/24 07/21/24 Plus 8.6-50 mg Tablet] Previous Rx's Medication Instructions Recorded Aspirin 325 mg PO BID #60 tab 06/19/24 HYDROcodone/APAP 5-325MG [[place] 1 tab PO Q6HR PRN #18 tab 06/19/24 5-325] Acetaminophen Tab [Tylenol] 650 mg PO Q6HR PRN tab 06/20/24 Ipratropium-Albuterol Nebulize 3 ml INHALATION RT-Q2H PRN each 06/20/24 [Duoneb 0.5 mg-3 mg/3 ml Soln] Allergies Allergy/AdvReac Type Severity Reaction Status Date / Time hydromorphone [From Dilaudid] AdvReac Confusion Verified 06/17/24 11:37 Review of Systems ROS Statement: Those systems with pertinent positive or pertinent negative responses have been documented in the HPI. ROS Other: All systems not noted in ROS Statement are negative. Past Medical History Past Medical History: Dementia Additional Past Medical History / Comment(s): Arthritis, early onset dementia History of Any Multi-Drug Resistant Organisms: None Reported Past Surgical History: Breast Surgery Additional Past Surgical History / Comment(s): Mastectomy with node removal. Past Anesthesia/Blood Transfusion Reactions: No Reported Reaction Past Psychological History: No Psychological Hx Reported Smoking Status: Current every day smoker Past Alcohol Use History: None Reported Past Drug Use History: None Reported - Past Family History Mother Family Medical History: Osteoarthritis (OA) Additional Family Medical History / Comment(s): Rheumatic fever Father Family Medical History: No Reported History family Additional Family Medical History / Comment(s): no CAD or cancer General Exam - General Exam Comments Initial Comments: GENERAL: Patient is well-developed and well-nourished. Patient is nontoxic and well- hydrated and is in no acute distress. ENT: Neck is soft and supple. No significant lymphadenopathy is noted. Oropharynx is clear. Moist mucous membranes. Neck has full range of motion without eliciting any pain. EYES: The sclera were anicteric and conjunctiva were pink and moist. Extraocular movements were intact and pupils were equal round and reactive to light. Eyelids were unremarkable. PULMONARY: Unlabored respirations. Good breath sounds bilaterally. No audible rales rh onchi or wheezing was noted. CARDIOVASCULAR: There is a regular rate and rhythm without any murmurs gallops or rubs. ABDOMEN: Soft and nontender with normal bowel sounds. SKIN: Patient has a very small cyst abrasion to the left elbow and very small abrasion to the left temporal region of her scalp NEUROLOGIC: Patient is alert and oriented x 2. Cranial nerves II through XII are grossly intact. Motor and sensory are also intact. Normal speech, volume and content. Symmetrical smile. MUSCULOSKELETAL: Normal extremities with adequate strength and full range of motion. Patient has some pain at the left lateral hip but does seem to have good range of motion LYMPHATICS: No significant lymphadenopathy is noted PSYCHIATRIC: Normal psychiatric evaluation. Limitations: no limitations Course Vital Signs 07/21/24 07/21/24 07/21/24 09:43 10:17 11:17 Temperature 98.9 F Pulse Rate 70 56 L Respiratory 16 16 16 Rate Blood Pressure 110/89 75/44 O2 Sat by Pulse 95 95 Oximetry 07/21/24 07/21/24 11:34 11:39 Temperature 96.4 F L Pulse Rate 131 H 103 H Respiratory 18 16 Rate Blood Pressure 97/67 143/101 O2 Sat by Pulse 94 L 93 L Oximetry Medical Decision Making - Medical Decision Making EKG is interpreted by myself. EKG shows sinus rhythm at 60 bpm MI was 197 QRS is 86 QT interval is 423 QTc is 423. Patient EKG shows no ST segment ovation or depression Patient's heart rate slowed so repeat EKG was done I interpret the EKG EKG shows sinus bradycardia 47 bpm MI interval 191 QRS is 88 QT interval is 503 QTc is 466. Patient's EKG shows no ST segment elevation or depression. Was pt. sent in by a medical professional or institution (, PA, PRE PRESS OPERATOR, urgent care, hospital, or long term...) When possible be specific @ -No Did you speak to anyone other than the patient for history (EMS, parent, family, police, friend...)? What history was obtained from this source @ -No Did you review nursing and triage notes (agree or disagree)? Why? @ -I reviewed and agree with nursing and triage notes Were old charts reviewed (outside hosp., previous admission, EMS record, old EKG, old radiological studies, urgent care reports/EKG's, long term records)? Report findings @ -No old charts were reviewed Differential Diagnosis? @ -Skull fracture, cervical spine fracture, subdural hemorrhage, subarachnoid hemorrhage, epidural hemorrhage. This is not an all-inclusive list. EKG interpreted by me (3pts min.). @ -As above X-rays interpreted by me (1pt min.). @ -Left hip x-ray shows a new prosthesis with fractures of the greater and lesser trochanter. CT interpreted by me (1pt min.). @ -CT of the brain and C-spine showed no acute abnormality U/S interpreted by me (1pt. min.). @ -None done What testing was considered but not performed or refused? (CT, X-rays, U/S, labs)? Why? @ -None What meds were considered but not given or refused? Why? @ -None Did you discuss the management of the patient with other professionals (professionals i.e. , PA, PRE PRESS OPERATOR, lab, RT, psych nurse, executive secretary social welfare, exercise scientist, t eacher, customs patrol officer, pillowcase sewer)? Give summary @ -I spoke with Dr. Carrion and he agreed to admit the patient admit the patient wrote admitting orders Was smoking cessation discussed for >3mins.? @ -No Was critical care preformed (if so, how long)? @ -No Were there social determinants of health that impacted care today? How? (Homelessness, low income, unemployed, alcoholism, drug addiction, tra nsportation, low edu. Level, literacy, decrease access to med. care, snf, rehab)? @ -No Was there de-escalation of care discussed even if they declined (Discuss DNR or withdrawal of care, Hospice)? DNR status @ -No What co-morbidities impacted this encounter? (DM, HTN, Smoking, COPD, CAD, Cancer, CVA, ARF, Chemo, Hep., AIDS, mental health diagnosis, sleep apnea, morbid obesity)? @ -None Was patient admitted / discharged? Hospital course, mention meds given and route, prescriptions, significant lab abnormalities, going to OR and other pertinent info. @ -Once patient got to the emergency department she became more obtunded pressure dropped as did the heart rate. Patient was given a [place] at 4 AM and then again at 9 AM just a half an hour prior to being sent to us. Patient was given Narcan and she responded quite nicely pressure came up heart rate came up and she was much more alert. Patient also has a urinary tract infection which I started antibiotics on. Patient decreased blood pressure was due to the narcotics and not the infection. Patient was also given a liter of IV fluids. Patient will be admitted to Dr. Bains with a consult with Dr. Duarte. Undiagnosed new problem with uncertain prognosis? @ -No Drug Therapy requiring intensive monitoring for toxicity (Heparin, Nitro, Insulin, Cardizem)? @ -No Were any procedures done? @ -No Diagnosis/symptom? @ -Fall Acute, or Chronic, or Acute on Chronic? @ -Acute Uncomplicated (without systemic symptoms) or Complicated (systemic symptoms)? @ -Uncomplicated Side effects of treatment? @ -No Exacerbation, Progression, or Severe Exacerbation? @ -No Poses a threat to life or bodily function? How? (Chest pain, [place], [place], pneumonia, PE, COPD, DKA, ARF, appy, cholecystitis, CVA, Diverticulitis, Homicidal, Suicidal, threat to staff... and all critical care pts) @ -No Diagnosis/symptom? @ -Urinary tract infection Acute, or Chronic, or Acute on Chronic? @ -Acute Uncomplicated (without systemic symptoms) or Complicated (systemic symptoms)? @ -Comp Side effects of treatment? @ -None Exacerbation, Progression, or Severe Exacerbation] @ -No Poses a threat to life or bodily function? @ -Yes this could lead to sepsis and endorgan dysfunction - Lab Data Result diagrams: 07/21/24 10:17 07/21/24 10:17 Lab Results 07/21/24 07/21/24 07/21/24 Range/Units 10:17 10:17 10:25 WBC 16.1 H (3.8-10.6) k/uL RBC 3.50 L (3.80-5.40) m/uL Hgb 9.7 L (11.4-16.0) gm/dL Hct 30.4 L (34.0-46.0) % MCV 86.7 (80.0-100.0) fL MCH 27.6 (25.0-35.0) pg MCHC 31.8 (31.0-37.0) g/dL RDW 15.7 H (11.5-15.5) % Plt Count 566 H D (150-450) k/uL MPV 7.2 Neutrophils % 79 % Lymphocytes % 15 % Monocytes % 3 % Eosinophils % 2 % Basophils % 0 % Neutrophils # 12.8 H (1.3-7.7) k/uL Lymphocytes # 2.4 (1.0-4.8) k/uL Monocytes # 0.5 (0-1.0) k/uL Eosinophils # 0.2 (0-0.7) k/uL Basophils # 0.1 (0-0.2) k/uL Hypochromasia Moderate Sodium 139 (137-145) mmol/L Potassium 3.7 (3.5-5.1) mmol/L Chloride 105 (98-107) mmol/L Carbon Dioxide 24 (22-30) mmol/L Anion Gap 10 mmol/L BUN 20 H (7-17) mg/dL Creatinine 0.77 (0.52-1.04) mg/dL Est GFR (CKD-EPI)AfAm 83 (>60 ml/min/1.73 sqM) Est GFR (CKD-EPI)NonAf 72 (>60 ml/min/1.73 sqM) Glucose 126 H (74-99) mg/dL Lactic Ac Sepsis Rflx Plasma Lactic Acid Jeffy 3.1 H* (0.7-2.0) mmol/L Calcium 9.9 (8.4-10.2) mg/dL Magnesium 2.1 (1.6-2.3) mg/dL Total Bilirubin 0.4 (0.2-1.3) mg/dL AST 25 (14-36) U/L ALT 14 (4-34) U/L Alkaline Phosphatase 112 (38-126) U/L Troponin I (0.000-0.034) ng/mL Total Protein 6.9 (6.3-8.2) g/dL Albumin 4.0 (3.5-5.0) g/dL Urine Color Urine Appearance (Clear) Urine pH (5.0-8.0) Ur Specific Opal (1.001-1.035) Urine Protein (Negative) Urine Glucose (UA) (Negative) Urine Ketones (Negative) Urine Blood (Negative) Urine Nitrite (Negative) Urine Bilirubin (Negative) Urine Urobilinogen (<2.0) mg/dL Ur Leukocyte Esterase (Negative) Urine RBC (0-5) /hpf Urine WBC (0-5) /hpf Ur Squamous Epith Cells (0-4) /hpf Urine Bacteria (None) /hpf Urine Mucus (None) /hpf 07/21/24 07/21/24 07/21/24 Range/Units 10:25 11:07 12:07 WBC (3.8-10.6) k/uL RBC (3.80-5.40) m/uL Hgb (11.4-16.0) gm/dL Hct (34.0-46.0) % MCV (80.0-100.0) fL MCH (25.0-35.0) pg MCHC (31.0-37.0) g/dL RDW (11.5-15.5) % Plt Count (150-450) k/uL MPV Neutrophils % % Lymphocytes % % Monocytes % % Eosinophils % % Basophils % % Neutrophils # (1.3-7.7) k/uL Lymphocytes # (1.0-4.8) k/uL Monocytes # (0-1.0) k/uL Eosinophils # (0-0.7) k/uL Basophils # (0-0.2) k/uL Hypochromasia Sodium (137-145) mmol/L Potassium (3.5-5.1) mmol/L Chloride (98-107) mmol/L Carbon Dioxide (22-30) mmol/L Anion Gap mmol/L BUN (7-17) mg/dL Creatinine (0.52-1.04) mg/dL Est GFR (CKD-EPI)AfAm (>60 ml/min/1.73 sqM) Est GFR (CKD-EPI)NonAf (>60 ml/min/1.73 sqM) Glucose (74-99) mg/dL Lactic Ac Sepsis Rflx Y Plasma Lactic Acid Jeffy (0.7-2.0) mmol/L Calcium (8.4-10.2) mg/dL Magnesium (1.6-2.3) mg/dL Total Bilirubin (0.2-1.3) mg/dL AST (14-36) U/L ALT (4-34) U/L Alkaline Phosphatase (38-126) U/L Troponin I <0.012 (0.000-0.034) ng/mL Total Protein (6.3-8.2) g/dL Albumin (3.5-5.0) g/dL Urine Color Light Red Urine Appearance Turbid H (Clear) Urine pH 8.0 (5.0-8.0) Ur Specific Opal 1.011 (1.001-1.035) Urine Protein Trace H (Negative) Urine Glucose (UA) Negative (Negative) Urine Ketones Negative (Negative) Urine Blood Large H (Negative) Urine Nitrite Negative (Negative) Urine Bilirubin Negative (Negative) Urine Urobilinogen 2.0 (<2.0) mg/dL Ur Leukocyte Esterase Large H (Negative) Urine RBC 125 H (0-5) /hpf Urine WBC >182 H (0-5) /hpf Ur Squamous Epith Cells 2 (0-4) /hpf Urine Bacteria Many H (None) /hpf Urine Mucus Rare H (None) /hpf Disposition Clinical Impression: Fall, Urinary tract infection, Accidental opiate poisoning, Trochanteric fracture Disposition: ADMITTED IP TO THIS HOSP Referrals: Rand Choudhary MD [Primary Care Provider] - 1-2 days Time of Disposition: 13:58
[2024-07-21] MEDS: SODIUM CHLORIDE 0.9% 500 ML 500 ML IV ONE ×2 (10:05→10:13)
[2024-07-21] MEDS: ONDANSETRON 4 MG/2 ML VIAL IVP STA (10:11)
--- NOTE | 2024-07-21 10:47 | CT ---
EXAMINATION TYPE: CT brain cspine wo con CT DLP: 1287.1 mGycm, Automated exposure control for dose reduction was used. DATE OF EXAM: 07/21/2024 10:40 AM COMPARISON: CT brain C-spine 06/15/2024, 01/07/2023. CLINICAL INDICATION:Female, 84 years old with history of Trauma; fall TECHNIQUE: Brain: Multiple axial CT images of the brain were obtained without IV contrast. Cspine: Axial CT images from the skull base to the inferior aspect of T2 we obtained without intraven ous contrast. Coronal and sagittal reformatted images were also reviewed. FINDINGS: Brain: Extra-axial spaces: No abnormal extra-axial fluid collections. Ventricular system: Within normal limits Cerebral parenchyma: Cerebral atrophy. No acute intraparenchymal hemorrhage or mass effect. The leo -white junction is well differentiated. Confluent hypoattenuating areas are seen within the periventr icular and subcortical white matter. Cerebellum: Unremarkable. Mass effect: No evidence of midline shift. Intracranial vasculature: Atherosclerotic calcifications of the intracranial vessels. Soft tissues: Normal. Calvarium/osseous structures: No depressed skull fracture. Paranasal sinuses and mastoid air cells: The mastoid air cells are clear. Minimal mucosal thickening of the sphenoid sinuses and right maxillary sinus. Remaining paranasal sinuses are clear. Visualized orbits: Senile calcific scleral plaques are present. Bilateral aphakia. Cervical spine: Fracture: None. Osseous structures: Multilevel degenerative disc disease changes with endplate spurring and disc oste ophyte complex's. Vertebral alignment: Within normal limits. Spinal canal/Neural Foramina: Disc osteophyte complexes at C3-C4, C4-C5, C5-C6, C6-C7 with at least m ild spinal canal stenosis. Facet joint uncovertebral joint arthropathy scattered throughout the cervi jesus manuel spine with varying degrees of neural foraminal stenosis. Neck soft tissues: Prevertebral soft tissues are within normal limits. Other: The airway is patent. Biapical pleural-parenchymal scarring. Advanced centrilobular emphysemat ous changes. IMPRESSION: 1. No acute intracranial process. 2. Nonspecific white matter changes, likely secondary to chronic small vessel ischemic disease. 3. No evidence of cervical spine fracture. 4. Moderate to severe multilevel degenerative disc disease. 5. Advanced COPD changes. [facility], , 07/21/2024 10:45 AM
[2024-07-21 10:52] LABS: Basophils # (A) 0.1 k/uL (0-0.2); Basophils % (A) 0 %; Eosinophils # (A) 0.2 k/uL (0-0.7); Eosinophils % (A) 2 %; HCT 30.4 % (34.0-46.0); HGB 9.7 gm/dL (11.4-16.0); Hypochromasia Moderate; Lymphocytes # (A) 2.4 k/uL (1.0-4.8); Lymphocytes % (A) 15 %; MCH 27.6 pg (25.0-35.0); MCHC 31.8 g/dL (31.0-37.0); MCV 86.7 fL (80.0-100.0); Mean Platelet Volume 7.2; Monocytes # (A) 0.5 k/uL (0-1.0); Monocytes % (A) 3 %; Neutrophils # (A) 12.8 k/uL (1.3-7.7); Neutrophils % (A) 79 %; RDW 15.7 % (11.5-15.5); WBC 16.1 k/uL (3.8-10.6)
[2024-07-21 10:54] LABS: Platelet Count 566 k/uL (150-450)
[2024-07-21 10:56] LABS: ALT 14 U/L (4-34); AST 25 U/L (14-36); African American GFR (CKD) 83 (>60 ml/min/1.73 sqM); Alkaline Phosphatase 112 U/L (38-126); Anion Gap 10 mmol/L; Blood Urea Nitrogen 20 mg/dL (7-17); Calcium 9.9 mg/dL (8.4-10.2); Carbon Dioxide 24 mmol/L (22-30); Chloride 105 mmol/L (98-107); Glucose 126 mg/dL (74-99); Magnesium 2.1 mg/dL (1.6-2.3); Non-African American GFR(CKD) 72 (>60 ml/min/1.73 sqM); Potassium 3.7 mmol/L (3.5-5.1); Sodium 139 mmol/L (137-145); Total Bilirubin 0.4 mg/dL (0.2-1.3); Total Protein 6.9 g/dL (6.3-8.2)
[2024-07-21] MEDS: NALOXONE 0.4 MG/ML 1 ML VIAL IVP STA (11:17)
--- NOTE | 2024-07-21 11:22 | XR ---
EXAMINATION TYPE: XR Hip 2 views LT and AP Pelvis DATE OF EXAM: 07/21/2024 10:59 AM COMPARISON: 06/17/2024 CLINICAL INDICATION: Female, 84 years old with history of Fall left hip pain, , FINDINGS: Limited by osteopenia and overlying lines/catheters. There is mild degenerative change of the right h ip with axial joint space narrowing. There is external rotation of the right hip limiting assessment of the right femoral neck. Redemonstrated left hip hemiarthroplasty. However, note the presence of alvarez btle periprosthetic fracture involving greater trochanter as well as the lesser trochanter. There has been subsidence of the femoral stem with stem shoulder to greater trochanter distance of 2.6 cm vers us 7 mm on the postoperative radiograph. IMPRESSION: Left hip hemiarthroplasty complicated by fracture involving both the greater and lesser trochanters. Additionally, there has been subsidence of the femoral stem with a measurement of 2.6 cm now versus 7 mm on the postoperative radiograph. [facility], , 07/21/2024 11:20 AM
[2024-07-21] MEDS: ATROPINE SULFATE 0.1 MG/ML 10ML SYRINGE IV STA (11:27)
[2024-07-21 12:26] LABS: Appearance,Urine Turbid (Clear); Bacteria,Urine Many /hpf; Bilirubin,Urine Negative (Negative); Blood,Urine Large (Negative); Color,Urine Light Red; Glucose,Urine (UA) Negative (Negative); Ketones,Urine Negative (Negative); Leukocyte Esterase,Urine Large (Negative); Mucus,Urine Rare /hpf; Nitrite,Urine Negative (Negative); Protein,Urine Trace (Negative); RBC,Urine 125 /hpf (0-5); Specific Gravity,Urine 1.011 (1.001-1.035); Squamous Epithelial Cell,Urine 2 /hpf (0-4); WBC,Urine >182 /hpf (0-5)
[2024-07-21] MEDS: cefTRIAXone IN SWFI 1,000 MG/10 ML SYRINGE IVP STA (13:28)
[2024-07-21] MEDS ORDERED: SENNOSIDES-DOCUSATE SODIUM 1 EACH TAB PO PRN (14:30)
[2024-07-21] MEDS ORDERED: ONDANSETRON 4 MG TAB PO PRN (14:30)
[2024-07-21] MEDS ORDERED: IPRATROPIUM-ALBUTEROL 3 ML NEB INHALATION PRN (14:30)
[2024-07-21] MEDS: SODIUM CHLORIDE 0.9% 1,000 ML IV ONE (15:45)
[2024-07-21] MEDS: NICOTINE 14MG/24HR PATCH TRANSDERM SCH (15:45)
[2024-07-21] MEDS: IPRATROPIUM-ALBUTEROL 3 ML NEB INHALATION SCH (16:39)
[2024-07-21] MEDS ORDERED: NON FORMULARY DRUG (Lactose-Reduced Food [Ensure Plus] 237 ML Ml) PO SCH (17:00)
[2024-07-21] MEDS: BETHANECHOL 25 MG TAB PO SCH (17:26)
[2024-07-21] MEDS: ZINC OXIDE PASTE (Z-GUARD) 1 APPLIC TOPICAL PRN (17:46)
[2024-07-21] MEDS ORDERED: ASPIRIN 325 MG TAB PO SCH (21:00)
[2024-07-21] MEDS: HEPARIN SODIUM,PORCINE 5,000 UNIT/ML 1 ML VIAL SQ SCH (21:19)
[2024-07-21] MEDS: HYDROcodone/APAP 5-325MG 1 EACH TAB PO SCH (21:23)
--- NOTE | 2024-07-22 00:19 | HP ---
HISTORY AND PHYSICAL CHIEF COMPLAINT: Fall and UTI. HISTORY OF PRESENT ILLNESS: This 84-year-old woman with a past medical history of multiple medical problems including dementia, was recently had a left hip fracture and surgery. The patient went to [facility]. Apparently, the patient had a fall and the patient found to have There is no history of fever, rigors, or chills. The patient is confused. PAST MEDICAL HISTORY: Dementia, DJD, recent left hip fracture. Rest of the history and chart is also reviewed. HOME MEDICATIONS: Dose and rest of medications reviewed. ALLERGIES: Hydromorphone. FAMILY HISTORY: History of DJD. SOCIAL HISTORY: Smoking. REVIEW OF SYSTEMS: Fourteen-point review is negative except as mentioned earlier. PHYSICAL EXAMINATION: VITAL SIGNS: Pulse is 84, blood pressure ntd, and respirations 20. HEENT: Conjunctivae normal. NECK: No JVD. CARDIOVASCULAR: S1, S2. RESPIRATIONS: Breath sounds diminished at the bases. A few scattered rhonchi. ABDOMEN: Soft and nontender. LEGS: No edema. No swelling and the movements are painful. NERVOUS SYSTEM: Nonfocal. LABORATORY DATA: Lactic acid 2.6. IMAGING DATA: The hip x-ray shows left hip hemiarthroplasty complicated with fracture involving the greater and lesser trochanter. ASSESSMENT: 1. Fall and possible left greater and lesser trochanter fracture. 2. Recent left hip hemiarthroplasty. 3. Urinary tract infection present on admission. 4. Chronic obstructive pulmonary disease. 5. Dementia. 6. Gait dysfunction. RECOMMENDATIONS AND DISCUSSION: This 84-year-old woman, who presented with multiple complex medical issues. We will monitor the patient closely. Continue the antibiotics. Orthopedic consultation. Symptomatic treatment. DVT prophylaxis. The patient also had an episode of unresponsiveness related to bradycardia. I would recommend to continue with Cardiology consultation also. Further recommendations to follow. MMODL / IJN: [id number] / RAMAN
[2024-07-22 08:01] LABS: Basophils % (A) 0 %; Eosinophils % (A) 0 %; HCT 34.3 % (34.0-46.0); HGB 10.6 gm/dL (11.4-16.0); Hypochromasia Marked; Lymphocytes # (A) 1.9 k/uL (1.0-4.8); Lymphocytes % (A) 10 %; MCH 27.3 pg (25.0-35.0); MCHC 30.9 g/dL (31.0-37.0); MCV 88.4 fL (80.0-100.0); Mean Platelet Volume 7.1; Monocytes # (A) 0.6 k/uL (0-1.0); Monocytes % (A) 3 %; Neutrophils # (A) 16.9 k/uL (1.3-7.7); Neutrophils % (A) 86 %; Platelet Count 453 k/uL (150-450); RBC 3.88 m/uL (3.80-5.40); RDW 15.6 % (11.5-15.5); WBC 19.6 k/uL (3.8-10.6)
--- NOTE | 2024-07-22 09:03 | P.CNOR ---
History of Present Illness - [facility] Consult date: 07/22/24 History of present illness: Patient is an 84-year-old female who presents to the emergency department yesterday after she was found on the ground. Per the ER note nobody witnessed the fall. Patient does have a history of dementia and during encounter at bedside this morning she was unable to give any history. There is a small skin tear on the left elbow and abrasion to the temporal region. Family was not present during encounter at bedside this morning. Patient did have left hip hemiarthroplasty surgery performed on 06/25/[address] Duarte. Left leg does seem to be somewhat shortened and actually rotated on exam while patient lying in bed. patient denies any complaints besides left hip pain at this time. Past Medical History Past Medical History: Dementia Additional Past Medical History / Comment(s): Arthritis, early onset dementia History of Any Multi-Drug Resistant Organisms: None Reported Past Surgical History: Breast Surgery Additional Past Surgical History / Comment(s): Mastectomy with node removal. left hemiarthroplasty may 2024 Past Anesthesia/Blood Transfusion Reactions: No Reported Reaction Past Psychological History: No Psychological Hx Reported Additional Psychological History / Comment(s): Pt resides with a roomate. She is independent Smoking Status: Current every day smoker Past Alcohol Use History: None Reported Additional Past Alcohol Use History / Comment(s): Pt started smoking in 8 and is a 2 ppd smoker. Past Drug Use History: None Reported - Past Family History Mother Family Medical History: Osteoarthritis (OA) Additional Family Medical History / Comment(s): Rheumatic fever Father Family Medical History: No Reported History family Additional Family Medical History / Comment(s): no CAD or cancer Medications and Allergies Home Medications Medication Instructions Recorded Confirmed Type Aspirin 325 mg PO BID #60 tab 06/19/24 07/21/24 Rx HYDROcodone/APAP 5-325MG [[place] 1 tab PO Q6HR PRN #18 tab 06/19/24 07/21/24 Rx 5-325] Acetaminophen Tab [Tylenol] 650 mg PO Q6HR PRN tab 06/20/24 07/21/24 Rx Ipratropium-Albuterol Nebulize 3 ml INHALATION RT-Q2H PRN each 06/20/24 07/21/24 Rx [Duoneb 0.5 mg-3 mg/3 ml Soln] Amino Acids/Protein Hydrolys 30 ml PO DAILY 07/21/24 07/21/24 History [Pro-Stat Awc Liquid] Bethanechol Chloride 25 mg PO QID@09,13,,07/21/24 07/21/24 History Ergocalciferol (Vitamin D2) 1,250 mcg PO FR 07/21/24 07/21/24 History [Drisdol (50,000 Iu)] HYDROcodone/APAP 5-325MG [[place] 1 tab PO BID 07/21/24 07/21/24 History 5-325] Ipratropium/Albuter 20-100Mcg 1 puff INHALATION 07/21/24 07/21/24 History [Combivent Respimat 20-100Mcg RT-QID@06,,, Inhaler] Lactose-Reduced Food [Ensure Plus] 1 can PO BID@0900,1700 07/21/24 07/21/24 History Nicotine 14Mg/24Hr Patch [Habitrol 1 patch TRANSDERM DAILY 07/21/24 07/21/24 History 14Mg/24Hr Patch] Ondansetron [Zofran] 4 mg PO Q6H PRN 07/21/24 07/21/24 History Sennosides/Docusate Sodium [Senna 1 tab PO DAILY PRN 07/21/24 07/21/24 History Plus 8.6-50 mg Tablet] Allergies Allergy/AdvReac Type Severity Reaction Status Date / Time hydromorphone [From Dilaudid] AdvReac Confusion Verified 06/17/24 11:37 Physical Examination Left leg does appear to be somewhat shortened and actually rotated on exam at bedside. Sensation appears to be equal, symmetric, bilateral intact. There is some diffuse generalized tenderness to palpation throughout the left hip on exam. Patient does have increased pain during passive range of motion exam on the left lower extremity during knee flexion/extension and attempted external/internal rotation of left hip. Patient does have fairly decent range of motion throughout the bilateral upper extremities and right lower extremity on exam. Difficult to test motor strength based on patient's mental state. Patient does have decent cotton grower strength on exam. She is able to wiggle toes in bilateral feet. Radial pulses intact, 2+ bilaterally. DP pulses palpable bilaterally. Negative Homans bilaterally. Results - Labs Labs: Abnormal Lab Results - Last 24 Hours (Table) 12/24/24 12/24/24 12/24/24 Range/Units 10:17 10:17 10:25 WBC 16.1 H (3.8-10.6) k/uL RBC 3.50 L (3.80-5.40) m/uL Hgb 9.7 L (11.4-16.0) gm/dL Hct 30.4 L (34.0-46.0) % MCHC (31.0-37.0) g/dL RDW 15.7 H (11.5-15.5) % Plt Count 566 H D (150-450) k/uL Neutrophils # 12.8 H (1.3-7.7) k/uL BUN 20 H (7-17) mg/dL Glucose 126 H (74-99) mg/dL Plasma Lactic Acid Jeffy 3.1 H* (0.7-2.0) mmol/L Urine Appearance (Clear) Urine Protein (Negative) Urine Blood (Negative) Ur Leukocyte Esterase (Negative) Urine RBC (0-5) /hpf Urine WBC (0-5) /hpf Urine Bacteria (None) /hpf Urine Mucus (None) /hpf Stool Occult Blood (Negative) 07/21/24 07/21/24 07/21/24 Range/Units 12:07 14:30 17:16 WBC (3.8-10.6) k/uL RBC (3.80-5.40) m/uL Hgb (11.4-16.0) gm/dL Hct (34.0-46.0) % MCHC (31.0-37.0) g/dL RDW (11.5-15.5) % Plt Count (150-450) k/uL Neutrophils # (1.3-7.7) k/uL BUN (7-17) mg/dL Glucose (74-99) mg/dL Plasma Lactic Acid Jeffy 2.6 H* 2.5 H* (0.7-2.0) mmol/L Urine Appearance Turbid H (Clear) Urine Protein Trace H (Negative) Urine Blood Large H (Negative) Ur Leukocyte Esterase Large H (Negative) Urine RBC 125 H (0-5) /hpf Urine WBC >182 H (0-5) /hpf Urine Bacteria Many H (None) /hpf Urine Mucus Rare H (None) /hpf Stool Occult Blood (Negative) 07/22/24 07/22/24 Range/Units 04:22 07:53 WBC 19.6 H (3.8-10.6) k/uL RBC (3.80-5.40) m/uL Hgb 10.6 L (11.4-16.0) gm/dL Hct (34.0-46.0) % MCHC 30.9 L (31.0-37.0) g/dL RDW 15.6 H (11.5-15.5) % Plt Count 453 H (150-450) k/uL Neutrophils # 16.9 H (1.3-7.7) k/uL BUN (7-17) mg/dL Glucose (74-99) mg/dL Plasma Lactic Acid Jeffy (0.7-2.0) mmol/L Urine Appearance (Clear) Urine Protein (Negative) Urine Blood (Negative) Ur Leukocyte Esterase (Negative) Urine RBC (0-5) /hpf Urine WBC (0-5) /hpf Urine Bacteria (None) /hpf Urine Mucus (None) /hpf Stool Occult Blood Positive H (Negative) H & H 07/21/24 07/22/24 Range/Units 10:17 07:53 Hgb 9.7 L 10.6 L (11.4-16.0) gm/dL Hct 30.4 L 34.3 (34.0-46.0) % Result Diagrams: 07/22/24 07:53 07/21/24 10:17 - Diagnostic results Hip x-ray: report reviewed, image reviewed (X-ray of the left hip does demonstrate left hip hemiarthroplasty complicated by fracture involving both the greater and lesser trochanters. Radiologist noted that there is subsidence of the femoral stem) Assessment and Plan Assessment: 1. Greater and lesser trochanter fracture status post fall; status post recent left hip hemiarthroplasty Plan: 1. Greater and lesser trochanter fracture status post fall; status post recent left hip hemiarthroplasty - X-ray of the left hip does demonstrate left hip hemiarthroplasty complicated by fracture involving both the greater and lesser trochanters. Radiologist noted that there is subsidence of the femoral stem. I will discuss the findings of the imaging and exam with my attending, Dr. Duarte before proceeding with any potential orthopedic intervention. Patient to be nonweightbearing to the left lower extremity at this time. Pain medication as needed. Appreciate medical management. We will continue to follow patient during stay in hospital. Further recommendations to follow 2. Appreciate medical management 3. Pain management -Austin; Tylenol 4. DVT prophylaxis -heparin 5. GI prophylaxis -senna 6. PT/OT -nonweightbearing to the left lower extremity at this time 7. Encourage incentive spirometer use 8. Appreciate consult Time with Patient: Less than 30
--- NOTE | 2024-07-22 09:22 | CT ---
EXAMINATION TYPE: CT hip LT wo con DATE OF EXAM: 07/22/2024 COMPARISON: None CLINICAL INDICATION: Female, 84 years old with history of FRACTURE; [facility], CT DLP: mGycm Automated exposure control for dose reduction was used. FINDINGS: There is a total left hip prosthesis. There is an acute fracture with moderate displacement of the pr oximal aspect of the left femur. The left acetabulum is intact. There is no malalignment of the prost hesis. IMPRESSION: 1. LEFT HIP PROSTHESIS UNCHANGED IN POSITION. 2. ACUTE MILDLY MODERATELY DISPLACED FRACTURE OF THE PROXIMAL ASPECT OF THE LEFT FEMUR [facility], , 07/22/2024 9:19 AM
[2024-07-22 09:30] LABS: BUN/Creat Ratio 46.33 Ratio (12.00-20.00); Blood Urea Nitrogen 27.8 mg/dL (9.0-27.0); Calcium 8.9 mg/dL (8.7-10.3); Carbon Dioxide 17.4 mmol/L (21.6-31.8); Chloride 104 mmol/L (96-109); Glucose 126 mg/dL (70-110); Potassium 3.8 mmol/L (3.5-5.5); Sodium 137 mmol/L (135-145)
[2024-07-22 09:32] LABS: Basophils # (A) 0.04 X 10*3/uL (0.00-0.10); Basophils % (A) 0.2 %; Eosinophils # (A) 0 X 10*3/uL (0.04-0.35); Eosinophils % (A) 0 %; HCT 35.4 % (37.2-46.3); HGB 10.6 g/dL (12.0-15.0); Lymphocytes # (A) 1.63 X 10*3/uL (0.90-5.00); Lymphocytes % (A) 8.4 %; MCH 26.9 pg (27.0-32.0); MCHC 29.9 g/dL (32.0-37.0); MCV 89.8 FL (80.0-97.0); Mean Platelet Volume 8.8 FL (9.5-12.2); Monocytes # (A) 0.76 X 10*3/uL (0.20-1.00); Monocytes % (A) 3.9 %; NRBC Per 100 WBC 0 X 10*3/uL (0.00-0.01); Neutrophils # (A) 16.92 X 10*3/uL (1.80-7.70); Neutrophils % (A) 86.9 %; Platelet Count 389 X 10*3/uL (140-440); RBC 3.94 X 10*6/uL (4.10-5.20); WBC 19.47 X 10*3/uL (4.50-10.00)
--- NOTE | 2024-07-22 09:39 | P.CONS ---
History of Present Illness - Reason for Consult Consult date: 07/21/24 UTI Requesting physician: Cadence Carrion - Chief Complaint Mental status changes weakness and fall x 1 day - History of Present Illness Patient is a 84-year-old female with a past medical history significant for dementia patient recently did have left hip hemiarthroplasty done on 06/25/2024 and the patient subsequently has been sent to the local halfway for rehabilitation and apparently the patient was doing well she did have an episode of UTI that was treated with antibiotic as reported by the son at the bedside the morning of presentation to the hospital patient seem to be doing well and has received medication for pain subsequently patient was found to be on the ground it is not very clear what happened at the patient may have try to attempt to get out of the bed however she did not recall it there is no clear history of any fever or any chills and no temperature was reported on presentation to the hospital patient denies having any headache or URI symptoms no chest pain shortness of breath or cough no nausea vomiting no abdominal pain, patient did have some diarrhea patient did have more cloudy urine and no pain to the left hip site incision is healed patient was afebrile on presentation to the hospital mild tachycardic but not hypotensive currently on 2 L nasal cannula oxygen patient did have white count of 16.1 with a left shift creatinine 0.77 urine has been significantly positive culture obtained which are currently pending patient did receive a dose of Rocephin in the ER admitted to the hospital infectious disease was consulted for further management of antibiotic therapy, most information has been obtained from the family at the bedside and the patient herself not a very good historian Review of Systems Positive point and negatives has been mentioned in the HPI, complete review of systems was performed and all other systems are negative Past Medical History Past Medical History: Dementia Additional Past Medical History / Comment(s): Arthritis, early onset dementia History of Any Multi-Drug Resistant Organisms: None Reported Past Surgical History: Breast Surgery Additional Past Surgical History / Comment(s): Mastectomy with node removal. Past Anesthesia/Blood Transfusion Reactions: No Reported Reaction Past Psychological History: No Psychological Hx Reported Smoking Status: Current every day smoker Past Alcohol Use History: None Reported Past Drug Use History: None Reported - Past Family History Mother Family Medical History: Osteoarthritis (OA) Additional Family Medical History / Comment(s): Rheumatic fever Father Family Medical History: No Reported History family Additional Family Medical History / Comment(s): no CAD or cancer Medications and Allergies Home Medications Medication Instructions Recorded Confirmed Type Aspirin 325 mg PO BID #60 tab 06/19/24 07/21/24 Rx HYDROcodone/APAP 5-325MG [[place] 1 tab PO Q6HR PRN #18 tab 06/19/24 07/21/24 Rx 5-325] Acetaminophen Tab [Tylenol] 650 mg PO Q6HR PRN tab 06/20/24 07/21/24 Rx Ipratropium-Albuterol Nebulize 3 ml INHALATION RT-Q2H PRN each 06/20/24 07/21/24 Rx [Duoneb 0.5 mg-3 mg/3 ml Soln] Amino Acids/Protein Hydrolys 30 ml PO DAILY 07/21/24 07/21/24 History [Pro-Stat Awc Liquid] Bethanechol Chloride 25 mg PO QID@09,13,17,21 07/21/24 07/21/24 History Ergocalciferol (Vitamin D2) 1,250 mcg PO FR 07/21/24 07/21/24 History [Drisdol (50,000 Iu)] HYDROcodone/APAP 5-325MG [[place] 1 tab PO BID 07/21/24 07/21/24 History 5-325] Ipratropium/Albuter 20-100Mcg 1 puff INHALATION 07/21/24 07/21/24 History [Combivent Respimat 20-100Mcg RT-QID@06,12,, Inhaler] Lactose-Reduced Food [Ensure Plus] 1 can PO BID@0900,1700 07/21/24 07/21/24 History Nicotine 14Mg/24Hr Patch [Habitrol 1 patch TRANSDERM DAILY 07/21/24 07/21/24 History 14Mg/24Hr Patch] Ondansetron [Zofran] 4 mg PO Q6H PRN 07/21/24 07/21/24 History Sennosides/Docusate Sodium [Senna 1 tab PO DAILY PRN 07/21/24 07/21/24 History Plus 8.6-50 mg Tablet] Allergies Allergy/AdvReac Type Severity Reaction Status Date / Time hydromorphone [From Dilaudid] AdvReac Confusion Verified 06/17/24 11:37 Physical Exam Vitals: Vital Signs Temp Pulse Resp BP Pulse Ox 07/21/24 15:00 90 20 122/80 97 07/21/24 13:00 84 20 120/84 97 07/21/24 11:39 96.4 F L 103 H 16 143/101 93 L 07/21/24 11:34 131 H 18 97/67 94 L 07/21/24 11:17 16 07/21/24 10:17 56 L 16 75/44 95 07/21/24 09:43 98.9 F 70 16 110/89 95 Intake and Output 07/21/24 07/21/24 07/21/24 06:59 14:59 22:59 Other: Weight 54.431 kg GENERAL DESCRIPTION: Elderly female lying in bed, no distress. No tachypnea or accessory muscle of respiration use. HEENT: Shows Pallor , no scleral icterus. Oral mucous membrane is dry. NECK: Trachea central, no thyromegaly. LUNGS: Unlabored breathing. Decreased breath sound at the base HEART: S1, S2, regular rate and rhythm. No loud murmur ABDOMEN: Soft, no tenderness , EXTREMITIES: Left hip incision is currently healed with no swelling redness SKIN: No rash, no masses palpable. NEUROLOGICAL: The patient is awake, alert, mood and affect normal. Results CBC & Chem 7: 07/22/24 07:53 07/22/24 04:35 Labs: Abnormal Lab Results - Last 24 Hours (Table) 07/21/24 07/21/24 07/21/24 Range/Units 10:17 10:17 10:25 WBC 16.1 H (3.8-10.6) k/uL RBC 3.50 L (3.80-5.40) m/uL Hgb 9.7 L (11.4-16.0) gm/dL Hct 30.4 L (34.0-46.0) % RDW 15.7 H (11.5-15.5) % Plt Count 566 H D (150-450) k/uL Neutrophils # 12.8 H (1.3-7.7) k/uL BUN 20 H (7-17) mg/dL Glucose 126 H (74-99) mg/dL Plasma Lactic Acid Jeffy 3.1 H* (0.7-2.0) mmol/L Urine Appearance (Clear) Urine Protein (Negative) Urine Blood (Negative) Ur Leukocyte Esterase (Negative) Urine RBC (0-5) /hpf Urine WBC (0-5) /hpf Urine Bacteria (None) /hpf Urine Mucus (None) /hpf 07/21/24 07/21/24 Range/Units 12:07 14:30 WBC (3.8-10.6) k/uL RBC (3.80-5.40) m/uL Hgb (11.4-16.0) gm/dL Hct (34.0-46.0) % RDW (11.5-15.5) % Plt Count (150-450) k/uL Neutrophils # (1.3-7.7) k/uL BUN (7-17) mg/dL Glucose (74-99) mg/dL Plasma Lactic Acid Jeffy 2.6 H* (0.7-2.0) mmol/L Urine Appearance Turbid H (Clear) Urine Protein Trace H (Negative) Urine Blood Large H (Negative) Ur Leukocyte Esterase Large H (Negative) Urine RBC 125 H (0-5) /hpf Urine WBC >182 H (0-5) /hpf Urine Bacteria Many H (None) /hpf Urine Mucus Rare H (None) /hpf Assessment and Plan (1) Leukocytosis Current Visit: Yes Status: Acute Code(s): D72.829 - ELEVATED WHITE BLOOD CELL COUNT, UNSPECIFIED SNOMED Code(s): 007303905 (2) Urinary tract infection Current Visit: Yes Status: Acute Code(s): N39.0 - URINARY TRACT INFECTION, SITE NOT SPECIFIED SNOMED Code(s): 65277550 Plan: 1patient presented to hospital with weakness and mental status changes and a fa ll patient did have significant elevated white count positive UA concerning for UTI likely from attending gram-negative pathogen she did have diarrhea that is a risk factor for the UTI 2patient will be treated with Rocephin 2 g daily while waiting for the culture to finalize Family at the bedside question concern also with We will follow on clinical condition and cultures to further adjust medication if needed Thank you for this consultation we will follow the patient along with you Dictation was produced using [employer] dictation software. please excuse any grammatical, word or spelling errors. Time with Patient: Greater than 30
--- NOTE | 2024-07-22 10:35 | P.GSCN ---
History of Present Illness Consult date: 07/22/24 Reason for Consult: Rule out GIB History of present illness: Patient is an 84-year-old female with recent history of left hip arthroplasty in May 2024 with subsequent discharge to rehab facility who was subsequently found down at the rehab facility and transferred to [facility] for further evaluation. Upon evaluation in the emergency department patient was found to have diarrhea as well as cloudy urine. FOBT obtained showed evidence of heme positive stools. General surgery is consulted for further management. At time evaluation patient is A&O x 0 and thus history is obtained from chart review. Per nursing staff no melena overnight. No hematemesis. No fevers or chills. Patient resting comfortably on room air. Per Chart review no recent history of endoscopic or colonoscopic evaluation. Review of Systems ROS unobtainable: due to mental status Past Medical History Past Medical History: Dementia Additional Past Medical History / Comment(s): Arthritis, early onset dementia History of Any Multi-Drug Resistant Organisms: None Reported Past Surgical History: Breast Surgery Additional Past Surgical History / Comment(s): Mastectomy with node removal. Past Anesthesia/Blood Transfusion Reactions: No Reported Reaction Past Psychological History: No Psychological Hx Reported Smoking Status: Current every day smoker Past Alcohol Use History: None Reported Past Drug Use History: None Reported - Past Family History Mother Family Medical History: Osteoarthritis (OA) Additional Family Medical History / Comment(s): Rheumatic fever Father Family Medical History: No Reported History family Additional Family Medical History / Comment(s): no CAD or cancer Medications and Allergies Home Medications Medication Instructions Recorded Confirmed Type Aspirin 325 mg PO BID #60 tab 06/19/24 07/21/24 Rx HYDROcodone/APAP 5-325MG [[place] 1 tab PO Q6HR PRN #18 tab 06/19/24 07/21/24 Rx 5-325] Acetaminophen Tab [Tylenol] 650 mg PO Q6HR PRN tab 06/20/24 07/21/24 Rx Ipratropium-Albuterol Nebulize 3 ml INHALATION RT-Q2H PRN each 06/20/24 07/21/24 Rx [Duoneb 0.5 mg-3 mg/3 ml Soln] Amino Acids/Protein Hydrolys 30 ml PO DAILY 07/21/24 07/21/24 History [Pro-Stat Awc Liquid] Bethanechol Chloride 25 mg PO QID@09,13,17,07/21/24 07/21/24 History Ergocalciferol (Vitamin D2) 1,250 mcg PO FR 07/21/24 07/21/24 History [Drisdol (50,000 Iu)] HYDROcodone/APAP 5-325MG [[place] 1 tab PO BID 07/21/24 07/21/24 History 5-325] Ipratropium/Albuter 20-100Mcg 1 puff INHALATION 07/21/24 07/21/24 History [Combivent Respimat 20-100Mcg RT-QID@06,12,, Inhaler] Lactose-Reduced Food [Ensure Plus] 1 can PO BID@0900,1700 07/21/24 07/21/24 History Nicotine 14Mg/24Hr Patch [Habitrol 1 patch TRANSDERM DAILY 07/21/24 07/21/24 History 14Mg/24Hr Patch] Ondansetron [Zofran] 4 mg PO Q6H PRN 07/21/24 07/21/24 History Sennosides/Docusate Sodium [Senna 1 tab PO DAILY PRN 07/21/24 07/21/24 History Plus 8.6-50 mg Tablet] Allergies Allergy/AdvReac Type Severity Reaction Status Date / Time hydromorphone [From Dilaudid] AdvReac Confusion Verified 06/17/24 11:37 Surgical - Exam Vital Signs Temp Pulse Resp BP Pulse Ox 98.9 F 70 16 110/89 95 07/21/24 09:43 07/21/24 09:43 07/21/24 09:43 07/21/24 09:43 07/21/24 09:43 Gen: Resting comfortably Pulm: non-labored respirations Abd: soft, non-tender, non-distended. No guarding/rebound/rigidity Extrem: no edema seen Results - Labs 07/22/24 07:53 07/22/24 04:35 Abnormal Lab Results - Last 24 Hours (Table) 07/21/24 07/21/24 07/21/24 Range/Units 10:17 10:17 10:25 WBC 16.1 H (3.8-10.6) k/uL RBC 3.50 L (3.80-5.40) m/uL Hgb 9.7 L (11.4-16.0) gm/dL Hct 30.4 L (34.0-46.0) % MCH (27.0-32.0) pg MCHC (32.0-37.0) g/dL RDW 15.7 H (11.5-15.5) % Plt Count 566 H D (150-450) k/uL MPV (9.5-12.2) FL Immature Gran # (0.00-0.04) X 10*3/uL Neutrophils # 12.8 H (1.3-7.7) k/uL Eosinophils # (0.04-0.35) X 10*3/uL Carbon Dioxide (21.6-31.8) mmol/L Anion Gap (4.00-12.00) mmol/L BUN 20 H (7-17) mg/dL BUN/Creatinine Ratio (12.00-20.00) Ratio Glucose 126 H (74-99) mg/dL Plasma Lactic Acid Jeffy 3.1 H* (0.7-2.0) mmol/L Urine Appearance (Clear) Urine Protein (Negative) Urine Blood (Negative) Ur Leukocyte Esterase (Negative) Urine RBC (0-5) /hpf Urine WBC (0-5) /hpf Urine Bacteria (None) /hpf Urine Mucus (None) /hpf Stool Occult Blood (Negative) 07/21/24 07/21/24 07/21/24 Range/Units 12:07 14:30 17:16 WBC (3.8-10.6) k/uL RBC (3.80-5.40) m/uL Hgb (11.4-16.0) gm/dL Hct (34.0-46.0) % MCH (27.0-32.0) pg MCHC (32.0-37.0) g/dL RDW (11.5-15.5) % Plt Count (150-450) k/uL MPV (9.5-12.2) FL Immature Gran # (0.00-0.04) X 10*3/uL Neutrophils # (1.3-7.7) k/uL Eosinophils # (0.04-0.35) X 10*3/uL Carbon Dioxide (21.6-31.8) mmol/L Anion Gap (4.00-12.00) mmol/L BUN (7-17) mg/dL BUN/Creatinine Ratio (12.00-20.00) Ratio Glucose (74-99) mg/dL Plasma Lactic Acid Jeffy 2.6 H* 2.5 H* (0.7-2.0) mmol/L Urine Appearance Turbid H (Clear) Urine Protein Trace H (Negative) Urine Blood Large H (Negative) Ur Leukocyte Esterase Large H (Negative) Urine RBC 125 H (0-5) /hpf Urine WBC >182 H (0-5) /hpf Urine Bacteria Many H (None) /hpf Urine Mucus Rare H (None) /hpf Stool Occult Blood (Negative) 07/22/24 07/22/24 07/22/24 Range/Units 04:22 04:35 04:35 WBC 19.47 H (3.8-10.6) k/uL RBC 3.94 L (3.80-5.40) m/uL Hgb 10.6 L (11.4-16.0) gm/dL Hct 35.4 L (34.0-46.0) % MCH 26.9 L (27.0-32.0) pg MCHC 29.9 L (32.0-37.0) g/dL RDW 15.0 H (11.5-15.5) % Plt Count (150-450) k/uL MPV 8.8 L (9.5-12.2) FL Immature Gran # 0.12 H (0.00-0.04) X 10*3/uL Neutrophils # 16.92 H (1.3-7.7) k/uL Eosinophils # 0 L (0.04-0.35) X 10*3/uL Carbon Dioxide 17.4 L (21.6-31.8) mmol/L Anion Gap 15.60 H (4.00-12.00) mmol/L BUN 27.8 H (7-17) mg/dL BUN/Creatinine Ratio 46.33 H (12.00-20.00) Ratio Glucose 126 H (74-99) mg/dL Plasma Lactic Acid Jeffy (0.7-2.0) mmol/L Urine Appearance (Clear) Urine Protein (Negative) Urine Blood (Negative) Ur Leukocyte Esterase (Negative) Urine RBC (0-5) /hpf Urine WBC (0-5) /hpf Urine Bacteria (None) /hpf Urine Mucus (None) /hpf Stool Occult Blood Positive H (Negative) 07/22/24 Range/Units 07:53 WBC 19.6 H (3.8-10.6) k/uL RBC (3.80-5.40) m/uL Hgb 10.6 L (11.4-16.0) gm/dL Hct (34.0-46.0) % MCH (27.0-32.0) pg MCHC 30.9 L (32.0-37.0) g/dL RDW 15.6 H (11.5-15.5) % Plt Count 453 H (150-450) k/uL MPV (9.5-12.2) FL Immature Gran # (0.00-0.04) X 10*3/uL Neutrophils # 16.9 H (1.3-7.7) k/uL Eosinophils # (0.04-0.35) X 10*3/uL Carbon Dioxide (21.6-31.8) mmol/L Anion Gap (4.00-12.00) mmol/L BUN (7-17) mg/dL BUN/Creatinine Ratio (12.00-20.00) Ratio Glucose (74-99) mg/dL Plasma Lactic Acid Jeffy (0.7-2.0) mmol/L Urine Appearance (Clear) Urine Protein (Negative) Urine Blood (Negative) Ur Leukocyte Esterase (Negative) Urine RBC (0-5) /hpf Urine WBC (0-5) /hpf Urine Bacteria (None) /hpf Urine Mucus (None) /hpf Stool Occult Blood (Negative) Diabetes panel 07/21/24 07/22/24 Range/Units 10:17 04:35 Sodium 139 137 (137-145) mmol/L Potassium 3.7 3.8 (3.5-5.1) mmol/L Chloride 105 104 (98-107) mmol/L Carbon Dioxide 24 17.4 L (22-30) mmol/L BUN 20 H 27.8 H (7-17) mg/dL Creatinine 0.77 0.6 (0.52-1.04) mg/dL Glucose 126 H 126 H (74-99) mg/dL Calcium 9.9 8.9 (8.4-10.2) mg/dL AST 25 (14-36) U/L ALT 14 (4-34) U/L Alkaline Phosphatase 112 (38-126) U/L Total Protein 6.9 (6.3-8.2) g/dL Albumin 4.0 (3.5-5.0) g/dL Calcium panel 07/21/24 07/22/24 Range/Units 10:17 04:35 Calcium 9.9 8.9 (8.4-10.2) mg/dL Albumin 4.0 (3.5-5.0) g/dL Pituitary panel 07/21/24 07/22/24 Range/Units 10:17 04:35 Sodium 139 137 (137-145) mmol/L Potassium 3.7 3.8 (3.5-5.1) mmol/L Chloride 105 104 (98-107) mmol/L Carbon Dioxide 24 17.4 L (22-30) mmol/L BUN 20 H 27.8 H (7-17) mg/dL Creatinine 0.77 0.6 (0.52-1.04) mg/dL Glucose 126 H 126 H (74-99) mg/dL Calcium 9.9 8.9 (8.4-10.2) mg/dL Adrenal panel 07/21/24 07/22/24 Range/Units 10:17 04:35 Sodium 139 137 (137-145) mmol/L Potassium 3.7 3.8 (3.5-5.1) mmol/L Chloride 105 104 (98-107) mmol/L Carbon Dioxide 24 17.4 L (22-30) mmol/L BUN 20 H 27.8 H (7-17) mg/dL Creatinine 0.77 0.6 (0.52-1.04) mg/dL Glucose 126 H 126 H (74-99) mg/dL Calcium 9.9 8.9 (8.4-10.2) mg/dL Total Bilirubin 0.4 (0.2-1.3) mg/dL AST 25 (14-36) U/L ALT 14 (4-34) U/L Alkaline Phosphatase 112 (38-126) U/L Total Protein 6.9 (6.3-8.2) g/dL Albumin 4.0 (3.5-5.0) g/dL Assessment and Plan Assessment: 4-year-old female with a past medical history of recent hip arthroplasty with subsequent discharge to rehab facility who was found down with evidence of suspected UTI and FOBT positive stools. Plan: -Current signs of overt bleeding per rectum -Trend hemoglobin -Recommend PPI therapy -As needed pain and nausea control -Diet as tolerated -No acute surgical intervention; will continue to monitor. If signs and symptoms of melena or hematochezia develop will consider endoscopic evaluation. Stefan Stanley M.D. General Surgery
--- NOTE | 2024-07-22 14:56 | XR ---
EXAMINATION TYPE: XR chest 1V portable DATE OF EXAM: 07/22/2024 2:51 PM COMPARISON: Previous chest radiograph, most recently dated 06/15/2024. CLINICAL INDICATION: Female, 84 years old with history of chf; [facility] TECHNIQUE: XR chest 1V portable Frontal view of the chest. FINDINGS: Cardiac silhouette within normal limits for size. No acute focal consolidation. No pleural effusion. Lungs hyperinflated bilaterally coarsening of interstitial markings. No acute osseous abnormality. IMPRESSION: 1. No acute abnormality in the chest. 2. Findings suggestive of underlying COPD. [facility], , 07/22/2024 2:54 PM
--- NOTE | 2024-07-22 19:13 | PN ---
PROGRESS NOTE DATE OF SERVICE: 07/22/2024 SUBJECTIVE: This is an 84-year-old woman, who was admitted with fall and possible left greater and lesser trochanteric fractures, is being closely monitored. No chest pain. No palpitations. No fever. PHYSICAL EXAMINATION: VITAL SIGNS: Pulse is 80, blood pressure is 122/70, respirations 18. CHEST: Clear. CARDIOVASCULAR: S1, S2. ABDOMEN: Soft. EXTREMITIES: Legs painful. LABORATORY DATA: WBC 19.6. C diff is negative. UA showed possible UTI. ASSESSMENT: 1. Fall and possible left greater and lesser trochanteric fractures. 2. Possible acute urinary tract infection present on admission. 3. Recent left hip hemiarthroplasty. 4. Chronic obstructive pulmonary disease. 5. Dementia. 6. Gait dysfunction. RECOMMENDATIONS AND DISCUSSION: Recommend to continue current management and symptomatic treatment. Otherwise, the white count is elevated. I will recommend continue the antibiotics. Prognosis guarded. Further recommendations to follow. See orders for details. MMODL / IJN: [id number] /
--- NOTE | 2024-07-22 20:08 | CONS ---
CONSULTATION HISTORY OF PRESENT ILLNESS: Fani is an 84-year-old lady with multiple medical problems including dementia, recently underwent left hip fracture, was at [facility], had a fall, comes back with another hip injury, and Cardiology has been consulted because of bradycardia. At the time of my evaluation, her bradycardia had resolved. She is not on any beta blockers, and she is free of symptoms. PAST MEDICAL HISTORY: Significant for dementia, degenerative joint disease, and recent left hip fracture. MEDICATIONS: As charted. ALLERGIES: Hydromorphone. REVIEW OF SYSTEMS: review of systems has been performed. Pertinents are as documented. PHYSICAL EXAMINATION: GENERAL: The patient is comfortable at rest. VITAL SIGNS: Stable. CHEST: Reveals good air entry bilaterally. HEART: Reveals first and second heart sounds. No gallop. ABDOMEN: Soft. EXTREMITIES: Did not reveal any edema. Peripheral pulses are felt. LABORATORY DATA: Shows that the white cell count is elevated. Hemoglobin is 10.6, platelet count is 450. Potassium is 3.8 creatinine is 0.6. ASSESSMENT: 1. Sinus bradycardia. 2. History of fall. I will obtain a 2D echo in the morning. MMODL / IJN: [id number] /
--- NOTE | 2024-07-23 08:25 | P.PN ---
Subjective Progress Note Date: 07/23/24 Patient seen and examined this morning she is resting comfortably in bed having her vitals taken. She is able to answer some questions but she is pleasantly confused. She states pain in her left hip however on exam she has no pain with logroll. States that she was walking on it she has no recollection of any fall however she was found down at her facility. She denies any numbness or tingling she denies any fevers chills shortness of breath or chest pain at this time. Objective - Vital Signs Vital signs: Vital Signs Temp 98.1 F 07/23/24 06:56 Pulse 94 07/23/24 06:56 Resp 18 07/23/24 06:56 BP 136/72 07/23/24 06:56 Pulse Ox 97 07/23/24 06:56 FiO2 Intake & Output 07/22/24 07/23/24 07/23/24 18:59 06:59 18:59 Other: Voiding Method Diaper Diaper # Voids 1 # Bowel Movements 3 - Exam Physical Exam: -Patient is alert and oriented 3 appears well-nourished well-hydrated is in no acute distress. They do not appear septic. -There is No tenderness to palpation about the hip on the left Incision is clean and dry well-healed -Upper extremities show 4+ out of 5 strength in all major muscle groups. Patient has generalized weakness due to her age -Lower extremities with 4 minus out of 5 strength in all major muscle groups Again generalized weakness your age she does not move her left leg on command states pain -There is [FROM] that is [painless] of the b/l UE and LE in all major joints. She has no pain with logroll of the left hip however she does have some pain when the left leg is lifted for Silverskiold test. -They are intact to light touch sensation in C5 to T1 and L2 to S1 nerve distribution. -DTR [2]/4 all upper and lower extremities -Patient has palpable distal pulses all 4 ext -Compartments are soft and compressible. -Patient shows a negative Dannie's [-Neg Hoffmans b/l] [-Neg Clonus b/l] [-Neg babinski b/l] Cranial nerves II through XII are grossly intact. - Labs CBC & Chem 7: 07/22/24 07:53 07/22/24 04:35 Labs: Abnormal Lab Results - Last 24 Hours (Table) 07/22/24 07/22/24 Range/Units 04:35 04:35 WBC 19.47 H (4.50-10.00) X 10*3/uL RBC 3.94 L (4.10-5.20) X 10*6/uL Hgb 10.6 L (12.0-15.0) g/dL Hct 35.4 L (37.2-46.3) % MCH 26.9 L (27.0-32.0) pg MCHC 29.9 L (32.0-37.0) g/dL RDW 15.0 H (11.5-14.5) % MPV 8.8 L (9.5-12.2) FL Immature Gran # 0.12 H (0.00-0.04) X 10*3/uL Neutrophils # 16.92 H (1.80-7.70) X 10*3/uL Eosinophils # 0 L (0.04-0.35) X 10*3/uL Carbon Dioxide 17.4 L (21.6-31.8) mmol/L Anion Gap 15.60 H (4.00-12.00) mmol/L BUN 27.8 H (9.0-27.0) mg/dL BUN/Creatinine Ratio 46.33 H (12.00-20.00) Ratio Glucose 126 H (70-110) mg/dL Assessment and Plan Assessment: Status post fall unwitnessed at care facility found down status post left hip hemiarthroplasty with implant subsidence and periprosthetic fracture advanced age complex medical patient Plan: The patient is pleasantly confused I discussed with her her findings. I will discuss with the family their wishes for her at this time the fracture is likely stable given the fact that there is a cable around the lesser trochanter region and the subsidence has stopped however if the patient weight bears on this risk is that she fractured her femur. She would need a revision to a stem prosthesis which is a larger surgery that she underwent before and it depends on the family is wanting this for her. Her ambulatory status is questionable at this time anyways and so we will need to discuss with the family about possible surgical intervention in the form of revision hemiarthroplasty to stemmed hemiarthroplasty.
--- NOTE | 2024-07-23 08:33 | P.PN ---
Subjective Progress Note Date: 07/22/24 Principal diagnosis: Reason for follow-up is leukocytosis/UTI Patient is a 84-year-old female with a past medical history significant for dementia patient recently did have left hip hemiarthroplasty done on 06/25/2024 and the [facility] brought back to the hospital after the patient was found to be on the phone did have some mental status changes elevated white count positive UA concerning for symptomatic urinary tract infection. On today's evaluation that is 07/22/2024,the patient has been afebrile she is slightly more awake but not a very good historian no chest pain shortness without cough or any worsening diarrhea reported by the nursing staff. Patient white count is 19.6 stool for C. difficile is negative, urine culture unfortunately not done Objective - Vital Signs Vital signs: Vital Signs Temp 97.1 F L 07/22/24 14:00 Pulse 102 H 07/22/24 14:00 Resp 18 07/22/24 14:00 BP 152/91 07/22/24 14:00 Pulse Ox 99 07/22/24 14:00 FiO2 Intake & Output 07/21/24 07/22/24 07/22/24 18:59 06:59 18:59 Weight 54.431 kg Other: Voiding Method Diaper Diaper # Voids 1 1 # Bowel Movements 3 1 - Exam GENERAL DESCRIPTION: An elderly female lying in bed in no distress RESPIRATORY SYSTEM: Unlabored breathing , decreased breath sounds at bases HEART: S1 S2 regular rate and rhythm , ABDOMEN: Soft , no tenderness EXTREMITIES: No edema feet - Labs CBC & Chem 7: 07/22/24 07:53 07/22/24 04:35 Labs: Abnormal Lab Results - Last 24 Hours (Table) 07/21/24 07/22/24 07/22/24 Range/Units 17:16 04:22 04:35 WBC 19.47 H (4.50-10.00) X 10*3/uL RBC 3.94 L (4.10-5.20) X 10*6/uL Hgb 10.6 L (12.0-15.0) g/dL Hct 35.4 L (37.2-46.3) % MCH 26.9 L (27.0-32.0) pg MCHC 29.9 L (32.0-37.0) g/dL RDW 15.0 H (11.5-14.5) % Plt Count (150-450) k/uL MPV 8.8 L (9.5-12.2) FL Immature Gran # 0.12 H (0.00-0.04) X 10*3/uL Neutrophils # 16.92 H (1.80-7.70) X 10*3/uL Eosinophils # 0 L (0.04-0.35) X 10*3/uL Carbon Dioxide (21.6-31.8) mmol/L Anion Gap (4.00-12.00) mmol/L BUN (9.0-27.0) mg/dL BUN/Creatinine Ratio (12.00-20.00) Ratio Glucose (70-110) mg/dL Plasma Lactic Acid Jeffy 2.5 H* (0.7-2.0) mmol/L Stool Occult Blood Positive H (Negative) 07/22/24 07/22/24 Range/Units 04:35 07:53 WBC 19.6 H (4.50-10.00) X 10*3/uL RBC (4.10-5.20) X 10*6/uL Hgb 10.6 L (12.0-15.0) g/dL Hct (37.2-46.3) % MCH (27.0-32.0) pg MCHC 30.9 L (32.0-37.0) g/dL RDW 15.6 H (11.5-14.5) % Plt Count 453 H (150-450) k/uL MPV (9.5-12.2) FL Immature Gran # (0.00-0.04) X 10*3/uL Neutrophils # 16.9 H (1.80-7.70) X 10*3/uL Eosinophils # (0.04-0.35) X 10*3/uL Carbon Dioxide 17.4 L (21.6-31.8) mmol/L Anion Gap 15.60 H (4.00-12.00) mmol/L BUN 27.8 H (9.0-27.0) mg/dL BUN/Creatinine Ratio 46.33 H (12.00-20.00) Ratio Glucose 126 H (70-110) mg/dL Plasma Lactic Acid Jeffy (0.7-2.0) mmol/L Stool Occult Blood (Negative) Assessment and Plan (1) Leukocytosis Current Visit: Yes Status: Acute Code(s): D72.829 - ELEVATED WHITE BLOOD CELL COUNT, UNSPECIFIED SNOMED Code(s): 499640728 (2) Urinary tract infection Current Visit: Yes Status: Acute Code(s): N39.0 - URINARY TRACT INFECTION, SITE NOT SPECIFIED SNOMED Code(s): 80182522 Plan: 1patient presented to hospital with weakness and mental status changes and a fall patient did have significant elevated white count positive UA concerning for UTI likely from attending gram-negative pathogen she did have diarrhea that is a risk factor for the UTI 2patient currently covered with Rocephin 2 g daily unfortunately urine culture were not done will be requested and monitor clinical course closely Dictation was produced using [employer] dictation software. please excuse any grammatical, word or spelling errors. Time with Patient: Less than 30
[2024-07-23 09:35] LABS: Basophils # (A) 0.04 X 10*3/uL (0.00-0.10); Basophils % (A) 0.2 %; Eosinophils # (A) 0.05 X 10*3/uL (0.04-0.35); Eosinophils % (A) 0.3 %; HCT 28.2 % (37.2-46.3); HGB 8.6 g/dL (12.0-15.0); Lymphocytes % (A) 10.9 %; MCH 27.1 pg (27.0-32.0); MCHC 30.5 g/dL (32.0-37.0); Mean Platelet Volume 9.3 FL (9.5-12.2); Monocytes # (A) 0.63 X 10*3/uL (0.20-1.00); Monocytes % (A) 3.3 %; NRBC Per 100 WBC 0 X 10*3/uL (0.00-0.01); Neutrophils # (A) 16.28 X 10*3/uL (1.80-7.70); Neutrophils % (A) 84.7 %; Platelet Count 331 X 10*3/uL (140-440); RBC 3.17 X 10*6/uL (4.10-5.20); WBC 19.22 X 10*3/uL (4.50-10.00)
[2024-07-23 10:25] LABS: BUN/Creat Ratio 40.17 Ratio (12.00-20.00); Blood Urea Nitrogen 24.1 mg/dL (9.0-27.0); Calcium 8.7 mg/dL (8.7-10.3); Carbon Dioxide 21.8 mmol/L (21.6-31.8); Chloride 104 mmol/L (96-109); Glucose 107 mg/dL (70-110); Potassium 3.4 mmol/L (3.5-5.5); Sodium 136 mmol/L (135-145)
[2024-07-23 12:11] VITALS: BMI 19.3
--- NOTE | 2024-07-23 12:22 | P.PN ---
Subjective Progress Note Date: 07/23/24 SURGICAL PROGRESS NOTE CHIEF COMPLAINT: Occult blood positive HISTORY OF PRESENT ILLNESS: Patient lying in bed comfortably. Per nursing staff no blood reported in stools. Denies any abdominal pain. WBC 19 hemoglobin 10.6 down to 8.6 PHYSICAL EXAM: VITAL SIGNS: Reviewed. GENERAL: Well-developed in no acute distress. ABDOMEN: Soft. Nondistended. Nontender. NEUROLOGIC: Pleasantly confused. ASSESSMENT: 1. Anemia. Stool with positive occult blood. No active bleeding reported PLAN: -Continue to monitor hemoglobin -Continue to monitor for any signs or symptoms of bleeding -Recommendations forthcoming per surgeon Physician Wax Pattern Repairer note has been reviewed by physician. Signing provider agrees with the documented findings, assessment, and plan of care. I have personally seen and examined the patient, reviewed the FIXING CARPENTER /PAs history, exam and MDM and agree with the assessment and plan as written. Based on total visit time, I have performed more than 50% of the visit. As above: Patient pleasantly confused. Hemoglobin 8.6. No visible bleeding. Occult blood positive. Patient states she is not interested in endoscopy at this time. Unclear whether she has had endoscopies previously. Will reassess tomorrow. Objective - Vital Signs Vital signs: Vital Signs Temp 98.1 F 07/23/24 06:56 Pulse 94 07/23/24 06:56 Resp 18 07/23/24 06:56 BP 136/72 07/23/24 06:56 Pulse Ox 97 07/23/24 06:56 FiO2 Intake & Output 07/22/24 07/23/24 07/23/24 18:59 06:59 18:59 Weight 54.431 kg Other: Voiding Method Diaper Diaper # Voids 1 # Bowel Movements 3 - Labs CBC & Chem 7: 07/23/24 03:54 07/23/24 03:54 Labs: Abnormal Lab Results - Last 24 Hours (Table) 07/23/24 07/23/24 Range/Units 03:54 03:54 WBC 19.22 H (4.50-10.00) X 10*3/uL RBC 3.17 L (4.10-5.20) X 10*6/uL Hgb 8.6 L (12.0-15.0) g/dL Hct 28.2 L (37.2-46.3) % MCHC 30.5 L (32.0-37.0) g/dL RDW 15.0 H (11.5-14.5) % MPV 9.3 L (9.5-12.2) FL Immature Gran # 0.12 H (0.00-0.04) X 10*3/uL Neutrophils # 16.28 H (1.80-7.70) X 10*3/uL Potassium 3.4 L (3.5-5.5) mmol/L BUN/Creatinine Ratio 40.17 H (12.00-20.00) Ratio
[2024-07-23] MEDS: POTASSIUM CHLORIDE ER 20 MEQ TAB.ER PO STA (12:31)
--- NOTE | 2024-07-23 15:14 | P.PN ---
Subjective Progress Note Date: 07/23/24 Principal diagnosis: Reason for follow-up is leukocytosis/UTI Patient is a 84-year-old female with a past medical history significant for dementia patient recently did have left hip hemiarthroplasty done on 06/25/2024 and the patient subsequently sent to the assisted for rehabilitation brought back to the hospital after the patient was found to be on the phone did have some mental status changes elevated white count positive UA concerning for symptomatic urinary tract infection. On today's evaluation that is 07/23/2024,the patient remains to be afebrile, patient is on 2.5 L nasal cannula supplemental oxygen and denies any shortness of breath no chest pain or cough.Patient denies having any nausea or vomiting, no abdominal pain and no diarrhea has been reported by the nursing staff. Patient white count is 19.22 creatinine 0.6 urine culture requested not completed Objective - Vital Signs Vital signs: Vital Signs Temp 97.9 F 07/23/24 13:00 Pulse 94 07/23/24 13:00 Resp 16 07/23/24 13:00 BP 122/68 07/23/24 13:00 Pulse Ox 97 07/23/24 13:00 FiO2 Intake & Output 07/22/24 07/23/24 07/23/24 18:59 06:59 18:59 Weight 54.431 kg Other: Voiding Method Diaper Diaper Diaper External Catheter # Voids 1 # Bowel Movements 3 - Exam GENERAL DESCRIPTION: An elderly female lying in bed in no distress RESPIRATORY SYSTEM: Unlabored breathing , decreased breath sounds at bases HEART: S1 S2 regular rate and rhythm , ABDOMEN: Soft , no tenderness EXTREMITIES: No edema feet - Labs CBC & Chem 7: 07/23/24 03:54 07/23/24 03:54 Labs: Abnormal Lab Results - Last 24 Hours (Table) 07/23/24 07/23/24 Range/Units 03:54 03:54 WBC 19.22 H (4.50-10.00) X 10*3/uL RBC 3.17 L (4.10-5.20) X 10*6/uL Hgb 8.6 L (12.0-15.0) g/dL Hct 28.2 L (37.2-46.3) % MCHC 30.5 L (32.0-37.0) g/dL RDW 15.0 H (11.5-14.5) % MPV 9.3 L (9.5-12.2) FL Immature Gran # 0.12 H (0.00-0.04) X 10*3/uL Neutrophils # 16.28 H (1.80-7.70) X 10*3/uL Potassium 3.4 L (3.5-5.5) mmol/L BUN/Creatinine Ratio 40.17 H (12.00-20.00) Ratio Assessment and Plan (1) Leukocytosis Current Visit: Yes Status: Acute Code(s): D72.829 - ELEVATED WHITE BLOOD CELL COUNT, UNSPECIFIED SNOMED Code(s): 498897784 (2) Urinary tract infection Current Visit: Yes Status: Acute Code(s): N39.0 - URINARY TRACT INFECTION, SITE NOT SPECIFIED SNOMED Code(s): 23483850 Plan: 1patient presented to hospital with weakness and mental status changes and a fall patient did have significant elevated white count positive UA concerning for UTI likely from attending gram-negative pathogen she did have diarrhea that is a risk factor for the UTI 2patient white count is still elevated which is slightly concerning unfortunately urine culture was not done repeat UA culture were ordered yesterday not completed discussed with the nursing staff to get another urine culture for now we will switch antibiotic therapy to Invanz to cover for more resistant gram-negative being a assisted patient Dictation was produced using [employer] dictation software. please excuse any grammatical, word or spelling errors. Time with Patient: Less than 30
[2024-07-23] MEDS: ACETAMINOPHEN TAB 325 MG TAB PO PRN (16:18)
[2024-07-23] MEDS: ERTAPENEM 1 GM in SODIUM CHLORIDE 0.9% 50 ML IVPB SCH (16:22)
[2024-07-23 16:23] LABS: Appearance,Urine Cloudy (Clear); Bacteria,Urine Rare /hpf; Bilirubin,Urine Negative (Negative); Blood,Urine Large (Negative); Color,Urine Yellow; Glucose,Urine (UA) Negative (Negative); Ketones,Urine Negative (Negative); Leukocyte Esterase,Urine Large (Negative); Mucus,Urine Rare /hpf; Nitrite,Urine Positive (Negative); Protein,Urine 1+ (Negative); RBC,Urine 65 /hpf (0-5); Specific Gravity,Urine 1.028 (1.001-1.035); Squamous Epithelial Cell,Urine 4 /hpf (0-4); Urobilinogen,Urine <2.0 mg/dL (<2.0); WBC,Urine >182 /hpf (0-5)
--- NOTE | 2024-07-23 16:54 | CA ---
Transthoracic Echo Report Name: Minda Caraballo Age: 84 Gender: F : 1940 Exam Date: 07/23/2024 14:29 Exam Location: [facility] Ht (in): 66 Wt (lb): 120 Ordering Physician: Rashaad Hernandez MD ([id number]) Attending/Referring Phys: Mary RENEE Senior Applications Analyst Jazmin Ball RDCS Procedure CPT: Indications: bradycardia/tachycardia Cardiac Hx: Technical Quality: Fair Contrast 1: Total Dose (mL): Contrast 2: Total Dose (mL): MEASUREMENTS (Male / Female) Normal Values 2D ECHO LV Diastolic Diameter PLAX 3.6 cm 4.2 - 5.9 / 3.9 - 5.3 cm LV Systolic Diameter PLAX 2.7 cm IVS Diastolic Thickness 1.2 cm 0.6 - 1.0 / 0.6 - 0.9 cm LVPW Diastolic Thickness 1.3 cm 0.6 - 1.0 / 0.6 - 0.9 cm LV Relative Wall Thickness 0.7 RV Internal Dim ED PLAX 2.8 cm LA Systolic Diameter LX 3.3 cm 3.0 - 4.0 / 2.7 - 3.8 cm M-MODE Aortic Root Diameter MM 3.4 cm AV Cusp Separation MM 2.5 cm DOPPLER AV Peak Velocity 87.8 cm/s AV Peak Gradient 3.1 mmHg MV Area PHT 3.2 cm??? Mitral E Point Velocity 49.7 cm/s Mitral A Point Velocity 83.1 cm/s Mitral E to A Ratio 0.6 MV Deceleration Time 239.8 ms TR Peak Velocity 229.6 cm/s TR Peak Gradient 21.1 mmHg Right Ventricular Systolic Press 25.5 mmHg FINDINGS Left Ventricle Left ventricular ejection fraction is estimated at 55-60 %. Mildly increased septal wall thickness. Mildly increased posterior wall thickness. Small left ventricular cavity. Right Ventricle Normal right ventricular size. Right ventricular systolic pressure within normal limits. Right Atrium Normal right atrial size. No right atrial thrombus or mass seen. Left Atrium Normal left atrial size. No left atrial thrombus or mass present. Mitral Valve Structurally normal mitral valve. No mitral stenosis, regurgitation or prolapse. Aortic Valve Trileaflet aortic valve. No aortic valve stenosis or regurgitation. Tricuspid Valve Structurally normal tricuspid valve. Mild tricuspid regurgitation. Pulmonic Valve Structurally normal pulmonic valve. No pulmonic regurgitation. Pericardium No pericardial effusion. Aorta Normal size aortic root and proximal ascending aorta. CONCLUSIONS Normal LV function Previewed by: Dr. Rashaad Hernandez MD (Electronically Signed) Final Date: 23 July 2024 16:53
--- NOTE | 2024-07-23 22:01 | PN ---
PROGRESS NOTE SUBJECTIVE: Minda is an 84-year-old lady, who has dementia and is admitted to hospital following a fall and Cardiology has been consulted because of bradycardia. This morning, she is doing well and the bradycardia had resolved. She is free of any symptoms. PHYSICAL EXAMINATION: VITAL SIGNS: Stable. CHEST: Reveals good air entry. HEART: Reveals first and second heart sounds, and a systolic murmur at the apex. ABDOMEN: Soft. EXTREMITIES: Exam of extremities did not reveal any edema. Peripheral pulses are felt. LABORATORY DATA: Labs show that her hemoglobin is 8.6. Potassium is 3.4 and creatinine is 0.6. ASSESSMENT AND PLAN: 1. Symptomatic bradycardia, resolved. 2. Hyperkalemia. Please supplement the potassium. MMODL / IJN: [id number] /
[2024-07-24 08:36] LABS: Basophils # (A) 0.04 X 10*3/uL (0.00-0.10); Basophils % (A) 0.3 %; Eosinophils # (A) 0.08 X 10*3/uL (0.04-0.35); Eosinophils % (A) 0.6 %; HGB 7.5 g/dL (12.0-15.0); Lymphocytes # (A) 1.73 X 10*3/uL (0.90-5.00); Lymphocytes % (A) 12.7 %; MCV 89.9 FL (80.0-97.0); Mean Platelet Volume 9.4 FL (9.5-12.2); Monocytes # (A) 0.52 X 10*3/uL (0.20-1.00); Monocytes % (A) 3.8 %; NRBC Per 100 WBC 0 X 10*3/uL (0.00-0.01); Neutrophils # (A) 11.11 X 10*3/uL (1.80-7.70); Neutrophils % (A) 81.9 %; Platelet Count 288 X 10*3/uL (140-440); RBC 2.78 X 10*6/uL (4.10-5.20); WBC 13.57 X 10*3/uL (4.50-10.00)
[2024-07-24 08:38] LABS: ALT 8 U/L (8-44); AST 12 U/L (13-35); Albumin 3.1 g/dL (3.8-4.9); Albumin/Globulin Ratio 1.48 Ratio (1.60-3.17); Alkaline Phosphatase 90 U/L (41-126); BUN/Creat Ratio 36.17 Ratio (12.00-20.00); Blood Urea Nitrogen 21.7 mg/dL (9.0-27.0); Calcium 8.6 mg/dL (8.7-10.3); Carbon Dioxide 23.5 mmol/L (21.6-31.8); Chloride 106 mmol/L (96-109); Globulin 2.1 g/dL (1.6-3.3); Glucose 103 mg/dL (70-110); Potassium 3.6 mmol/L (3.5-5.5); Sodium 138 mmol/L (135-145); Total Bilirubin <0.2 mg/dL (0.3-1.2); Total Protein 5.2 g/dL (6.2-8.2)
[2024-07-24] MEDS: ERGOCALCIFEROL 1,250 MCG (50,000 IU) CAPSULE PO SCH (08:57)
--- NOTE | 2024-07-24 09:30 | P.PN ---
Subjective Progress Note Date: 07/23/24 Patient is an 84-year-old female who was recently admitted from halfway and was found to have mental status changes along with leukocytosis and concerns of possible symptomatic urinary tract infection. Multiple consultations including infectious disease following and will continue on current regimen along with antidiarrheals as patient was having diarrhea.. Apparently there was not a urine culture done previously and repeat urinalysis was sent with urine culture and will await finalized cultures to determine discharge antibiotics. White count remains elevated although is slightly improved and will follow-up on repeat labs. Replace electrolytes per protocol as potassium was noted to be s lightly low. Not eating much and encourage small frequent meals and assistance with meals. Review of systems: Constitutional: No reports of fatigue, no fever, or chills Cardiovascular: No reports of chest pain or palpitations Respiratory: No reports of shortness of breath or cough GI: reports of nausea, no reports of vomiting, reports was having diarrhea, not feeling hungry : No reports of dysuria or retention Neurovascular: reports of generalized weakness All medications have been reviewed Active Medications Acetaminophen (Acetaminophen Tab 325 Mg Tab) 650 mg PO Q6HR PRN PRN Reason: Mild Pain or Fever > 100.5 Last Admin: 07/23/24 16:18 Dose: 650 mg Hydrocodone Bitart/Acetaminophen (Hydrocodone/Apap 5-325mg 1 Each Tab) 1 each PO BID [facility] Last Admin: 07/24/24 08:55 Dose: 1 each Albuterol/Ipratropium (Ipratropium-Albuterol 3 Ml Neb) 3 ml INHALATION RT-Q2H PRN PRN Reason: Shortness Of Breath Or Wheezing Albuterol/Ipratropium (Ipratropium-Albuterol 3 Ml Neb) 3 ml INHALATION RT-QID [facility] Last Admin: 07/24/24 07:37 Dose: 3 ml Bethanechol Chloride (Bethanechol 25 Mg Tab) 25 mg PO QID@09,13,17,21 [facility] Last Admin: 07/24/24 08:57 Dose: 25 mg Ergocalciferol (Ergocalciferol 1,250 Mcg (50,000 Iu) Capsule) 1,250 mcg PO FR [facility] Last Admin: 07/24/24 08:57 Dose: 1,250 mcg Heparin Sodium (Porcine) (Heparin Sodium,Porcine 5,000 Unit/Ml 1 Ml Vial) 5,000 unit SQ Q12HR BRIA Last Admin: 07/24/24 08:50 Dose: Not Given Ertapenem 1 gm/ Sodium (Chloride) 50 mls @ 100 mls/hr IVPB DAILY BRIA; Protocol Last Admin: 07/24/24 08:54 Dose: 100 mls/hr Nicotine (Nicotine 14mg/24hr Patch) 1 patch TRANSDERM DAILY [facility] Last Admin: 07/24/24 08:54 Dose: 1 patch Ondansetron HCl (Ondansetron 4 Mg Tab) 4 mg PO Q6H PRN PRN Reason: Nausea And Vomiting Petrolatum (Zinc Oxide Paste (Z-Guard) 1 Applic) 1 applic TOPICAL Q2HR PRN; Protocol PRN Reason: Wound Healing Last Admin: 07/21/24 17:46 Dose: 1 applic Senna/Docusate Sodium (Sennosides-Docusate Sodium 1 Each Tab) 1 each PO DAILY PRN PRN Reason: Constipation PHYSICAL EXAMINATION: GENERAL: The patient is alert and oriented 1-2, baseline, Well developed, elderly appearing, ill-appearing, cachectic and thin built HEENT: Pupils are round and equally reacting to light. EOMI. no scleral icterus. No conjunctival pallor. Normocephalic, atraumatic. No pharyngeal erythema. No thyromegaly. CARDIOVASCULAR: S1 and S2 muffled PULMONARY: diminished breath sounds bilaterally with no wheezing, coarse rhonchi noted. ABDOMEN: soft. Nontender on exam. Thin. non-distended, normoactive bowel sounds. No palpable organomegaly. MUSCULOSKELETAL: No joint swelling or deformity. EXTREMITIES: No cyanosis, clubbing, or pedal edema. NEUROLOGICAL: Gross neurological examination did not reveal any focal deficits. Diffuse weakness SKIN: No rashes. Assessment: Fall and possible left greater and lesser trochanteric fractures Acute urinary tract infection, present on admission Altered mental status, acute metabolic encephalopathy secondary to acute urinary tract infection History of anemia, positive occult blood, no active bleeding, surgery evaluated and patient refusing endoscopic, hemoglobin 8.6 Recent left hip hemiarthroplasty COPD history, not in exacerbation History of dementia History of gait dysfunction with generalized weakness and falls GI prophylaxis DVT prophylaxis Full code Plan: Recommend to continue with current medications and management with multiple consultations following Orthopedics has evaluated the patient in regards to possible left-sided fracture intervention and will need to discuss further with family regarding treatment plan moving forward if they want to proceed with surgery as this is higher risk and revision of a previous hemiarthroplasty. General surgery following monitoring hemoglobin which is 8.6 with no active bleeding noted. Patient refusing colonoscopy and will follow-up on repeat labs. Transfuse if 7 or less Will need to discuss further with consultations regarding discharge planning to ECF and treatment plan moving forward CODE STATUS needs to be addressed Due to multiple complex medical issues, overall prognosis is guarded The impression and plan of care has been dictated by Dot Ruvalcaba, nurse practitioner as directed. Dr. Murali MD I have performed a history and examination and MDM of this patient, discussed the same with the dictator, and agree with the dictator's assessment and plan as written ,documented as a scribe. Based on total visit time, I have performed more than 50% of the visit. Any additional findings or plans will be noted. Objective - Vital Signs Vital signs: Vital Signs Temp 97.9 F 07/23/24 13:00 Pulse 94 07/23/24 13:00 Resp 16 07/23/24 13:00 BP 122/68 07/23/24 13:00 Pulse Ox 97 07/23/24 13:00 FiO2 Intake & Output 07/22/24 07/23/24 07/23/24 18:59 06:59 18:59 Weight 54.431 kg Other: Voiding Method Diaper Diaper Diaper External Catheter # Voids 1 # Bowel Movements 3 - Labs CBC & Chem 7: 07/24/24 03:08 07/24/24 03:08 Labs: Abnormal Lab Results - Last 24 Hours (Table) 07/23/24 07/23/24 Range/Units 03:54 03:54 WBC 19.22 H (4.50-10.00) X 10*3/uL RBC 3.17 L (4.10-5.20) X 10*6/uL Hgb 8.6 L (12.0-15.0) g/dL Hct 28.2 L (37.2-46.3) % MCHC 30.5 L (32.0-37.0) g/dL RDW 15.0 H (11.5-14.5) % MPV 9.3 L (9.5-12.2) FL Immature Gran # 0.12 H (0.00-0.04) X 10*3/uL Neutrophils # 16.28 H (1.80-7.70) X 10*3/uL Potassium 3.4 L (3.5-5.5) mmol/L BUN/Creatinine Ratio 40.17 H (12.00-20.00) Ratio
--- NOTE | 2024-07-24 11:39 | P.PN ---
Subjective Progress Note Date: 07/24/24 SURGICAL PROGRESS NOTE CHIEF COMPLAINT: Occult blood positive HISTORY OF PRESENT ILLNESS: Patient lying in bed comfortably. Per nursing staff no blood reported in stools. Denies any abdominal pain. Nurse did report that on 07/21 patient did have maroon stools. Hemoglobin 8.6 down to 7.5 PHYSICAL EXAM: VITAL SIGNS: Reviewed. GENERAL: Well-developed in no acute distress. ABDOMEN: Soft. Nondistended. Nontender. NEUROLOGIC: Pleasantly confused. ASSESSMENT: 1. Anemia. Stool with positive occult blood. No active bleeding reported PLAN: -Patient is not interested in any endoscopy at this time -Continue to monitor hemoglobin -Continue to monitor for any signs or symptoms of bleeding Physician Strategy Manager note has been reviewed by physician. Signing provider agrees with the documented findings, assessment, and plan of care. I have personally seen and examined the patient, reviewed the GLOBAL TRANSPORTATION MANAGER /PAs history, exam and MDM and agree with the assessment and plan as written. Based on total visit time, I have performed more than 50% of the visit. As above: No further bleeding. Patient denies abdominal pain. States she wants to leave the hospital. Hemoglobin 7.5. It was in the 7 range when she was here in May. Will recheck hemoglobin tomorrow. Objective - Vital Signs Vital signs: Vital Signs Temp 98.7 F 07/24/24 07:03 Pulse 98 07/24/24 11:13 Resp 16 07/24/24 07:03 BP 118/74 07/24/24 07:03 Pulse Ox 98 07/24/24 07:03 FiO2 Intake & Output 07/23/24 07/24/24 07/24/24 18:59 06:59 18:59 Intake Total 1080 Output Total 200 450 Balance -200 630 Weight 54.431 kg Intake: Oral 1080 Output: Urine 200 450 Other: Voiding Method Diaper Diaper Diaper External Catheter External Catheter External Catheter # Voids 2 - Labs CBC & Chem 7: 07/24/24 03:08 07/24/24 03:08 Labs: Abnormal Lab Results - Last 24 Hours (Table) 07/23/24 07/24/24 07/24/24 Range/Units 15:26 03:08 03:08 WBC 13.57 H (4.50-10.00) X 10*3/uL RBC 2.78 L (4.10-5.20) X 10*6/uL Hgb 7.5 L (12.0-15.0) g/dL Hct 25.0 L (37.2-46.3) % MCHC 30.0 L (32.0-37.0) g/dL RDW 15.0 H (11.5-14.5) % MPV 9.4 L (9.5-12.2) FL Immature Gran # 0.09 H (0.00-0.04) X 10*3/uL Neutrophils # 11.11 H (1.80-7.70) X 10*3/uL BUN/Creatinine Ratio 36.17 H (12.00-20.00) Ratio Calcium 8.6 L (8.7-10.3) mg/dL Total Bilirubin <0.2 L (0.3-1.2) mg/dL AST 12 L (13-35) U/L C-Reactive Protein 8.10 H (0.00-0.80) mg/dL Total Protein 5.2 L (6.2-8.2) g/dL Albumin 3.1 L (3.8-4.9) g/dL Albumin/Globulin Ratio 1.48 L (1.60-3.17) Ratio Urine Appearance Cloudy H (Clear) Urine Protein 1+ H (Negative) Urine Blood Large H (Negative) Urine Nitrite Positive H (Negative) Ur Leukocyte Esterase Large H (Negative) Urine RBC 65 H (0-5) /hpf Urine WBC >182 H (0-5) /hpf Urine Bacteria Rare H (None) /hpf Urine Mucus Rare H (None) /hpf
[2024-07-24] MEDS ORDERED: PANTOPRAZOLE 40 MG/10 ML VIAL IVP SCH (11:45)
--- NOTE | 2024-07-24 11:55 | PN ---
PROGRESS NOTE SUBJECTIVE: Minda is an 84-year-old lady, whom we have been following because of bradycardia. She is doing well and is free of symptoms, has not had further issues with bradycardia. An echocardiogram shows normal LV function. OBJECTIVE: GENERAL: Comfortable at rest. VITAL SIGNS: Stable. CHEST: Reveals good air entry bilaterally. HEART: Reveals first and second heart sounds. No gallop. EXTREMITIES: Did not reveal any edema. Peripheral pulses are felt. LABORATORY DATA: Labs show a hemoglobin of 7.5, platelet count is 288, potassium is 3.6. ASSESSMENT AND PLAN: Bradycardia resolved. No further cardiac workup at this time. I will follow her on a p.r.n. basis. MMODL / IJN: [id number] /
[2024-07-24] MEDS: PANTOPRAZOLE 40 MG TABLET PO SCH (12:16)
--- NOTE | 2024-07-24 15:59 | P.PN ---
Subjective Progress Note Date: 07/24/24 Principal diagnosis: Greater and lesser trochanter fracture status post fall; status post recent left hip hemiarthroplasty Patient was seen at bedside this morning she was unable to give any history. There is a small skin tear on the left elbow and abrasion to the temporal nadia on. Family was not present during encounter at bedside this morning. Patient did have left hip hemiarthroplasty surgery performed on 06/25/[address] Duarte. Left leg does seem to be somewhat shortened and externally rotated on exam while patient lying in bed. patient denies any complaints besides left hip pain at this time. Objective - Vital Signs Vital signs: Vital Signs Temp 98 F 07/24/24 13:18 Pulse 102 H 07/24/24 13:18 Resp 18 07/24/24 13:18 BP 122/73 07/24/24 13:18 Pulse Ox 98 07/24/24 13:18 FiO2 Intake & Output 07/23/24 07/24/24 07/24/24 18:59 06:59 18:59 Intake Total 1080 Output Total 200 450 Balance -200 630 Weight 54.431 kg Intake: Oral 1080 Output: Urine 200 450 Other: Voiding Method Diaper Diaper Diaper External Catheter External Catheter External Catheter # Voids 2 # Bowel Movements 1 - Exam Left leg does appear to be somewhat shortened externally rotated on exam at bedside. Sensation appears to be equal, symmetric, bilateral intact. There is some diffuse generalized tenderness to palpation throughout the left hip on exam. Patient does have increased pain during passive range of motion exam on the left lower extremity during knee flexion/extension and attempted external/internal rotation of left hip. Patient does have fairly decent range of motion throughout the bilateral upper extremities and right lower extremity on exam. Difficult to test motor strength based on patient's mental state. Patient does have decent statistician strength on exam. She is able to wiggle toes in bilateral feet. Radial pulses intact, 2+ bilaterally. DP pulses palpable bilaterally. Negative Homans bilaterally. - Labs CBC & Chem 7: 07/24/24 03:08 07/24/24 03:08 Labs: Abnormal Lab Results - Last 24 Hours (Table) 07/23/24 07/24/24 07/24/24 Range/Units 15:26 03:08 03:08 WBC 13.57 H (4.50-10.00) X 10*3/uL RBC 2.78 L (4.10-5.20) X 10*6/uL Hgb 7.5 L (12.0-15.0) g/dL Hct 25.0 L (37.2-46.3) % MCHC 30.0 L (32.0-37.0) g/dL RDW 15.0 H (11.5-14.5) % MPV 9.4 L (9.5-12.2) FL Immature Gran # 0.09 H (0.00-0.04) X 10*3/uL Neutrophils # 11.11 H (1.80-7.70) X 10*3/uL BUN/Creatinine Ratio 36.17 H (12.00-20.00) Ratio Calcium 8.6 L (8.7-10.3) mg/dL Total Bilirubin <0.2 L (0.3-1.2) mg/dL AST 12 L (13-35) U/L C-Reactive Protein 8.10 H (0.00-0.80) mg/dL Total Protein 5.2 L (6.2-8.2) g/dL Albumin 3.1 L (3.8-4.9) g/dL Albumin/Globulin Ratio 1.48 L (1.60-3.17) Ratio Urine Appearance Cloudy H (Clear) Urine Protein 1+ H (Negative) Urine Blood Large H (Negative) Urine Nitrite Positive H (Negative) Ur Leukocyte Esterase Large H (Negative) Urine RBC 65 H (0-5) /hpf Urine WBC >182 H (0-5) /hpf Urine Bacteria Rare H (None) /hpf Urine Mucus Rare H (None) /hpf Assessment and Plan Assessment: 1. Greater and lesser trochanter fracture status post fall; status post recent left hip hemiarthroplasty Plan: 1. Greater and lesser trochanter fracture status post fall; status post recent left hip hemiarthroplasty - X-ray of the left hip does demonstrate left hip hemiarthroplasty complicated by fracture involving both the greater and lesser trochanters. Radiologist noted that there is subsidence of the femoral stem. I did discuss the findings of the imaging and exam with my attending, Dr. Duarte. At this time hemiarthroplasty appears to be stable with cable holding the femoral stem in place. if the patient weight bears on extremity, there is risk that she could fracture femur. She would need a revision to a stem prosthesis which is a larger surgery that she underwent before and it depends on the family is wanting this for her. Patient to be nonweightbearing to the left lower extremity at this time. Pain medication as needed. Appreciate medical management. Ortho will be available as needed to see patient but we will defer the rest of the management during the patient's stay to medicine. Please do not hesitate to reach out to us for any other questions. 2. Appreciate medical management 3. Pain management -[place]; Tylenol 4. DVT prophylaxis -heparin 5. GI prophylaxis -senna 6. PT/OT -nonweightbearing to the left lower extremity at this time 7. Encourage incentive spirometer use Time with Patient: Less than 30
--- NOTE | 2024-07-25 02:05 | P.PN ---
Subjective Progress Note Date: 07/24/24 Patient is an 84-year-old female who was recently [facility] from [facility] and was found to have mental status changes along with leukocytosis and concerns of possible symptomatic urinary tract infection. Multiple consultations including infectious disease following and will continue on current regimen along with antidiarrheals as patient was having diarrhea.. Apparently there was not a urine culture done previously and repeat urinalysis was sent with urine culture and will await finalized cultures to determine discharge antibiotics. White count remains elevated although is slightly improved and will follow-up on repeat labs. Replace electrolytes per protocol as potassium was noted to be s lightly low. Not eating much and encourage small frequent meals and assistance with meals. 07/24/2024 Patient is seen in follow-up today a little more awake today and sitting up in bed. Patient is maintained on antibiotics with infectious disease following and awaiting repeat cultures to determine appropriate discharge antibiotics. White count is trending down and patient is afebrile. Awaiting updated orthopedic evaluation after discussing with family regarding treatment plan and if undergo ing possible surgical intervention on the left. Patient is afebrile denies any chest pain or shortness of breath. Review of systems: Constitutional: No reports of fatigue, no fever, or chills Cardiovascular: No reports of chest pain or palpitations Respiratory: No reports of shortness of breath or cough GI: reports of nausea, no reports of vomiting, reports was having diarrhea, not feeling hungry : No reports of dysuria or retention Neurovascular: reports of generalized weakness All medications have been reviewed PHYSICAL EXAMINATION: GENERAL: The patient is alert and oriented 1-2, baseline, Well developed, elderly appearing, ill-appearing, cachectic and thin built HEENT: Pupils are round and equally reacting to light. EOMI. no scleral icterus. No conjunctival pallor. Normocephalic, atraumatic. No pharyngeal erythema. No thyromegaly. CARDIOVASCULAR: S1 and S2 muffled PULMONARY: diminished breath sounds bilaterally with no wheezing, coarse rhonchi noted. ABDOMEN: soft. Nontender on exam. Thin. non-distended, normoactive bowel sounds. No palpable organomegaly. MUSCULOSKELETAL: No joint swelling or deformity. EXTREMITIES: No cyanosis, clubbing, or pedal edema. NEUROLOGICAL: Gross neurological examination did not reveal any focal deficits. Diffuse weakness SKIN: No rashes. Assessment: Fall and possible left greater and lesser trochanteric fractures Acute urinary tract infection, present on admission Altered mental status, acute metabolic encephalopathy secondary to acute urinary tract infection History of anemia, positive occult blood, no active bleeding, surgery evaluated and patient refusing endoscopy, hemoglobin 7.6 Recent left hip hemiarthroplasty COPD history, not in exacerbation History of dementia History of gait dysfunction with generalized weakness and falls GI prophylaxis DVT prophylaxis Full code Plan: Recommend to continue with current medications and management with multiple consultations following Orthopedics has evaluated the patient in regards to possible left-sided fracture intervention and will need to discuss further with family regarding treatment plan moving forward if they want to proceed with surgery as this is higher risk and revision of a previous hemiarthroplasty. General surgery following monitoring hemoglobin which is 7.6 with no active bleeding noted. Patient refusing colonoscopy and will follow-up on repeat labs. Transfuse if 7 or less Will need to discuss further with consultations regarding discharge planning to [facility] and treatment plan moving forward CODE STATUS needs to be addressed Due to multiple complex medical issues, overall prognosis is guarded The impression and plan of care has been dictated by Dot Ruvalcaba, nurse practitioner as directed. Dr. Murali MD I have performed a history and examination and MDM of this patient, discussed the same with the dictator, and agree with the dictator's assessment and plan as written ,documented as a scribe. Based on total visit time, I have performed more than 50% of the visit. Any additional findings or plans will be noted. Objective - Vital Signs Vital signs: Vital Signs Temp 98 F 07/24/24 13:18 Pulse 102 H 07/24/24 13:18 Resp 18 07/24/24 13:18 BP 122/73 07/24/24 13:18 Pulse Ox 98 07/24/24 13:18 FiO2 Intake & Output 07/23/24 07/24/24 07/24/24 18:59 06:59 18:59 Intake Total 1080 Output Total 200 450 Balance -200 630 Weight 54.431 kg Intake: Oral 1080 Output: Urine 200 450 Other: Voiding Method Diaper Diaper Diaper External Catheter External Catheter External Catheter # Voids 2 # Bowel Movements 1 - Labs CBC & Chem 7: 07/24/24 03:08 07/24/24 03:08 Labs: Abnormal Lab Results - Last 24 Hours (Table) 12/27/24 12/27/24 Range/Units 03:08 03:08 WBC 13.57 H (4.50-10.00) X 10*3/uL RBC 2.78 L (4.10-5.20) X 10*6/uL Hgb 7.5 L (12.0-15.0) g/dL Hct 25.0 L (37.2-46.3) % MCHC 30.0 L (32.0-37.0) g/dL RDW 15.0 H (11.5-14.5) % MPV 9.4 L (9.5-12.2) FL Immature Gran # 0.09 H (0.00-0.04) X 10*3/uL Neutrophils # 11.11 H (1.80-7.70) X 10*3/uL BUN/Creatinine Ratio 36.17 H (12.00-20.00) Ratio Calcium 8.6 L (8.7-10.3) mg/dL Total Bilirubin <0.2 L (0.3-1.2) mg/dL AST 12 L (13-35) U/L C-Reactive Protein 8.10 H (0.00-0.80) mg/dL Total Protein 5.2 L (6.2-8.2) g/dL Albumin 3.1 L (3.8-4.9) g/dL Albumin/Globulin Ratio 1.48 L (1.60-3.17) Ratio
[2024-07-25] MEDS: MORPHINE SULFATE 2 MG/ML SYRINGE IVP STA (03:07)
--- NOTE | 2024-07-25 09:57 | P.PN ---
Progress Note - Text Progress Note Date: 07/24/24 Spoke with son at bedside about pt. She is doing much better today as she is more with it and answering questions appropriately. She states pain in her left hip, that is similar to before no worse or better. She does not have pain with rest but seems to have pain with movement. She is still somewhat plesently confused. She denies any other sx. More history gathered from son about fall at [facility]. She was found down unwitnessed. She has been trying to get up on he own it sounds like due to the confusion. She ended up with UTI and this is contributing. Son states communication has been somewhat poor. He is frustrated. We discussed at length different options for the patient as well as her condition. Denies any f/c/sob/cp at this time. PE: AOX2-3, confused with baseline dementia, but able to answer most questions Non septic NAD LLE: No pain with log roll of left hip. No pain with log roll of the right hip. Some pain with PROM of the hip in flexion. There is no pain with PP of the hip and no TTP of the ankle, knee or any other joints. +DF/PF/EHL/FHL b/l LE SILT L2-S1 2/4 distal pulses compartments soft and compressive IMAGING: CT and XR reviewed again. There is subsidence of the femoral implant on the left. There is GT fracture and some calcar disruption. The implant looks stable howevere. There is some shortening of this leg due to the subsidence. There is question of fracture of the right femoral neck, but this could be the position of the xray and CT of the pelvis will tell more. CT of the left hip shows the subsidence, but still implant looks stable and cable is doing its job. No further fractures noted. A: 84 yo female s/p left hip hemiarthroplasty with unwitnessed ffs with implant subsidence and GT fracture\ UTI POA Dementia PLAN: I discussed at length with the family their wishes as well as with the patient. At this time, we would not recommend any urgent or emergent surgical intervention. Rather we will road test the patient with partial WB of the LLE and see how she does in regards to pain, stability and functional status. If she is able to tolerate this and the implant remains stable on follow up xray we will treat conservative. If it changes signifcantly or there is signifiacnt pain or further debility we can revisit. We will get PT on jon to help with mobilization and testing. She can be 50% WB LLE and FF for balance with assist. She can get up to chair and bedside. She can move as able. Cont post hip p ercautions. We will order dedicated imaging of the right hip to r/o further fracture as she has a hx of this on the right as well and could have made worse with fall. Family is on board and comfortable with plan. If she is doing well with this, she can go back to rehab saturday/saturday. If we need to revisit plan we will.
--- NOTE | 2024-07-25 11:45 | P.PN ---
Subjective Progress Note Date: 07/25/24 Principal diagnosis: GI bleed Patient complaining of mild left hip pain today. Denies rectal bleeding. No abdominal discomforts. No CBC back yet. Objective - Vital Signs Vital signs: Vital Signs Temp 98.4 F 07/25/24 07:01 Pulse 90 07/25/24 07:01 Resp 17 07/25/24 07:01 BP 133/75 07/25/24 07:01 Pulse Ox 98 07/25/24 07:01 FiO2 Intake & Output 07/24/24 07/25/24 07/25/24 18:59 06:59 18:59 Intake Total 2085 Output Total 100 250 Balance -100 1835 Intake: Oral 2084 Output: Urine 100 250 Other: Voiding Method Diaper Diaper External Catheter External Catheter # Voids 4 2 # Bowel Movements 1 - Exam Abdomen: Soft, nontender, nondistended - Labs CBC & Chem 7: 07/24/24 03:08 07/24/24 03:08 Labs: Microbiology - Last 24 Hours (Table) 07/23/24 15:26 Urine Culture - Preliminary Urine,Voided Group D Enterococcus Gram Neg Bacilli Assessment and Plan (1) GI bleed Narrative/Plan: Patient doing well today. Await repeat CBC. Monitor for repeat bleeding. Continue diet. Current Visit: Yes Status: Acute Code(s): K92.2 - GASTROINTESTINAL HEMORRHAGE, UNSPECIFIED SNOMED Code(s): 45240975
[2024-07-25 12:22] LABS: Basophils % (A) 0 %; Eosinophils # (A) 0.1 k/uL (0-0.7); Eosinophils % (A) 1 %; HCT 24.5 % (34.0-46.0); Hypochromasia Marked; Lymphocytes # (A) 1.2 k/uL (1.0-4.8); Lymphocytes % (A) 14 %; MCH 27.6 pg (25.0-35.0); MCHC 32.1 g/dL (31.0-37.0); Mean Platelet Volume 6.9; Monocytes # (A) 0.2 k/uL (0-1.0); Monocytes % (A) 2 %; Neutrophils # (A) 7.2 k/uL (1.3-7.7); Neutrophils % (A) 81 %; Platelet Count 321 k/uL (150-450); RBC 2.85 m/uL (3.80-5.40); RDW 15.2 % (11.5-15.5); WBC 8.8 k/uL (3.8-10.6)
[2024-07-25 12:33] LABS: HGB 7.9 gm/dL (11.4-16.0)
--- NOTE | 2024-07-25 13:07 | P.PN ---
Subjective Progress Note Date: 07/25/24 Principal diagnosis: Greater and lesser trochanter fracture status post fall; status post recent left hip hemiarthroplasty Patient was seen at bedside this morning she was unable to give any history. There is a small skin tear on the left elbow and abrasion to the temporal nadia on. Family was not present during encounter at bedside this morning. Patient did have left hip hemiarthroplasty surgery performed on 06/17/[address] Duarte. Left leg does seem to be somewhat shortened and externally rotated on exam while patient lying in bed. patient denies any complaints besides left hip pain at this time. Objective - Vital Signs Vital signs: Vital Signs Temp 98.4 F 07/25/24 07:01 Pulse 90 07/25/24 11:44 Resp 18 07/25/24 11:44 BP 133/75 07/25/24 07:01 Pulse Ox 98 07/25/24 07:01 FiO2 Intake & Output 07/24/24 07/25/24 07/25/24 18:59 06:59 18:59 Intake Total 2085 Output Total 100 250 Balance -100 1835 Intake: Oral 2084 Output: Urine 100 250 Other: Voiding Method Diaper Diaper Diaper External Catheter External Catheter External Catheter # Voids 4 2 # Bowel Movements 1 - Exam Left leg does appear to be somewhat shortened externally rotated on exam at bedside. Sensation appears to be equal, symmetric, bilateral intact. There is some diffuse generalized tenderness to palpation throughout the left hip on exam. Patient does have increased pain during passive range of motion exam on the left lower extremity during knee flexion/extension and attempted externa l/internal rotation of left hip. Patient does have fairly decent range of motion throughout the bilateral upper extremities and right lower extremity on exam. Difficult to test motor strength based on patient's mental state. 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 She is able to wiggle toes in bilateral feet. Radial pulses intact, 2+ bilaterally. DP pulses palpable bilaterally. Negative Homans bilaterally. - Labs CBC & Chem 7: 07/25/24 11:53 07/24/24 03:08 Labs: Microbiology - Last 24 Hours (Table) 07/23/24 15:26 Urine Culture - Preliminary Urine,Voided Group D Enterococcus Gram Neg Bacilli Assessment and Plan Assessment: 1. Greater and lesser trochanter fracture status post fall; status post recent left hip hemiarthroplasty Plan: 1. Greater and lesser trochanter fracture status post fall; status post recent left hip hemiarthroplasty - X-ray of the left hip does demonstrate left hip hemiarthroplasty complicated by fracture involving both the greater and lesser trochanters. Dr. Duarte did speak with patient's son last evening about treatment options. Per Dr. Duarte at this time, we would not recommend any urgent or emergent surgical intervention. Rather we will road test the patient with partial WB of the LLE and see how she does in regards to pain, stability and functional status. If she is able to tolerate this and the implant remains stable on follow up xray we will treat conservative. If it changes signifcantly or there is signifiacnt pain or further debility we can revisit. We will get PT on jon to help with mobilization and testing. She can be 50% WB LLE and FF for balance with assist. She can get up to chair and bedside. She can move as able. Cont post hip percautions. We will order dedicated imaging of the right hip to r/o further fracture as she has a hx of this on the right as well and could have made worse with fall. Family is on board and comfortable with plan. If she is doing well with this, she can go back to rehab saturday/saturday. If we need to revisit plan we will. 2. Appreciate medical management 3. Pain management -[place]; Tylenol 4. DVT prophylaxis -heparin 5. GI prophylaxis -senna 6. PT/OT - 50% WB LLE and FF for balance with assist. 7. Encourage incentive spirometer use Time with Patient: Less than 30
--- NOTE | 2024-07-25 14:26 | P.PN ---
Subjective Progress Note Date: 07/24/24 Principal diagnosis: Reason for follow-up is leukocytosis/UTI Patient is a 84-year-old female with a past medical history significant for dementia patient recently did have left hip hemiarthroplasty done on 06/25/2024 and [facility] brought back to the hospital after the patient was found to be on the phone did have some mental status changes elevated white count positive UA concerning for symptomatic urinary tract infection. On today's evaluation that is 07/24/2024, the patient continues to be afebrile, the patient is on 2 L nasal cannula oxygen and breathing comfortably, the Pt denies having any chest pain or cough, the patient denies having any abdominal pain no vomiting did have some diarrhea. The patient white count is down to 13.57 creatinine 0.6 repeat UA is positive cultures pending Objective - Vital Signs Vital signs: Vital Signs Temp 98 F 07/24/24 13:18 Pulse 102 H 07/24/24 13:18 Resp 18 07/24/24 13:18 BP 122/73 07/24/24 13:18 Pulse Ox 98 07/24/24 13:18 FiO2 Intake & Output 07/23/24 07/24/24 07/24/24 18:59 06:59 18:59 Intake Total 1080 Output Total 200 450 Balance -200 630 Weight 54.431 kg Intake: Oral 1080 Output: Urine 200 450 Other: Voiding Method Diaper Diaper Diaper External Catheter External Catheter External Catheter # Voids 2 # Bowel Movements 1 - Exam GENERAL DESCRIPTION: An elderly female lying in bed in no distress RESPIRATORY SYSTEM: Unlabored breathing , decreased breath sounds at bases HEART: S1 S2 regular rate and rhythm , ABDOMEN: Soft , no tenderness EXTREMITIES: No edema feet - Labs CBC & Chem 7: 07/25/24 11:53 07/24/24 03:08 Labs: Abnormal Lab Results - Last 24 Hours (Table) 07/23/24 07/24/24 07/24/24 Range/Units 15:26 03:08 03:08 WBC 13.57 H (4.50-10.00) X 10*3/uL RBC 2.78 L (4.10-5.20) X 10*6/uL Hgb 7.5 L (12.0-15.0) g/dL Hct 25.0 L (37.2-46.3) % MCHC 30.0 L (32.0-37.0) g/dL RDW 15.0 H (11.5-14.5) % MPV 9.4 L (9.5-12.2) FL Immature Gran # 0.09 H (0.00-0.04) X 10*3/uL Neutrophils # 11.11 H (1.80-7.70) X 10*3/uL BUN/Creatinine Ratio 36.17 H (12.00-20.00) Ratio Calcium 8.6 L (8.7-10.3) mg/dL Total Bilirubin <0.2 L (0.3-1.2) mg/dL AST 12 L (13-35) U/L C-Reactive Protein 8.10 H (0.00-0.80) mg/dL Total Protein 5.2 L (6.2-8.2) g/dL Albumin 3.1 L (3.8-4.9) g/dL Albumin/Globulin Ratio 1.48 L (1.60-3.17) Ratio Urine Appearance Cloudy H (Clear) Urine Protein 1+ H (Negative) Urine Blood Large H (Negative) Urine Nitrite Positive H (Negative) Ur Leukocyte Esterase Large H (Negative) Urine RBC 65 H (0-5) /hpf Urine WBC >182 H (0-5) /hpf Urine Bacteria Rare H (None) /hpf Urine Mucus Rare H (None) /hpf Assessment and Plan (1) Leukocytosis Current Visit: Yes Status: Acute Code(s): D72.829 - ELEVATED WHITE BLOOD CELL COUNT, UNSPECIFIED SNOMED Code(s): 719225074 (2) Urinary tract infection Current Visit: Yes Status: Acute Code(s): N39.0 - URINARY TRACT INFECTION, SITE NOT SPECIFIED SNOMED Code(s): 56716760 Plan: 1patient presented to hospital with weakness and mental status changes and a fall patient did have significant elevated white count positive UA concerning for UTI likely from attending gram-negative pathogen she did have diarrhea that is a risk factor for the UTI 2patient repeat UA is positive patient white count is trending down with adjustment of antibiotics to Invanz to continue while waiting for the culture to finalize Dictation was produced using [employer] software. please excuse any grammatical, word or spelling errors. Time with Patient: Less than 30
--- NOTE | 2024-07-25 14:27 | P.PN ---
Subjective Progress Note Date: 07/25/24 Principal diagnosis: Reason for follow-up is leukocytosis/UTI Patient is a 84-year-old female with a past medical history significant for dementia patient recently did have left hip hemiarthroplasty done on 06/25/2024 and the patient subsequently [facility] brought back to the hospital after the patient was found to be on the phone did have some mental status changes elevated white count positive UA concerning for symptomatic urinary tract infection. On today's evaluation that is 07/25/2024, patient did not have any fever and denies any chills, patient is breathing comfortably on 2 L nasal cannula oxygen, patient with no chest pain or cough patient did not have any abdominal pain nausea vomiting did have some diarrhea but no worsening output. Still complaining of some pain to the left hip area Patient white count normalized to 8.8 urine is growing currently Enterococcus and gram-negative bacilli Objective - Vital Signs Vital signs: Vital Signs Temp 98.3 F 07/25/24 13:41 Pulse 109 H 07/25/24 13:41 Resp 15 07/25/24 13:41 BP 120/71 07/25/24 13:41 Pulse Ox 98 07/25/24 13:41 FiO2 Intake & Output 07/24/24 07/25/24 07/25/24 18:59 06:59 18:59 Intake Total 2084 Output Total 100 250 Balance -100 1835 Intake: Oral 2084 Output: Urine 100 250 Other: Voiding Method Diaper Diaper Diaper External Catheter External Catheter External Catheter # Voids 4 2 # Bowel Movements 1 1 - Exam GENERAL DESCRIPTION: An elderly female lying in bed in no distress RESPIRATORY SYSTEM: Unlabored breathing , decreased breath sounds at bases HEART: S1 S2 regular rate and rhythm , ABDOMEN: Soft , no tenderness EXTREMITIES: No edema feet - Labs CBC & Chem 7: 07/25/24 11:53 07/24/24 03:08 Labs: Abnormal Lab Results - Last 24 Hours (Table) 07/25/24 Range/Units 11:53 RBC 2.85 L (3.80-5.40) m/uL Hgb 7.9 L D (11.4-16.0) gm/dL Hct 24.5 L (34.0-46.0) % Microbiology - Last 24 Hours (Table) 07/23/24 15:26 Urine Culture - Preliminary Urine,Voided Group D Enterococcus Gram Neg Bacilli Assessment and Plan (1) Leukocytosis Current Visit: Yes Status: Acute Code(s): D72.829 - ELEVATED WHITE BLOOD CELL COUNT, UNSPECIFIED SNOMED Code(s): 198483277 (2) Urinary tract infection Current Visit: Yes Status: Acute Code(s): N39.0 - URINARY TRACT INFECTION, SITE NOT SPECIFIED SNOMED Code(s): 93800756 Plan: 1patient presented to hospital with weakness and mental status changes and a fall patient did have significant elevated white count positive UA concerning for UTI likely from attending gram-negative pathogen she did have diarrhea that is a risk factor for the UTI 2patient repeat UA is positive and the culture currently growing Enterococcus and gram-negative bacilli with ID sensitivity pending the patient white count normalized 3patient will be treated with Invanz while waiting for the culture to finalize Dictation was produced using [employer] dictation software. please excuse any grammatical, word or spelling errors. Time with Patient: Less than 30
--- NOTE | 2024-07-26 07:09 | P.PN ---
Subjective Progress Note Date: 07/25/24 Patient is an 84-year-old female who was [facility] and was found to have mental status changes along with leukocytosis and concerns of possible symptomatic urinary tract infection. Multiple consultations including infectious disease following and will continue on current regimen along with antidiarrheals as patient was having diarrhea.. Apparently there was not a urine culture done previously and repeat urinalysis was sent with urine culture and will await finalized cultures to determine discharge antibiotics. White count remains elevated although is slightly improved and will follow-up on repeat labs. Replace electrolytes per protocol as potassium was noted to be s lightly low. Not eating much and encourage small frequent meals and assistance with meals. 07/24/2024 Patient is seen in follow-up today a little more awake today and sitting up in bed. Patient is maintained on antibiotics with infectious disease following and awaiting repeat cultures to determine appropriate discharge antibiotics. White count is trending down and patient is afebrile. Awaiting updated orthopedic evaluation after discussing with family regarding treatment plan and if undergo ing possible surgical intervention on the left. Patient is afebrile denies any chest pain or shortness of breath. 07/25/2024 Patient is seen in follow-up today with no acute events noted overnight. Per orthopedics, no plans of surgical intervention recommending rehab and case management/social work following working on discharge planning. Likely discharge planning on Saturday. Patient is afebrile with no reported chest pain or shortness of breath. Review of systems: Constitutional: No reports of fatigue, no fever, or chills Cardiovascular: No reports of chest pain or palpitations Respiratory: No reports of shortness of breath or cough GI: reports of nausea, no reports of vomiting, not feeling hungry : No reports of dysuria or retention Neurovascular: reports of generalized weakness All medications have been reviewed PHYSICAL EXAMINATION: GENERAL: The patient is alert and oriented 1-2, baseline, Well developed, elderly appearing, ill-appearing, cachectic and thin built HEENT: Pupils are round and equally reacting to light. EOMI. no scleral icterus. No conjunctival pallor. Normocephalic, atraumatic. No pharyngeal erythema. No thyromegaly. CARDIOVASCULAR: S1 and S2 muffled PULMONARY: diminished breath sounds bilaterally with no wheezing, coarse rhonchi noted. ABDOMEN: soft. Nontender on exam. Thin. non-distended, normoactive bowel sounds. No palpable organomegaly. MUSCULOSKELETAL: No joint swelling or deformity. EXTREMITIES: No cyanosis, clubbing, or pedal edema. NEUROLOGICAL: Gross neurological examination did not reveal any focal deficits. Diffuse weakness SKIN: No rashes. Assessment: Fall and possible left greater and lesser trochanteric fractures Acute urinary tract infection, present on admission Altered mental status, acute metabolic encephalopathy secondary to acute urinary tract infection History of anemia, positive occult blood, no active bleeding, surgery evaluated and patient refusing endoscopy, hemoglobin 7.6 Recent left hip hemiarthroplasty COPD history, not in exacerbation History of dementia History of gait dysfunction with generalized weakness and falls GI prophylaxis DVT prophylaxis Full code Plan: Recommend to continue with current medications and management with multiple consultations following Orthopedics has evaluated the patient in regards to possible left-sided fracture intervention and there is no plan for surgical intervention at this time and will follow-up with the patient outpatient General surgery following monitoring hemoglobin with no active bleeding noted. Patient refusing colonoscopy and will follow-up on repeat labs. Transfuse if 7 or less CODE STATUS needs to be addressed Due to multiple complex medical issues, overall prognosis is guarded Possible discharge planning to [facility] on Saturday. Will follow-up with case management/social work regarding insurance authorization. The impression and plan of care has been dictated as a scribe by Dot Ruvalcaba, nurse practitioner as directed. Dr. Murali MD I have performed a history and examination and MDM of this patient, discussed the same with the dictator, and agree with the dictator's assessment and plan as written ,documented as a scribe. Based on total visit time, I have performed more than 50% of the visit. Any additional findings or plans will be noted. Objective - Vital Signs Vital signs: Vital Signs Temp 98.4 F 07/25/24 07:01 Pulse 90 07/25/24 07:01 Resp 17 07/25/24 07:01 BP 133/75 07/25/24 07:01 Pulse Ox 98 07/25/24 07:01 FiO2 Intake & Output 07/24/24 07/25/24 07/25/24 18:59 06:59 18:59 Intake Total 2085 Output Total 100 250 Balance -100 1835 Intake: Oral 5 Output: Urine 100 250 Other: Voiding Method Diaper Diaper External Catheter External Catheter # Voids 4 # Bowel Movements 1 - Labs CBC & Chem 7: 07/25/24 11:53 07/24/24 03:08 Labs: Abnormal Lab Results - Last 24 Hours (Table) 07/24/24 07/24/24 Range/Units 03:08 03:08 WBC 13.57 H (4.50-10.00) X 10*3/uL RBC 2.78 L (4.10-5.20) X 10*6/uL Hgb 7.5 L (12.0-15.0) g/dL Hct 25.0 L (37.2-46.3) % MCHC 30.0 L (32.0-37.0) g/dL RDW 15.0 H (11.5-14.5) % MPV 9.4 L (9.5-12.2) FL Immature Gran # 0.09 H (0.00-0.04) X 10*3/uL Neutrophils # 11.11 H (1.80-7.70) X 10*3/uL BUN/Creatinine Ratio 36.17 H (12.00-20.00) Ratio Calcium 8.6 L (8.7-10.3) mg/dL Total Bilirubin <0.2 L (0.3-1.2) mg/dL AST 12 L (13-35) U/L C-Reactive Protein 8.10 H (0.00-0.80) mg/dL Total Protein 5.2 L (6.2-8.2) g/dL Albumin 3.1 L (3.8-4.9) g/dL Albumin/Globulin Ratio 1.48 L (1.60-3.17) Ratio
--- NOTE | 2024-07-26 11:44 | P.PN ---
Subjective Progress Note Date: 07/26/24 Principal diagnosis: GI bleed Patient without complaints. Mildly confused today. Denies pain. No rectal bleeding. Objective - Vital Signs Vital signs: Vital Signs Temp 98.2 F 07/26/24 07:14 Pulse 66 07/26/24 07:14 Resp 16 07/26/24 11:17 BP 122/68 07/26/24 07:14 Pulse Ox 94 L 07/26/24 07:14 FiO2 Intake & Output 07/25/24 07/26/24 07/26/24 18:59 06:59 18:59 Intake Total 250 540 Balance 250 540 Intake: Oral 250 540 Other: Voiding Method Diaper Diaper Diaper External Catheter External Catheter External Catheter # Voids 1 2 # Bowel Movements 1 - Exam Abdomen: Soft, nontender, nondistended - Labs CBC & Chem 7: 07/25/24 11:53 07/24/24 03:08 Labs: Abnormal Lab Results - Last 24 Hours (Table) 07/25/24 Range/Units 11:53 RBC 2.85 L (3.80-5.40) m/uL Hgb 7.9 L D (11.4-16.0) gm/dL Hct 24.5 L (34.0-46.0) % Microbiology - Last 24 Hours (Table) 07/23/24 15:26 Urine Culture - Preliminary Urine,Voided Group D Enterococcus Gram Neg Bacilli Assessment and Plan (1) GI bleed Narrative/Plan: Patient's hemoglobin yesterday increased to 7.9. No active bleeding seen. Patient is not interested in endoscopy unless absolutely necessary which seems reasonable. Will sign off. Please reconsult if bleeding noted. Current Visit: Yes Status: Acute Code(s): K92.2 - GASTROINTESTINAL HEMORRHAGE, UNSPECIFIED SNOMED Code(s): 35907215
--- NOTE | 2024-07-26 11:47 | P.PN ---
Subjective Progress Note Date: 07/26/24 Principal diagnosis: Greater and lesser trochanter fracture status post fall; status post recent left hip hemiarthroplasty Patient was seen at bedside this morning she was unable to give any history. There is a small skin tear on the left elbow and abrasion to the temporal nadia on. Family was not present during encounter at bedside this morning. Patient did have left hip hemiarthroplasty surgery performed on 06/17/[address] Duarte. Left leg does seem to be somewhat shortened and externally rotated on exam while patient lying in bed. patient denies any complaints besides left hip pain at this time. Objective - Vital Signs Vital signs: Vital Signs Temp 98.2 F 07/26/24 07:14 Pulse 66 07/26/24 07:14 Resp 14 07/26/24 07:14 BP 122/68 07/26/24 07:14 Pulse Ox 94 L 07/26/24 07:14 FiO2 Intake & Output 07/25/24 07/26/24 07/26/24 18:59 06:59 18:59 Intake Total 250 540 Balance 250 540 Intake: Oral 250 540 Other: Voiding Method Diaper Diaper External Catheter External Catheter # Voids 1 2 # Bowel Movements 1 - Exam Left leg does appear to be somewhat shortened externally rotated on exam at bedside. Sensation appears to be equal, symmetric, bilateral intact. There is some diffuse generalized tenderness to palpation throughout the left hip on exam. Patient does have increased pain during passive range of motion exam on the left lower extremity during knee flexion/extension and attempted external/internal rotation of left hip. Patient does have fairly decent range of motion throughout the bilateral upper extremities and right lower extremity on exam. Difficult to test motor strength based on patient's mental state. Patient does have decent membership assistant strength on exam. She is able to wiggle toes in bilateral feet. Radial pulses intact, 2+ bilaterally. DP pulses palpable bilaterally. Negative Homans bilaterally. - Labs CBC & Chem 7: 07/25/24 11:53 07/24/24 03:08 Labs: Abnormal Lab Results - Last 24 Hours (Table) 07/25/24 Range/Units 11:53 RBC 2.85 L (3.80-5.40) m/uL Hgb 7.9 L D (11.4-16.0) gm/dL Hct 24.5 L (34.0-46.0) % Microbiology - Last 24 Hours (Table) 07/23/24 15:26 Urine Culture - Preliminary Urine,Voided Group D Enterococcus Gram Neg Bacilli Assessment and Plan Assessment: 1. Greater and lesser trochanter fracture status post fall; status post recent left hip hemiarthroplasty Plan: 1. Greater and lesser trochanter fracture status post fall; status post recent left hip hemiarthroplasty - X-ray of the left hip does demonstrate left hip hemiarthroplasty complicated by fracture involving both the greater and lesser trochanters. Dr. Duarte did speak with patient's son last evening about treatment options. Per Dr. Duarte at this time, we would not recommend any urgent or emergent surgical intervention. Rather we will road test the patient with partial WB of the LLE and see how she does in regards to pain, stability and functional status. If she is able to tolerate this and the implant remains stable on follow up xray we will treat conservative. If it changes signifcantly or there is signifiacnt pain or further debility we can revisit. We will get PT on jon to help with mobilization and testing. She can be 50% WB LLE and FF for balance with assist. She can get up to chair and bedside. She can move as able. Cont post hip percautions. We will order dedicated imaging of the right hip to r/o further fracture as she has a hx of this on the right as well and could have made worse with fall. Family is on board and comfortable with plan. If she is doing well with this, she can go back to rehab saturday/saturday. If we need to revisit plan we will. 2. Appreciate medical management 3. Pain management -[place]; Tylenol 4. DVT prophylaxis -heparin 5. GI prophylaxis -senna 6. PT/OT - 50% WB LLE and FF for balance with assist. 7. Encourage incentive spirometer use Time with Patient: Less than 30
--- NOTE | 2024-07-26 14:22 | P.PN ---
Subjective Progress Note Date: 07/26/24 Patient is an 84-year-old female who was recently admitted from care home and was found to have mental status changes along with leukocytosis and concerns of possible symptomatic urinary tract infection. Multiple consultations including infectious disease following and will continue on current regimen along with antidiarrheals as patient was having diarrhea.. Apparently there was not a urine culture done previously and repeat urinalysis was sent with urine culture and will await finalized cultures to determine discharge antibiotics. White count remains elevated although is slightly improved and will follow-up on repeat labs. Replace electrolytes per protocol as potassium was noted to be s lightly low. Not eating much and encourage small frequent meals and assistance with meals. 07/24/2024 Patient is seen in follow-up today a little more awake today and sitting up in bed. Patient is maintained on antibiotics with infectious disease following and awaiting repeat cultures to determine appropriate discharge antibiotics. White count is trending down and patient is afebrile. Awaiting updated orthopedic evaluation after discussing with family regarding treatment plan and if undergo ing possible surgical intervention on the left. Patient is afebrile denies any chest pain or shortness of breath. 07/25/2024 Patient is seen in follow-up today with no acute events noted overnight. Per orthopedics, no plans of surgical intervention recommending rehab and case management/social work following working on discharge planning. Likely discharge planning on Saturday. Patient is afebrile with no reported chest pain or shortness of breath. 07/26/2024 Patient is seen in follow-up with no acute overnight issues noted. Per nursing staff patient is being slightly noncompliant today and not wanting to take her medications. Recommend frequent reorientation and as needed medications for agitation. Patient is afebrile with no reports of chest pain or shortness of breath. Orthopedics did talk with son and continuing conservative management and recommend reevaluation with PT/OT therapy and will discuss further if patient's pain becomes too intense and or increasing symptoms then will rediscuss possible need for further surgical intervention. Plan will be to go to [facility] and will await updated PT/OT therapy as well as insurance authorization. Review of systems: Constitutional: No reports of fatigue, no fever, or chills Cardiovascular: No reports of chest pain or palpitations Respiratory: No reports of shortness of breath or cough GI: reports of nausea, no reports of vomiting, not feeling hungry : No reports of dysuria or retention Neurovascular: reports of generalized weakness All medications have been reviewed PHYSICAL EXAMINATION: GENERAL: The patient is alert and oriented 1-2, baseline, Well developed, elderly appearing, ill-appearing, cachectic and thin built HEENT: Pupils are round and equally reacting to light. EOMI. no scleral icterus. No conjunctival pallor. Normocephalic, atraumatic. No pharyngeal erythema. No thyromegaly. CARDIOVASCULAR: S1 and S2 muffled PULMONARY: diminished breath sounds bilaterally with no wheezing, coarse rhonchi noted. ABDOMEN: soft. Nontender on exam. Thin. non-distended, normoactive bowel sounds. No palpable organomegaly. MUSCULOSKELETAL: No joint swelling or deformity. EXTREMITIES: No cyanosis, clubbing, or pedal edema. NEUROLOGICAL: Gross neurological examination did not reveal any focal deficits. Diffuse weakness SKIN: No rashes. Assessment: Fall and possible left greater and lesser trochanteric fractures, continuing conservative management for now Acute urinary tract infection, present on admission Altered mental status, acute metabolic encephalopathy secondary to acute urinary tract infection History of anemia, positive occult blood, no active bleeding, surgery evaluated and patient refusing endoscopy, hemoglobin 7.6 Recent left hip hemiarthroplasty COPD history, not in exacerbation History of dementia History of gait dysfunction with generalized weakness and falls GI prophylaxis DVT prophylaxis Full code Plan: Recommend to continue with current medications and management with multiple consultations following Orthopedics has evaluated the patient in regards to possible left-sided fracture intervention and there is no plan for surgical intervention at this time and will follow-up with the patient outpatient. Will have PT/OT therapy reevaluate with restrictions per orthopedics to assess for any further pain or dysfunction. General surgery evaluated the patient and signing off recommend reevaluation if there are any further bleeding noted. No active bleeding noted and hemoglobin is stable above 7. Patient refusing colonoscopy and will follow-up on repeat labs. CODE STATUS needs to be addressed Due to multiple complex medical issues, overall prognosis is guarded Possible discharge planning to [facility] on Saturday. Will follow-up with case management/social work regarding insurance authorization. The impression and plan of care has been dictated as a scribe by Dot Ruvalcaba, nurse practitioner as directed. Dr. Murali MD I have performed a history and examination and MDM of this patient, discussed the same with the dictator, and agree with the dictator's assessment and plan as written ,documented as a scribe. Based on total visit time, I have performed more than 50% of the visit. Any additional findings or plans will be noted. Objective - Vital Signs Vital signs: Vital Signs Temp 98.9 F 07/26/24 00:55 Pulse 81 07/26/24 00:55 Resp 16 07/26/24 00:55 BP 143/81 07/26/24 00:55 Pulse Ox 98 07/26/24 00:55 FiO2 Intake & Output 07/25/24 07/26/24 07/26/24 18:59 06:59 18:59 Intake Total 250 540 Balance 250 540 Intake: Oral 250 540 Other: Voiding Method Diaper Diaper External Catheter External Catheter # Voids 1 2 # Bowel Movements 1 - Labs CBC & Chem 7: 07/25/24 11:53 07/24/24 03:08 Labs: Abnormal Lab Results - Last 24 Hours (Table) 07/25/24 Range/Units 11:53 RBC 2.85 L (3.80-5.40) m/uL Hgb 7.9 L D (11.4-16.0) gm/dL Hct 24.5 L (34.0-46.0) % Microbiology - Last 24 Hours (Table) 07/23/24 15:26 Urine Culture - Preliminary Urine,Voided Group D Enterococcus Gram Neg Bacilli
--- NOTE | 2024-07-26 14:57 | P.PN ---
Subjective Progress Note Date: 07/26/24 Principal diagnosis: Reason for follow-up is leukocytosis/UTI Patient is a 84-year-old female with a past medical history significant for dementia patient recently did have left hip hemiarthroplasty done on 06/25/2024 and the patient subsequently sent to the intermediate for [facility] brought back to the hospital after the patient was found to be on the phone did have some mental status changes elevated white count positive UA concerning for symptomatic urinary tract infection. On today's evaluation that is 07/26/2024, Patient is afebrile patient is currently on room air and breathing comfortably in no distress patient was sleepy but arousable and did not have any active symptoms no vomiting diarrhea has been reported. Patient white count was normal at 8.8 yesterday no CBC has been done today culture growing group B Enterococcus and gram-negative Objective - Vital Signs Vital signs: Vital Signs Temp 97.9 F 07/26/24 12:39 Pulse 85 07/26/24 12:39 Resp 14 07/26/24 12:39 BP 132/80 07/26/24 12:39 Pulse Ox 92 L 07/26/24 12:39 FiO2 Intake & Output 07/25/24 07/26/24 07/26/24 18:59 06:59 18:59 Intake Total 250 540 250 Balance 250 540 250 Intake: Oral 250 540 250 Other: Voiding Method Diaper Diaper Diaper External Catheter External Catheter External Catheter # Voids 1 2 # Bowel Movements 1 - Exam GENERAL DESCRIPTION: An elderly female lying in bed in no distress RESPIRATORY SYSTEM: Unlabored breathing , decreased breath sounds at bases HEART: S1 S2 regular rate and rhythm , ABDOMEN: Soft , no tenderness EXTREMITIES: No edema feet - Labs CBC & Chem 7: 07/25/24 11:53 07/24/24 03:08 Assessment and Plan (1) Leukocytosis Current Visit: Yes Status: Acute Code(s): D72.829 - ELEVATED WHITE BLOOD CELL COUNT, UNSPECIFIED SNOMED Code(s): 459727813 (2) Urinary tract infection Current Visit: Yes Status: Acute Code(s): N39.0 - URINARY TRACT INFECTION, SITE NOT SPECIFIED SNOMED Code(s): 90957307 Plan: 1patient presented to hospital with weakness and mental status changes and a fall patient did have significant elevated white count positive UA concerning for UTI likely from attending gram-negative pathogen she did have diarrhea that is a risk factor for the UTI 2patient repeat UA is positive and the culture currently growing Enterococcus and gram-negative bacilli with ID sensitivity pending the patient white count normalized 3patient is afebrile white count has normalized currently on Invanz waiting for the culture to finalize determine discharge antibiotics Dictation was produced using [employer] dictation software. please excuse any grammatical, word or spelling errors. Time with Patient: Less than 30
[2024-07-26 19:54] LABS: Glucose,Whole Blood 135 mg/dL (70-110)
--- NOTE | 2024-07-27 11:43 | P.PN ---
Subjective Progress Note Date: 07/27/24 Principal diagnosis: Greater and lesser trochanter fracture status post fall; status post recent left hip hemiarthroplasty Patient was seen at bedside this morning she was unable to give any history. There is a small skin tear on the left elbow and abrasion to the temporal nadia on. Family was not present during encounter at bedside this morning. Patient did have left hip hemiarthroplasty surgery performed on 06/17/[address] Duarte. Left leg does seem to be somewhat shortened and externally rotated on exam while patient lying in bed. patient denies any complaints besides left hip pain at this time. Objective - Vital Signs Vital signs: Vital Signs Temp 98.6 F 07/27/24 07:23 Pulse 102 H 07/27/24 07:23 Resp 15 07/27/24 07:23 BP 146/90 07/27/24 07:23 Pulse Ox 93 L 07/27/24 07:23 FiO2 Intake & Output 07/26/24 07/27/24 07/27/24 18:59 06:59 18:59 Intake Total 250 540 Output Total 500 Balance -250 540 Intake: Oral 250 540 Output: Urine 500 Other: Voiding Method Diaper Diaper External Catheter External Catheter # Voids 3 - Exam Left leg does appear to be somewhat shortened externally rotated on exam at bedside. Sensation appears to be equal, symmetric, bilateral intact. There is some diffuse generalized tenderness to palpation throughout the left hip on exam. Patient does have increased pain during passive range of motion exam on the left lower extremity during knee flexion/extension and attempted external/internal rotation of left hip. Patient does have fairly decent range of motion throughout the bilateral upper extremities and right lower extremity on exam. Difficult to test motor strength based on patient's mental state. Patient does have decent piercing specialist strength on exam. She is able to wiggle toes in bilateral feet. Radial pulses intact, 2+ bilaterally. DP pulses palpable bilaterally. Negative Homans bilaterally. - Labs CBC & Chem 7: 07/25/24 11:53 07/24/24 03:08 Labs: Abnormal Lab Results - Last 24 Hours (Table) 07/26/24 Range/Units 19:53 POC Glucose (mg/dL) 135 H (70-110) mg/dL Assessment and Plan Assessment: 1. Greater and lesser trochanter fracture status post fall; status post recent left hip hemiarthroplasty Plan: 1. Greater and lesser trochanter fracture status post fall; status post recent left hip hemiarthroplasty - X-ray of the left hip does demonstrate left hip hemiarthroplasty complicated by fracture involving both the greater and lesser trochanters. Dr. Duarte did speak with patient's son last evening about treatment options. Per Dr. Duarte at this time, we would not recommend any urgent or emergent surgical intervention. Rather we will road test the patient with partial WB of the LLE and see how she does in regards to pain, stability and functional status. If she is able to tolerate this and the implant remains stable on follow up xray we will treat conservative. If it changes signifcantly or there is signifiacnt pain or further debility we can revisit. We will get PT on jon to help with mobilization and testing. She can be 50% WB LLE and FF for balance with assist. She can get up to chair and bedside. She can move as able. Cont post hip percautions. We will order dedicated imaging of the right hip to r/o further fracture as she has a hx of this on the right as well and could have made worse with fall. Family is on board and comfortable with plan. If she is doing well with this, she can go back to rehab saturday/saturday. If we need to revisit plan we will. Ortho will be available as needed to see the patient. At this time we will defer the rest of the management during the patient's stay to medicine 2. Appreciate medical management 3. Pain management -Orange; Tylenol 4. DVT prophylaxis -heparin 5. GI prophylaxis -senna 6. PT/OT - 50% WB LLE and FF for balance with assist. 7. Encourage incentive spirometer use Time with Patient: Less than 30
[2024-07-27] MEDS ORDERED: VANCOMYCIN IV PER PHARMACY 1 EACH MISC MISCELLANE PRN (14:14)
[2024-07-27] MEDS: VANCOMYCIN 1,000 MG in SODIUM CHLORIDE 0.9% 250 ML IVPB ONE (15:23)
--- NOTE | 2024-07-27 20:45 | XR ---
EXAMINATION TYPE: XR Hip Bilateral and AP pelvis DATE OF EXAM: 07/27/2024 5:33 PM COMPARISON: 07/21/2024, 07/22/2024 CT CLINICAL INDICATION: Female, 84 years old with history of Pain/ L hip FX, pain TECHNIQUE: 2 view(s) obtained bilateral hips. Exam supplemented with AP pelvis FINDINGS: There is a left femoral prosthesis. There is lesser trochanter. There appears to be a longitudinal fr acture within the left greater trochanter. There appears to be an old avulsion of portion of the right greater trochanter. Distal superior femor al neck deformity is present may reflect old osseous change IMPRESSION: 1. Avulsion of lesser trochanter with a longitudinal fracture within the greater trochanter. Left hi p prosthesis passes through this region. 2. Suspected old fractures of the distal intertrochanteric region right hip including avulsion of the greater trochanter some deformity of the superior distal femoral neck [facility], , 07/27/2024 8:43 PM
--- NOTE | 2024-07-27 23:31 | P.PN ---
Subjective Progress Note Date: 07/27/24 Patient is an 84-year-old female who was recently admitted from assisted and was found to have mental status changes along with leukocytosis and concerns of possible symptomatic urinary tract infection. Multiple consultations including infectious disease following and will continue on current regimen along with antidiarrheals as patient was having diarrhea.. Apparently there was not a urine culture done previously and repeat urinalysis was sent with urine culture and will await finalized cultures to determine discharge antibiotics. White count remains elevated although is slightly improved and will follow-up on repeat labs. Replace electrolytes per protocol as potassium was noted to be s lightly low. Not eating much and encourage small frequent meals and assistance with meals. 07/24/2024 Patient is seen in follow-up today a little more awake today and sitting up in bed. Patient is maintained on antibiotics with infectious disease following and awaiting repeat cultures to determine appropriate discharge antibiotics. White count is trending down and patient is afebrile. Awaiting updated orthopedic evaluation after discussing with family regarding treatment plan and if undergo ing possible surgical intervention on the left. Patient is afebrile denies any chest pain or shortness of breath. 07/25/2024 Patient is seen in follow-up today with no acute events noted overnight. Per orthopedics, no plans of surgical intervention recommending rehab and case management/social work following working on discharge planning. Likely discharge planning on Saturday. Patient is afebrile with no reported chest pain or shortness of breath. 07/26/2024 Patient is seen in follow-up with no acute overnight issues noted. Per nursing staff patient is being slightly noncompliant today and not wanting to take her medications. Recommend frequent reorientation and as needed medications for agitation. Patient is afebrile with no reports of chest pain or shortness of breath. Orthopedics did talk with son and continuing conservative management and recommend reevaluation with PT/OT therapy and will discuss further if patient's pain becomes too intense and or increasing symptoms then will rediscuss possible need for further surgical intervention. Plan will be to go to ECF and will await updated PT/OT therapy as well as insurance authorization. 07/27/2024 Patient is seen in follow-up today being followed by orthopedics along with infectious disease. Plan is for patient to go to ECF and awaiting updated PT/OT therapy notes with no plans of surgical intervention at this time. Patient is continued on antibiotics and preliminary culture showing group D along with gram-negative bacilli and is maintained on Invanz and vancomycin being added. Discussed with micro lab and there was a resistance noted in micro undergoing further testing to determine sensitivities. Patient is afebrile with no reported pain or burning with urination. Patient also requires insurance authorization which is pending at this time. Case management is following regarding discharge planning Review of systems: Constitutional: No reports of fatigue, no fever, or chills Cardiovascular: No reports of chest pain or palpitations Respiratory: No reports of shortness of breath or cough GI: No reports of nausea, no reports of vomiting, not feeling hungry : No reports of dysuria or retention Neurovascular: reports of generalized weakness All medications have been reviewed PHYSICAL EXAMINATION: GENERAL: The patient is alert and oriented 1-2, baseline, Well developed, elderly appearing, ill-appearing, cachectic and thin built HEENT: Pupils are round and equally reacting to light. EOMI. no scleral icterus. No conjunctival pallor. Normocephalic, atraumatic. No pharyngeal erythema. No thyromegaly. CARDIOVASCULAR: S1 and S2 muffled PULMONARY: diminished breath sounds bilaterally with no wheezing, coarse rhonchi noted. ABDOMEN: soft. Nontender on exam. Thin. non-distended, normoactive bowel sounds. No palpable organomegaly. MUSCULOSKELETAL: No joint swelling or deformity. EXTREMITIES: No cyanosis, clubbing, or pedal edema. NEUROLOGICAL: Gross neurological examination did not reveal any focal deficits. Diffuse weakness SKIN: No rashes. Assessment: Fall and possible left greater and lesser trochanteric fractures, continuing conservative management for now per orthopedics Acute urinary tract infection, present on admission, preliminary culture showing group D and gram-negative bacilli Altered mental status, acute metabolic encephalopathy secondary to acute urinary tract infection History of anemia, positive occult blood, no active bleeding, surgery evaluated and patient refusing endoscopy, hemoglobin 7.6 Recent left hip hemiarthroplasty COPD history, not in exacerbation History of dementia History of gait dysfunction with generalized weakness and falls GI prophylaxis DVT prophylaxis Full code Plan: Recommend to continue with current medications and management with multiple consultations following Orthopedics has evaluated the patient in regards to possible left-sided fracture intervention and there is no plan for surgical intervention at this time and will follow-up with the patient outpatient. Will have PT/OT therapy reevaluate with restrictions per orthopedics to assess for any further pain or dysfunction. General surgery evaluated the patient and signing off recommend reevaluation if there are any further bleeding noted. No active bleeding noted and hemoglobin is stable above 7. Patient refusing colonoscopy and will follow-up on repeat labs. CODE STATUS needs to be addressed Infectious disease following and patient is maintained on antibiotics in the form of Invanz and vancomycin being added and awaiting finalized cultures. Gram-negative bacilli and group D preliminary. Due to multiple complex medical issues, overall prognosis is guarded Possible discharge planning to ECF in the next 24 to 48 hours. Will follow-up with case management/social work regarding insurance authorization. The impression and plan of care has been dictated as a scribe by Dot Ruvalcaba, nurse practitioner as directed. Dr. Murali MD I have performed a history and examination and MDM of this patient, discussed the same with the dictator, and agree with the dictator's assessment and plan as written ,documented as a scribe. Based on total visit time, I have performed more than 50% of the visit. Any additional findings or plans will be noted. Objective - Vital Signs Vital signs: Vital Signs Temp 98.6 F 07/27/24 07:23 Pulse 102 H 07/27/24 07:23 Resp 15 07/27/24 07:23 BP 146/90 07/27/24 07:23 Pulse Ox 93 L 07/27/24 07:23 FiO2 Intake & Output 07/26/24 07/27/24 07/27/24 18:59 06:59 18:59 Intake Total 250 540 Output Total 500 Balance -250 540 Intake: Oral 250 540 Output: Urine 500 Other: Voiding Method Diaper Diaper External Catheter External Catheter # Voids 3 - Labs CBC & Chem 7: 07/25/24 11:53 07/24/24 03:08 Labs: Abnormal Lab Results - Last 24 Hours (Table) 07/26/24 Range/Units 19:53 POC Glucose (mg/dL) 135 H (70-110) mg/dL
[2024-07-28 03:49] LABS: African American GFR (CKD) >90 (>60 ml/min/1.73 sqM); Anion Gap 7 mmol/L; Blood Urea Nitrogen 18 mg/dL (7-17); Calcium 9.4 mg/dL (8.4-10.2); Carbon Dioxide 25 mmol/L (22-30); Chloride 105 mmol/L (98-107); Glucose 93 mg/dL (74-99); Non-African American GFR(CKD) 86 (>60 ml/min/1.73 sqM); Potassium 3.3 mmol/L (3.5-5.1); Sodium 137 mmol/L (137-145)
[2024-07-28] MEDS: POTASSIUM CHLORIDE ER 10 MEQ TAB.ER.PRT PO STA (05:06)
[2024-07-28] MEDS: VANCOMYCIN 1,000 MG in SODIUM CHLORIDE 0.9% 250 ML IVPB SCH (06:41)
--- NOTE | 2024-07-28 07:48 | P.PN ---
Progress Note - Text Progress Note Date: 07/28/24 XRAY reviewed of the hip and pelvis. Implant remains stable. Old GT fracture on the Right is stable. No new fractures. No planned surgical intervention. Will need PT and rehab. Will cont to limit her WB to 50% on the LLE with assist. OK for up to chair and bed. Post hip precautions. Follow up in office in two weeks.
[2024-07-28 08:16] VITALS: TEMP 98
[2024-07-28 08:53] LABS: Magnesium 1.8 mg/dL (1.5-2.4)
[2024-07-28 10:22] LABS: Basophils # (A) 0.04 X 10*3/uL (0.00-0.10); Basophils % (A) 0.5 %; Eosinophils % (A) 2.7 %; HGB 7.9 g/dL (12.0-15.0); Lymphocytes # (A) 1.95 X 10*3/uL (0.90-5.00); Lymphocytes % (A) 26.2 %; MCH 26.8 pg (27.0-32.0); MCHC 30.4 g/dL (32.0-37.0); MCV 88.1 FL (80.0-97.0); Mean Platelet Volume 9.6 FL (9.5-12.2); Monocytes # (A) 0.42 X 10*3/uL (0.20-1.00); Monocytes % (A) 5.6 %; NRBC Per 100 WBC 0 X 10*3/uL (0.00-0.01); Neutrophils # (A) 4.77 X 10*3/uL (1.80-7.70); Neutrophils % (A) 64.1 %; Platelet Count 342 X 10*3/uL (140-440); RBC 2.95 X 10*6/uL (4.10-5.20); RDW 14.7 % (11.5-14.5); WBC 7.45 X 10*3/uL (4.50-10.00)
--- NOTE | 2024-07-28 12:59 | P.PN ---
Subjective Patient is an 84-year-old female who was recently admitted from [facility] and was found to have mental status changes along with leukocytosis and concerns of possible symptomatic urinary tract infection. Multiple consultations including infectious disease following and will continue on current regimen along with antidiarrheals as patient was having diarrhea.. Apparently there was not a urine culture done previously and repeat urinalysis was sent with urine culture and will await finalized cultures to determine discharge antibiotics. White count remains elevated although is slightly improved and will follow-up on repeat labs. Replace electrolytes per protocol as potassium was noted to be slightly low. Not eating much and encourage small frequent meals and assistance with meals. 07/24/2024 Patient is seen in follow-up today a little more awake today and sitting up in bed. Patient is maintained on antibiotics with infectious disease following and awaiting repeat cultures to determine appropriate discharge antibiotics. White count is trending down and patient is afebrile. Awaiting updated orthopedic evaluation after discussing with family regarding treatment plan and if undergoing possible surgical intervention on the left. Patient is afebrile denies any chest pain or shortness of breath. 07/25/2024 Patient is seen in follow-up today with no acute events noted overnight. Per orthopedics, no plans of surgical intervention recommending rehab and case management/social work following working on discharge planning. Likely discharge planning on Saturday. Patient is afebrile with no reported chest pain or shortness of breath. 07/26/2024 Patient is seen in follow-up with no acute overnight issues noted. Per nursing staff patient is being slightly noncompliant today and not wanting to take her medications. Recommend frequent reorientation and as needed medications for agitation. Patient is afebrile with no reports of chest pain or shortness of breath. Orthopedics did talk with son and continuing conservative management and recommend reevaluation with PT/OT therapy and will discuss further if patient's pain becomes too intense and or increasing symptoms then will rediscuss possible need for further surgical intervention. Plan will be to go to ECF and will await updated PT/OT therapy as well as insurance authorization. 07/27/2024 Patient is seen in follow-up today being followed by orthopedics along with infectious disease. Plan is for patient to go to ECF and awaiting updated PT/OT therapy notes with no plans of surgical intervention at this time. Patient is continued on antibiotics and preliminary culture showing group D along with gram-negative bacilli and is maintained on Invanz and vancomycin being added. Discussed with micro lab and there was a resistance noted in micro undergoing further testing to determine sensitivities. Patient is afebrile with no reported pain or burning with urination. Patient also requires insurance authorization which is pending at this time. Case management is following regarding discharge planning 07/28 Patient denies any dysuria Her left hip pain is 7/10, patient is asking about pain medication She feels generally weak She denies chest pain or dyspnea Patient will require subacute rehab upon discharge Objective - Vital Signs Vital signs: Vital Signs Temp 98.0 F 07/28/24 07:10 Pulse 86 07/28/24 07:10 Resp 17 07/28/24 07:10 BP 143/82 07/28/24 07:10 Pulse Ox 92 L 07/28/24 07:10 FiO2 Intake & Output 07/27/24 07/28/24 07/28/24 18:59 06:59 18:59 Weight 54.431 kg Other: Voiding Method Diaper Diaper # Voids 4 1 1 # Bowel Movements 1 - Exam -GENERAL: The patient is alert and oriented x3, not in any acute distress. Well developed, well nourished. Generally weak HEENT: Pupils are round and equally reacting to light. EOMI. No scleral icterus. No conjunctival pallor. Normocephalic, atraumatic. No pharyngeal erythema. No thyromegaly. CARDIOVASCULAR: S1 and S2 present. No murmurs, rubs, or gallops. PULMONARY: Chest is clear to auscultation, no wheezing , no crackles. ABDOMEN: Soft, nontender, nondistended, normoactive bowel sounds. No palpable organomegaly. -MUSCULOSKELETAL: No joint swelling or deformity. Left Hip tenderness EXTREMITIES: No cyanosis, clubbing, or pedal edema. NEUROLOGICAL: Gross neurological examination did not reveal any focal deficits. SKIN: No rashes. no petechiae. - Labs CBC & Chem 7: 07/28/24 02:57 07/28/24 02:57 Labs: Abnormal Lab Results - Last 24 Hours (Table) 07/28/24 07/28/24 Range/Units 02:57 02:57 RBC 2.95 L (4.10-5.20) X 10*6/uL Hgb 7.9 L (12.0-15.0) g/dL Hct 26.0 L (37.2-46.3) % MCH 26.8 L (27.0-32.0) pg MCHC 30.4 L (32.0-37.0) g/dL RDW 14.7 H (11.5-14.5) % Immature Gran # 0.07 H (0.00-0.04) X 10*3/uL Potassium 3.3 L (3.5-5.1) mmol/L BUN 18 H (7-17) mg/dL Microbiology - Last 24 Hours (Table) 07/23/24 15:26 Urine Culture - Final Urine,Voided Enterococcus faecium Enterobacter cloacae Assessment and Plan Assessment: Assessment: Fall and possible left greater and lesser trochanteric fractures, continuing conservative management for now per orthopedics Acute urinary tract infection, present on admission, preliminary culture showing group D and gram-negative bacilli Altered mental status, acute metabolic encephalopathy secondary to acute urinary tract infection History of anemia, positive occult blood, no active bleeding, surgery evaluated and patient refusing endoscopy, hemoglobin 7.6 Recent left hip hemiarthroplasty COPD history, not in exacerbation History of dementia History of gait dysfunction with generalized weakness and falls Plan: Continue with broad-spectrum antibiotics with ertapenem and IV vancomycin as per ID team Orthopedic team consult, who recommended partial weightbearing of the left lower extremity General Surgery signed off the case Labs and medication were reviewed.. Continue same treatment. Continue with symptomatic treatment. Resume home medication. Monitor labs and vitals. DVT and GI prophylaxis. Further recommendations as per clinical course of the patient DVT prophylaxis: Subcutaneous heparin GI Prophylaxis: Ppi PT/OT: Pending Prognosis is guarded
[2024-07-28 14:18] VITALS: BP 134/76; PULSE 88; RESP 18
[2024-07-28] MEDS: POTASSIUM CHLORIDE ER 20 MEQ TAB.ER PO STA (14:53)
--- NOTE | 2024-07-28 16:17 | P.PN ---
Subjective Progress Note Date: 07/27/24 Principal diagnosis: Reason for follow-up is leukocytosis/UTI Patient is a 84-year-old female with a past medical history significant for dementia patient recently did have left hip hemiarthroplasty done on 06/25/2024 and the patient subsequently sent to the longterm for rehabilitation brought back to the hospital after the patient was found to be on the phone did have some mental status changes elevated white count positive UA concerning for symptomatic urinary tract infection. On today's evaluation that is 07/27/2024, patient has been afebrile, patient is breathing comfortably and is currently on room air, patient denies having any significant cough no chest pain, patient denies nausea vomiting or diarrhea and no abdominal pain. No laboratory today urine is growing Enterococcus that is resistant to ampicillin sensitive to vancomycin Objective - Vital Signs Vital signs: Vital Signs Temp 98.4 F 07/27/24 13:27 Pulse 91 07/27/24 13:27 Resp 18 07/27/24 13:27 BP 120/76 07/27/24 13:27 Pulse Ox 100 07/27/24 13:27 FiO2 Intake & Output 07/26/24 07/27/24 07/27/24 18:59 06:59 18:59 Intake Total 250 540 Output Total 500 Balance -250 540 Weight 54.431 kg Intake: Oral 250 540 Output: Urine 500 Other: Voiding Method Diaper Diaper External Catheter External Catheter # Voids 3 - Exam GENERAL DESCRIPTION: An elderly female lying in bed in no distress RESPIRATORY SYSTEM: Unlabored breathing , decreased breath sounds at bases HEART: S1 S2 regular rate and rhythm , ABDOMEN: Soft , no tenderness EXTREMITIES: No edema feet - Labs CBC & Chem 7: 07/28/24 02:57 07/28/24 02:57 Labs: Abnormal Lab Results - Last 24 Hours (Table) 07/26/24 Range/Units 19:53 POC Glucose (mg/dL) 135 H (70-110) mg/dL Microbiology - Last 24 Hours (Table) 07/23/24 15:26 Urine Culture - Preliminary Urine,Voided Enterococcus faecium Gram Neg Bacilli Assessment and Plan (1) Leukocytosis Status: Acute Code(s): D72.829 - ELEVATED WHITE BLOOD CELL COUNT, UNSPECIFIED SNOMED Code(s): 776114339 (2) Urinary tract infection Status: Acute Code(s): N39.0 - URINARY TRACT INFECTION, SITE NOT SPECIFIED SNOMED Code(s): 61427386 Plan: 1patient presented to hospital with weakness and mental status changes and a fall patient did have significant elevated white count positive UA concerning for UTI likely from attending gram-negative pathogen she did have diarrhea that is a risk factor for the UTI 2patient repeat UA is positive and the culture currently growing Enterococcus that is ampicillin resistant but vancomycin sensitive and gram-negative bacilli with ID sensitivity pending 3patient will be continued on Invanz will add vancomycin to cover for the Enterococcus Dictation was produced using [employer] dictation software. please excuse any grammatical, word or spelling errors. Time with Patient: Less than 30
--- NOTE | 2024-07-28 16:18 | P.PN ---
Subjective Progress Note Date: 07/28/24 Principal diagnosis: Reason for follow-up is leukocytosis/UTI Patient is a 84-year-old female with a past medical history significant for dementia patient recently did have left hip hemiarthroplasty done on 06/25/2024 and the patient subsequently sent to the long-term for rehabilitation brought back to the hospital after the patient was found to be on the phone did have some mental status changes elevated white count positive UA concerning for symptomatic urinary tract infection. On today's evaluation that is 07/28/2024, Patient is afebrile this morning patient denies having any chest pain shortness of breath or cough, the patient is currently on room air, patient denies any abdominal pain no diarrhea no nausea no vomiting. Urine is growing vancomycin sensitive Enterococcus faecium and Enterobacter cloacae Objective - Vital Signs Vital signs: Vital Signs Temp 98.0 F 07/28/24 07:10 Pulse 86 07/28/24 07:10 Resp 17 07/28/24 07:10 BP 143/82 07/28/24 07:10 Pulse Ox 92 L 07/28/24 07:10 FiO2 Intake & Output 07/27/24 07/28/24 07/28/24 18:59 06:59 18:59 Weight 54.431 kg Other: Voiding Method Diaper Diaper # Voids 4 1 1 # Bowel Movements 1 - Exam GENERAL DESCRIPTION: An elderly female lying in bed in no distress RESPIRATORY SYSTEM: Unlabored breathing , decreased breath sounds at bases HEART: S1 S2 regular rate and rhythm , ABDOMEN: Soft , no tenderness EXTREMITIES: No edema feet - Labs CBC & Chem 7: 07/28/24 02:57 07/28/24 02:57 Labs: Abnormal Lab Results - Last 24 Hours (Table) 07/28/24 07/28/24 Range/Units 02:57 02:57 RBC 2.95 L (4.10-5.20) X 10*6/uL Hgb 7.9 L (12.0-15.0) g/dL Hct 26.0 L (37.2-46.3) % MCH 26.8 L (27.0-32.0) pg MCHC 30.4 L (32.0-37.0) g/dL RDW 14.7 H (11.5-14.5) % Immature Gran # 0.07 H (0.00-0.04) X 10*3/uL Potassium 3.3 L (3.5-5.1) mmol/L BUN 18 H (7-17) mg/dL Microbiology - Last 24 Hours (Table) 07/23/24 15:26 Urine Culture - Final Urine,Voided Enterococcus faecium Enterobacter cloacae Assessment and Plan (1) Leukocytosis Status: Acute Code(s): D72.829 - ELEVATED WHITE BLOOD CELL COUNT, UNSPECIFIED SNOMED Code(s): 525463009 (2) Urinary tract infection Status: Acute Code(s): N39.0 - URINARY TRACT INFECTION, SITE NOT SPECIFIED SNOMED Code(s): 46965141 Plan: 1patient presented to hospital with weakness and mental status changes and a fall patient did have significant elevated white count positive UA concerning for UTI likely from attending gram-negative pathogen she did have diarrhea that is a risk factor for the UTI 2patient repeat UA is positive and the culture currently growing Enterococcus that is ampicillin resistant but vancomycin sensitive and Enterobacter that is sensitive to ertapenem and Cipro 3patient did have clinical improvement white count normalized we will consider a 7-day course of oral Cipro and Zyvox on discharge Dictation was produced using IT[employer] dictation software. please excuse any grammatical, word or spelling errors. Time with Patient: Less than 30
[2024-07-29] MEDS ORDERED: VANCOMYCIN TROUGH DUE 1 EACH MISC MISCELLANE ONE (14:00)
--- NOTE | 2024-08-03 05:07 | CDI ---
Documentation Clarification Form Date: 08/03/2024 04:53:29 AM From: Prema Trevino Admit Date: 07/21/2024 02:01:00 PM Patient Name: Minda Caraballo Visit Number: [id number] Discharge Date: 07/28/2024 04:15:00 PM ATTENTION: The Clinical Documentation Specialists (CDI) and [facility] Coding Staff appreciate your assistance in clarifying documentation. Please respond to the clarification below the line at the bottom and electronically sign. The CDI & [facility] Coding staff will review the response and follow-up if needed. Please note: Queries are made part of the Legal Health Record. If you have any questions, please contact the author of this message via ITS. Doctor/Provider: Cadence Carrion Conflicting documentation has been found in the medical record. As attending physician, please provide clarification. Dr. Lim day of discharge: Xray reviewed of the hip and pelvis. Implant remains stable. Old GT fracture on the right side stable. No new fractures. No planned surgical intervention. IM 07/28 PN/DCS : Fall and possible left greater and lesser trochanteric fractures, continuing conservative management for now per orthopedics. History/Risk Factors: Patient had left THR in May 2024 Clinical Indicators: 07/[address] Left prosthesis unchanged position. Acute mildly moderately displaced fracture of proximal aspect of left femur. CT Suspected old fractures of the distal intertrochanteric region right hip, including avulsion of the GT some deformity of the superior distal femoral neck. Treatment: W/UP and PT Please clarify which diagnosis is most appropriate: [ ] Acute mildly moderately displaced fracture of the proximal aspect of the Left femur [ x ] Old GT fracture on the right side stable. No new fractures. [ ] Other (please specify) [ ] Unable to determine MTDD
== END 2024-07-28 16:15 | DRG 689 ==
LOC: EC 09:38 → 4SSUR 14:01
PROVIDERS: ADMIT Hospitalist; ATTEND Hospitalist
DX: N39.0 Urinary tract infection, site not specified (principal); G93.41 Metabolic encephalopathy; K92.2 Gastrointestinal hemorrhage, unspecified; B95.2 Enterococcus as the cause of diseases classified elsewhere; E87.5 Hyperkalemia; F03.90 Unspecified dementia, unspecified severity, without behavioral disturbance, psychotic disturbance, mood disturbance, and anxiety; F17.200 Nicotine dependence, unspecified, uncomplicated; J44.9 Chronic obstructive pulmonary disease, unspecified; S00.81XA Abrasion of other part of head, initial encounter; S51.012A Laceration without foreign body of left elbow, initial encounter; W19.XXXA Unspecified fall, initial encounter; R00.1 Bradycardia, unspecified; M19.90 Unspecified osteoarthritis, unspecified site; R19.7 Diarrhea, unspecified; Z90.10 Acquired absence of unspecified breast and nipple; R29.6 Repeated falls; Z91.81 History of falling; R26.9 Unspecified abnormalities of gait and mobility; Z79.891 Long term (current) use of opiate analgesic; Z79.82 Long term (current) use of aspirin; Z91.199 Patient's noncompliance with other medical treatment and regimen due to unspecified reason; Z96.642 Presence of left artificial hip joint; Z79.899 Other long term (current) drug therapy; Z53.29 Procedure and treatment not carried out because of patient's decision for other reasons; Z88.5 Allergy status to narcotic agent
CPT/HCPCS: 36415; 70450; 71045; 72125; 73502; 73521; 80048; 80053; 81001; 82272; 83605; 83735; 84484; 85025; 86140; 87077; 87086; 87186; 87324; 93005; 93306; 94640; 96361; 96374; 96375; 99285

== ENCOUNTER 2024-08-27 05:16 | Inpatient (IN) | payer MEDICARE ==
[2024-08-27] MEDS: SODIUM CHLORIDE 0.9% 1,000 ML IV STA (05:30)
[2024-08-27] MEDS: methylPREDNISolone SOD SUCCI 125 MG/2 ML VIAL IV STA (05:32)
[2024-08-27 05:51] LABS: Anisocytosis Slight; HCT 37.2 % (34.0-46.0); Hypochromasia Marked; MCH 26.4 pg (25.0-35.0); MCHC 29.5 g/dL (31.0-37.0); MCV 89.5 fL (80.0-100.0); Mean Platelet Volume 7.8; Platelet Count 563 k/uL (150-450); RBC 4.15 m/uL (3.80-5.40); RDW 16.2 % (11.5-15.5); WBC 19.5 k/uL (3.8-10.6)
[2024-08-27 06:05] LABS: Partial Thromboplastin Time 22.1 sec (22.0-30.0)
--- NOTE | 2024-08-27 06:10 | XR ---
EXAM: XR Chest, 1 View CLINICAL HISTORY: ITS.REASON XR Reason: dyspnea TECHNIQUE: Frontal view of the chest. COMPARISON: X-ray dated 07/22/2024. FINDINGS: Lungs: Chronic lung markings are seen bilaterally. No consolidation. Pleural space: Unremarkable. No pneumothorax. Heart: Unremarkable. No cardiomegaly. Mediastinum: Unremarkable. Normal mediastinal contour. Bones/joints: Degenerative changes are seen in the spine and shoulders. No acute fracture. Vasculature: Calcifications overlie the aorta. IMPRESSION: No acute findings in the chest.
[2024-08-27] MEDS: LORazepam 2 MG/ML INJ IV STA (06:11)
[2024-08-27 06:37] LABS: Band Neutrophils % 44 %; Lymphocytes # (M) 2.93 k/uL (1.0-4.8); Neutrophils % (M) 40 %; Nucleated Red Blood Cells 0 /100 WBC (0-0); Total Cells Counted 200
[2024-08-27 06:38] LABS: Anisocytosis (M) Present
[2024-08-27 06:39] LABS: Rouleaux Present
[2024-08-27 06:40] LABS: Toxic Granulation Present
[2024-08-27 06:45] LABS: African American GFR (CKD) 19 (>60 ml/min/1.73 sqM); Anion Gap 32 mmol/L; Blood Urea Nitrogen 71 mg/dL (7-17); Chloride 97 mmol/L (98-107); Glucose 161 mg/dL (74-99); Non-African American GFR(CKD) 16 (>60 ml/min/1.73 sqM); Sodium 134 mmol/L (137-145); Total Bilirubin 1.3 mg/dL (0.2-1.3)
[2024-08-27 06:54] LABS: NT-Pro-B-Type Natriuretic Pept 5470 pg/mL
--- NOTE | 2024-08-27 07:07 | ED ---
SOB HPI - General Chief Complaint: Shortness of Breath Stated Complaint: SOB Time Seen by Provider: 08/27/24 05:25 Source: family, EMS Mode of arrival: EMS Limitations: altered mental status - History of Present Illness Initial Comments: This patient is an 84-year-old woman sent from longterm to have evaluation for shortness of breath. She has history of COPD and EMS called to the longterm because patient was breathing rapidly and was becoming poorly responsive. The patient also had low pulse oximetry readings at the longterm. Patient not able to provide any history on arrival, due to respiratory distress and altered mental status. MD Complaint: shortness of breath -: unknown Known History Of: COPD - Related Data Home Medications Medication Instructions Recorded Confirmed Bethanechol Chloride 25 mg PO TID 07/21/24 08/27/24 Ergocalciferol (Vitamin D2) 1,250 mcg PO FR 07/21/24 08/27/24 [Drisdol (50,000 Iu)] Ipratropium/Albuter 20-100Mcg 1 puff INHALATION 07/21/24 08/27/24 [Combivent Respimat 20-100Mcg RT-QID@06,12,17,21 Inhaler] Ondansetron [Zofran] 4 mg PO Q6H PRN 07/21/24 08/27/24 Amino Acids/Protein Hydrolys 30 ml PO DAILY 08/27/24 08/27/24 [Pro-Stat Awc Liquid] Ensure Clear 237 ml PO BID 08/27/24 08/27/24 Ferrous Sulfate [Feosol] 325 mg PO DAILY 08/27/24 08/27/24 Megestrol [Megace] 800 mg PO DAILY 08/27/24 08/27/24 Nicotine 7Mg/24Hr Patch [Habitrol] 1 patch TRANSDERM DAILY 08/27/24 08/27/24 Omeprazole [PriLOSEC] 20 mg PO DAILY 08/27/24 08/27/24 Previous Rx's Medication Instructions Recorded Acetaminophen Tab [Tylenol] 650 mg PO Q6HR PRN tab 06/20/24 HYDROcodone/APAP 5-325MG [[place] 1 tab PO Q6HR PRN 3 Days #9 tab 07/28/24 5-325] Allergies Allergy/AdvReac Type Severity Reaction Status Date / Time hydromorphone [From Dilaudid] AdvReac Confusion Verified 08/27/24 08:07 Review of Systems ROS Statement: Those systems with pertinent positive or pertinent negative responses have been documented in the HPI. ROS Other: All systems not noted in ROS Statement are negative. Limitations: ROS unobtainable due to patients medical condition Past Medical History Past Medical History: Dementia Additional Past Medical History / Comment(s): Arthritis, early onset dementia History of Any Multi-Drug Resistant Organisms: None Reported Past Surgical History: Breast Surgery Additional Past Surgical History / Comment(s): Mastectomy with node removal. Past Anesthesia/Blood Transfusion Reactions: No Reported Reaction Past Psychological History: No Psychological Hx Reported Smoking Status: Current every day smoker Past Alcohol Use History: None Reported Past Drug Use History: None Reported - Past Family History Mother Family Medical History: Osteoarthritis (OA) Additional Family Medical History / Comment(s): Rheumatic fever Father Family Medical History: No Reported History family Additional Family Medical History / Comment(s): no CAD or cancer General Exam Limitations: altered mental status General appearance: obtunded, in distress Head exam: Present: atraumatic, normocephalic Eye exam: Present: normal appearance, PERRL. Absent: scleral icterus, conjunctival injection ENT exam: Present: mucous membranes dry Neck exam: Present: normal inspection, full ROM. Absent: tenderness, meningismus Respiratory exam: Present: respiratory distress, wheezes, rhonchi, accessory muscle use. Absent: rales, stridor Cardiovascular Exam: Present: normal rhythm, tachycardia, systolic murmur. Absent: diastolic murmur, rubs, gallop GI/Abdominal exam: Present: distended. Absent: tenderness, guarding, rebound, rigid, mass, pulsatile mass Extremities exam: Present: normal inspection, normal capillary refill. Absent: pedal edema, calf tenderness Back exam: Present: normal inspection. Absent: CVA tenderness (R), CVA tenderness (L) Neurological exam: Present: altered Skin exam: Present: warm, dry, intact, mottled. Absent: rash Course Vital Signs 08/27/24 08/27/24 08/27/24 05:30 05:59 06:03 Temperature Pulse Rate 112 H 105 H Respiratory 36 H 39 H Rate Blood Pressure 108/97 110/57 O2 Sat by Pulse 82 L 58 L Oximetry Fraction of 100 Inspired Oxygen (FIO2) 08/27/24 08/27/24 08/27/24 06:17 06:18 06:28 Temperature 97.2 F L Pulse Rate 100 Respiratory 33 H Rate Blood Pressure 67/34 O2 Sat by Pulse Oximetry Fraction of 100 100 Inspired Oxygen (FIO2) 08/27/24 08/27/24 08/27/24 06:34 06:42 06:48 Temperature 97.1 F L Pulse Rate 101 H 103 H 105 H Respiratory 30 H 40 H Rate Blood Pressure 75/42 102/49 120/39 O2 Sat by Pulse 97 98 99 Oximetry Fraction of Inspired Oxygen (FIO2) 08/27/24 08/27/24 08/27/24 06:51 06:58 07:26 Temperature 97.3 F L Pulse Rate 105 H 106 H 110 H Respiratory 32 H 36 H 16 Rate Blood Pressure 115/68 122/51 118/62 O2 Sat by Pulse 98 99 99 Oximetry Fraction of Inspired Oxygen (FIO2) 08/27/24 08/27/24 08:03 08:08 Temperature Pulse Rate 115 H Respiratory 34 H Rate Blood Pressure 89/68 O2 Sat by Pulse 65 L Oximetry Fraction of 100 Inspired Oxygen (FIO2) Procedures - Intubation Sedative: Etomidate Mg Given: 10 Laryngoscope: Steven Size: 3 ET Tube Size: 7.5 ET Tube Uncuffed: No Tube Placement Confirmation: visualized tube passing through cords, equal breath sounds bilaterally, no breath sounds over epigastrium, confirmation by capnometry Patient Tolerated Procedure: well, no complications Intubation Complications: none Medical Decision Making - Medical Decision Making Patient is 84-year-old woman in from longterm with respiratory distress and altered mental status. The patient is placed on BiPAP initially, but she became a little very poorly responsive and is aspiration risk on BiPAP. Family then arrived and after discussion the patient is intubated for respiratory support airway protection. Following intubation the patient had studies sent, patient's blood pressure then became hypotensive and I had another discussion with patient's family and at this point a do seem to prefer an emphasis on comfort care versus having in vasive procedures. The patient had chest x-ray that I interpreted as negative for acute infiltrate, pneumothorax, congestive heart failure Was pt. sent in by a medical professional or institution (, PA, GLUE SPREADING MACHINE OPERATOR, urgent care, hospital, or longterm...) When possible be specific @ -[Yes, as above sent from longterm for respiratory distress Did you speak to anyone other than the patient for history (EMS, parent, family, police, friend...)? What history was obtained from this source @ -[The patient's family subsequently arrived and gave history. EMS did give some history initially. Did you review nursing and triage notes (agree or disagree)? Why? @ -[I reviewed and agree with nursing and triage notes] Were old charts reviewed (outside hosp., previous admission, EMS record, old E KG, old radiological studies, urgent care reports/EKG's, longterm records)? Report findings @ -[Transfer charts were reviewed, old records reviewed Differential Diagnosis (chest pain, altered mental status, abdominal pain women, abdominal pain men, vaginal bleeding, weakness, fever, dyspnea, syncope, headache, dizziness, GI bleed, back pain, seizure, CVA, palpatations, mental health, musculoskeletal)? @ -Differential Dyspnea: Coronary syndrome, arrhythmia, tamponade, asthma, COPD, pulmonary embolism, pneumonia, pneumothorax, pulmonary effusion, anaphylaxis, diabetic ketoacidosis, flailed chest, pulmonary contusion, diaphragmatic rupture, anemia, neuromuscular, this is not meant to be an all-inclusive list. Differential Altered Mental Status: Hypoglycemia, DKA, hypercapnia, ETOH, overdose, CO poisoning, trauma, myxedema coma, HTN encephalopathy, infection, encephalitis, psychosis, intercranial hemorrhage, hepatic encephalopathy, meningitis, CVA, this is not meant to be an all-inclusive list EKG interpreted by me (3pts min.). @ -[I interpreted as above] X-rays interpreted by me (1pt min.). @ -[I interpreted as above CT interpreted by me (1pt min.). @ -[None done] U/S interpreted by me (1pt. min.). @ -[None done] What testing was considered but not performed or refused? (CT, X-rays, U/S, labs)? Why? @ -[None] What meds were considered but not given or refused? Why? @ -[None] Did you discuss the management of the patient with other professionals (professionals i.e. , PA, GLUE SPREADING MACHINE OPERATOR, lab, RT, psych nurse, dialysis social worker, drawing tracer, teacher, grant officer, pillowcase cleaner)? Give summary @ -Case discussed with admitting physician also Case discussed with the room attendants Was smoking cessation discussed for >3mins.? @ -[No] Was critical care preformed (if so, how long)? @ -[Yes, 40 minutes Were there social determinants of health that impacted care today? How? (Home lessness, low income, unemployed, alcoholism, drug addiction, transportation, low edu. Level, literacy, decrease access to med. care, [facility], rehab)? @ -[No] Was there de-escalation of care discussed even if they declined (Discuss DNR or withdrawal of care, Hospice)? DNR status @ -[Yes I did discuss CODE STATUS and de-escalation with the patient's family What co-morbidities impacted this encounter? (DM, HTN, Smoking, COPD, CAD, Cancer, CVA, ARF, Chemo, Hep., AIDS, mental health diagnosis, sleep apnea, morbid obesity)? @ -[COPD Was patient admitted / discharged? Hospital course, mention meds given and route, prescriptions, significant lab abnormalities, going to OR and other pertinent info. @ -[As above, patient admitted to have further care Undiagnosed new problem with uncertain prognosis? @ -[No] Drug Therapy requiring intensive monitoring for toxicity (Heparin, Nitro, Insulin, Cardizem)? @ -[No] Were any procedures done? @ -[Endotracheal intubation, see the note Diagnosis/symptom? @ -[Acute respiratory failure Acute exacerbation of COPD Acute metabolic encephalopathy Acute kidney injury Lactic acidosis Acute hyperkalemia Acute, or Chronic, or Acute on Chronic? @ -[Acute Uncomplicated (without systemic symptoms) or Complicated (systemic symptoms)? @ -[Complicated by altered mental status Side effects of treatment? @ -[No] Exacerbation, Progression, or Severe Exacerbation? @ -[No] Poses a threat to life or bodily function? How? (Chest pain, [place], ME, pneumonia, PE, COPD, DKA, ARF, appy, cholecystitis, CVA, Diverticulitis, Homicidal, Suicidal, threat to staff... and all critical care pts) @ -[Yes there is high risk of morbidity and mortality due to respiratory f ailure All treatments are based on ideal body weight as in ED triage - Lab Data Result diagrams: 08/27/24 05:36 08/27/24 05:36 Lab Results 01/30/25 01/30/25 01/30/25 Range/Units 05:36 05:36 05:36 WBC 19.5 H (3.8-10.6) k/uL RBC 4.15 (3.80-5.40) m/uL Hgb 11.0 L D (11.4-16.0) gm/dL Hct 37.2 (34.0-46.0) % MCV 89.5 (80.0-100.0) fL MCH 26.4 (25.0-35.0) pg MCHC 29.5 L (31.0-37.0) g/dL RDW 16.2 H (11.5-15.5) % Plt Count 563 H (150-450) k/uL MPV 7.8 Neutrophils % (Manual) 40 % Band Neuts % (Manual) 44 % Lymphocytes % (Manual) 15 % Eosinophils % (Manual) 1 % Neutrophils # (Manual) 16.30 H (1.3-7.7) k/uL Lymphocytes # (Manual) 2.93 (1.0-4.8) k/uL Eosinophils # (Manual) 0.20 (0-0.7) k/uL Nucleated RBCs 0 (0-0) /100 WBC Manual Slide Review Performed Toxic Granulation Present Hypochromasia Marked Anisocytosis Slight Anisocytosis (manual) Present Rouleaux Present PT 11.0 (10.0-12.5) sec INR 1.0 (<1.2) APTT 22.1 (22.0-30.0) sec Sodium 134 L (137-145) mmol/L Potassium 6.0 H (3.5-5.1) mmol/L Chloride 97 L (98-107) mmol/L Carbon Dioxide 5 L* (22-30) mmol/L Anion Gap 32 mmol/L BUN 71 H (7-17) mg/dL Creatinine 2.63 H (0.52-1.04) mg/dL Est GFR (CKD-EPI)AfAm 19 (>60 ml/min/1.73 sqM) Est GFR (CKD-EPI)NonAf 16 (>60 ml/min/1.73 sqM) Glucose 161 H (74-99) mg/dL Lactic Ac Sepsis Rflx Plasma Lactic Acid Jeffy (0.7-2.0) mmol/L Calcium 10.0 (8.4-10.2) mg/dL Total Bilirubin 1.3 (0.2-1.3) mg/dL AST 70 H (14-36) U/L ALT 52 H (4-34) U/L Alkaline Phosphatase 845 H (38-126) U/L Troponin I (0.000-0.034) ng/mL NT-Pro-B Natriuret Pep 5470 pg/mL Total Protein 7.3 (6.3-8.2) g/dL Albumin 3.8 (3.5-5.0) g/dL Influenza Type A (PCR) (Not Detectd) Influenza Type B (PCR) (Not Detectd) RSV (PCR) (Not Detectd) SARS-CoV-2 (PCR) (Not Detectd) 08/27/24 08/27/24 08/27/24 Range/Units 05:36 05:36 05:37 WBC (3.8-10.6) k/uL RBC (3.80-5.40) m/uL Hgb (11.4-16.0) gm/dL Hct (34.0-46.0) % MCV (80.0-100.0) fL MCH (25.0-35.0) pg MCHC (31.0-37.0) g/dL RDW (11.5-15.5) % Plt Count (150-450) k/uL MPV Neutrophils % (Manual) % Band Neuts % (Manual) % Lymphocytes % (Manual) % Eosinophils % (Manual) % Neutrophils # (Manual) (1.3-7.7) k/uL Lymphocytes # (Manual) (1.0-4.8) k/uL Eosinophils # (Manual) (0-0.7) k/uL Nucleated RBCs (0-0) /100 WBC Manual Slide Review Toxic Granulation Hypochromasia Anisocytosis Anisocytosis (manual) Rouleaux PT (10.0-12.5) sec INR (<1.2) APTT (22.0-30.0) sec Sodium (137-145) mmol/L Potassium (3.5-5.1) mmol/L Chloride (98-107) mmol/L Carbon Dioxide (22-30) mmol/L Anion Gap mmol/L BUN (7-17) mg/dL Creatinine (0.52-1.04) mg/dL Est GFR (CKD-EPI)AfAm (>60 ml/min/1.73 sqM) Est GFR (CKD-EPI)NonAf (>60 ml/min/1.73 sqM) Glucose (74-99) mg/dL Lactic Ac Sepsis Rflx Plasma Lactic Acid Jeffy 10.1 H* (0.7-2.0) mmol/L Calcium (8.4-10.2) mg/dL Total Bilirubin (0.2-1.3) mg/dL AST (14-36) U/L ALT (4-34) U/L Alkaline Phosphatase (38-126) U/L Troponin I <0.012 (0.000-0.034) ng/mL NT-Pro-B Natriuret Pep pg/mL Total Protein (6.3-8.2) g/dL Albumin (3.5-5.0) g/dL Influenza Type A (PCR) Not Detected (Not Detectd) Influenza Type B (PCR) Not Detected (Not Detectd) RSV (PCR) Not Detected (Not Detectd) SARS-CoV-2 (PCR) Not Detected (Not Detectd) 08/27/24 Range/Units 07:19 WBC (3.8-10.6) k/uL RBC (3.80-5.40) m/uL Hgb (11.4-16.0) gm/dL Hct (34.0-46.0) % MCV (80.0-100.0) fL MCH (25.0-35.0) pg MCHC (31.0-37.0) g/dL RDW (11.5-15.5) % Plt Count (150-450) k/uL MPV Neutrophils % (Manual) % Band Neuts % (Manual) % Lymphocytes % (Manual) % Eosinophils % (Manual) % Neutrophils # (Manual) (1.3-7.7) k/uL Lymphocytes # (Manual) (1.0-4.8) k/uL Eosinophils # (Manual) (0-0.7) k/uL Nucleated RBCs (0-0) /100 WBC Manual Slide Review Toxic Granulation Hypochromasia Anisocytosis Anisocytosis (manual) Rouleaux PT (10.0-12.5) sec INR (<1.2) APTT (22.0-30.0) sec Sodium (137-145) mmol/L Potassium (3.5-5.1) mmol/L Chloride (98-107) mmol/L Carbon Dioxide (22-30) mmol/L Anion Gap mmol/L BUN (7-17) mg/dL Creatinine (0.52-1.04) mg/dL Est GFR (CKD-EPI)AfAm (>60 ml/min/1.73 sqM) Est GFR (CKD-EPI)NonAf (>60 ml/min/1.73 sqM) Glucose (74-99) mg/dL Lactic Ac Sepsis Rflx Y Plasma Lactic Acid Jeffy (0.7-2.0) mmol/L Calcium (8.4-10.2) mg/dL Total Bilirubin (0.2-1.3) mg/dL AST (14-36) U/L ALT (4-34) U/L Alkaline Phosphatase (38-126) U/L Troponin I (0.000-0.034) ng/mL NT-Pro-B Natriuret Pep pg/mL Total Protein (6.3-8.2) g/dL Albumin (3.5-5.0) g/dL Influenza Type A (PCR) (Not Detectd) Influenza Type B (PCR) (Not Detectd) RSV (PCR) (Not Detectd) SARS-CoV-2 (PCR) (Not Detectd) - EKG Data -: EKG Interpreted by Mo EKG shows normal: sinus rhythm, axis (Normal), intervals (Normal), QRS complexes (Normal) Rate: tachycardia ( rate 110 bpm) Interpretation: nonspecific ST-T wave changes Disposition Clinical Impression: Leukocytosis, Acute kidney injury, Hyperkalemia, Acute respiratory failure, Acute exacerbation of chronic obstructive pulmonary disease, Lactic acidosis Disposition: Condition: Poor Is patient prescribed a controlled substance at d/c from ED?: No Preliminary Cause of : See the admitting physician note
[2024-08-27] MEDS ORDERED: NALOXONE 0.4 MG/ML 1 ML VIAL IVP PRN (07:08)
[2024-08-27] MEDS ORDERED: ACETAMINOPHEN TAB 325 MG TAB PO PRN (07:08)
[2024-08-27] MEDS ORDERED: IPRATROPIUM-ALBUTEROL 3 ML NEB INHALATION PRN (07:18)
[2024-08-27 07:33] VITALS: TEMP 97.3
[2024-08-27] MEDS: ETOMIDATE 2 MG/ML 10 ML VIAL IVP STA (07:44)
[2024-08-27] MEDS: NICOTINE 7MG/24HR PATCH TRANSDERM SCH (08:01)
[2024-08-27 08:04] VITALS: BP 89/68; PULSE 115; RESP 34
[2024-08-27] MEDS: IPRATROPIUM-ALBUTEROL 3 ML NEB INHALATION SCH (08:06)
--- NOTE | 2024-08-27 08:17 | P.CNPUL ---
History of Present Illness Consult date: 08/27/24 Reason for consult: dyspnea History of present illness: This is a 84-year-old female patient, a [facility] resident was brought into the emergency department because of diminished level of consciousness and worsening shortness of breath. The patient is known to have advanced COPD, dementia, and she was hospitalized back in May 2024 following a fall and a left femoral neck fracture for which he underwent an ORIF. Subsequently, she wa s sent back again to [facility] on the [place] and her condition was essentially deteriorating. She was not eating and she was losing weight and she was not having difficulties with bowel movements. There has been progressive worsening in her overall health while being on [facility] over the past several weeks. The patient was brought into the emergency department for further care. In the ED, the patient was initially placed on a BiPAP and subsequently due to increased work of breathing and diminished level of consciousness, the patient was intubated and placed on the mechanical ventilator. Post intubation, the patient also became hypotensive. The patient was started on fluid resuscitation. My understanding based on my discussions with the emergency of the physician the family was not considering intubation initially. However, based on increased work of breathing and labored breathing, they decided to proceed with intubation. Now that the patient is intubated, her breathing is still labored. She is on assist-control mode rate of 16, tidal volume of 400, FiO2 of 100% and a PEEP of 5. Chest x-ray shows advanced emphysematous changes bilaterally. No airspace disease or consolidation. The patient has undergone bilateral econstructive surgery on the breast with breast implants post bilateral mastectomy. NG tube was inserted. The output seems to be fecal in nature. Her abdomen is quite distended at this point in time. The lactic acid level is at 10. Noted her urine analysis from 08/17/2024 was also abnormal. It seems that the patient has had issues with urinary tract infections as the previous cultures from May and June 2024 was positive for gram-negative bacteria including Enterobacter and subsequently Enterococcus. Her current UA is obviously abnormal suggestive of an underlying urine tract infection. Her urine is cloudy and dark. Abdomen is firm and distended. The white cell count of 19.5. Hemoglobin 11 and a platelet count of 563. Normal coagulation profile. Electrolytes are still pending. Troponins are negative. The EKG is showing sinus tachycardia. The patient is extremely emaciated, malnourished, surgical wound site over the left hip area is dry clean and intact. Family is at the bedside. Discussed treatment care and the family wants to proceed with end-of-life care at this point. They do understand the poor prognosis. Review of Systems ROS unobtainable: due to endotracheal tube Past Medical History Past Medical History: COPD, Dementia Additional Past Medical History / Comment(s): Arthritis, early onset dementia History of Any Multi-Drug Resistant Organisms: None Reported Past Surgical History: Breast Surgery Additional Past Surgical History / Comment(s): Mastectomy with node removal. Past Anesthesia/Blood Transfusion Reactions: No Reported Reaction Past Psychological History: No Psychological Hx Reported Smoking Status: Current every day smoker Past Alcohol Use History: None Reported Past Drug Use History: None Reported - Past Family History Mother Family Medical History: Osteoarthritis (OA) Additional Family Medical History / Comment(s): Rheumatic fever Father Family Medical History: No Reported History family Additional Family Medical History / Comment(s): no CAD or cancer Medications and Allergies Home Medications Medication Instructions Recorded Confirmed Type Acetaminophen Tab [Tylenol] 650 mg PO Q6HR PRN tab 06/20/24 07/21/24 Rx Bethanechol Chloride 25 mg PO QID@,,,07/21/24 07/21/24 History Ergocalciferol (Vitamin D2) 1,250 mcg PO FR 07/21/24 07/21/24 History [Drisdol (50,000 Iu)] Ipratropium/Albuter 20-100Mcg 1 puff INHALATION 07/21/24 07/21/24 History [Combivent Respimat 20-100Mcg RT-QID@,12,, Inhaler] Ondansetron [Zofran] 4 mg PO Q6H PRN 07/21/24 07/21/24 History HYDROcodone/APAP 5-325MG [[place] 1 tab PO Q6HR PRN 3 Days #9 tab 07/28/24 Rx 5-325] Amino Acids/Protein Hydrolys 30 ml PO DAILY 08/27/24 08/27/24 History [Pro-Stat Awc Liquid] Ensure Clear 237 ml PO BID 08/27/24 08/27/24 History Ferrous Sulfate [Feosol] 325 mg PO DAILY 08/27/24 08/27/24 History Megestrol [Megace] 800 mg PO DAILY 08/27/24 08/27/24 History Nicotine 7Mg/24Hr Patch [Habitrol] 1 patch TRANSDERM DAILY 08/27/24 08/27/24 History Omeprazole [PriLOSEC] 20 mg PO DAILY 08/27/24 08/27/24 History Allergies Allergy/AdvReac Type Severity Reaction Status Date / Time hydromorphone [From Dilaudid] AdvReac Confusion Verified 08/27/24 08:07 Physical Exam Vitals: Vital Signs Temp Pulse Resp BP Pulse Ox FiO2 08/27/24 08:03 115 H 34 H 89/68 65 L 08/27/24 07:26 97.3 F L 110 H 16 118/62 99 08/27/24 06:58 106 H 36 H 122/51 99 08/27/24 06:51 105 H 32 H 115/68 98 08/27/24 06:48 97.1 F L 105 H 40 H 120/39 99 08/27/24 06:42 103 H 30 H 102/49 98 08/27/24 06:34 101 H 75/42 97 08/27/24 06:28 97.2 F L 100 33 H 67/34 08/27/24 06:18 100 08/27/24 06:17 100 08/27/24 06:03 105 H 39 H 110/57 58 L 08/27/24 05:59 100 08/27/24 05:30 112 H 36 H 108/97 82 L Intake and Output 08/26/24 08/27/24 08/27/24 22:59 06:59 14:59 Output Total 100 Balance -100 Output: Urine 100 Uretheral (Callejas) 100 Other: Weight 54.431 kg Patient is extremely cachectic, emaciated, still having labored breathing while being intubated on the mechanical ventilator. Orogastric and orotracheal tube are both in place. Head exam was generally normal. There was no scleral icterus or corneal arcus. Mucous membranes were moist. Neck was supple and without jugular venous distension, thyromegaly, or carotid bruits. Carotids were easily palpable bilaterally. There was no adenopathy. Positive JVD's Lungs reveal diminished breath sounds bilaterally. CAT scan expiratory wheeze. No crackles. No rhonchi. Cardiac exam revealed the PMI to be normally situated and sized. The rhythm was regular and no extrasystoles were noted during several minutes of auscultation. The first and second heart sounds were normal and physiologic splitting of the second heart sound was noted. There were no murmurs, rubs, clicks, or gallops. Abdomen is distended. There is a scar over the right lateral upper quadrant area probably history of previous abdominal surgery. Organs cannot be palpated. The abdomen is slightly tympanic. No direct tenderness. No rebound tenderness. No fluid wave. CANNOT be accurately palpated. However, on examination, the abdomen is firm and distended. Extremities are cold and there is diminished pulses all 4 extremities. No cyanosis or clubbing Neurologically, the patient is intubated, unresponsive. Results - Laboratory Findings CBC and BMP: 08/27/24 05:36 ABG WBC 19.5 k/uL (3.8-10.6) H 08/27/24 05:36 RBC 4.15 m/uL (3.80-5.40) 08/27/24 05:36 Hgb 11.0 gm/dL (11.4-16.0) L D 08/27/24 05:36 Hct 37.2 % (34.0-46.0) 08/27/24 05:36 MCV 89.5 fL (80.0-100.0) 08/27/24 05:36 MCH 26.4 pg (25.0-35.0) 08/27/24 05:36 MCHC 29.5 g/dL (31.0-37.0) L 08/27/24 05:36 RDW 16.2 % (11.5-15.5) H 08/27/24 05:36 Plt Count 563 k/uL (150-450) H 08/27/24 05:36 MPV 7.8 08/27/24 05:36 Neutrophils % (Manual) 40 % 08/27/24 05:36 Band Neuts % (Manual) 44 % 08/27/24 05:36 Lymphocytes % (Manual) 15 % 08/27/24 05:36 Eosinophils % (Manual) 1 % 08/27/24 05:36 Neutrophils # (Manual) 16.30 k/uL (1.3-7.7) H 08/27/24 05:36 Lymphocytes # (Manual) 2.93 k/uL (1.0-4.8) 08/27/24 05:36 Eosinophils # (Manual) 0.20 k/uL (0-0.7) 08/27/24 05:36 Nucleated RBCs 0 /100 WBC (0-0) 08/27/24 05:36 Manual Slide Review Performed 08/27/24 05:36 Toxic Granulation Present 08/27/24 05:36 Hypochromasia Marked 08/27/24 05:36 Anisocytosis Slight 08/27/24 05:36 Anisocytosis (manual) Present 08/27/24 05:36 Rouleaux Present 08/27/24 05:36 PT 11.0 sec (10.0-12.5) 08/27/24 05:36 INR 1.0 (<1.2) 08/27/24 05:36 APTT 22.1 sec (22.0-30.0) 08/27/24 05:36 Plasma Lactic Acid Jeffy 10.1 mmol/L (0.7-2.0) H* 08/27/24 05:36 Troponin I <0.012 ng/mL (0.000-0.034) 08/27/24 05:36 PT/INR, D-dimer PT 11.0 sec (10.0-12.5) 08/27/24 05:36 INR 1.0 (<1.2) 08/27/24 05:36 Abnormal lab findings: Abnormal Labs 08/27/24 08/27/24 05:36 05:36 WBC 19.5 H Hgb 11.0 L D MCHC 29.5 L RDW 16.2 H Plt Count 563 H Neutrophils # (Manual) 16.30 H Plasma Lactic Acid Jeffy 10.1 H* - Diagnostic Findings Chest x-ray: image reviewed Assessment and Plan Plan: Acute hypoxic respiratory failure. The patient presents with severe respiratory distress, intubated on the mechanical ventilator. The intubation was requested by family as the patient's breathing was quite labored. The patient herself did not want to get intubated based on previous discussion with the family. However, considering the ongoing circumstances, the family opted for intubation. Respiratory failure is multifactorial. I do suspect an abdominal complication as the patient's abdomen is firm and distended and the patient has severe lactic acidosis. She does have also underlying COPD. No evidence of any pneumonia. Underlying sepsis either from an abdominal source or a urinary source cannot be completely excluded Acute hypotension/shock, probably combination of hypovolemic and septic Abdominal distention, NG tube was placed for gastric decompression. The output is feculent. Consider bowel obstruction. Consider any other intra-abdominal complications with secondary lactic acidosis Recurrent urinary tract infection. UA is abnormal. Underlying UTI with secondary sepsis cannot be completely ruled out Dementia with impaired cognitive functions residential resident Recent fall and a left femoral neck fracture status post ORIF back in May 2024 Acute lactic acidosis Advanced COPD, oxygen dependent Bilateral breast reconstructive surgery for benign breast nodules/lesions Acute leukocytosis secondary to above Plan Had a lengthy discussion with the family. Family is at the bedside. I spoke to her son who also happens to have power of environmental attorney. More family members are to arrive. The son was not in favor of further resuscitation, lines, or any other surgical intervention should there be any needs. Based on our discussion, we came out to the understanding to the patient's baseline has been essentially ported her current health is been essentially declining at the [facility]. The family is opting for end-of-life care. My recommendation is to start the patient on a morphine drip and subsequently extubate the patient once the family is ready and transition the patient to a private room. There is no need for ICU admission at this point in time taking in consideration with above-mentioned circumstances. Family was very appreciative and understanding. This is a very high mortality case and obviously the patient carries a very poor prognosis. Time with Patient: Greater than 30
[2024-08-27 09:29] LABS: Influenza A Not Detected (Not Detectd); Influenza B Not Detected (Not Detectd); RSV Not Detected (Not Detectd)
[2024-08-27 09:56] LABS: AST 70 U/L (14-36); Carbon Dioxide 5 mmol/L (22-30); Total Protein 7.3 g/dL (6.3-8.2)
[2024-08-27 09:57] LABS: ALT 52 U/L (4-34); Albumin 3.8 g/dL (3.5-5.0); Alkaline Phosphatase 845 U/L (38-126)
[2024-08-27] MEDS: LORazepam 2 MG/ML INJ IV PRN (10:02)
[2024-08-27] MEDS: MORPHINE SULFATE 2 MG/ML SYRINGE IV PRN (10:24)
[2024-08-27] MEDS: SCOPOLAMINE 1 MG/72 HR PATCH TRANSDERM SCH (10:52)
[2024-08-27] MEDS: methylPREDNISolone SOD SUCCI 125 MG/2 ML VIAL IV SCH (11:02)
--- NOTE | 2024-08-27 11:22 | P.HPIM ---
History of Present Illness H&P Date: 08/27/24 History of present illness; patient is a 84-year-old lady with past medical history significant for advanced COPD, dementia who [facility] and was brought to the ER because of shortness of breath. Most of the history has been obtained from EMR. According that patient was found to be [facility] the [facility], patient also found to be more confused and not her usual self at the facility. EMS was immediately called and they found her to be hypoxemic, patient was transferred to [facility] Initial lab work done in the ER showed WBC 19.5, hemoglobin 11, platelet count 563, sodium 134, potassium 6, monocyte 5, BUN 71, creatinine 2.63, lactate 10.1, AST 70, ALT 52, alk phos 845 Influenza A not detected Influenza B not detected RSV not detected COVID-19 not detected EKG done in the ER showed heart rate of 110, no ST segment elevation or depression seen, no T-wave inversions seen. Chest x-ray done in the ER showed no acute findings of pneumonia, emphysematous changes bilaterally Patient was initially placed on BiPAP but because of respiratory distress, patient was intubated Patient admitted to internal medicine service to ICU REVIEW OF SYSTEMS: Review of system cannot be obtained as patient is currently intubated PHYSICAL EXAMINATION: Physical exam was deferred as patient was intubated and family had opted for comfort care measures with terminal wean Assessment and plan Acute hypoxic respiratory failure Acute COPD exacerbation Acute metabolic encephalopathy Lactic acidosis Hyponatremia Hyperkalemia Acute on chronic kidney disease Metabolic acidosis dementia Plan; family decided for comfort care measures, with terminal wean, Labs and medication were reviewed.. Continue same treatment. Continue with symptomatic treatment. Resume home medication. Monitor labs and vitals. DVT and GI prophylaxis. Further recommendations as per clinical course of the patient Dictation was produced using [employer] dictation software. please excuse any grammatical, word or spelling errors. Past Medical History Past Medical History: COPD, Dementia Additional Past Medical History / Comment(s): Arthritis, early onset dementia History of Any Multi-Drug Resistant Organisms: None Reported Past Surgical History: Breast Surgery Additional Past Surgical History / Comment(s): Mastectomy with node removal. Past Anesthesia/Blood Transfusion Reactions: No Reported Reaction Past Psychological History: No Psychological Hx Reported Smoking Status: Current every day smoker Past Alcohol Use History: None Reported Past Drug Use History: None Reported - Past Family History Mother Family Medical History: Osteoarthritis (OA) Additional Family Medical History / Comment(s): Rheumatic fever Father Family Medical History: No Reported History family Additional Family Medical History / Comment(s): no CAD or cancer Medications and Allergies Home Medications Medication Instructions Recorded Confirmed Type Acetaminophen Tab [Tylenol] 650 mg PO Q6HR PRN tab 06/20/24 08/27/24 Rx Bethanechol Chloride 25 mg PO TID 07/21/24 08/27/24 History Ergocalciferol (Vitamin D2) 1,250 mcg PO FR 07/21/24 08/27/24 History [Drisdol (50,000 Iu)] Ipratropium/Albuter 20-100Mcg 1 puff INHALATION 07/21/24 08/27/24 History [Combivent Respimat 20-100Mcg RT-QID@06,12,17,21 Inhaler] Ondansetron [Zofran] 4 mg PO Q6H PRN 07/21/24 08/27/24 History HYDROcodone/APAP 5-325MG [[place] 1 tab PO Q6HR PRN 3 Days #9 tab 07/28/24 08/27/24 Rx 5-325] Amino Acids/Protein Hydrolys 30 ml PO DAILY 08/27/24 08/27/24 History [Pro-Stat Awc Liquid] Ensure Clear 237 ml PO BID 08/27/24 08/27/24 History Ferrous Sulfate [Feosol] 325 mg PO DAILY 08/27/24 08/27/24 History Megestrol [Megace] 800 mg PO DAILY 08/27/24 08/27/24 History Nicotine 7Mg/24Hr Patch [Habitrol] 1 patch TRANSDERM DAILY 08/27/24 08/27/24 History Omeprazole [PriLOSEC] 20 mg PO DAILY 08/27/24 08/27/24 History Allergies Allergy/AdvReac Type Severity Reaction Status Date / Time hydromorphone [From Dilaudid] AdvReac Confusion Verified 08/27/24 08:07 Physical Exam Vitals: Vital Signs Temp Pulse Resp BP Pulse Ox FiO2 08/27/24 08:08 100 08/27/24 08:03 115 H 34 H 89/68 65 L 08/27/24 07:26 97.3 F L 110 H 16 118/62 99 08/27/24 06:58 106 H 36 H 122/51 99 08/27/24 06:51 105 H 32 H 115/68 98 08/27/24 06:48 97.1 F L 105 H 40 H 120/39 99 08/27/24 06:42 103 H 30 H 102/49 98 08/27/24 06:34 101 H 75/42 97 08/27/24 06:28 97.2 F L 100 33 H 67/34 08/27/24 06:18 100 08/27/24 06:17 100 08/27/24 06:03 105 H 39 H 110/57 58 L 08/27/24 05:59 100 08/27/24 05:30 112 H 36 H 108/97 82 L Intake and Output 08/26/24 08/27/24 08/27/24 22:59 06:59 14:59 Output Total 100 Balance -100 Output: Urine 100 Uretheral (Callejas) 100 Other: Weight 54.431 kg Results CBC & Chem 7: 08/27/24 05:36 08/27/24 05:36 Labs: Abnormal Lab Results - Last 24 Hours (Table) 08/27/24 08/27/24 08/27/24 Range/Units 05:36 05:36 05:36 WBC 19.5 H (3.8-10.6) k/uL Hgb 11.0 L D (11.4-16.0) gm/dL MCHC 29.5 L (31.0-37.0) g/dL RDW 16.2 H (11.5-15.5) % Plt Count 563 H (150-450) k/uL Neutrophils # (Manual) 16.30 H (1.3-7.7) k/uL Sodium 134 L (137-145) mmol/L Potassium 6.0 H (3.5-5.1) mmol/L Chloride 97 L (98-107) mmol/L Carbon Dioxide 5 L* (22-30) mmol/L BUN 71 H (7-17) mg/dL Creatinine 2.63 H (0.52-1.04) mg/dL Glucose 161 H (74-99) mg/dL Plasma Lactic Acid Jeffy 10.1 H* (0.7-2.0) mmol/L AST 70 H (14-36) U/L ALT 52 H (4-34) U/L Alkaline Phosphatase 845 H (38-126) U/L
--- NOTE | 2024-08-28 12:34 | CDI ---
Documentation Clarification Form Date: 08/28/2024 From: [place] Admit Date: 08/27/2024 07:20:00 AM Patient Name: Minda Caraballo Visit Number: [id number] Discharge Date: 08/27/2024 10:44:00 AM ATTENTION: The Clinical Documentation Specialists (CDI) and [facility] Coding Staff appreciate your assistance in clarifying documentation. Please respond to the clarification below the line at the bottom and electronically sign. The CDI & [facility] Coding staff will review the response and follow-up if needed. Please note: Queries are made part of the Legal Health Record. If you have any questions, please contact the author of this message via ITS. Doctor/Provider: Herrera Taylor, The patient has possible sepsis per 08/[address] Sierra. Based on this information and the findings below, is there an additional diagnosis that is clinically appropriate for this patient? History/Risk Factors: COPD, dementia, arthritis, early on dementia Clinical Indicators: Per Dr. Sierra consult Acutehypotension/shock,probably combination ofhypovolemicandseptic. and Recurrent urinary tract infection.UA isabnormal. UnderlyingUTIwith secondarysepsiscannot be completelyruled out. Metabolic encephalopathy, acute renal failure. WBC: 19.5 Neutrophil: 16.30 Lactic acid: 10.1 Blood cultures: None Vitals signs: T 97.2, P 112, R 36/39. BP 108/97, 67/34, O2 Sat 82/58 Treatment: IV Ceftriaxone IV Bolus: Yes Is there an additional diagnosis that is clinically appropriate for this patient? [ ] Sepsis, present on admission [ x ] Severe Sepsis with organ failure [ ] Septic Shock [ ] SIRS, without underlying infectious process [ ] No additional diagnosis/not clinically significant [ ] Other, please specify [ ] Unable to determine SIRS Criteria: 2 or more of the following may indicate SIRS Temperature < 96.8F (36C) or > 101.0F (38.3C) Heart Rate > 90 bpm Respiratory Rate > 20 breaths/min or PaCO2 < 32 mmHg White Blood Cell Count > 12,000 or < 4,000 cells/mm3 or > 10% bands MTDD
--- NOTE | 2024-09-06 09:28 | P.DS ---
Providers Date of admission: 08/27/24 07:20 Attending physician: Cadence Carrion Consults: 08/27/24 10:20 Consult Physician Routine Consulting Provider: Usama Sierra Consult Reason/Comments: Acute respiratory failure Do you want consulting provider notified?: Yes Consult Physician Routine Consulting Provider: Kamla Mejía Consult Reason/Comments: Hyperkalemia, acute on chronic kidney disease Do you want consulting provider notified?: Yes Primary care physician: [facility] Course: Discharge diagnoses; Acute hypoxic respiratory failure Acute COPD exacerbation Acute metabolic encephalopathy Lactic acidosis Hyponatremia Hyperkalemia Acute on chronic kidney disease Metabolic acidosis dementia Hospital course; patient is a 84-year-old lady with past medical history significant for advanced COPD, dementia who is currently resident of retirement facility and was brought to the ER because of shortness of breath. Most of the history has been obtained from EMR. According that patient was found to be short of breath at the retirement, patient also found to be more confused and not her usual self at the facility. EMS was immediately called and they found her to be hypoxemic, patient was transferred to [facility] Initial lab work done in the ER showed WBC 19.5, hemoglobin 11, platelet count 563, sodium 134, potassium 6, monocyte 5, BUN 71, creatinine 2.63, lactate 10.1, AST 70, ALT 52, alk phos 845 Influenza A not detected Influenza B not detected RSV not detected COVID-19 not detected EKG done in the ER showed heart rate of 110, no ST segment elevation or depression seen, no T-wave inversions seen. Chest x-ray done in the ER showed no acute findings of pneumonia, emphysematous changes bilaterally Patient was initially placed on BiPAP but because of respiratory distress, patient was intubated Patient admitted to internal medicine service to ICU Family decided to proceed with comfort care measures. Patient was pronounced on August 27, family was updated about the loss Dictation was produced using [employer] dictation software. please excuse any grammatical, word or spelling errors. Patient Condition at Discharge: Poor Plan - Discharge Summary New Discharge Prescriptions: No Action Acetaminophen Tab [Tylenol] 650 mg PO Q6HR PRN tab PRN Reason: Mild Pain Or Fever > 100.5 Ipratropium/Albuter 20-100Mcg [Combivent Respimat 20-100Mcg Inhaler] 1 puff INHALATION RT-QID@,12,, Bethanechol Chloride 25 mg PO TID Ergocalciferol (Vitamin D2) [Drisdol (50,000 Iu)] 1,250 mcg PO FR Amino Acids/Protein Hydrolys [Pro-Stat Awc Liquid] 30 ml PO DAILY Ensure Clear 237 ml PO BID Ferrous Sulfate [Feosol] 325 mg PO DAILY Nicotine 7Mg/24Hr Patch [Habitrol] 1 patch TRANSDERM DAILY Omeprazole [PriLOSEC] 20 mg PO DAILY Ondansetron [Zofran] 4 mg PO Q6H PRN PRN Reason: Nausea And Vomiting HYDROcodone/APAP 5-325MG [[place] 5-325] 1 tab PO Q6HR PRN 3 Days #9 tab PRN Reason: Pain Megestrol [Megace] 800 mg PO DAILY Discharge Medication List Acetaminophen Tab [Tylenol] 650 mg PO Q6HR PRN tab 06/20/24 [Rx] Bethanechol Chloride 25 mg PO TID 07/21/24 [History] Ergocalciferol (Vitamin D2) [Drisdol (50,000 Iu)] 1,250 mcg PO FR 07/21/24 [History] Ipratropium/Albuter 20-100Mcg [Combivent Respimat 20-100Mcg Inhaler] 1 puff INHALATION RT-QID@,12,17,21 07/21/24 [History] Ondansetron [Zofran] 4 mg PO Q6H PRN 07/21/24 [History] HYDROcodone/APAP 5-325MG [[place] 5-325] 1 tab PO Q6HR PRN 3 Days #9 tab 07/28/24 [Rx] Amino Acids/Protein Hydrolys [Pro-Stat Awc Liquid] 30 ml PO DAILY 08/27/24 [History] Ensure Clear 237 ml PO BID 08/27/24 [History] Ferrous Sulfate [Feosol] 325 mg PO DAILY 08/27/24 [History] Megestrol [Megace] 800 mg PO DAILY 08/27/24 [History] Nicotine 7Mg/24Hr Patch [Habitrol] 1 patch TRANSDERM DAILY 08/27/24 [History] Omeprazole [PriLOSEC] 20 mg PO DAILY 08/27/24 [History] Follow up Appointment(s)/Referral(s): Radn Choudhary MD [Primary Care Provider] - 1-2 days Discharge Disposition: - Preliminary Cause of Preliminary Cause of : COPD
== END 2024-08-27 10:44 | disposition expired | DRG 871 ==
LOC: EC 05:16 → 2SICU 07:20
PROVIDERS: ADMIT Hospitalist; ATTEND Hospitalist
PROC: 5A1935Z Respiratory Ventilation, Less than 24 Consecutive Hours (ICD-10-PCS; principal; 2024-08-27)
PROC: 0BH17EZ Insertion of Endotracheal Airway into Trachea, Via Natural or Artificial Opening (ICD-10-PCS; principal; 2024-08-27)
PROC: 0D9670Z Drainage of Stomach with Drainage Device, Via Natural or Artificial Opening (ICD-10-PCS; principal; 2024-08-27)
PROC: 5A09357 Assistance with Respiratory Ventilation, Less than 24 Consecutive Hours, Continuous Positive Airway Pressure (ICD-10-PCS; 2024-08-27)
DX: A41.9 Sepsis, unspecified organism (principal); G93.41 Metabolic encephalopathy; J96.01 Acute respiratory failure with hypoxia; R65.21 Severe sepsis with septic shock; E87.20 Acidosis, unspecified; R57.1 Hypovolemic shock; J44.1 Chronic obstructive pulmonary disease with (acute) exacerbation; R64 Cachexia; F03.90 Unspecified dementia, unspecified severity, without behavioral disturbance, psychotic disturbance, mood disturbance, and anxiety; N18.9 Chronic kidney disease, unspecified; E46 Unspecified protein-calorie malnutrition; E87.1 Hypo-osmolality and hyponatremia; N17.9 Acute kidney failure, unspecified; Z51.5 Encounter for palliative care; Z66 Do not resuscitate; E87.5 Hyperkalemia; I95.9 Hypotension, unspecified; Z68.22 Body mass index [BMI] 22.0-22.9, adult; M19.90 Unspecified osteoarthritis, unspecified site; F17.200 Nicotine dependence, unspecified, uncomplicated; Z99.81 Dependence on supplemental oxygen; Z79.818 Long term (current) use of other agents affecting estrogen receptors and estrogen levels; Z79.899 Other long term (current) drug therapy; Z91.81 History of falling; Z88.5 Allergy status to narcotic agent
CPT/HCPCS: 31500; 36415; 71045; 80053; 83605; 83880; 84484; 85025; 85610; 85730; 87636; 93005; 94002; 96365; 96366; 96375; 96376; 99291